=== PATIENT | female | born 1940 | race Caucasian/White ===

== ENCOUNTER → 2018-01-08 15:36 | Outpatient (CLI) | payer MEDICARE, OTHER, SELFPAY ==
--- NOTE | 2018-01-08 15:52 | XR_ITS ---
EXAM: XR lumbar spine min 4V HISTORY: Right-sided low back pain ITS.REASON: LOW BACK PAIN ORDERING PHYSICIAN: Tahmina Rajput MD PATIENT AGE: 77 years COMPARISON: None FINDINGS: No acute fracture or dislocation is evident. There is partial sacralization of L5. There is 5 mm anterolisthesis of L3 on L4 with mild degenerative disc disease at L3-L4 and L4-L5. Facet arthritic changes are also present in L3 and L4. There is minimal lower lumbar curvature convex right. Incidental vascular calcification is noted. IMPRESSION: Lumbar spondylosis with degenerative disc disease and facet arthritic change. No acute fracture
== END ==
PROVIDERS: PCP Family Medicine; Visit Provider Family Medicine
DX: M54.5 Low back pain (principal)
CPT/HCPCS: 72110

== ENCOUNTER → 2018-02-27 10:09 | Outpatient (CLI) | payer MEDICARE, OTHER, SELFPAY ==
--- NOTE | 2018-02-27 10:13 | MM_ITS ---
MM Dig screening mamm BI w/CAD CAD Screening ORDERING PHYSICIAN : Lelia Mata PATIENT AGE: 77 years GENDER: Female INDICATION: Does taking female hormones. Previous cyst aspiration left breast. Mother with breast cancer age 80s postmenopausal COMPARISON: Previous mammograms: 2016, December 2015,. Also July 2013 and September 2010 TECHNIQUE: Standard CC and MLO images were obtained. R2 CAD reviewed. Additional axillary cc view left breast FINDINGS: Moderate asymmetry along with breast density towards upper-outer quadrant bilaterally mild/moderate. A most evident fibroglandular elements towards upper-outer quadrant right breast. RIGHT BREAST:Asymmetric fibrolinear elements upper-outer quadrant left breast appears stable.. Stable dense benign-appearing calcifications deep right breast. These are most likely reflection of degenerative fibroadenoma LEFT BREAST:Minimal fibroglandular elements/densities upper outer quadrant left breast appears stable No significant new areas concern either breast. Bilateral follow-up one year IMPRESSION: No significant new findings. Stable mammogram Bilateral follow-up in one year recommended Stable areas of asymmetric density BI-RADS Category: 2 Benign Finding(s) RECOMMENDED FOLLOW-UP: 1YR - 1 YEAR FOLLOW-UP (A letter has been sent to the patient regarding results of the study.)
--- NOTE | 2018-02-27 10:14 | XR_ITS ---
XR hand RT min 3V HISTORY: ITS.REASON: RHEUMONATOID ARTHRITIS ORDERING PHYSICIAN: Lelia Mata PATIENT AGE: 77 years COMPARISON: FINDINGS: There are mild osteoarthritic changes involving the metacarpophalangeal joints, the PIPs, and the DIPs as well as interphalangeal joint of the thumb and osteoarthritic changes of the carpal metacarpal junction. No bony erosive changes apparent. No obvious soft tissue swelling. IMPRESSION: Osteoarthritis of the right hand
--- NOTE | 2018-02-27 10:14 | XR_ITS ---
XR DEXA axial skeleton HISTORY: ITS.REASON: OSTEOPENIA ORDERING PHYSICIAN: Lelia Mata PATIENT AGE: 77 years COMPARISON: FINDINGS: The BMD measured at the left femoral neck is 0.907 g/cm squared with a T score of -0.9. This is considered normal according to the World Health Organization criteria. Fracture risk is low. Treatment is advised. The L1 L4 density has a T score of 0.9 which is within normal limits. IMPRESSION: Normal bone density. Recommend follow-up exam February 2020
== END ==
PROVIDERS: PCP Family Medicine; Visit Provider Obstetrics & Gynecology
DX: Z12.31 Encounter for screening mammogram for malignant neoplasm of breast (principal); M85.89 Other specified disorders of bone density and structure, multiple sites
CPT/HCPCS: 73130; 77067; 77080

== ENCOUNTER → 2018-12-03 13:10 | Outpatient (CLI) | payer MEDICARE, OTHER, SELFPAY ==
--- NOTE | 2018-12-03 13:21 | XR_ITS ---
XR chest 2V HISTORY: ITS.REASON: COUGH,CONGESTION ORDERING PHYSICIAN: Tahmina Rajput MD PATIENT AGE: 78 years COMPARISON: 06/08/2013 FINDINGS: The cardiomediastinal silhouette and pulmonary vascularity are within normal limits. The lungs are clear without infiltrates, suspicious nodules, or pleural effusions. There are degenerative changes in the thoracic spine No acute bony abnormalities. IMPRESSION: No acute finding
== END ==
PROVIDERS: PCP Family Medicine; Visit Provider Family Medicine
DX: R05 Cough (principal); R09.89 Other specified symptoms and signs involving the circulatory and respiratory systems
CPT/HCPCS: 71046

== ENCOUNTER → 2019-01-23 15:43 | Outpatient (CLI) | payer MEDICARE, OTHER, SELFPAY ==
--- NOTE | 2019-01-23 15:48 | MM_ITS ---
MM Dig screening mamm BI w/CAD CAD Screening COMPARISON: Digital mammograms with CAD 02/27/2018 and 01/23/2017 INDICATION: There is a history of breast cancer patient's mother diagnosed after menopause. There has been a previous cyst aspiration left breast. TECHNIQUE: Standard CC and MLO images were obtained. R2 CAD reviewed. FINDINGS: Mild scattered fiber glandular densities are seen in both breast on a background of fatty type breast parenchyma. There are stable asymmetric glandular tissue of the upper outer quadrant right breast. There are scattered benign-appearing microcalcifications and macrocalcifications there is no suspicious lesion and there are no suspicious microcalcifications. In each breast. IMPRESSION: Stable exam with no suspicious lesion seen BI-RADS Category: 2 Benign Finding(s) RECOMMENDED FOLLOW-UP: 1YR - 1 YEAR FOLLOW-UP (A letter has been sent to the patient regarding results of the study.)
== END ==
PROVIDERS: PCP Family Medicine; Visit Provider Obstetrics & Gynecology
DX: Z12.31 Encounter for screening mammogram for malignant neoplasm of breast (principal)
CPT/HCPCS: 77067

== ENCOUNTER → 2019-03-06 12:11 | Outpatient (CLI) | payer MEDICARE, OTHER, SELFPAY ==
--- NOTE | 2019-03-06 12:17 | XR_ITS ---
XR chest 2V HISTORY: ITS.REASON: COUGH ORDERING PHYSICIAN: Taj Bean PATIENT AGE: 78 years Technique: PA and lateral chest COMPARISON: PA and lateral chest 12/03/2018 FINDINGS nothing definitely acute. No significant change since previous studies. Accentuation markings toward lung bases appears similar reflecting likely some mild chronic changes towards the bases along with overlying breast density.. No focal pneumonia. No consolidation. No pleural effusion. Heart is upper normal in size with borderline/mild cardiomegaly. Normal pulmonary vascularity. Mediastinal and hilar structures appear satisfactory. Narrowing at the subacromial space at the right shoulder likely reflecting underlying RCT. Ribs appear intact. Notable Anterior marginal osteophytes at the mid T-spine IMPRESSION. Stable chest with nothing definitely acute. Mild chronic changes. . Borderline/mild cardiomegaly.
== END ==
PROVIDERS: PCP Family Medicine; Visit Provider Allergy & Immunology
DX: R05 Cough (principal)
CPT/HCPCS: 71046

== ENCOUNTER → 2019-04-16 13:56 | Outpatient (CLI) | payer MEDICARE, OTHER, SELFPAY ==
[2019-04-16 14:55] LABS: Basophils % 0.2 % (0.1-2.0); Eosinophils # 0.2 K/mm3 (0.0-0.4); Eosinophils % 2.4 % (0.1-12.0); Hematocrit 40.8 % (37.0-47.0); Hemoglobin 13.4 g/dL (12.2-16.2); Lymphocytes # 1.9 K/mm3 (0.7-4.5); Lymphocytes % 20.4 % (10-50); Mean Corpuscular HGB Conc 32.9 g/dL (31.8-35.4); Mean Platelet Volume 7.2 fl (7.4-10.4); Monocytes # 0.7 K/mm3 (0.1-1.0); Monocytes % 7.8 % (1.7-9.3); Neutrophils # 6.4 K/mm3 (1.8-7.8); Neutrophils % 69.2 % (37.0-80.0); Platelet Count 538 K/mm3 (142-424); Red Blood Count 4.49 M/mm3 (4.20-5.40); Red Cell Distribution Width 13.3 % (11.5-17.5); White Blood Count 9.2 K/mm3 (4.8-10.8)
[2019-04-18 09:18] LABS: Immunoglobulin A, Qn 65 mg/dL (64-422); Immunoglobulin G, Qn 648 mg/dL (700-1600)
[2019-04-18 10:47] LABS: Immunoglobulin M, Qn 848 mg/dL (26-217); Vitamin D 25 Hydroxy 36.9 ng/mL (30.0-100.0)
[2019-04-22 18:15] LABS: Pneumo Ab Type 14* 3.1 ug/mL (>1.3); Pneumo Ab Type 23 (23F)* 0.5 ug/mL (>1.3); Pneumo Ab Type 26 (6B)* 0.7 ug/mL (>1.3); Pneumo Ab Type 4* <0.1 ug/mL (>1.3); Pneumo Ab Type 56 (18C)* 0.6 ug/mL (>1.3)
[2019-04-24 06:18] LABS: Tetanus Antitoxoid IgG Ab 0.89 IU/mL (<0.10)
[2019-04-24 06:22] LABS: Pneumo Ab Type 68 (9V)* <0.1 ug/mL (>1.3)
[2019-04-25 20:46] LABS: Immunoglobulin E, Total 3 IU/mL (6-495)
== END ==
PROVIDERS: Visit Provider Nurse Practitioner
DX: E55.9 Vitamin D deficiency, unspecified (principal); J45.50 Severe persistent asthma, uncomplicated
CPT/HCPCS: 36415; 82652; 82784; 82785; 85025; 86609; 86648; 86774

== ENCOUNTER → 2019-05-12 09:07 | Outpatient (CLI) | payer MEDICARE, OTHER, SELFPAY ==
--- NOTE | 2019-05-12 09:08 | CA_ITS ---
PROCEDURE: 2-D M-mode and color Doppler study INDICATIONS FOR THE TEST: Chest pain COPD Heart Murmur Tobacco Smoking Palpitations Fatigue Syncope Edema Hypertension+Diabetes Mellitus Rheumatic Fever SOB M[place] Obesity Hyperlipidemia+ Family History HD Additional History GERD PATIENT INFORMATION HEIGHT:66 WEIGHT:185 GENDER: Female B/P:128/71 2-D/M-MODE INTERPRETATION: 2-D MEASUREMENTS OBSERVED VALUES IN CMS Right Ventricular Dimension (RVDd) 2.3 Interventricular Septum (Thickness)(IVsd) 0.8 Left Ventricular Internal Dimensions(LVIDd) 4.9 Left Ventricular Posterior Wall (Thickness)(LVPWd) 1.3 Aortic Root 3.2 Aortic Cusp Separation 2.0 Left Atrial Dimensions (LAD) 4.1 2D 1. Left atrium is mildly enlarged, left ventricle is normal size, mild concentric left ventricular hypertrophy, visually estimated ejection fraction 55% with no regional wall motion abnormality. 2. The right atrium and right ventricle are normal size and contractility. 3. The aortic valve is thickened and calcified leaflet continue to display good mobility. 4. The mitral and tricuspid valve leaflets are minimally thickened. 5. The pulmonic valve is poorly visualized. 6. No significant pericardial effusion noted. DOPPLER INTERROGATION: Doppler interrogation of the aortic, mitral and tricuspid valvular presence of mild mitral and tricuspid regurgitation, tricuspid regurgitation jet velocity is inadequate for calculation of the right ventricular systolic pressure, grade 1 diastolic dysfunction seen with tissue Doppler evidence of raised left atrial pressure. Inferior vena cava is not well visualized. CONCLUSION: 1. Mildly enlarged left atrium, normal left ventricular size, mild concentric left ventricular hypertrophy, visually estimated ejection fraction 55% with no regional wall motion abnormality, grade 1 diastolic dysfunction seen with tissue Doppler evidence of raised left atrial pressure. 2. Thickened and calcified aortic valve without aortic stenosis aortic insufficiency. 3. Mild mitral and tricuspid regurgitation, tricuspid regurgitation jet velocity is inadequate for calculation of the right ventricular systolic pressure, inferior vena cava is not well visualized. 4. No significant pericardial effusion noted.
== END ==
PROVIDERS: PCP Family Medicine; Visit Provider Family Medicine
DX: I51.7 Cardiomegaly (principal)
CPT/HCPCS: 93306

== ENCOUNTER → 2019-08-14 10:31 | Outpatient (CLI) | payer MEDICARE, OTHER, SELFPAY ==
--- NOTE | 2019-08-14 10:43 | XR_ITS ---
PROCEDURE: XR SHOULDER RT MIN 2V CLINICAL INDICATION: RT SHOULDER INJURY after a fall COMPARISON: No exams were available for comparison FINDINGS: There is a high-riding humeral head and there is prominent spurring of the AC joint inferiorly and there is marked subacromial stenosis. This would appear to predispose to significant impingement syndrome. The humeral head and neck appear intact with no evidence of recent or old fracture. There are no soft tissue calcifications. IMPRESSION: Prominent degenerate changes of the AC joint and glenohumeral joint appearing to predispose to significant impingement syndrome Dictated by: Dr. Richard Krishnamurthy MD 08/14/2019 11:[address] Richard Krishnamurthy MD in [place] 08/14/2019 11:16
== END ==
PROVIDERS: PCP Family Medicine; Visit Provider Family Medicine
DX: S49.91XA Unspecified injury of right shoulder and upper arm, initial encounter (principal)
CPT/HCPCS: 73030

== ENCOUNTER → 2020-05-11 10:54 | Outpatient (CLI) | payer MEDICARE, OTHER, SELFPAY ==
--- NOTE | 2020-05-11 10:59 | MM_ITS ---
PROCEDURE: MM DIG SCREENING MAMM BI W/CAD Digital Breast Tomosynthesis Included CLINICAL INDICATION: SCREENING There is a history of breast cancer in the patient's mother diagnosed after menopause. There has been a previous cyst aspiration left breast with benign findings. COMPARISON: [facility] DIG MAMM-SCREEN TIFFANIE W/CAD from 01/23/2017 [facility] MM Dig screening mamm BI w/CAD from 02/27/2018 [facility] MM Dig screening mamm BI w/CAD from 01/23/2019 TECHNIQUE: Standard CC and MLO images and 3D Tomosynthesis was obtained. R2 CAD reviewed. FINDINGS: Moderate scattered fibroglandular densities are seen throughout both breasts. There are stable benign-appearing micro and macrocalcifications in each breast. There is stable asymmetric glandular elements upper-outer quadrant right breast. There is a stable benign-appearing nodular density is seen just deep to the nipple left breast. There is no suspicious lesion and no suspicious microcalcifications. IMPRESSION: Fibrofatty parenchyma with no suspicious lesions seen BI-RAD Category: 2 Benign Finding(s) FOLLOW-UP: 1YR 1 Year Follow-up (A letter has been sent to the patient regarding results of the study.) Dictated by: Dr. Richard Krishnamurthy MD 05/13/2020 11:[address] Richard Krishnamurthy MD in [place] 05/13/2020 11:08
== END ==
PROVIDERS: PCP Family Medicine; Visit Provider Obstetrics & Gynecology
DX: Z12.31 Encounter for screening mammogram for malignant neoplasm of breast (principal)
CPT/HCPCS: 77063; 77067

== ENCOUNTER → 2020-08-18 08:45 | Outpatient (CLI) | payer MEDICARE, OTHER, SELFPAY ==
[2020-08-18 11:35] LABS: Coronavirus 19 IgG Antibody Negative (Negative); Coronavirus 19 IgM Antibody Negative (Negative)
== END ==
PROVIDERS: Visit Provider Internal Medicine Gastroenterology
DX: Z01.89 Encounter for other specified special examinations (principal); Z12.11 Encounter for screening for malignant neoplasm of colon
CPT/HCPCS: 36415; 86328

== ENCOUNTER 2020-08-19 09:36 | Day surgery (SDC) | payer MEDICARE, OTHER, SELFPAY ==
[2020-08-15 12:13] VITALS: BMI 30.7
[2020-08-19] VITALS (7 sets, daily range): BP systolic 97–142; BP diastolic 47–76; PULSE 58–86; RESP 14–18; TEMP 36.6–36.9; O2SAT 96–100
--- NOTE | 2020-08-19 11:51 | HMH.ANESCL ---
[facility] Anesthesia Checklist - Patient Identification Patient Identification: Arm Band, Verbal (Name & ) - Structural Data Admitted From: Home Planned Operative Procedure/s: Colonoscopy Consent for Planned Operative Procedure(s) Verified: Yes Verified Documents: Surgical Consent, History and Physical - NPO Status Verified Time NPO: 00:00 - Chart Verification Results Verified: None - Additional verifications Anesthesia Reactions: No - Airway Assessment C-Spine Mobility Assessed: Yes TMJ Mobility Assessed: Yes Dentition: Good Dentition - Neurological Assessment Level of Consciousness: Awake, Alert, Appropriate, Follows Commands Hx Seizures: No Numbness or tingling in extremities: No - Anesthesia Plan Anesthesia Risk discussed: Yes Anesthesia Plan: Verified ASA Class: II Anesthesia Type: MAC [facility] History I have reviewed the patient's past medical history: Yes Medical History: Reports:: Anxiety, Depression, Gastroesophageal Reflux Disease(GERD), Hyperlipidemia, Hypertension Denies:: Cancer, Diabetes Mellitus Type 1, Diabetes Mellitus Type 2, Internal Pacemaker, MRSA, Seizures *Have you ever received a pneumonia vaccine?: Yes *Have you received a flu vaccine this season?: Yes Other Medical History: Reports: Hypothyroidism Anesthesia experience/problems:: None Other Surgeries: Yes: Cholecystectomy, Colonoscopy, Hysterectomy-Partial. No: Pacemaker Amputation: No Fractures: No - *Social History Last grade of school completed: High school graduate Smoking Status: Never smoker Alcohol Intake: never Substance Use Type: denies use *Occupational Status:: retired *Travel in the last 8 weeks: None - Psychiatric History Pschychiatric History:: Reports:: Anxiety Family Hx:: Unable to obtain
--- NOTE | 2020-08-19 12:05 | P.PCN_ITS ---
[facility] Procedure Note Procedure Note:: Colonoscopy Procedure Report: Colonoscopy with cold snare polypectomy Endoscopist: Korey Car II, MD Referring physician: Low Rajput MD Date of Procedure: August 19, 2020 Equipment: Olympus 180 variable stiffness pediatric colonoscope Sedation: MAC sedation Indication: Mrs. Roberto is a 79-year-old female who is here for follow-up screening/surveillance colonoscopy. She had a colonoscopy and February 2011 and had 5 polyps (tubular adenomas x3/hyperplastic polyps x2) removed. The patient had a repeat colonoscopy in December 2016 and had 5 polyps (tubular adenomas x5) removed. The patient is doing well and reports no abdominal pain, weight loss, change in her bowel habits or rectal bleeding. She reports that her maternal uncle had colon cancer. Procedure: Prior to the procedure, a history and physical exam was performed, and patient's medications and allergies were reviewed. The risks, benefits and alternatives of the sedation and procedure were discussed with the patient. All questions were answered and informed consent was obtained. The patient was brought to the procedure room. Patient identification and proposed procedure were verified by the physician and the nurse. The patient was placed in a left lateral decubitus position and the scope was passed under direct vision. Throughout the procedure, the patient's blood pressure, pulse, and oxygen saturations were monitored continuously. The colonoscopy was accomplished without difficulty. The patient tolerated the procedure well. Findings: On digital rectal examination there was normal rectal tone. There were no external hemorrhoids. The colonoscope was introduced through the anal canal to the rectum and advanced to the cecum. The ileocecal valve and appendiceal orifice were identified. The scope was advanced a short distance into the ileum which appeared grossly normal. The scope was then withdrawn into the colon. The cecum and ascending colon were normal. There was a 9 to 10 mm serrated polyp in the transverse colon removed via cold snare polypectomy. There were scattered diverticuli throughout the descending and sigmoid colon (LEFT colon). The rectum itself was normal. Upon retroflexion within the rectum there were grade 1 internal hemorrhoids. The preparation was excellent throughout with [place] Preparation Score of 9. The cecal time was 12 minutes. Impression: 1. Transverse colon polyp (9 to 10 mm) 2. Extensive left-sided diverticulosis 3. Grade 1 internal hemorrhoids Plan: I will follow-up the polyp histology. I am not convinced that she will require any further preventive/screening colonoscopy. I will discuss the findings with patient and family.
== END 2020-08-19 12:55 | disposition home or self-care (01) ==
LOC: OUTP 09:38
PROVIDERS: PCP Family Medicine; Visit Provider Internal Medicine Gastroenterology
PROC: 0DJD8ZZ Inspection of Lower Intestinal Tract, Via Natural or Artificial Opening Endoscopic (ICD-10-PCS; CPT 45378; principal; 2020-08-19 11:00)
DX: Z12.11 Encounter for screening for malignant neoplasm of colon (principal); Z86.010 Personal history of colon polyps; Z87.19 Personal history of other diseases of the digestive system; K63.5 Polyp of colon; K57.30 Diverticulosis of large intestine without perforation or abscess without bleeding; K64.0 First degree hemorrhoids; K21.9 Gastro-esophageal reflux disease without esophagitis; I10 Essential (primary) hypertension; E78.5 Hyperlipidemia, unspecified; F41.9 Anxiety disorder, unspecified; F32.9 Major depressive disorder, single episode, unspecified; E03.9 Hypothyroidism, unspecified
CPT/HCPCS: 45385; 88305

== ENCOUNTER 2020-09-24 16:57 | Emergency (ER) | payer MEDICARE, OTHER, SELFPAY ==
[2020-09-24 17:04] VITALS: BP 187/79; PULSE 87; RESP 16; TEMP 36.6; O2SAT 96; BMI 30.7
--- NOTE | 2020-09-24 17:30 | XR_ITS ---
PROCEDURE: XR KNEE LT 3V CLINICAL INDICATION: fall Pain following injury COMPARISON: No exams were available for comparison FINDINGS: No fracture or dislocation. No lytic or blastic change. There is normal mineralization. There are moderate to severe osteoarthritic changes involving all 3 compartments greater at the medial compartment and patellofemoral joint Other findings:None. IMPRESSION: Osteoarthritis, no acute fracture Dictated by: Demetrius Amor MD 09/24/2020 23:26 Demetrius Amor MD in [place] 09/24/2020 23:26
--- NOTE | 2020-09-24 17:30 | XR_ITS ---
PROCEDURE: XR SHOULDER RT MIN 2V CLINICAL INDICATION: fall Pain following injury COMPARISON: CR XR SHOULDER RT MIN 2V from 08/14/2019 FINDINGS: There are severe osteoarthritic changes of the AC joint and glenohumeral joint with superior location of the humeral head with severe subacromial stenosis consistent with rotator cuff tear. Calcification is present along the inferior aspect of the glenohumeral consistent with a loose body IMPRESSION: Osteoarthritis with severe subacromial stenosis and loose body in the infra glenoid region, no acute fracture Dictated by: Demetrius Amor MD 09/24/2020 23:27 Demetrius Amor MD in [place] 09/24/2020 23:27
--- NOTE | 2020-09-24 17:30 | XR_ITS ---
PROCEDURE: XR WRIST RT MIN 3V CLINICAL INDICATION: fall Posttraumatic pain COMPARISON: No exams were available for comparison FINDINGS: There are mild osteoarthritic changes at the 1st metacarpal-carpal joint. A faint lucency is noted at the distal radius possibly due to an epiphyseal remnant at the base of the styloid process. Please correlate as the patient's area of pain and tenderness. A small calcific density is present along the anterior aspect of the radiocarpal joint and there is mild hypertrophy along the dorsal aspect of the triquetrum. IMPRESSION: Degenerative changes, no definite acute finding. Dictated by: Demetrius Amor MD 09/24/2020 22:54 Demetrius Amor MD in [place] 09/24/2020 22:54
[2020-09-24 17:40] VITALS: BP 106/58; PULSE 84; RESP 17; TEMP 36.7; O2SAT 97; BMI 30.7
--- NOTE | 2020-09-24 17:45 | HMH.EDUTC ---
[facility] [place] Disposition Clinical Impression: Right shoulder injury Qualifiers: Encounter type: initial encounter Qualified Code(s): S49.91XA - Unspecified injury of right shoulder and upper arm, initial encounter Right wrist injury Qualifiers: Encounter type: initial encounter Qualified Code(s): S69.91XA - Unspecified injury of right wrist, hand and finger(s), initial encounter Left knee pain Qualifiers: Chronicity: acute Qualified Code(s): M25.562 - Pain in left knee Disposition: Home, Self-Care Condition on Discharge: Good Instructions: DI for Shoulder Pain Additional Instructions: Follow up with Dr Rajput if not improving Referrals: Tahmina Rajput MD [Primary Care Provider] - Time of Disposition: 18:37 Medical Decision Making - Sanjay Inquiry Pt receiving controlled substance: No Vital Signs: 09/24/20 17:04 09/24/20 17:40 09/24/20 17:48 Temperature 97.9 F 98.1 F 17 F L Temperature Source Oral Oral Pulse Rate 84 Pulse Rate [Left Radial] 87 84 Respiratory Rate 16 17 19 Blood Pressure 106/58 L Blood Pressure [Left Arm] 187/79 H 106/58 L Blood Pressure Mean [Left Arm] 115 74 Blood Pressure Source [Left Arm] Automatic Cuff Automatic Cuff Blood Pressure Position [Left Arm] Sitting Sitting 02 Sat by Pulse Oximetry 96 97 Oxygen Delivery Method Room Air Room Air Room Air Orders (Tests/Meds): ED MEDICATIONS Discontinued Medications Generic Name Dose Route Start Last Admin Trade Name Freq PRN Reason Stop Dose Admin Ketorolac Tromethamine 60 mg 09/24/20 18:41 Ketorolac 60mg/2ml Vial IM 09/24/20 18:42 ONCE ONE ORDERS Category Date Time Status XR knee LT 3V Stat Exams 09/24/20 17:30 Taken XR shoulder RT min 2V Stat Exams 09/24/20 17:30 Taken XR wrist RT min 3V Stat Exams 09/24/20 17:30 Taken - Radiology Data #1 Image(s): Wrist Image Reviewed: Yes I reviewed the patient's radiology image Preliminary Findings: No Fracture Seen #2 Image(s): Shoulder Image Reviewed: Yes I reviewed the patient's radiology image Preliminary Findings: No Fracture Seen #3 Image(s): Knee Image Reviewed: Yes I reviewed the patient's radiology image Preliminary Findings: No Fracture Seen [facility] [place] HPI - General Stated complaint: AO 1107 fell injured R Should,wrist,knee Time Seen by Provider: 09/24/20 17:45 Mode of Arrival: Ambulatory Source of Information: Patient Limitations: No Limitations Description of Symptoms (Recalled from Triage Doc. by RN): Right shoulder, wrist and left knee pain from fall. HEENT Symptoms (Recalled from RN notes): No Resp Symptoms (Recalled from RN notes): No Skin Symptoms (Recalled from RN notes): No MS Symptoms (Recalled from RN notes): Yes Functional Status (Recalled from RN notes): stable - History of Present Illness Provider Complaint: Patient was getting pack of water from backseat when packaging tore and she tried to catch them. Struck her right shoulder against the car door, fell on her left knee on the ground, and struck her right wrist on the ground as she fell. She did not hit her head or have LOC. No dizziness, etc preceding the fall. Onset (ago): hour(s) (2) Location: right, upper extremity Relieving factors: none Exacerbating factors: none Associated symptoms: denies other symptoms Treatments prior to arrival: none - Related Data Home Medications Medication Instructions Recorded Confirmed alprazolam 0.5 mg tablet 0.5 mg PO BID 12/30/18 08/15/20 budesonide-formoterol HFA 80 2 puff INHALATION BID 12/30/18 08/15/20 mcg-4.5 mcg/actuation aerosol inhaler escitalopram oxalate 10 mg tablet 10 mg PO DAILY 12/30/18 08/15/20 levothyroxine 13 mcg capsule 13 mcg PO DAILY 12/30/18 08/15/20 losartan 25 mg tablet 50 mg PO DAILY tab 12/30/18 08/19/20 montelukast 10 mg tablet 10 mg PO QPM 12/30/18 08/15/20 omeprazole 40 mg capsule,delayed 40 mg PO DAILY 12/30/18 08/15/20 release Ascorbic Acid [Vitamin C] 1,000 mg PO D
[2020-09-24 17:48] VITALS: BP 106/58; PULSE 84; RESP 19; TEMP -8.3; TEMP 17; O2SAT 97
== END 2020-09-24 19:14 | disposition home or self-care (01) ==
PROVIDERS: Emergency Provider Physician Assistant; PCP Family Medicine
DX: S49.91XA Unspecified injury of right shoulder and upper arm, initial encounter (principal); S69.91XA Unspecified injury of right wrist, hand and finger(s), initial encounter; W22.8XXA Striking against or struck by other objects, initial encounter; Y92.89 Other specified places as the place of occurrence of the external cause; Z88.2 Allergy status to sulfonamides; E03.9 Hypothyroidism, unspecified
CPT/HCPCS: G0463; 73030; 73110; 73562; 96372; 99202

== ENCOUNTER → 2020-11-07 10:25 | Outpatient (CLI) | payer MEDICARE, OTHER, SELFPAY ==
[2020-11-07 12:17] LABS: Basophils % 0.6 % (0.1-2.0); Eosinophils # 0.2 K/mm3 (0.0-0.4); Eosinophils % 2.8 % (0.1-12.0); Hematocrit 39.1 % (37.0-47.0); Hemoglobin 12.4 g/dL (12.2-16.2); Lymphocytes # 1.8 K/mm3 (0.7-4.5); Lymphocytes % 22.7 % (10-50); Mean Corpuscular HGB Conc 31.7 g/dL (31.8-35.4); Mean Corpuscular Hemoglobin 29.9 pg (27.0-31.2); Mean Corpuscular Volume 94.2 fl (81-99); Mean Platelet Volume 7.8 fl (7.4-10.4); Monocytes # 0.8 K/mm3 (0.1-1.0); Monocytes % 9.9 % (1.7-9.3); Neutrophils % 64.1 % (37.0-80.0); Platelet Count 376 K/mm3 (142-424); Red Blood Count 4.15 M/mm3 (4.20-5.40); Red Cell Distribution Width 13.3 % (11.5-17.5); White Blood Count 7.7 K/mm3 (4.8-10.8)
[2020-11-08 11:13] LABS: Covid-19 Nasal PCR Sendout P&C POSITIVE
== END ==
PROVIDERS: PCP Family Medicine; Visit Provider Nurse Practitioner
DX: Z20.828 Contact with and (suspected) exposure to other viral communicable diseases (principal); U07.1 COVID-19; R05 Cough
CPT/HCPCS: 36415; 85025; U0004

== ENCOUNTER 2020-11-09 15:25 | Emergency (ER) | payer MEDICARE, OTHER, SELFPAY ==
[2020-11-09 15:26] VITALS: BP 166/80; PULSE 71; RESP 20; TEMP 36.8; O2SAT 97; BMI 30.2
--- NOTE | 2020-11-09 15:41 | XR_ITS ---
PROCEDURE: XR CHEST PORTABLE CLINICAL HISTORY: sob Shortness of air COMPARISON: CR CXR CHEST(2 VIEWS-NOT PORTABLE) from 06/08/2013 CR CXR2V XR chest 2V from 12/03/2018 DX CXR2V XR chest 2V from 03/06/2019 FINDINGS: Cardiomegaly without CHF. Patchy areas of infiltrate are present in both mid and lower lung zones consistent with pneumonia. This could be related to Covid19 pneumonia. No effusions. The lung apices are clear. Degenerative changes of the shoulders IMPRESSION: Cardiomegaly. Bilateral patchy airspace disease suspicious for Covid19 pneumonia or atypical pneumonia Dictated by: Demetrius Amor MD 11/09/2020 16:09 Demetrius Amor MD in [place] 11/09/2020 16:09
--- NOTE | 2020-11-09 15:49 | HMH.EDGENADL ---
ED Disposition Clinical Impression: COVID-19, Pneumonia due to 2019-nCoV Disposition: Home, Self-Care Condition on Discharge: Good Additional Instructions: Follow-up with PCP. Take azithromycin as prescribed for the next 5 days. Advised to return emergency department if shortness of air continues to worsen despite treatment with albuterol and steroids. Prescriptions: Azithromycin [Z-Daniel 250mg Tab] 250 mg PO DIRECTED #6 tab Transmission Status: Pending to [id number] Referrals: Tahmina Rajput MD [Primary Care Provider] - - Critical Care Critical Care Time: No Attestation: On 11/09/20, the high probability of a clinically significant, sudden or life threatening deterioration of the following system(s) required my full and direct attention, intervention and personal management. The time I documented below is in addition to time spent performing reported procedures but includes the following listed in this critical care notation. Medical Decision Making - Medical Records Medical records reviewed: Yes: I reviewed the patient's medical records. - Sanjay Inquiry Pt receiving controlled substance: No Vital Signs: 11/09/20 15:26 11/09/20 16:44 Temperature 98.3 F Temperature Source Oral Pulse Rate [Radial] 71 64 Respiratory Rate 20 20 Blood Pressure [Right Arm] 166/80 H 163/88 H Blood Pressure Mean [Right Arm] 108 113 Blood Pressure Source [Right Arm] Automatic Cuff Blood Pressure Position [Right Arm] Sitting Sitting 02 Sat by Pulse Oximetry 97 96 Oxygen Delivery Method Room Air - Lab Data Lab Results 11/09/20 16:00: WBC 11.0 H D, RBC 4.29, Hgb 12.7, Hct 40.1, MCV 93.5, MCH 29.6, MCHC 31.7 L, RDW 13.4, Plt Count 464 H, MPV 7.6, Neut % (Auto) 81.0 H, Lymph % (Auto) 11.8, [place] % (Auto) 6.8, Eos % (Auto) 0.1, Baso % (Auto) 0.2, Neut # (Auto) 8.9 H, Lymph # (Auto) 1.3, [place] # (Auto) 0.8, Eos # (Auto) 0.0, Baso # (Auto) 0.0 11/09/20 16:00: Sodium 137, Potassium 4.3, Chloride 103, Carbon Dioxide 29, Anion Gap 9.3, BUN 14, Creatinine 0.60, Estimated Creat Clear 60, Estimated GFR 97, Est GFR ( Amer) 117, Glucose 115 H, Calcium 9.2, Troponin I 0.02 11/09/20 16:00: Lactate 1.4 Result diagrams: 11/09/20 16:00 11/09/20 16:00 Orders (Tests/Meds): ORDERS Category Date Time Status Troponin I Q3H Lab 11/09/20 18:45 Ordered Troponin I Q3H Lab 11/09/20 21:45 Ordered Medical Decision Narrative: 79-year-old female comes in the emergency department for evaluation of shortness of air. Hemodynamically stable nontoxic appearance upon arrival. Patient maintaining oxygen saturations greater than 95% on room air. Tested positive for COVID-19 on Saturday and is currently on intermittent albuterol inhalers along with Medrol Dosepak. Differential diagnosis includes was not limited to worsening COVID-19 infection, pneumonia, myocardial infarction, pneumothorax, and less likely PE. Labs obtained including CBC, BMP, troponin profile, lactate. Chest x-ray obtained, which was personally reviewed and shows evidence of bilateral patchy opacifications concerning for COVID-19 pneumonia versus atypical pneumonia. EKG obtained immediately upon arrival which was negative for ST elevation, ST depression, or T wave inversions concerning for ACS at this time with normal sinus rhythm. Throughout stay in emergency department patient maintained oxygen saturations greater than 95% without need for supplemental oxygenation. Provided patient with prescription for azithromycin for treatment of atypical pneumonia . advised on strict return precautions and continued outpatient follow-up with PCP. Patient voiced understanding is agreeable plan and safe for discharge at this time. General Adult HPI - General Chief complaint: Shortness of Breath/Dyspnea Stated complaint: Patient has COVID, having SOB Time Seen by Provider: 11/09/20 15:30 Mode of Arrival: Ambulatory Source of Information: Patient Limitations: No [place]
--- NOTE | 2020-11-09 15:50 | ECG_ITS ---
APPROVED REPORT Exam: Resting ECG HR:63 bpm ECG Measurements Heart Rate 63 AXES IA 156 P 48 QRSd 90 QRS 22 QT 408 T 34 QTc 417 Conclusion Normal sinus rhythm Left atrial abnormality Borderline ECG Electronically signed by : Sy Odonnell, 11/10/2020 14:27:52
[2020-11-09 16:22] LABS: Basophils % 0.2 % (0.1-2.0); Eosinophils % 0.1 % (0.1-12.0); Hematocrit 40.1 % (37.0-47.0); Hemoglobin 12.7 g/dL (12.2-16.2); Lymphocytes # 1.3 K/mm3 (0.7-4.5); Lymphocytes % 11.8 % (10-50); Mean Corpuscular HGB Conc 31.7 g/dL (31.8-35.4); Mean Corpuscular Hemoglobin 29.6 pg (27.0-31.2); Mean Corpuscular Volume 93.5 fl (81-99); Mean Platelet Volume 7.6 fl (7.4-10.4); Monocytes # 0.8 K/mm3 (0.1-1.0); Monocytes % 6.8 % (1.7-9.3); Neutrophils # 8.9 K/mm3 (1.8-7.8); Platelet Count 464 K/mm3 (142-424); Red Blood Count 4.29 M/mm3 (4.20-5.40); Red Cell Distribution Width 13.4 % (11.5-17.5)
[2020-11-09 16:30] LABS: Chloride 103 mmol/L (98-107); Lactic Acid 1.4 mmol/L (0.7-2.1); Potassium 4.3 mmoL/L (3.5-5.1); Sodium 137 mmol/L (136-145)
[2020-11-09 16:33] LABS: Anion Gap 9.3 mEq/L (5-15); Blood Urea Nitrogen 14 mg/dl (7-17); Calcium 9.2 mg/dl (8.4-10.2); Carbon Dioxide 29 mmol/L (22.0-30.0); Creatinine Clearance Estimated 60 mL/min (50-200); Estimated Glomerular Filt Rate 97 ml/min (>60); GFR (African American) 117 ML/MIN (>60); Glucose 115 mg/dl (74-100)
[2020-11-09 16:44] VITALS: BP 163/88; PULSE 64; RESP 20; O2SAT 96
[2020-11-09 16:45] LABS: Troponin I 0.02 ng/ml (0.00-0.034)
[2020-11-09 17:22] VITALS: BP 135/68; PULSE 78; RESP 20; TEMP 36.6; O2SAT 98
== END 2020-11-09 17:24 | disposition home or self-care (01) ==
PROVIDERS: Emergency Provider Emergency Medicine; PCP Family Medicine
DX: J12.81 Pneumonia due to SARS-associated coronavirus (principal); E03.9 Hypothyroidism, unspecified; E78.5 Hyperlipidemia, unspecified; I10 Essential (primary) hypertension; F41.8 Other specified anxiety disorders; K21.9 Gastro-esophageal reflux disease without esophagitis; Z88.2 Allergy status to sulfonamides; Z79.899 Other long term (current) drug therapy
CPT/HCPCS: 71045; 80048; 83605; 84484; 85025; 93005; 99283

== ENCOUNTER 2020-11-13 08:52 | Inpatient (IN) | payer MEDICARE, OTHER, SELFPAY ==
[2020-11-13] VITALS (15 sets, daily range): BP systolic 104–135; BP diastolic 48–67; PULSE 81–96; RESP 18–22; TEMP 35.9–37.4; O2SAT 89–95; BMI 30.2; BMI 28.6
--- NOTE | 2020-11-13 09:07 | XR_ITS ---
PROCEDURE: XR CHEST PORTABLE Referring Doctor: Pollo Harrison Patient Age:79Y CLINICAL HISTORY: Soa covid pneumonia COMPARISON: No 11/09/2020 CXR FINDINGS: AP portable upright chest performed today and compared to 11/09/2020 Patchy infiltrates have bilaterally but these have progressed of somewhat particularly here throughout the right chest; patchy infiltrate seen at the right suprahilar region and right mid lung as well as right lung base. Left lung-subtle low-density patchy infiltrate at the periphery of the left mid lung again noted. Also suggestion of subtle progression of interstitial markings at the left mid lung and left base but some of this accentuation markings due to less optimal inspiration which crowds markings. There is borderline cardiomegaly heart upper normal in size tortuous aorta. No pleural effusion. No pneumothorax; IMPRESSION: Patchy bilateral airspace disease again evident, with slight progression findings.: Right chest-patchy areas of infiltrate have shown slight progression throughout the Right Chest... Left chest-subtle patchy peripheral area of infiltrate appears similar, but now with additional subtle accentuated interstitial markings left mid lung as well. Borderline/mild cardiomegaly; upper normal pulmonary vascularity Dictated by: Connor Guevara MD 11/13/2020 22:24 Connor Guevara MD in [place] 11/13/2020 22:24
--- NOTE | 2020-11-13 09:10 | HMH.EDGENADL ---
ED Disposition Clinical Impression: COVID-19 with pulmonary comorbidity, Hypoxia Disposition: Admitted As Inpatient Condition on Discharge: Fair Referrals: PCP,No [Non-Staff] - - Critical Care Critical Care Time: No Attestation: On 11/13/20, the high probability of a clinically significant, sudden or life threatening deterioration of the following system(s) required my full and direct attention, intervention and personal management. The time I documented below is in addition to time spent performing reported procedures but includes the following listed in this critical care notation. Medical Decision Making - Medical Records Medical records reviewed: Yes: I reviewed the patient's medical records. - Sanjay Inquiry Pt receiving controlled substance: No Vital Signs: 11/13/20 08:52 11/13/20 09:11 11/13/20 09:28 Temperature 98.3 F Temperature Source Oral Pulse Rate [Left Radial] 96 H 91 H Respiratory Rate 20 Blood Pressure [Right Arm] 125/60 121/56 L Blood Pressure Mean [Right Arm] 81 77 Blood Pressure Source [Right Arm] Automatic Cuff Automatic Cuff Blood Pressure Position [Right Arm] Sitting Sitting 02 Sat by Pulse Oximetry 94 L 94 L 89 L Oxygen Delivery Method Room Air Nasal Cannula Room Air Oxygen Flow Rate (LPM) 2 11/13/20 09:29 11/13/20 09:49 Temperature Temperature Source Pulse Rate [Left Radial] 92 H Respiratory Rate Blood Pressure [Right Arm] 119/57 L Blood Pressure Mean [Right Arm] 77 Blood Pressure Source [Right Arm] Automatic Cuff Blood Pressure Position [Right Arm] Sitting 02 Sat by Pulse Oximetry 94 L 95 Oxygen Delivery Method Nasal Cannula Nasal Cannula Oxygen Flow Rate (LPM) 2 2 - Lab Data Lab Results 11/13/20 09:10: WBC 10.3, RBC 4.18 L, Hgb 12.2, Hct 37.8, MCV 90.4, MCH 29.2, MCHC 32.3, RDW 13.3, Plt Count 546 H, MPV 7.7, Neut % (Auto) 82.6 H, Lymph % (Auto) 10.6, [place] % (Auto) 5.7, Eos % (Auto) 0.8, Baso % (Auto) 0.3, Neut # (Auto) 8.5 H, Lymph # (Auto) 1.1, [place] # (Auto) 0.6, Eos # (Auto) 0.1, Baso # (Auto) 0.0 11/13/20 09:10: Sodium 135 L, Potassium 4.1, Chloride 100, Carbon Dioxide 30, Anion Gap 9.1, BUN 20 H, Creatinine 0.60, Estimated Creat Clear 60, Estimated GFR 97, Est GFR ( Amer) 117, Glucose 116 H, Calcium 9.1, Total Bilirubin 0.4, AST 25, ALT 19, Alkaline Phosphatase 79, Total Protein 6.5, Albumin 3.5, Globulin 3.0, Albumin/Globulin Ratio 1.2 11/13/20 09:10: Lactate 0.9 Result diagrams: 11/13/20 09:10 11/13/20 09:10 Orders (Tests/Meds): ED MEDICATIONS Generic Name Dose Route Start Last Admin Trade Name Freq PRN Reason Stop Dose Admin Acetaminophen 650 mg 11/13/20 10:27 Acetaminophen 325mg Tab PO 12/13/20 10:26 Q6HP PRN Mild pain,fever,headache Ascorbic Acid 500 mg 11/13/20 13:00 Ascorbic Acid 500mg Tab PO 12/13/20 12:59 QID ELIZABETH Dexamethasone 6 mg 11/13/20 12:00 Dexamethasone 4mg Tablet PO 12/13/20 11:59 DAILY [facility] Enoxaparin Sodium 40 mg 11/14/20 09:00 Enoxaparin 40mg/0.4ml Syringe SQ 12/14/20 08:59 DAILY ELIZABETH Ergocalciferol 50,000 unit 11/13/20 10:30 Ergocalciferol 50,000 Units (1.25mg) Capsule PO 12/13/20 10:29 WEEKLY ELIZABETH Famotidine 20 mg 11/13/20 21:00 Famotidine 20mg Tablet PO 12/13/20 20:59 BID ELIZABETH Sodium Chloride 500 mls @ 100 mls/hr 11/13/20 10:30 Sod Chlor 0.9% 1000ml Bag IV 12/13/20 10:29 .Q5H ELIZABETH Zinc Sulfate 220 mg 11/13/20 10:30 Zinc Sulfate 220mg Capsule PO 12/13/20 10:29 DAILY ELIZABETH Discontinued Medications Generic Name Dose Route Start Last Admin Trade Name Freq PRN Reason Stop Dose Admin Albuterol/Ipratropium 2 puff 11/13/20 09:43 Combivent 20mcg/100mcg Respimat Inhaler IH 11/13/20 09:44 ONCE ONE Levofloxacin 750 mg 11/13/20 10:44 Levofloxacin 750 Mg Tablet PO 11/13/20 10:45 ONCE ONE Protocol Miscellaneous 1 unit 11/13/20 09:43 Aerochamber/Optihaler MC 11/13/20 09:44
--- NOTE | 2020-11-13 09:12 | ECG_ITS ---
APPROVED REPORT Exam: Resting ECG HR:88 bpm ECG Measurements Heart Rate 88 AXES AK 160 P 43 QRSd 82 QRS 10 QT 356 T 35 QTc 430 Conclusion Normal sinus rhythm Normal ECG Electronically signed by : Sy Odonnell, 11/13/2020 20:59:26
[2020-11-13 09:23] LABS: Basophils % 0.3 % (0.1-2.0); Eosinophils # 0.1 K/mm3 (0.0-0.4); Eosinophils % 0.8 % (0.1-12.0); Hematocrit 37.8 % (37.0-47.0); Hemoglobin 12.2 g/dL (12.2-16.2); Lymphocytes # 1.1 K/mm3 (0.7-4.5); Lymphocytes % 10.6 % (10-50); Mean Corpuscular HGB Conc 32.3 g/dL (31.8-35.4); Mean Corpuscular Hemoglobin 29.2 pg (27.0-31.2); Mean Corpuscular Volume 90.4 fl (81-99); Mean Platelet Volume 7.7 fl (7.4-10.4); Monocytes # 0.6 K/mm3 (0.1-1.0); Monocytes % 5.7 % (1.7-9.3); Neutrophils # 8.5 K/mm3 (1.8-7.8); Neutrophils % 82.6 % (37.0-80.0); Platelet Count 546 K/mm3 (142-424); Red Blood Count 4.18 M/mm3 (4.20-5.40); Red Cell Distribution Width 13.3 % (11.5-17.5); White Blood Count 10.3 K/mm3 (4.8-10.8)
[2020-11-13 09:29] LABS: Chloride 100 mmol/L (98-107); Potassium 4.1 mmoL/L (3.5-5.1); Sodium 135 mmol/L (136-145)
[2020-11-13 09:31] LABS: Alanine Aminotransferase 19 U/L (12-78); Aspartate Amino Transferase 25 U/L (14-36); Blood Urea Nitrogen 20 mg/dl (7-17); Creatinine Clearance Estimated 60 mL/min (50-200); Estimated Glomerular Filt Rate 97 ml/min (>60); GFR (African American) 117 ML/MIN (>60)
[2020-11-13 09:32] LABS: Albumin Level 3.5 g/dl (3.5-5.0); Albumin/Globulin Ratio 1.2 (1.1-1.8); Alkaline Phosphatase 79 U/L (38-126); Anion Gap 9.1 mEq/L (5-15); Bilirubin,Total 0.4 mg/dl (0.2-1.3); Calcium 9.1 mg/dl (8.4-10.2); Carbon Dioxide 30 mmol/L (22.0-30.0); Glucose 116 mg/dl (74-100); Total Protein,Serum 6.5 g/dl (6.3-8.2)
[2020-11-13 09:33] LABS: Lactic Acid 0.9 mmol/L (0.7-2.1)
--- NOTE | 2020-11-13 10:34 | PC.NURSE ---
dr clarence alba
--- NOTE | 2020-11-13 10:42 | PC.NURSE ---
dr lima returned call.
[2020-11-13 10:54] LABS: Coronavirus 19 IgG Antibody Negative (Negative); Coronavirus 19 IgM Antibody Negative (Negative)
--- NOTE | 2020-11-13 11:59 | HMH.PHAVTE ---
[facility] Pharmacy VTE Monitoring - Patient Demographics Admission date: 11/13/20 Report Date: 11/13/20 Time: 11:59 Allergies/Adverse Reactions: Patient Allergies Sulfa (Sulfonamide Antibiotics) [SULFA (SULFONAMIDE ANTIBIOTICS)] Allergy (Unknown, Verified 09/24/20 17:55) I-HIVES Height: 1.65 m Weight: 82.554 kg Patient Problems: Current Active Problems COVID-19 with pulmonary comorbidity (Acute) Hypoxia (Acute) - VTE Risk Labs: VTE Related Lab Results Hgb 12.2 g/dL (12.2-16.2) 11/13/20 09:10 Hct 37.8 % (37.0-47.0) 11/13/20 09:10 Plt Count 546 K/mm3 (142-424) H 11/13/20 09:10 BUN 20 mg/dl (7-17) H 11/13/20 09:10 Creatinine 0.60 mg/dl (0.52-1.04) 11/13/20 09:10 Estimated Creat Clear 60 mL/min (50-200) 11/13/20 09:10 - Prophylaxis VTE Prophylaxis Ordered?: Yes Types of VTE Prophylaxis: Pharmacological Pharmacologic Type: Enoxaparin
--- NOTE | 2020-11-13 13:25 | HMH.HP ---
*Admission Date: 11/13/20 *Chief complaint: COVID-19 pneumonia *History of present illness: This 79-year-old white female has a known diagnosis of COVID-19 pneumonia. She presented in the emergency room this morning with increased shortness of breath with any exertion. She has a history of asthma and uses a nebulizer at home. The following is from the ER report: Patient presents with dyspnea and hypoxia most likely secondary to Covid pneumonia. Patient weaned off of oxygen here in the ER but did have saturations dropping below 90% and became somewhat symptomatic. On 1 to 2 L nasal cannula patient rests comfortably in bed and sats are in the low to mid 90s. No discernible wheezing noted but patient given albuterol inhaler to see if this improves her symptoms. EKG was obtained to ensure no dysrhythmia or acute ischemia which was negative for either of those processes. I did review her chart and she was seen on the here in the ER. X-ray today does look like there is some interval worsening of bilateral airspace disease. Lab work obtained today is relatively unremarkable. As patient does have medical comorbidities with advanced age in the setting of Covid pneumonia requiring oxygen, I do believe she is a candidate for Covid cocktail with remdesivir, steroids, and multivitamins. Levaquin also ordered. This has been ordered in the emergency department. She does have a positive test from 6 days ago in our system so no repeat PCR swab will be obtained. IgG/IgM testing will be performed. I did reach out to on-call provider as I do believe patient requires admission. After a careful discussion. Patient will be admitted to the hospital why she requires oxygen for further treatment and monitoring. [facility] History Medical History: Reports:: Anxiety, Asthma, Depression, Gastroesophageal Reflux Disease(GERD), Hyperlipidemia, Hypertension, Urinary Tract Infection (Episodic, recurrent) Denies:: Cancer, Diabetes Mellitus Type 1, Diabetes Mellitus Type 2, Internal Pacemaker, MRSA, Seizures *Have you ever received a pneumonia vaccine?: No *Have you received a flu vaccine this season?: No Other Medical History: Reports: Hypothyroidism Other Surgeries: Yes: No Previous Surgery, Cholecystectomy, Colonoscopy, Hysterectomy-Partial. No: Pacemaker Amputation: No Fractures: No - *Social History Smoking Status: Never smoker Alcohol Intake: never Substance Use Type: denies use *Occupational Status:: retired *Travel in the last 8 weeks: None - Psychiatric History Pschychiatric History:: Reports:: Anxiety, Depression Family Hx:: Unable to obtain Review of Systems - Constitutional Reports fatigue, Reports lack of energy, Reports weakness, Denies fever(s) - Eyes Denies change in vision - ENT Denies abnormal hearing, Denies neck pain - *Cardiovascular Reports shortness of breath, Reports shortness of breath with activity, Denies chest pain - *Respiratory Reports chest congestion, Reports cough, Reports shortness of breath, Reports shortness of breath with activity - *Gastrointestinal Denies abdominal pain, Denies difficulty swallowing, Denies nausea - *Genitourinary Denies abnormal vaginal bleeding, Denies blood in urine - Integumentary/Breasts Denies bleeding lesions, Denies yellowing of the skin - *Neurologic Denies dizziness - Psychiatric Reports anxiety - Hematologic/Lymphatic Denies easy bleeding Meds Home Medications Medication Instructions Recorded Confirmed Type alprazolam 0.5 mg tablet 0.5 mg PO BID 12/30/18 11/13/20 History budesonide-formoterol HFA 80 2 puff INHALATION BID 12/30/18 11/13/20 History mcg-4.5 mcg/actuation aerosol inhaler escitalopram oxalate 10 mg tablet 10 mg PO DAILY 12/30/18 11/13/20 History levothyroxine 13 mcg capsule 13 mcg PO DAILY 12/30/18 11/13/20 History losartan 25 mg tablet 50 mg PO DAILY tab 12/30/18 11/13/20 History montelukast 10 mg tablet 10 mg PO QPM 12/30/18 11/13/20 History
--- NOTE | 2020-11-13 16:55 | PC.NURSE ---
PT IS RESTING IN BED. WHEN PT ARRIVED TO THE FLOOR HER O2 SATURATION WAS 86% ON 3 L NC. O2 WAS TITRATED TO 4 L AND PT WAS NOT ABLE TO MAINTAIN GREATER THAN 88%. RESPIRATORY WAS NOTIFIED AND THEY CAME TO GIVE PT HER 1800 BREATHING TREATMENT EARLY. PT IS STILL ON 4 L NC WITH AN O2 SATURATION 89-91%. PT STATES SHE DOES NOT FEEL SOA AND IS NOT IN ANY DISTRESS. VSS. 1+ EDEMA NOTED TO BLE. PT HAS BEEN UP TO THE BSC WITH 1 ASSIST. EATING AND DRINKING FAIR. WILL CONTINUE TO MONITOR.
[2020-11-14] VITALS (9 sets, daily range): BP systolic 113–147; BP diastolic 54–72; PULSE 58–92; RESP 16–22; TEMP 35.9–36.6; O2SAT 88–94; BMI 29.8
--- NOTE | 2020-11-14 00:34 | PC.NURSE ---
She is A&Ox4. She continues in contact and airborne precautions. O2 has been increased from 4LPM n/c to 5LPM n/c r/t oxygen sats. Oxygen is at 90% at this time on 5LPM n/c. She is sitting up in bed. She received new order for xanax, which is a home med for anxiety. She is aware of the need for a urine. She denies pain.
[2020-11-14 03:49] LABS: Microscopic, Urine URINE MICROSCOPIC (MICROSCOPIC)
[2020-11-14 03:51] LABS: Appearance,Urine CLEAR (Clear); Bilirubin,Urine Negative (Negative); Blood, Urine Negative (Negative); Color,Urine YELLOW (Yellow); Glucose,Urine (UA) Negative (Negative); Ketones,Urine Negative (Negative); Leukocyte Esterase,Urine Negative (Negative); Nitrate,Urine Negative (Negative); Protein,Urine TRACE (Negative); Specific Gravity, Urine >= 1.030 (1.005-1.030); Urobilinogen,Urine 0.2 EU/dl (0.2)
[2020-11-14 05:41] LABS: Basophils % 0.1 % (0.1-2.0); Eosinophils % 0.1 % (0.1-12.0); Hematocrit 36.8 % (37.0-47.0); Hemoglobin 11.9 g/dL (12.2-16.2); Lymphocytes # 1.3 K/mm3 (0.7-4.5); Lymphocytes % 18.3 % (10-50); Mean Corpuscular HGB Conc 32.3 g/dL (31.8-35.4); Mean Corpuscular Hemoglobin 29.5 pg (27.0-31.2); Mean Corpuscular Volume 91.3 fl (81-99); Monocytes # 0.7 K/mm3 (0.1-1.0); Monocytes % 9.5 % (1.7-9.3); Neutrophils # 5.1 K/mm3 (1.8-7.8); Neutrophils % 72.1 % (37.0-80.0); Platelet Count 532 K/mm3 (142-424); Red Blood Count 4.03 M/mm3 (4.20-5.40); Red Cell Distribution Width 13.2 % (11.5-17.5)
[2020-11-14 06:08] LABS: Chloride 103 mmol/L (98-107); Sodium 137 mmol/L (136-145)
[2020-11-14 06:09] LABS: Potassium 4.2 mmoL/L (3.5-5.1)
[2020-11-14 06:11] LABS: Alanine Aminotransferase 17 U/L (12-78); Albumin Level 3.2 g/dl (3.5-5.0); Alkaline Phosphatase 75 U/L (38-126); Anion Gap 9.2 mEq/L (5-15); Aspartate Amino Transferase 26 U/L (14-36); Bilirubin,Total 0.2 mg/dl (0.2-1.3); Blood Urea Nitrogen 16 mg/dl (7-17); Calcium 8.8 mg/dl (8.4-10.2); Carbon Dioxide 29 mmol/L (22.0-30.0); Creatinine Clearance Estimated 60 mL/min (50-200); Estimated Glomerular Filt Rate 119 ml/min (>60); GFR (African American) 144 ML/MIN (>60); Globulin 3.1 g/dL (1.3-3.2); Glucose 125 mg/dl (74-100); Total Protein,Serum 6.3 g/dl (6.3-8.2)
--- NOTE | 2020-11-14 09:27 | HMH.ACPN2 ---
Internal Medicine - PN: Damaris *Date: 11/14/20 *Time: 09:27 Interval history: She states that her cough has worsened. She did not sleep well through the night. She is in no distress this morning but does cough easily. Yesterday she had some rales. I hear the beginning this morning and a wheeze in the right upper lung field. Exam Vital signs and Labs for Last 24 Hours: Temp Pulse Resp BP Pulse Ox 97.7 F 81 20 144/67 H 88 L 11/14/20 08:00 11/14/20 08:00 11/14/20 08:00 11/14/20 08:00 11/14/20 08:00 Laboratory Results - last 24 hr 11/13/20 09:10: Sodium 135 L, Potassium 4.1, Chloride 100, Carbon Dioxide 30, Anion Gap 9.1, BUN 20 H, Creatinine 0.60, Estimated Creat Clear 60, Estimated GFR 97, Est GFR ( Amer) 117, Glucose 116 H, Calcium 9.1, Total Bilirubin 0.4, AST 25, ALT 19, Alkaline Phosphatase 79, Total Protein 6.5, Albumin 3.5, Globulin 3.0, Albumin/Globulin Ratio 1.2 11/13/20 09:10: Lactate 0.9 11/13/20 09:10: SARS-CoV-2 IgG Ab (Rapid) Negative, SARS-CoV-2 IgM Ab (Rapid) Negative 11/14/20 03:35: Urine Color Yellow, Urine Appearance Clear, Urine pH 6.0, Ur Specific [place] >= 1.030, Urine Protein Trace, Urine Glucose (UA) Negative, Urine Ketones Negative, Urine Blood Negative, Urine Nitrate Negative, Urine Bilirubin Negative, Urine Urobilinogen 0.2, Ur Leukocyte Esterase Negative, Urine WBC 5-10, Ur Squamous Epith Cells 5-10 11/14/20 05:30: WBC 7.0 D, RBC 4.03 L, Hgb 11.9 L, Hct 36.8 L, MCV 91.3, MCH 29.5, MCHC 32.3, RDW 13.2, Plt Count 532 H, MPV 8.0, Neut % (Auto) 72.1, Lymph % (Auto) 18.3, [place] % (Auto) 9.5 H, Eos % (Auto) 0.1, Baso % (Auto) 0.1, Neut # (Auto) 5.1, Lymph # (Auto) 1.3, [place] # (Auto) 0.7, Eos # (Auto) 0.0, Baso # (Auto) 0.0 11/14/20 05:30: Sodium 137, Potassium 4.2, Chloride 103, Carbon Dioxide 29, Anion Gap 9.2, BUN 16, Creatinine 0.50 L, Estimated Creat Clear 60, Estimated GFR 119, Est GFR ( Amer) 144 D, Glucose 125 H, Calcium 8.8, Total Bilirubin 0.2, AST 26, ALT 17, Alkaline Phosphatase 75, Total Protein 6.3, Albumin 3.2 L, Globulin 3.1, Albumin/Globulin Ratio 1.0 L I & O for Last 24 hours: Intake & Output 11/11/20 11/12/20 11/13/20 11/14/20 11:59 11:59 11:59 11:59 Intake Total 2705 / 2705 Output Total 1375 / 1375 Balance 1330 / 1330 Weight 182 lb 179 lb 5 oz - Constitutional no acute distress - *Routine HEENT Exam Head: Present: normocephalic Eye: Present: PERRL ENT: Present: mucous membranes moist - *Routine Respiratory Exam Present: rales, wheezes (Right upper lung field) - *Routine Cardiovascular Exam Present: RRR - *Routine Abdominal Exam Present: soft. Absent: tenderness - *Routine Extremities Exam Present: edema (Only trace) - *Routine Neurological Exam Present: alert, oriented X3 Assessment and Plan (1) Pneumonia due to 2019-nCoV Status: Acute Category: Medical Code(s): U07.1 - COVID-19; J12.89 - Other viral pneumonia (2) COVID-19 with pulmonary comorbidity Status: Acute Category: Medical Code(s): U07.1 - COVID-19; J98.4 - Other disorders of lung (3) Hypoxia Status: Acute Category: Medical Code(s): R09.02 - Hypoxemia (4) History of asthma Status: Acute Category: Medical Code(s): Z87.09 - Personal history of other diseases of the respiratory system (5) History of recurrent UTIs Status: Acute Category: Medical Code(s): Z87.440 - Personal history of urinary (tract) infections - Assessment and plan all Dx Assessment and Plan for all problems:: Continue present regimen. She is receiving DuoNeb treatments.
--- NOTE | 2020-11-14 19:38 | PC.NURSE ---
PT IS SITTING UP IN THE CHAIR. ALERT AND ORIENTED X4. LUNG SOUNDS HAVE FINE CRACKLES IN THE BASES. ABDOMEN SOFT/NON TENDER WITH ACTIVE BOWEL SOUNDS. PT HAS BEEN UP AMBULATING IN THE ROOM. O2 SATURATION 92-96% ON 3 L NC. EATING AND DRINKING WELL. BATH AND BED CHANGE THIS SHIFT. VSS. WILL CONTINUE TO MONITOR.
[2020-11-15] VITALS (11 sets, daily range): BP systolic 129–155; BP diastolic 54–76; PULSE 67–88; RESP 16–24; TEMP 35.6–36.7; O2SAT 84–95; BMI 29.2
--- NOTE | 2020-11-15 01:38 | PC.NURSE ---
Addendum entered by Nu Stone RN 11/15/20 04:38: pt has done well since previous note. pt cont. on portable o2 tank, 2LNC sat is 92%. pt has a dry, nonproductive cough. pt has used IS correctly while awake. pt ambulates from bed, to chair, and to bsc. pt currently sleeping at interval in bed. vss. will cont. to monitor. Original Note: pt o2 desat to low 80's, pt put on 5LNC, notified dr. johnson whom stated to put pt on vapotherm. pt transitioned to portable tank on the same amount of Liters. pt o2% increased to mid 90's almost immediately. pt currently on 2LNC on portable o2 tank and sats between 88%-92% depending on pt activity. will cont. to monitor.
--- NOTE | 2020-11-15 10:03 | HMH.PULMCON ---
*Admission Date: 11/13/20 *Reason for consult:: Acute hypoxic respiratory failure, COVID-19 pneumonia *History of present illness: Ms. Roberto is a 80-year-old female with 1-pack-year smoking history when she was 21 years old, history of asthma on Symbicort twice a day not needing any rescue inhaler recent diagnosis of COVID-19 pneumonia presented to the hospital with worsening shortness of breath cough and productive phlegm. In the ED patient was found to be needing oxygen requirements of nasal cannula of 2 L supplementation to maintain saturation 90 and above and was admitted to the ICU and pulmonary was called for further management. Her breathing has been improving since admission, she is also having productive phlegm which is greenish color today [facility] History Medical History: Reports:: Anxiety, Asthma, Depression, Gastroesophageal Reflux Disease(GERD), Hyperlipidemia, Hypertension, Urinary Tract Infection (Episodic, recurrent) Denies:: Cancer, Diabetes Mellitus Type 1, Diabetes Mellitus Type 2, Internal Pacemaker, MRSA, Seizures *Have you ever received a pneumonia vaccine?: Yes *Have you received a flu vaccine this season?: Yes Other Medical History: Reports: Hypothyroidism Other Surgeries: Yes: No Previous Surgery, Cholecystectomy, Colonoscopy, Hysterectomy-Partial. No: Pacemaker Amputation: No Fractures: No - *Social History Last grade of school completed: High school graduate Smoking Status: Never smoker Alcohol Intake: never Substance Use Type: denies use *Occupational Status:: retired Housing: house Household Members: spouse *Travel in the last 8 weeks: None - Psychiatric History Pschychiatric History:: Reports:: Anxiety, Depression Family Hx:: Unable to obtain ROS - Cons Reports body ache(s), Reports chills, Denies anorexia - Card Reports shortness of breath, Reports shortness of breath with activity, Denies chest pain, Denies chest pain at rest - Resp Respiratory: Yes shortness of breath, Yes change in phlegm color, Yes chest congestion, Yes cough, Yes excessive phlegm production, No coughing up blood, No pain on inspiration, No pain with cough, Yes cough with sputum production, No pain with breathing, No snoring, No stridor, No wheezing - GI Gastrointestingal: Reports: system reviewed and no additional complaints, except as docu - [place] Musculoskeletal: Reports system reviewed and no additional complaints, except as docu Meds Home Medications Medication Instructions Recorded Confirmed Type alprazolam 0.5 mg tablet 0.5 mg PO TIDP PRN 12/30/18 11/14/20 History budesonide-formoterol HFA 80 2 puff INHALATION BID 12/30/18 11/13/20 History mcg-4.5 mcg/actuation aerosol inhaler escitalopram oxalate 10 mg tablet 10 mg PO DAILY 12/30/18 11/13/20 History levothyroxine 13 mcg capsule 13 mcg PO DAILY 12/30/18 11/13/20 History losartan 25 mg tablet 50 mg PO DAILY tab 12/30/18 11/13/20 History montelukast 10 mg tablet 10 mg PO QPM 12/30/18 11/13/20 History omeprazole 40 mg capsule,delayed 40 mg PO DAILY 12/30/18 11/13/20 History release Ascorbic Acid [Vitamin C] 1,000 mg PO DAILY 08/15/20 11/13/20 History Azelastine HCl 1 spray NS DAILY 08/15/20 11/14/20 History Budesonide/Formoterol Fumarate 1 mcg INHALATION DAILY 08/15/20 11/13/20 History [Symbicort 160-4.5 Mcg Inhaler] Cyanocobalamin (Vitamin B-12) 2,500 mcg PO DAILY 08/15/20 11/13/20 History [Vitamin B12 2.5mg Tab] Fluticasone Propionate [Flonase 1 spr NS DAILY 08/15/20 11/13/20 History 50mcg nasal spray 16gm] Furosemide [Lasix 20mg tab] 20 mg PO DAILY 08/15/20 11/13/20 History Levocetirizine Dihydrochloride 5 mg PO DAILY 08/15/20 11/13/20 History Methylcellulose (with Sugar) 850 gm PO AMLAB 08/15/20 11/13/20 History [Citrucel Powder] Tizanidine HCl [Zanaflex 4mg 1 mg PO DAILY 08/15/20 11/13/20 History tablet] ondansetron HCL [Ondansetron 4mg 4 mg PO BIDP PRN 08/15/20 11/13/20 History tab*] polyethylene glycoL 3350 [Miralax
--- NOTE | 2020-11-15 12:28 | HMH.ACPN2 ---
Internal Medicine - PN: Subj *Date: 11/15/20 *Time: 12:28 Interval history: Patient seen this AM on rounds. Case discussed with Dr. Lock. Patient requests nasal steroids due to irritation. Cough seems to be breaking up, she states. Exam Vital signs and Labs for Last 24 Hours: Temp Pulse Resp BP Pulse Ox 98.1 F 76 16 143/68 H 95 11/15/20 08:00 11/15/20 11:20 11/15/20 08:00 11/15/20 08:00 11/15/20 11:20 I & O for Last 24 hours: Intake & Output 11/13/20 11/14/20 11/15/20 11/16/20 11:59 11:59 11:59 11:59 Intake Total 2705 / 2705 1550 / 1550 Output Total 1375 / 1375 1400 / 1400 Balance 1330 / 1330 150 / 150 Weight 182 lb 179 lb 5 oz 175 lb 9 oz Microbiology Reports for the Last 24 Hours: Microbiology 11/13/20 09:10 Blood Blood Culture - Preliminary NO GROWTH AFTER 48 HOURS 11/13/20 09:10 Blood Blood Culture - Preliminary NO GROWTH AFTER 48 HOURS - Constitutional no acute distress - *Routine HEENT Exam Head: Present: normocephalic Eye: Present: PERRL ENT: Present: mucous membranes moist - Routine Chest/Breast/Axilla Exam Chest wall: Absent: tenderness - *Routine Respiratory Exam Present: rhonchi - *Routine Cardiovascular Exam Present: RRR - *Routine Abdominal Exam Present: soft. Absent: tenderness - *Routine Extremities Exam Present: edema (trace) - *Routine Neurological Exam Present: alert, oriented X3 Assessment and Plan (1) Pneumonia due to 2019-nCoV Status: Acute Category: Medical Code(s): U07.1 - COVID-19; J12.89 - Other viral pneumonia (2) COVID-19 with pulmonary comorbidity Status: Acute Category: Medical Code(s): U07.1 - COVID-19; J98.4 - Other disorders of lung (3) Hypoxia Status: Acute Category: Medical Code(s): R09.02 - Hypoxemia (4) History of asthma Status: Acute Category: Medical Code(s): Z87.09 - Personal history of other diseases of the respiratory system (5) History of recurrent UTIs Status: Acute Category: Medical Code(s): Z87.440 - Personal history of urinary (tract) infections - Assessment and plan all Dx Assessment and Plan for all problems:: Continue present treatment.
--- NOTE | 2020-11-15 18:45 | PC.NURSE ---
pt has been up to chair most of shift. voiced some nausea this morning but has resolved with no further issues. eating and drinking well. zofran order was placed as well as pt requested cough medication and nasal spray. voids per bsc. independent in room. iv patent and infusing per order. 3LNC o2 sat is remaining in the 90's. call light in reach. vss. will continue to monitor
[2020-11-16] VITALS (9 sets, daily range): BP systolic 123–152; BP diastolic 64–78; PULSE 63–93; RESP 18–28; TEMP 36–36.8; O2SAT 90–94; BMI 30.7
--- NOTE | 2020-11-16 04:03 | PC.NURSE ---
Addendum entered by Nu Stone RN 11/16/20 06:03: pt woke up feeling sob. sat pt up on the side of the bed pt o2 was 83% on 3LNC educated pt to breathe through her nose and not her mouth, pt used IS and walked over to chair and increased o2 to 4LNC for a short period. pt o2 is currently 92% on 3LNC. Original Note: pt has done well this shift. pt was on 2LNC at beginning of shift, while awake. pt o2 was increased to 3LNC while sleeping because her o2 was dropping to 87-90%, currently pt sat is 91-92% on 3L. pt has experienced no sob. pt did have some nausea in the middle of the night, prn med given with desired effect. IS used correctly this shift. pt hopeful to be discharged soon. vss. will cont. to monitor.
--- NOTE | 2020-11-16 08:26 | HMH.PULMPN ---
Internal Medicine - PN: Subj *Date: 11/16/20 *Time: 09:35 Interval history: No Acute respiratory events overnight. Patient respiratory status remained stable. Exam - Constitutional Constitutional:: comfortable, healthy appearing - HENMT Exam HENMT: normocephalic, atraumatic - Neck Exam Neck:: thyroid normal, no lymphadenopathy - Respiratory Exam Comments: Patient appear to be in mild respiratory distress. Able to speak in full sentences per auscultation with bilateral coarse breath sounds unchanged from yesterday with bibasilar crackles. - GI Exam GI:: soft, no hepatosplenomegaly - Skin Exam Skin: warm, no rash, dry - Neurological Exam Neurological: alert, awake, normal cognition - Extremities Exam Extremities: no cyanosis, no clubbing, edema Assessment and Plan (1) Pneumonia due to 2019-nCoV Status: Acute Category: Medical Code(s): U07.1 - COVID-19; J12.89 - Other viral pneumonia (2) COVID-19 with pulmonary comorbidity Status: Acute Category: Medical Code(s): U07.1 - COVID-19; J98.4 - Other disorders of lung (3) Hypoxia Status: Acute Category: Medical Code(s): R09.02 - Hypoxemia (4) History of asthma Status: Acute Category: Medical Code(s): Z87.09 - Personal history of other diseases of the respiratory system (5) History of recurrent UTIs Status: Acute Category: Medical Code(s): Z87.440 - Personal history of urinary (tract) infections - Assessment and plan all Dx Assessment and Plan for all problems:: #Acute hypoxic respiratory failure: #History of asthma: #COVID-19 pneumonia: #Community-acquired pneumonia: Patient respiratory status remained stable from yesterday, on 3 L nasal cannula saturating 93 to 95%. Auscultation revealed bilateral coarse breath sounds unchanged from yesterday with new bibasilar crackles. Bilateral lower extremity worsening edema. Plan: -Lasix 40 mg IV once -Continue Remdesevir and Dexamethasone -Levofloxacin for possible community-acquired pneumonia. -Continue DuoNebs every 6 hours scheduled. Will add budesonide every 12 scheduled -Oxygen supplementation to maintain O2 saturations goal of 88 to 92%. -Follow with sputum cultures and titrate antibiotics if needed (cultures no growth 48 hours) #Thank you for involving pulmonary in this patient care. We will continue to follow.
--- NOTE | 2020-11-16 08:39 | HMH.ACPN2 ---
Internal Medicine - PN: Subj *Date: 11/16/20 *Time: 08:39 Interval history: Patient states she is definitely doing better. Overall the cough is better. It is still productive at times especially in the a.m. She states she did sleep last night which is the first sleep that she has had since being admitted. She is eating satisfactory. Bowels have moved. She is voiding QS. She does ambulate in the room but O2 sats do decrease at times with exertion. She mentioned that she might go home today. Discussed home health and need for bedside commode and home oxygen. States her legs are swollen from sitting on the chair. Exam Vital signs and Labs for Last 24 Hours: Temp Pulse Resp BP Pulse Ox 96.8 F L 63 22 139/66 92 L 11/16/20 03:49 11/16/20 03:49 11/16/20 03:49 11/16/20 03:49 11/16/20 03:49 I & O for Last 24 hours: Intake & Output 11/13/20 11/14/20 11/15/20 11/16/20 11:59 11:59 11:59 11:59 Intake Total 2705 / 2705 1790 / 1790 1526 / 1526 Output Total 1375 / 1375 1400 / 1400 300 / 300 Balance 1330 / 1330 390 / 390 1226 / 1226 Weight 182 lb 179 lb 5 oz 175 lb 9 oz 184 lb Microbiology Reports for the Last 24 Hours: Microbiology 11/15/20 06:35 Sputum - Expectorated Sputum Gram Stain - Final 11/13/20 09:10 Blood Blood Culture - Preliminary NO GROWTH AFTER 48 HOURS 11/13/20 09:10 Blood Blood Culture - Preliminary NO GROWTH AFTER 48 HOURS - Constitutional no acute distress (Sitting in chair at bedside and appears comfortable.) - *Routine Respiratory Exam Absent: respiratory distress Comments: Sounds clear at present both anteriorly and posteriorly - *Routine Cardiovascular Exam Present: RRR - *Routine Abdominal Exam Present: soft, normoactive bowel sounds. Absent: tenderness - *Routine Extremities Exam Present: edema (bilateral) Assessment and Plan (1) Pneumonia due to 2019-nCoV Status: Acute Category: Medical Code(s): U07.1 - COVID-19; J12.89 - Other viral pneumonia (2) COVID-19 with pulmonary comorbidity Status: Acute Category: Medical Code(s): U07.1 - COVID-19; J98.4 - Other disorders of lung (3) Hypoxia Status: Acute Category: Medical Code(s): R09.02 - Hypoxemia (4) History of asthma Status: Acute Category: Medical Code(s): Z87.09 - Personal history of other diseases of the respiratory system (5) History of recurrent UTIs Status: Acute Category: Medical Code(s): Z87.440 - Personal history of urinary (tract) infections - Assessment and plan all Dx Assessment and Plan for all problems:: Continue with current pulmonary care. Discussed with Dr. Rajput and she will not go home today. Will decrease IV fluids. She will continue with her incentive spirometer.
--- NOTE | 2020-11-16 20:03 | PC.NURSE ---
PT IS RESTING IN BED. NO COMPLAINTS OF DISCOMFORT. ALERT AND ORIENTED X4. EATING AND DRINKING WELL. PT HAS BEEN UP TO THE BSC SEVERAL TIMES THIS SHIFT. LUNG SOUNDS DIMINISHED WITH FINE CRACKLES IN THE BASES. 1+ PITTING EDEMA NOTED TO BLE. PCP STATED IV COULD BE SL. O2 SATURATION HAS MAINTAINED 89-94% ON 2 -3 L NC. WILL CONTINUE TO MONITOR.
[2020-11-17] VITALS (8 sets, daily range): BP systolic 121–142; BP diastolic 61–75; PULSE 65–98; RESP 18–24; TEMP 36.1–36.8; O2SAT 90–92; BMI 30.7
--- NOTE | 2020-11-17 04:51 | PC.NURSE ---
Addendum entered by Julia Fabian RN 11/17/20 06:43: 0600- PT. O2 NC TITRATED TO 2.5L; O2 SAT 88-95% Original Note: O2 SAT 88-92% ON 3L NC WHILE AWAKE; O2 SAT 85-87% ON 3L NC WHILE ASLEEP, 88-92% ON 5L NC WHILE ASLEEP. PT. QUICKLY DESATS TO 75-80% WITH AMBULATION AND RECOVERS SLOWLY. SOA REPORTED WITH AMBULATION. INTERMITTENT NONPRODUCTIVE DRY COUGH REPORTED. FINE CRACKLES NOTED T/O L LOBE, DIMINISHED ON R LOBE. PT. C/O NAUSEA X1; RELIEVED WITH PRN MEDS.
--- NOTE | 2020-11-17 07:17 | PC.NURSE ---
TITRATED TO 3.5L NC WHILE PT. IS EATING; SAT 87-90%
--- NOTE | 2020-11-17 11:49 | HMH.PULMPN ---
Internal Medicine - PN: Subj *Date: 11/17/20 *Time: 13:17 Interval history: No acute respiratory events overnight. Complaining of slightly worsening respiratory distress than yesterday. Exam - Constitutional Constitutional:: no acute distress, comfortable - HENMT Exam HENMT: normocephalic, atraumatic - Eye Exam Eyes:: eyelids normal, normal conjunctiva - Neck Exam Neck:: thyroid normal, no lymphadenopathy - Respiratory Exam Respiratory:: able to speak in complete sentences, bibailar crackels heard - Cardiovascular Exam Cardiac:: S1, S2 - GI Exam GI:: soft, no hepatosplenomegaly - Skin Exam Skin: warm, no rash, dry - Neurological Exam Neurological: alert, awake, normal cognition - Extremities Exam Extremities: no cyanosis, no clubbing, edema - Psychiatric Exam Psychiatric: normal affect Assessment and Plan (1) Pneumonia due to 2019-nCoV Status: Acute Category: Medical Code(s): U07.1 - COVID-19; J12.89 - Other viral pneumonia (2) COVID-19 with pulmonary comorbidity Status: Acute Category: Medical Code(s): U07.1 - COVID-19; J98.4 - Other disorders of lung (3) Hypoxia Status: Acute Category: Medical Code(s): R09.02 - Hypoxemia (4) History of asthma Status: Acute Category: Medical Code(s): Z87.09 - Personal history of other diseases of the respiratory system (5) History of recurrent UTIs Status: Acute Category: Medical Code(s): Z87.440 - Personal history of urinary (tract) infections - Assessment and plan all Dx Assessment and Plan for all problems:: #Acute hypoxic respiratory failure: #History of asthma: #COVID-19 pneumonia: #Community-acquired pneumonia: Patient respiratory status slightly worsened after needing 2.5 L nasal oxygen supplementation. WBC stable afebrile renal function stable. Patient net positive since admission. Patient started on 20 mg of Lasix p.o. daily yesterday which is her home medication. Sputum cultures showing less than 10 epithelial cells less than 10 WBC with few gram-positive cocci in pairs chains and clusters along with rare budding yeast. No need to change antibiotics at this point of time. We will continue to monitor. Plan: -We will start Lasix 40 mg IV daily until discharge and then will continue with her home dose of 20 oral daily as patient found to be volume overloaded now and has not been receiving Lasix since admission -Continue Remdesevir and Dexamethasone -Levofloxacin for possible community-acquired pneumonia x 5days -Continue DuoNebs every 6 hours scheduled. Will add budesonide every 12 scheduled -Oxygen supplementation to maintain O2 saturations goal of 88 to 92%. -Follow with sputum cultures and titrate antibiotics if needed (blood cultures no growth 48 hours) #Thank you for involving pulmonary in this patient care. We will continue to follow.
--- NOTE | 2020-11-17 12:29 | HMH.ACPN ---
Internal Medicine - PN: Subj *Date: 11/17/20 *Time: 12:29 Exam Vital signs and Labs for Last 24 Hours: Temp Pulse Resp BP Pulse Ox 97.9 F 98 H 20 137/69 91 L 11/17/20 08:00 11/17/20 08:00 11/17/20 08:00 11/17/20 08:00 11/17/20 11:05 I & O for Last 24 hours: Intake & Output 11/14/20 11/15/20 11/16/20 11/17/20 23:59 23:59 23:59 23:59 Intake Total 2387 / 2387 2005 / 2005 480 / 480 836 / 836 Output Total 1525 / 1525 500 / 500 600 / 600 1500 / 1500 Balance 862 / 862 1506 / 1506 -120 / -120 -664 / -664 Weight 81.335 kg 79.634 kg 83.461 kg Microbiology Reports for the Last 24 Hours: Microbiology 11/15/20 06:35 Sputum - Expectorated Sputum Gram Stain - Final 11/15/20 06:35 Sputum - Expectorated Sputum Sputum Culture - Preliminary Assessment and Plan (1) Pneumonia due to 2019-nCoV Status: Acute Category: Medical Code(s): U07.1 - COVID-19; J12.89 - Other viral pneumonia (2) COVID-19 with pulmonary comorbidity Status: Acute Category: Medical Code(s): U07.1 - COVID-19; J98.4 - Other disorders of lung (3) Hypoxia Status: Acute Category: Medical Code(s): R09.02 - Hypoxemia (4) History of asthma Status: Acute Category: Medical Code(s): Z87.09 - Personal history of other diseases of the respiratory system (5) History of recurrent UTIs Status: Acute Category: Medical Code(s): Z87.440 - Personal history of urinary (tract) infections The patient's infection will respond to the chosen ABx?: Yes Is the patient receiving the right drug, dose, and route?: Yes Could a more targeted ABx be ordered?: No
--- NOTE | 2020-11-17 12:55 | HMH.ACPN2 ---
Internal Medicine - PN: Subj *Date: 11/17/20 *Time: 12:55 Interval history: She feels progressively better. She has had good nights sleep the past 2 nights. She is breathing more comfortably. Her weight is up nearly 4 pounds since admission. See Dr. Chao's comments. Lasix dose is increased, accordingly. Exam Vital signs and Labs for Last 24 Hours: Temp Pulse Resp BP Pulse Ox 97.9 F 98 H 20 137/69 91 L 11/17/20 08:00 11/17/20 08:00 11/17/20 08:00 11/17/20 08:00 11/17/20 11:05 I & O for Last 24 hours: Intake & Output 11/15/20 11/16/20 11/17/20 11/18/20 11:59 11:59 11:59 11:59 Intake Total 1790 / 1790 1526 / 1526 1076 / 1076 Output Total 1400 / 1400 300 / 300 2100 / 2100 Balance 390 / 390 1226 / 1226 -1024 / -1024 Weight 175 lb 9 oz 184 lb 184 lb 2 oz Microbiology Reports for the Last 24 Hours: Microbiology 11/15/20 06:35 Sputum - Expectorated Sputum Gram Stain - Final 11/15/20 06:35 Sputum - Expectorated Sputum Sputum Culture - Preliminary - Constitutional no acute distress - *Routine HEENT Exam Head: Present: normocephalic Eye: Present: PERRL (Periorbital shadowing) ENT: Present: mucous membranes moist - *Routine Respiratory Exam Present: rhonchi (Good air movement which seems improved. Less rhonchi) - *Routine Extremities Exam Present: edema (1+) - *Routine Neurological Exam Present: alert, oriented X3 Assessment and Plan (1) Pneumonia due to 2019-nCoV Status: Acute Category: Medical Code(s): U07.1 - COVID-19; J12.89 - Other viral pneumonia (2) COVID-19 with pulmonary comorbidity Status: Acute Category: Medical Code(s): U07.1 - COVID-19; J98.4 - Other disorders of lung (3) Hypoxia Status: Acute Category: Medical Code(s): R09.02 - Hypoxemia (4) History of asthma Status: Acute Category: Medical Code(s): Z87.09 - Personal history of other diseases of the respiratory system (5) History of recurrent UTIs Status: Acute Category: Medical Code(s): Z87.440 - Personal history of urinary (tract) infections - Assessment and plan all Dx Assessment and Plan for all problems:: Preet. Hope we will be able to discharge her soon.
--- NOTE | 2020-11-17 13:04 | XR_ITS ---
PROCEDURE: XR CHEST PORTABLE Referring Doctor: Tahmina Rajput Patient Age:80Y CLINICAL HISTORY: COVID Pneumonia follow-up. ICU patient COMPARISON: DX CXR2V XR chest 2V from 03/06/2019 CR XR CHEST PORTABLE from 11/09/2020 CR XR CHEST PORTABLE from 11/13/2020 FINDINGS: AP portable upright chest 1441 hours Comparison is made to 11/13/2020 and 11/09/2020 pCXR Of diffuse patchy infiltrates are again seen bilaterally with no improvement since November 13.. If anything there is slight progression of infiltrate here at the Left a central lung/left perihilar region and into the left mid lung. The the patchy area of peripheral infiltrate at the left mid lung is slightly more extensive Right lung.: Scattered patchy areas of infiltrate in the right lung appears similar with patchy infiltrate most evident towards right lower lobe and right mid lung. There may be subtle improvement right suprahilar region, but with suggestion of some slight additional small faint low-density infiltrates more peripherally at the right mid and lower lung, laterally.. There is slight better expansion today. Of borderline cardiomegaly but the heart silhouette is not as pronounced but mild perihilar infiltrate on left more so than right. Superior mediastinum satisfactory stable but chest wall unremarkable. IMPRESSION: Extensive, diffuse bilateral patchy infiltrates No improvement since 11/13. Slight progression on left Slight progression infiltrate left perihilar region left mid lung most of convincing Right lung-fairly stable with scattered patchy infiltrates-most evident right lower lobe and right mid lung. Only question of subtle progression of a few small peripheral infiltrates at right mid and lower lung unger . Dictated by: Connor Guevara MD 11/17/2020 15:37 Connor Guevara MD in [place] 11/17/2020 15:37
--- NOTE | 2020-11-17 14:18 | PC.NURSE ---
Pt will need bsc upon d/c due to weakness and distance to bathroom in home setting.
--- NOTE | 2020-11-17 14:20 | SW/DCPLANNER ---
Addendum entered by Poly Mazariegos 11/21/20 14:15: Leobardo with [facility] has stated that patient information/order has been reviewed and services will begin this week for this patient. I have asked nursing staff (Valorie Lopez) to inform patient of situation. Addendum entered by Poly Mazariegos 11/21/20 13:42: Kymberly with [facility] stated that they can NOT accept this patient due to being COVID positive. Patient information has been faxed to Leobardo with [facility]. Addendum entered by Poly Mazariegos 11/21/20 11:18: Portable O2 tank has been delivered to [facility] and hospital bed information/order has been reviewed and will be set up per Krystyna with [facility]. Patient will discharge later today. Addendum entered by Poly Mazariegos 11/21/20 10:04: Patient information and order has been faxed to [facility] for this patient to have: home O2 and hospital bed at time of discharge. Patient stated that she no longer needs a bedside commode. Patient is also requesting home health services. Patient [facility] for home health services. Patient information and order will also be faxed to [facility]. Original Note: I have provided nursing staff (Bere) with patient information, order for home O2/bedside commode and directions to fill in blanks on order and fax to [facility] for patient to have home O2 and bedside commode delivered if discharged over the weekend. If patient is still here Saturday I will take care of this patient. I will also set patient up with home health services if discharge over the weekend.
--- NOTE | 2020-11-17 17:48 | PC.NURSE ---
Pt alert and oriented and able to make needs known. NAD or c/o at this time. BS x 4, crackles in rul, s1,s2. Denies pain. Voiding has increased since IV lasix. Remains safe. VSS. Remains on 3.5 L NC. Will cont to mx.
--- NOTE | 2020-11-17 18:24 | PC.NURSE ---
Pt did have episode of desatting to 56% with exertional dyspnea from taking a bath. This nurse did go in and assess pt and encourage deep breaths and turned 02 to 5 L. Currently satting 84%. Have made RT aware as well.
--- NOTE | 2020-11-17 19:20 | PC.NURSE ---
Pt currently satting 90% on 5 L. Report given to Kortney Mcclure RN
[2020-11-18] VITALS (9 sets, daily range): BP systolic 114–147; BP diastolic 58–70; PULSE 61–94; RESP 18–22; TEMP 36.2–37; O2SAT 86–93; BMI 30.7; BMI 30.8
--- NOTE | 2020-11-18 02:44 | PC.NURSE ---
Pt A&Ox4. She is currently on 4L O2 NC @ 94%. Was on 5L O2 NC at beginning of shift due to desat from exertion while bathing. Pt becomes exerted with any activity and recovers slowly. She has been up to BSC x3. Has had peanut butter, crackers and jello for snack. Medications administered per jan. VSS. Will continue to monitor.
[2020-11-18 06:10] LABS: Basophils % 0.1 % (0.1-2.0); Eosinophils # 0.1 K/mm3 (0.0-0.4); Eosinophils % 0.8 % (0.1-12.0); Hematocrit 34.9 % (37.0-47.0); Hemoglobin 11.3 g/dL (12.2-16.2); Lymphocytes # 1.5 K/mm3 (0.7-4.5); Lymphocytes % 11.8 % (10-50); Mean Corpuscular HGB Conc 32.4 g/dL (31.8-35.4); Mean Corpuscular Hemoglobin 29.5 pg (27.0-31.2); Mean Corpuscular Volume 91.1 fl (81-99); Mean Platelet Volume 7.9 fl (7.4-10.4); Monocytes # 0.8 K/mm3 (0.1-1.0); Monocytes % 6.5 % (1.7-9.3); Neutrophils # 10.3 K/mm3 (1.8-7.8); Neutrophils % 80.8 % (37.0-80.0); Platelet Count 453 K/mm3 (142-424); Red Blood Count 3.83 M/mm3 (4.20-5.40); Red Cell Distribution Width 13.4 % (11.5-17.5); White Blood Count 12.7 K/mm3 (4.8-10.8)
[2020-11-18 06:18] LABS: Chloride 98 mmol/L (98-107); Potassium 3.5 mmoL/L (3.5-5.1); Sodium 136 mmol/L (136-145)
[2020-11-18 06:21] LABS: Alanine Aminotransferase 16 U/L (12-78); Albumin Level 2.8 g/dl (3.5-5.0); Alkaline Phosphatase 69 U/L (38-126); Anion Gap 6.5 mEq/L (5-15); Aspartate Amino Transferase 20 U/L (14-36); Bilirubin,Total 0.5 mg/dl (0.2-1.3); Blood Urea Nitrogen 16 mg/dl (7-17); Carbon Dioxide 35 mmol/L (22.0-30.0); Creatinine Clearance Estimated 60 mL/min (50-200); Estimated Glomerular Filt Rate 119 ml/min (>60); GFR (African American) 144 ML/MIN (>60); Globulin 2.7 g/dL (1.3-3.2); Total Protein,Serum 5.5 g/dl (6.3-8.2)
[2020-11-18 06:22] LABS: Calcium 8.8 mg/dl (8.4-10.2); Glucose 104 mg/dl (74-100)
--- NOTE | 2020-11-18 06:35 | PC.NURSE ---
Pt became soa this AM and O2 sats decreased to 86%. O2 was titrated to 5L O2 NC.
--- NOTE | 2020-11-18 10:32 | HMH.ACPN2 ---
Internal Medicine - PN: Subj *Date: 11/18/20 *Time: 10:32 Interval history: She seems clinically stable except that recently with exertion her sats seem to be dropping more. As she rests she is not in any distress. Her chest x-ray from yesterday does not show improvement, in fact suggests some slight progression. Pulmonary raised the question of checking for PE. I have thus ordered a D-dimer. Exam Vital signs and Labs for Last 24 Hours: Temp Pulse Resp BP Pulse Ox 97.4 F L 94 H 22 147/70 H 88 L 11/18/20 07:44 11/18/20 07:44 11/18/20 07:44 11/18/20 07:44 11/18/20 07:44 Laboratory Results - last 24 hr 11/18/20 05:50: WBC 12.7 H, RBC 3.83 L, Hgb 11.3 L, Hct 34.9 L, MCV 91.1, MCH 29.5, MCHC 32.4, RDW 13.4, Plt Count 453 H, MPV 7.9, Neut % (Auto) 80.8 H, Lymph % (Auto) 11.8, [place] % (Auto) 6.5, Eos % (Auto) 0.8, Baso % (Auto) 0.1, Neut # (Auto) 10.3 H, Lymph # (Auto) 1.5, [place] # (Auto) 0.8, Eos # (Auto) 0.1, Baso # (Auto) 0.0 11/18/20 05:50: Sodium 136, Potassium 3.5, Chloride 98, Carbon Dioxide 35 H, Anion Gap 6.5, BUN 16, Creatinine 0.50 L, Estimated Creat Clear 60, Estimated GFR 119, Est GFR ( Amer) 144, Glucose 104 H, Calcium 8.8, Total Bilirubin 0.5, AST 20, ALT 16, Alkaline Phosphatase 69, Total Protein 5.5 L, Albumin 2.8 L, Globulin 2.7, Albumin/Globulin Ratio 1.0 L I & O for Last 24 hours: Intake & Output 11/15/20 11/16/20 11/17/20 11/18/20 11:59 11:59 11:59 11:59 Intake Total 1790 / 1790 1526 / 1526 1076 / 1076 1430 / 1430 Output Total 1400 / 1400 300 / 300 2100 / 2100 4050 / 4050 Balance 390 / 390 1226 / 1226 -1024 / -1024 -2620 / -2620 Weight 175 lb 9 oz 184 lb 184 lb 2.011 oz Microbiology Reports for the Last 24 Hours: Microbiology 11/13/20 09:10 Blood Blood Culture - Final NO GROWTH AFTER 5 DAYS 11/13/20 09:10 Blood Blood Culture - Final NO GROWTH AFTER 5 DAYS 11/15/20 06:35 Sputum - Expectorated Sputum Gram Stain - Final 11/15/20 06:35 Sputum - Expectorated Sputum Sputum Culture - Preliminary - Constitutional no acute distress - *Routine HEENT Exam Head: Present: normocephalic Eye: Present: PERRL ENT: Present: mucous membranes moist - *Routine Respiratory Exam Present: rhonchi (Scattered rhonchi, good air movement.) - *Routine Cardiovascular Exam Present: RRR - *Routine Abdominal Exam Present: soft. Absent: tenderness - *Routine Extremities Exam Present: edema (Minimal) - *Routine Skin Exam Absent: rash - *Routine Neurological Exam Present: alert, oriented X3 Assessment and Plan (1) Pneumonia due to 2019-nCoV Status: Acute Category: Medical Code(s): U07.1 - COVID-19; J12.89 - Other viral pneumonia (2) COVID-19 with pulmonary comorbidity Status: Acute Category: Medical Code(s): U07.1 - COVID-19; J98.4 - Other disorders of lung (3) Hypoxia Status: Acute Category: Medical Code(s): R09.02 - Hypoxemia (4) History of asthma Status: Acute Category: Medical Code(s): Z87.09 - Personal history of other diseases of the respiratory system (5) History of recurrent UTIs Status: Acute Category: Medical Code(s): Z87.440 - Personal history of urinary (tract) infections - Assessment and plan all Dx Assessment and Plan for all problems:: Continue present treatment. D-dimer ordered.
[2020-11-18 11:28] LABS: D-Dimer 4.22 ug/mL (0.15-8.0)
--- NOTE | 2020-11-18 14:29 | CT_ITS ---
PROCEDURE: CT ANGIO CHEST CLINCIAL INDICATION: R/O PE COMPARISON: No exams were available for comparison TECHNIQUE: IV Contrast: 70ML Isovue 370 Axial images obtained with sagittal and coronal reformats. All CT scans at the facility use one or more dose reduction, viz: automated exposure control, ma/kV adjustment per patient size (including targeted exams where dose is matched to indication, i.e. head), or iterative reconstruction technique. FINDINGS: HEART AND MEDIASTINAL STRUCTURES: There is moderate generalized cardiomegaly with mild aortic tortuosity. There is excellent vascular opacification and there are cute pulmonary emboli segmental branches of the left upper lobe right upper lobe and subsegmental branches right lower left lower lobe. LUNGS AND PLEURAL SPACES: Prominent diffuse ground-glass opacities are seen in throughout both lung unger most prominent in the lower lobes bilaterally. There is no pleural fluid. BONY STRUCTURES: There prominent degenerate changes midthoracic spine. UPPER ABDOMEN there is a small hiatal hernia, there is distention of stomach with ingested fluid and food particles. ADDITIONAL FINDINGS: No other significant abnormalities. IMPRESSION: Prominent diffuse underlying ground-glass opacities consistent with acute Covid19 pneumonia along with acute bilateral pulmonary emboli Dictated by: Dr. Richard Krishnamurthy MD 11/18/2020 15:17 Dr. Richard Krishnamurthy MD in [facility] 11/18/2020 15:17
--- NOTE | 2020-11-18 14:33 | PC.NURSE ---
PT IS RESTING IN BED. RECEIVED ZOFRAN THIS MORNING FOR NAUSEA. PT STATED SHE THINKS IT WAS THE COUGH MEDICINE THAT MADE HER NAUSEATED. O2 SATURATION AT THIS TIME IS 93% ON 4 L NC. PT O2 SATURATION MAINTAINED 90-92 ON 3L NC EARLIER IN THE SHIFT BUT WHEN PT GOT UP TO THE BSC O2 SATURATION DROPPED TO 85-87. PT STATES GETTING UP TO THE BSC HAS REALLY WORE HER OUT TODAY. SO FAR PT HAS DIURESED 2400 ML'S. PT STATES SHE FEELS WORSE TODAY BUT SHE THINKS IT IS JUST B/C SHE OVERWORKED HERSELF THIS MORNING WITH A BATH AND GETTING UP AND DOWN SO MUCH TO USE THE BATHROOM SINCE THE IV LASIX. ORDER A D-DIMER THIS MORNING. DR. LOWRY NOTIFIED ABOUT D-DIMER RESULTS AND PT'S OXYGEN REQUIREMENT AND HE ORDERED A CT/PE PROTOCOL. ORDER WAS ENTERED IN THE COMPUTER, RADIOLOGY NOTIFIED. PT HAS BEEN ALERT AND ORIENTED T/O THE SHIFT. STATES SHE DOES NOT HAVE MUCH OF AN APPETITE BUT HAS BEEN DRINKING WATER AND SIPPING ON SOME LEW MIST. LUNG SOUNDS HAVE SCATTERED CRACKLES. ABDOMEN IS SOFT/ NON TENDER WITH ACTIVE BOWEL SOUNDS. PT STATES SHE STILL HAS NOT HAD A BOWEL MOVEMENT EVEN THOUGH SHE HAS BEEN DRINKING HER WATER IN THE MORNING WITH MIRALAX. VSS. WILL CONTINUE TO MONITOR.
--- NOTE | 2020-11-18 16:34 | PC.NURSE ---
PHARMACY CALLED AND STATED THAT PT WOULD NEED XARELTO 15 MG BID. PHARMACY NOTIFIED . ORDER WAS CHANGED FROM XARELTO 20 MG DAILY TO XARELTO 15 MG BID. PT STARTS FIRST DOSE NOW.
[2020-11-19] VITALS (11 sets, daily range): BP systolic 110–133; BP diastolic 55–86; PULSE 66–82; RESP 16–19; TEMP 36.7–37; O2SAT 3–96
--- NOTE | 2020-11-19 05:31 | PC.NURSE ---
Pt is A&O x4 and has slept through the night. Pt has been on 4L NC with sats in the low 90s. Sats dropped when using the bedside commode but were able to slowly recover. Pt states she is doing much better than the previous night. Lung sounds are diminished with course crackles throughout. UOP has been adequate, bowel sounds positive x4, abd soft and non tender. Pt was able to eat most of evening meal with a snack. NSS, Call light in reach, no concerns at this time.
[2020-11-19 06:46] LABS: Basophils % 0.1 % (0.1-2.0); Eosinophils # 0.1 K/mm3 (0.0-0.4); Eosinophils % 0.7 % (0.1-12.0); Hematocrit 35.8 % (37.0-47.0); Hemoglobin 11.8 g/dL (12.2-16.2); Lymphocytes # 1.8 K/mm3 (0.7-4.5); Lymphocytes % 13.8 % (10-50); Mean Corpuscular HGB Conc 32.9 g/dL (31.8-35.4); Mean Corpuscular Hemoglobin 29.5 pg (27.0-31.2); Mean Corpuscular Volume 89.5 fl (81-99); Mean Platelet Volume 8.1 fl (7.4-10.4); Monocytes # 0.9 K/mm3 (0.1-1.0); Monocytes % 6.8 % (1.7-9.3); Neutrophils % 78.5 % (37.0-80.0); Platelet Count 412 K/mm3 (142-424); Red Cell Distribution Width 13.3 % (11.5-17.5); White Blood Count 12.7 K/mm3 (4.8-10.8)
[2020-11-19 07:07] LABS: Alanine Aminotransferase 16 U/L (12-78); Albumin Level 2.9 g/dl (3.5-5.0); Albumin/Globulin Ratio 1.1 (1.1-1.8); Alkaline Phosphatase 76 U/L (38-126); Anion Gap 8.3 mEq/L (5-15); Aspartate Amino Transferase 18 U/L (14-36); Bilirubin,Total 0.5 mg/dl (0.2-1.3); Blood Urea Nitrogen 20 mg/dl (7-17); Calcium 8.9 mg/dl (8.4-10.2); Carbon Dioxide 36 mmol/L (22.0-30.0); Chloride 94 mmol/L (98-107); Creatinine Clearance Estimated 60 mL/min (50-200); Estimated Glomerular Filt Rate 96 ml/min (>60); GFR (African American) 117 ML/MIN (>60); Globulin 2.7 g/dL (1.3-3.2); Glucose 104 mg/dl (74-100); Potassium 3.3 mmoL/L (3.5-5.1); Sodium 135 mmol/L (136-145); Total Protein,Serum 5.6 g/dl (6.3-8.2)
--- NOTE | 2020-11-19 07:19 | PC.NURSE ---
All care supervised by primary RN Tahmina Yadav
--- NOTE | 2020-11-19 09:04 | HMH.ACPN2 ---
Internal Medicine - PN: Subj *Date: 11/19/20 *Time: 09:04 Interval history: Though her D-dimer was low Dr. Lock requested CTA which showed evidence of pulmonary emboli bilaterally. She was started on Xarelto 15 mg p.o. twice daily. Her oxygen saturations have actually been a little better since then, in the 90-93 range and not dipping below 90. I am not performing her exam this morning until after office hours. Exam Vital signs and Labs for Last 24 Hours: Temp Pulse Resp BP Pulse Ox 98.2 F 82 17 113/57 L 92 L 11/19/20 08:00 11/19/20 08:00 11/19/20 08:00 11/19/20 08:00 11/19/20 08:00 Laboratory Results - last 24 hr 11/18/20 11:00: D-Dimer 4.22 11/19/20 06:30: WBC 12.7 H, RBC 4.00 L, Hgb 11.8 L, Hct 35.8 L, MCV 89.5, MCH 29.5, MCHC 32.9, RDW 13.3, Plt Count 412, MPV 8.1, Neut % (Auto) 78.5, Lymph % (Auto) 13.8, [place] % (Auto) 6.8, Eos % (Auto) 0.7, Baso % (Auto) 0.1, Neut # (Auto) 10.0 H, Lymph # (Auto) 1.8, [place] # (Auto) 0.9, Eos # (Auto) 0.1, Baso # (Auto) 0.0 11/19/20 06:30: Sodium 135 L, Potassium 3.3 L, Chloride 94 L, Carbon Dioxide 36 H, Anion Gap 8.3, BUN 20 H, Creatinine 0.60, Estimated Creat Clear 60, Estimated GFR 96, Est GFR ( Amer) 117, Glucose 104 H, Calcium 8.9, Total Bilirubin 0.5, AST 18, ALT 16, Alkaline Phosphatase 76, Total Protein 5.6 L, Albumin 2.9 L, Globulin 2.7, Albumin/Globulin Ratio 1.1 I & O for Last 24 hours: Intake & Output 11/16/20 11/17/20 11/18/20 11/19/20 11:59 11:59 11:59 11:59 Intake Total 1526 / 1526 1076 / 1076 1430 / 1430 1326 / 1326 Output Total 300 / 300 2100 / 2100 4750 / 5550 2350 / 2350 Balance 1226 / 1226 -1024 / -1024 -3320 / -4120 -1024 / -1024 Weight 184 lb 184 lb 2.011 oz 185 lb 3.013 oz Microbiology Reports for the Last 24 Hours: Microbiology 11/15/20 06:35 Sputum - Expectorated Sputum Gram Stain - Final 11/15/20 06:35 Sputum - Expectorated Sputum Sputum Culture - Final Normal Respiratory Nancy 11/13/20 09:10 Blood Blood Culture - Final NO GROWTH AFTER 5 DAYS 11/13/20 09:10 Blood Blood Culture - Final NO GROWTH AFTER 5 DAYS Assessment and Plan (1) Pneumonia due to 2019-nCoV Status: Acute Category: Medical Code(s): U07.1 - COVID-19; J12.89 - Other viral pneumonia (2) COVID-19 with pulmonary comorbidity Status: Acute Category: Medical Code(s): U07.1 - COVID-19; J98.4 - Other disorders of lung (3) Hypoxia Status: Acute Category: Medical Code(s): R09.02 - Hypoxemia (4) History of asthma Status: Acute Category: Medical Code(s): Z87.09 - Personal history of other diseases of the respiratory system (5) History of recurrent UTIs Status: Acute Category: Medical Code(s): Z87.440 - Personal history of urinary (tract) infections - Assessment and plan all Dx Assessment and Plan for all problems:: Continue present regimen.
--- NOTE | 2020-11-19 16:17 | P.PN_ITS ---
Internal Medicine - PN: Subj *Date: 11/19/20 *Time: 16:17 Interval history: She has had a good day today. She asks for her Lexapro and asks if she can increase her Xanax. Her lungs are clear today than they were yesterday. Her oxygen saturations have been better. She has tolerated lower levels of nasal cannula. Exam Vital signs and Labs for Last 24 Hours: Temp Pulse Resp BP Pulse Ox 98.1 F 72 19 110/60 93 L 11/19/20 15:55 11/19/20 15:55 11/19/20 15:55 11/19/20 15:55 11/19/20 15:55 Laboratory Results - last 24 hr 11/19/20 06:30: WBC 12.7 H, RBC 4.00 L, Hgb 11.8 L, Hct 35.8 L, MCV 89.5, MCH 29.5, MCHC 32.9, RDW 13.3, Plt Count 412, MPV 8.1, Neut % (Auto) 78.5, Lymph % (Auto) 13.8, [place] % (Auto) 6.8, Eos % (Auto) 0.7, Baso % (Auto) 0.1, Neut # (Auto) 10.0 H, Lymph # (Auto) 1.8, [place] # (Auto) 0.9, Eos # (Auto) 0.1, Baso # (Auto) 0.0 11/19/20 06:30: Sodium 135 L, Potassium 3.3 L, Chloride 94 L, Carbon Dioxide 36 H, Anion Gap 8.3, BUN 20 H, Creatinine 0.60, Estimated Creat Clear 60, Estimated GFR 96, Est GFR ( Amer) 117, Glucose 104 H, Calcium 8.9, Total Bilirubin 0.5, AST 18, ALT 16, Alkaline Phosphatase 76, Total Protein 5.6 L, Albumin 2.9 L , Globulin 2.7, Albumin/Globulin Ratio 1.1 I & O for Last 24 hours: Intake & Output 11/17/20 11/18/20 11/19/20 11/20/20 11:59 11:59 11:59 11:59 Intake Total 1076 / 1076 1430 / 1430 1326 / 1326 360 / 360 Output Total 2099 / 2100 4750 / 5550 2550 / 2550 Balance -1024 / -1024 -3320 / -4120 -1224 / -1224 360 / 360 Weight 184 lb 2.011 oz 185 lb 3.013 oz Microbiology Reports for the Last 24 Hours: Microbiology 11/15/20 06:35 Sputum - Expectorated Sputum Gram Stain - Final 11/15/20 06:35 Sputum - Expectorated Sputum Sputum Culture - Final Normal Respiratory Nancy - Constitutional no acute distress - *Routine HEENT Exam Head: Present: normocephalic Eye: Present: PERRL ENT: Present: mucous membranes moist - *Routine Respiratory Exam Present: rhonchi (Less rhonchi and better air movement. She sounds clearer today than yesterday.) - *Routine Cardiovascular Exam Present: RRR - *Routine Extremities Exam Present: edema (Trace) Assessment and Plan (1) Pneumonia due to 2019-nCoV Status: Acute Category: Medical Code(s): U07.1 - COVID-19; J12.89 - Other viral pneumonia (2) COVID-19 with pulmonary comorbidity Status: Acute Category: Medical Code(s): U07.1 - COVID-19; J98.4 - Other disorders of lung (3) Hypoxia Status: Acute Category: Medical Code(s): R09.02 - Hypoxemia (4) History of asthma Status: Acute Category: Medical Code(s): Z87.09 - Personal history of other diseases of the respiratory system (5) History of recurrent UTIs Status: Acute Category: Medical Code(s): Z87.440 - Personal history of urinary (tract) infections - Assessment and plan all Dx Assessment and Plan for all problems:: Resume Lexapro. Increase alprazolam to 3 times daily.
--- NOTE | 2020-11-19 19:25 | PC.NURSE ---
PATIENT A&O X4, LUNGS: RHONCHI HEARD, PULSES EQUAL. PATIENT UP TO BEDSIDE COMMODE, O2 STATS WILL DROP 87-89% ON 4L NC. PATIENT STATED THAT SHE IS ANXIOUS TODAY AND WOULD LIKE TO GO HOME. PATIENT HAS REQUESTED FIBER WITH HER MIRALAX AND LEXPRO. THIS RN PHONED MD'S OFFICE AND LEFT A MESSAGE WITH JOEL. DR. TOVAR AT BEDSIDE, THIS RN FOLLOWED UP ABOUT PATIENTS REQUESTS, MD STATED YES AND PLACED ORDERS. THIS RN WEENED PATIENT TO 3L NC, PATIENT HAS BEEN AT 90-94 O2 AND IS TOLERATING WELL. NO NEW CONCERNS AT THIS TIME.
[2020-11-20] VITALS (10 sets, daily range): BP systolic 110–132; BP diastolic 43–67; PULSE 62–86; RESP 16–18; TEMP 36.6–36.9; O2SAT 91–94
--- NOTE | 2020-11-20 05:06 | PC.NURSE ---
Pt is A&O x4 and has slept well throughout the shift. Pt stated that she was feeling much better and was finally able to cough up some mucus. Pt has been on 3L NC through the night with sats in the low 90s. Lungs sounds are diminished with scattered crackles. When ambulating to the [facility] [place], pt will desat into low to mid 80s but is able to recover on her own with deep breaths. Pt appetite is improved, bowel sounds are positive x4, abd soft and non tender. VSS, call light in reach. no concerns at this time.
[2020-11-20 06:08] LABS: Basophils % 0.1 % (0.1-2.0); Eosinophils # 0.1 K/mm3 (0.0-0.4); Hematocrit 33.6 % (37.0-47.0); Lymphocytes # 1.3 K/mm3 (0.7-4.5); Lymphocytes % 8.6 % (10-50); Mean Corpuscular HGB Conc 32.7 g/dL (31.8-35.4); Mean Corpuscular Hemoglobin 29.8 pg (27.0-31.2); Mean Corpuscular Volume 91.1 fl (81-99); Monocytes # 1.2 K/mm3 (0.1-1.0); Monocytes % 7.9 % (1.7-9.3); Neutrophils # 12.1 K/mm3 (1.8-7.8); Neutrophils % 82.4 % (37.0-80.0); Platelet Count 412 K/mm3 (142-424); Red Blood Count 3.69 M/mm3 (4.20-5.40); Red Cell Distribution Width 13.4 % (11.5-17.5); White Blood Count 14.6 K/mm3 (4.8-10.8)
[2020-11-20 06:22] LABS: Alanine Aminotransferase 12 U/L (12-78); Albumin Level 2.6 g/dl (3.5-5.0); Alkaline Phosphatase 66 U/L (38-126); Anion Gap 4.6 mEq/L (5-15); Aspartate Amino Transferase 18 U/L (14-36); Bilirubin,Total 0.4 mg/dl (0.2-1.3); Blood Urea Nitrogen 26 mg/dl (7-17); Calcium 8.5 mg/dl (8.4-10.2); Carbon Dioxide 34 mmol/L (22.0-30.0); Chloride 99 mmol/L (98-107); Creatinine Clearance Estimated 60 mL/min (50-200); Estimated Glomerular Filt Rate 119 ml/min (>60); GFR (African American) 144 ML/MIN (>60); Globulin 2.6 g/dL (1.3-3.2); Glucose 105 mg/dl (74-100); Potassium 3.6 mmoL/L (3.5-5.1); Sodium 134 mmol/L (136-145); Total Protein,Serum 5.2 g/dl (6.3-8.2)
--- NOTE | 2020-11-20 13:49 | HMH.ACPN2 ---
Internal Medicine - PN: Subj *Date: 11/20/20 *Time: 13:49 Interval history: She seems to be clinically more stable. She is alert and animated. Her sats are usually above 90 unless she exerts herself. She was able to sleep last night. She is using her incentive spirometry. Her lungs sound clearer with only scattered rhonchi. No significant leg edema. Nasal O2 in place. Her potassium has corrected with supplementation. Exam Vital signs and Labs for Last 24 Hours: Temp Pulse Resp BP Pulse Ox 97.9 F 79 17 116/66 92 L 11/20/20 12:00 11/20/20 12:00 11/20/20 12:00 11/20/20 12:00 11/20/20 12:00 Laboratory Results - last 24 hr 11/20/20 05:30: WBC 14.6 H, RBC 3.69 L, Hgb 11.0 L, Hct 33.6 L, MCV 91.1, MCH 29.8, MCHC 32.7, RDW 13.4, Plt Count 412, MPV 8.0, Neut % (Auto) 82.4 H, Lymph % (Auto) 8.6 L, [place] % (Auto) 7.9, Eos % (Auto) 1.0, Baso % (Auto) 0.1, Neut # (Auto) 12.1 H, Lymph # (Auto) 1.3, [place] # (Auto) 1.2 H, Eos # (Auto) 0.1, Baso # (Auto) 0.0 11/20/20 05:30: Sodium 134 L, Potassium 3.6, Chloride 99, Carbon Dioxide 34 H, Anion Gap 4.6 L, BUN 26 H D, Creatinine 0.50 L, Estimated Creat Clear 60, Estimated GFR 119, Est GFR ( Amer) 144 D, Glucose 105 H, Calcium 8.5, Total Bilirubin 0.4, AST 18, ALT 12, Alkaline Phosphatase 66, Total Protein 5.2 L, Albumin 2.6 L D, Globulin 2.6, Albumin/Globulin Ratio 1.0 L I & O for Last 24 hours: Intake & Output 11/18/20 11/19/20 11/20/20 11/21/20 11:59 11:59 11:59 11:59 Intake Total 1430 / 1430 1326 / 1326 1320 / 1320 Output Total 4750 / 5550 2550 / 2550 300 / 300 Balance -3320 / -4120 -1224 / -1224 1020 / 1020 Weight 184 lb 2.011 oz 185 lb 3.013 oz - Constitutional no acute distress (Nasal O2 in place) - *Routine HEENT Exam Head: Present: normocephalic Eye: Present: PERRL ENT: Present: mucous membranes moist - *Routine Respiratory Exam Present: rhonchi (Scattered, but good air movement bilaterally.) - *Routine Cardiovascular Exam Present: RRR - *Routine Abdominal Exam Present: soft. Absent: tenderness - *Routine Extremities Exam Present: edema (Minimal) Assessment and Plan (1) Pneumonia due to 2019-nCoV Status: Acute Category: Medical Code(s): U07.1 - COVID-19; J12.89 - Other viral pneumonia (2) COVID-19 with pulmonary comorbidity Status: Acute Category: Medical Code(s): U07.1 - COVID-19; J98.4 - Other disorders of lung (3) Hypoxia Status: Acute Category: Medical Code(s): R09.02 - Hypoxemia (4) History of asthma Status: Acute Category: Medical Code(s): Z87.09 - Personal history of other diseases of the respiratory system (5) History of recurrent UTIs Status: Acute Category: Medical Code(s): Z87.440 - Personal history of urinary (tract) infections - Assessment and plan all Dx Assessment and Plan for all problems:: She needs home oxygen at discharge. She has a nebulizer with albuterol available at home. She would like to have a hospital bed at home upon discharge. She also asks about home health which I think would be reasonable especially in light of her 's Covid illness.
--- NOTE | 2020-11-20 20:17 | PC.NURSE ---
PATIENT UP TO BEDSIDE COMMODE WITHOUT ISSUES, NO COMPLAINTS OF ANXIETY AND ABLE TO TOLERATE DIET WELL. NO CONCERNS AT THIS TIME.
[2020-11-21] VITALS: BP 125/68; PULSE 83; RESP 17; TEMP 37.1; O2SAT 91
[2020-11-21 00:38] VITALS: PULSE 76; PULSE 77
[2020-11-21 03:41] VITALS: BP 120/56; PULSE 64; RESP 18; TEMP 37.1; O2SAT 97
--- NOTE | 2020-11-21 03:58 | PC.NURSE ---
Pt is A&O x4 and has slept well through the night. Pt states that her appetite has returned and pt ate all of her evening meal and tolerated well. Pt has been on 3L NC this shift with sats in the low to mid 90s. Pt O2 will drop to mid 80s when ambulating to the [facility] [place] is able to recover quickly on her own. Lung sounds are diminished with scattered fine crackles. UOP has been adequate and pt has had two loose BMs this shift. Bowel soudns positive x4, abd soft and nontender. Pt able to ambulate independently. VSS, call light in reach. No concerns at this time.
[2020-11-21 06:22] LABS: Basophils % 0.2 % (0.1-2.0); Eosinophils # 0.1 K/mm3 (0.0-0.4); Eosinophils % 0.8 % (0.1-12.0); Hematocrit 35.3 % (37.0-47.0); Hemoglobin 11.2 g/dL (12.2-16.2); Lymphocytes # 1.4 K/mm3 (0.7-4.5); Lymphocytes % 9.1 % (10-50); Mean Corpuscular HGB Conc 31.8 g/dL (31.8-35.4); Mean Corpuscular Hemoglobin 29.5 pg (27.0-31.2); Mean Corpuscular Volume 92.6 fl (81-99); Mean Platelet Volume 8.3 fl (7.4-10.4); Monocytes # 0.9 K/mm3 (0.1-1.0); Monocytes % 5.9 % (1.7-9.3); Neutrophils % 84.1 % (37.0-80.0); Platelet Count 403 K/mm3 (142-424); Red Blood Count 3.81 M/mm3 (4.20-5.40); Red Cell Distribution Width 13.4 % (11.5-17.5); White Blood Count 15.5 K/mm3 (4.8-10.8)
[2020-11-21 06:34] LABS: Alanine Aminotransferase 14 U/L (12-78); Albumin Level 2.6 g/dl (3.5-5.0); Alkaline Phosphatase 62 U/L (38-126); Anion Gap 8.3 mEq/L (5-15); Aspartate Amino Transferase 17 U/L (14-36); Bilirubin,Total 0.4 mg/dl (0.2-1.3); Blood Urea Nitrogen 27 mg/dl (7-17); Calcium 8.8 mg/dl (8.4-10.2); Carbon Dioxide 31 mmol/L (22.0-30.0); Chloride 99 mmol/L (98-107); Creatinine Clearance Estimated 60 mL/min (50-200); Estimated Glomerular Filt Rate 119 ml/min (>60); GFR (African American) 144 ML/MIN (>60); Globulin 2.6 g/dL (1.3-3.2); Glucose 109 mg/dl (74-100); Potassium 4.3 mmoL/L (3.5-5.1); Sodium 134 mmol/L (136-145); Total Protein,Serum 5.2 g/dl (6.3-8.2)
[2020-11-21 06:47] LABS: MANUAL DIFFERENTIAL MANUAL DIFFERENTIAL (MANUAL DIFF)
[2020-11-21 08:00] VITALS: BP 130/68; PULSE 82; RESP 20; TEMP 36.6; O2SAT 95; O2SAT 97
--- NOTE | 2020-11-21 08:29 | XR_ITS ---
PROCEDURE: XR CHEST PORTABLE CLINICAL HISTORY: PNM Follow-up pneumonia COMPARISON: CR XR CHEST PORTABLE from 11/09/2020 CR XR CHEST PORTABLE from 11/13/2020 CR XR CHEST PORTABLE from 11/17/[address] ANGIO CHEST from 11/18/2020 FINDINGS: Borderline cardiomegaly without failure. Diffuse bilateral pneumonia once again noted and may be slightly improved in the right lower lobe. Degenerative changes of the shoulders. IMPRESSION: Bilateral pneumonia slightly improved in the right lung base Dictated by: Demetrius Amor MD 11/21/2020 09:40 Demetrius Amor MD in [facility] 11/21/2020 09:40
--- NOTE | 2020-11-21 08:32 | HMH.ACPN2 ---
Internal Medicine - PN: Subj *Date: 11/21/20 *Time: 08:37 Interval history: Feels that she is doing better. Is up for breakfast and is tired. She has a productive cough. She continues to be short of breath with any exertion. She denies chest pain. She is eating better and her bowels are moving. She is voiding QS. She is anxious to go home. She will need home health, hospital bed, home oxygen, and bedside commode. She has a neb machine at home. Exam Vital signs and Labs for Last 24 Hours: Temp Pulse Resp BP Pulse Ox 97.8 F 82 20 130/68 95 11/21/20 08:00 11/21/20 08:00 11/21/20 08:00 11/21/20 08:00 11/21/20 08:00 Laboratory Results - last 24 hr 11/21/20 05:40: WBC 15.5 H, RBC 3.81 L, Hgb 11.2 L, Hct 35.3 L, MCV 92.6, MCH 29.5, MCHC 31.8, RDW 13.4, Plt Count 403, MPV 8.3, Neut % (Auto) 84.1 H, Lymph % (Auto) 9.1 L, [place] % (Auto) 5.9, Eos % (Auto) 0.8, Baso % (Auto) 0.2, Neut # (Auto) 13.0 H, Lymph # (Auto) 1.4, [place] # (Auto) 0.9, Eos # (Auto) 0.1, Baso # (Auto) 0.0 11/21/20 05:40: Sodium 134 L, Potassium 4.3, Chloride 99, Carbon Dioxide 31 H, Anion Gap 8.3, BUN 27 H, Creatinine 0.50 L, Estimated Creat Clear 60, Estimated GFR 119, Est GFR ( Amer) 144, Glucose 109 H, Calcium 8.8, Total Bilirubin 0.4, AST 17, ALT 14, Alkaline Phosphatase 62, Total Protein 5.2 L, Albumin 2.6 L, Globulin 2.6, Albumin/Globulin Ratio 1.0 L I & O for Last 24 hours: Intake & Output 11/18/20 11/19/20 11/20/20 11/21/20 11:59 11:59 11:59 11:59 Intake Total 1430 / 1430 1326 / 1326 1320 / 1320 1860 / 1860 Output Total 4750 / 5550 2550 / 2550 300 / 300 1000 / 1000 Balance -3320 / -4120 -1224 / -1224 1020 / 1020 860 / 860 Weight 184 lb 2.011 oz 185 lb 3.013 oz 185 lb - Constitutional no acute distress Comments: Sitting up in a chair at bedside and appears comfortable - *Routine Respiratory Exam Present: crackles (Bilaterally coarse crackles mostly in upper lobes.) - *Routine Cardiovascular Exam Present: RRR - *Routine Abdominal Exam Present: soft, normoactive bowel sounds. Absent: tenderness - *Routine Extremities Exam Absent: edema, calf tenderness - *Routine Neurological Exam Present: alert, oriented X3 Assessment and Plan (1) Pneumonia due to 2019-nCoV Status: Acute Category: Medical Code(s): U07.1 - COVID-19; J12.89 - Other viral pneumonia (2) COVID-19 with pulmonary comorbidity Status: Acute Category: Medical Code(s): U07.1 - COVID-19; J98.4 - Other disorders of lung (3) Hypoxia Status: Acute Category: Medical Code(s): R09.02 - Hypoxemia (4) History of asthma Status: Acute Category: Medical Code(s): Z87.09 - Personal history of other diseases of the respiratory system (5) History of recurrent UTIs Status: Acute Category: Medical Code(s): Z87.440 - Personal history of urinary (tract) infections - Assessment and plan all Dx Assessment and Plan for all problems:: Patient is ready for discharge today. Care management working on home needs to include hospital bed, bedside commode, oxygen, and home health. Meds as per med reconciliation sheet
[2020-11-21 09:18] LABS: Lymphocytes % 13 % (10-50); Monocytes % 6 % (2-9); Neutrophils % 81 % (42-76); Platelet Estimate Normal; RBC Morphology Normal; Total Cells Counted 100
--- NOTE | 2020-11-21 09:40 | HMH.PULMPN ---
Internal Medicine - PN: Subj *Date: 11/21/20 *Time: 09:40 Interval history: No acute respiratory events overnight. Patient tolerating anticoagulation and respiratory status improved over the weekend. Exam - Constitutional Constitutional:: no acute distress, comfortable - HENMT Exam HENMT: normocephalic, atraumatic - Eye Exam Eyes:: normal appearance both eyes and related structures - Neck Exam Neck:: normal visual inspection, thyroid normal, no lymphadenopathy - Respiratory Exam Respiratory:: able to speak in complete sentences Comments: Bilateral coarse breath sounds with no audible wheeze. Significantly improved. - Cardiovascular Exam Cardiac:: S1, S2 - GI Exam GI:: soft, no hepatosplenomegaly - Skin Exam Skin: no rash - Neurological Exam Neurological: alert, awake, normal cognition - Extremities Exam Extremities: no cyanosis, no clubbing, no edema - Psychiatric Exam Psychiatric: normal affect Assessment and Plan (1) Pneumonia due to 2019-nCoV Status: Acute Category: Medical Code(s): U07.1 - COVID-19; J12.89 - Other viral pneumonia (2) COVID-19 with pulmonary comorbidity Status: Acute Category: Medical Code(s): U07.1 - COVID-19; J98.4 - Other disorders of lung (3) Hypoxia Status: Acute Category: Medical Code(s): R09.02 - Hypoxemia (4) History of asthma Status: Acute Category: Medical Code(s): Z87.09 - Personal history of other diseases of the respiratory system (5) History of recurrent UTIs Status: Acute Category: Medical Code(s): Z87.440 - Personal history of urinary (tract) infections - Assessment and plan all Dx Assessment and Plan for all problems:: #Acute hypoxic respiratory failure: #History of asthma: #COVID-19 pneumonia: #Community-acquired pneumonia: #Provoked pulmonary embolism likely secondary to COVID-19 infection 80-year-old with self-reported history of asthma presented with COVID-19 pneumonia. Patient respiratory status slowly improved from admission however started getting worse and diuretics did not improve her respiratory status. Patient respiratory status continued to worsen over the weekend and as concern for PE, CT PE was ordered that showed bilateral segmental pulmonary embolism and patient was started on anticoagulation over the weekend. Patient tolerated anticoagulation well and respiratory status improved. Patient on 3 L nasal cannula saturating 93%. No respiratory distress noted. Able to complete talk in full sentences per auscultation revealed bilateral coarse breath sounds significantly improved from admission, no audible wheeze noted. Plan: -Continue full dose anticoagulation for provoked pulmonary embolism for at least 3 months -Continue Remdesevir for a total of 10 days -Discontinue dexamethasone -Continue DuoNebs every 6 hours & budesonide every 12 scheduled (patient home inhalers include Symbicort along with albuterol as needed, patient will continue using her home inhalers upon discharge) -Oxygen supplementation to maintain O2 saturations goal of 88 to 92%. -We will follow this patient in pulmonary clinic in 3 to 4 weeks with 6-minute walk testing #Thank you for involving pulmonary in this patient care. We will continue to follow.
--- NOTE | 2020-11-21 09:54 | PC.NURSE ---
pt has a medical condition which requires positioning of the body in ways not feasible with an ordinary bed.
[2020-11-21 12:00] VITALS: BP 126/59; PULSE 74; RESP 20; TEMP 36.5; O2SAT 99
--- NOTE | 2020-11-26 19:00 | HMH.DCSUM ---
General - General Admission date:: 11/13/20 Discharge date: 11/21/20 HPI HPI: This 79-year-old white female has a known diagnosis of COVID-19 pneumonia. She presented in the emergency room this morning with increased shortness of breath with any exertion. She has a history of asthma and uses a nebulizer at home. The following is from the ER report: Patient presents with dyspnea and hypoxia most likely secondary to Covid pneumonia. Patient weaned off of oxygen here in the ER but did have saturations dropping below 90% and became somewhat symptomatic. On 1 to 2 L nasal cannula patient rests comfortably in bed and sats are in the low to mid 90s. No discernible wheezing noted but patient given albuterol inhaler to see if this improves her symptoms. EKG was obtained to ensure no dysrhythmia or acute ischemia which was negative for either of those processes. I did review her chart and she was seen on the here in the ER. X-ray today does look like there is some interval worsening of bilateral airspace disease. Lab work obtained today is relatively unremarkable. As patient does have medical comorbidities with advanced age in the setting of Covid pneumonia requiring oxygen, I do believe she is a candidate for Covid cocktail with remdesivir, steroids, and multivitamins. Levaquin also ordered. This has been ordered in the emergency department. She does have a positive test from 6 days ago in our system so no repeat PCR swab will be obtained. IgG/IgM testing will be performed. I did reach out to on-call provider as I do believe patient requires admission. After a careful discussion. Patient will be admitted to the hospital why she requires oxygen for further treatment and monitoring. Hospital Course Hospital Course: The patient was admitted and started on the Covid protocol. She was also started on duo nebs. Pulmonology was consulted and did add budesonide every 12 hours to her regimen. He felt she should be continued on the Covid protocol along with Levaquin for her pneumonia. She did have some worsening lower extremity edema and was given some Lasix. She was able to finally began sleeping and eating. She was able to ambulate in the room but her oxygen sat decreased with exertion. Her blood cultures returned showing no growth. She was found to be volume overloaded and was started on daily Lasix. She had a repeat chest x-ray on 11/17/2020 which showed extensive diffuse bilateral patchy infiltrates with no improvement and slight progression on the left. A D-dimer was ordered due to the suspicion of a PE. It was normal but she did have a chest CTA which showed prominent diffuse underlying groundglass opacities consistent with COVID-19 pneumonia along with acute bilateral pulmonary emboli. She was started on Xarelto 15 mg twice daily and her oxygen saturations did seem to improve and did not dip below 90. Her sputum showed normal respiratory karina. She was able to be weaned on her nasal cannula to lower levels. Her sats remained above 90 unless she exerted herself. Her edema improved and her potassium was low but was corrected with supplementation. She did have a nebulizer with albuterol at home but it was felt she would need home oxygen as well as a hospital bed upon discharge. She had a repeat chest x-ray on 11/21/2020 which showed bilateral pneumonia slightly improving in the right base. She was stable to be discharged home and care management ordered her hospital bed, bedside commode, oxygen, and home health. Objective Vital signs: Temp Pulse Resp BP Pulse Ox 97.7 F 74 20 126/59 L 99 11/21/20 12:00 11/21/20 12:00 11/21/20 12:00 11/21/20 12:00 11/21/20 12:00 Narrative: - Constitutional no acute distress - *Routine HEENT Exam Head: Present: normocephalic Eye: Present: PERRL ENT: Present: mucous membranes moist - *Routine Neck Exam Absent: JVD - Routine Chest/Breast/Axilla Exam Chest wall:
== END 2020-11-21 14:41 | disposition home health service (06) | DRG 177 ==
LOC: ER 10:40 → ICU 12:48
PROVIDERS: Admitting Provider Family Medicine; Emergency Provider Emergency Medicine; PCP Family Medicine; Visit Provider Family Medicine
DX: U07.1 COVID-19 (principal); J12.82 Pneumonia due to coronavirus disease 2019; J96.01 Acute respiratory failure with hypoxia; I26.99 Other pulmonary embolism without acute cor pulmonale; I10 Essential (primary) hypertension; E78.5 Hyperlipidemia, unspecified; E03.9 Hypothyroidism, unspecified; Z88.2 Allergy status to sulfonamides; Z79.899 Other long term (current) drug therapy; Z79.51 Long term (current) use of inhaled steroids; Z87.440 Personal history of urinary (tract) infections; J45.909 Unspecified asthma, uncomplicated
CPT/HCPCS: 71045; 71275; 80053; 81001; 83605; 85007; 85025; 85378; 86328; 87040; 87070; 87205; 93005; 94640; 94761; 99284; J1956; Q9967

== ENCOUNTER → 2020-12-12 07:57 | Outpatient (CLI) | payer MEDICARE, OTHER, SELFPAY | PROVIDERS: PCP Family Medicine; Visit Provider Internal Medicine Pulmonary Disease | DX: U07.1 COVID-19 (principal); J12.82 Pneumonia due to coronavirus disease 2019; J98.4 Other disorders of lung; R09.2 Respiratory arrest; Z87.09 Personal history of other diseases of the respiratory system | CPT/HCPCS: 94618 ==

== ENCOUNTER → 2020-12-23 11:10 | Outpatient (CLI) | payer MEDICARE, OTHER, SELFPAY ==
[2020-12-23 12:23] LABS: Coronavirus 19 IgG Antibody Positive (Negative)
[2020-12-23 12:26] LABS: Coronavirus 19 IgM Antibody Positive (Negative)
== END ==
PROVIDERS: PCP Family Medicine; Visit Provider Nurse Practitioner
DX: Z86.16 Personal history of COVID-19; Z20.822 Contact with and (suspected) exposure to COVID-19
CPT/HCPCS: 86328

== ENCOUNTER → 2021-02-02 09:39 | Outpatient (CLI) | payer MEDICARE, OTHER, SELFPAY ==
--- NOTE | 2021-02-02 10:45 | PC.NURSE ---
Pt completed PFT and 6 Minute walk test without complications. Albuterol 0.083% given via HHN per tinaten protocol, Pt tolerated tx well.
== END ==
PROVIDERS: PCP Family Medicine; Visit Provider Internal Medicine Pulmonary Disease
DX: R06.09 Other forms of dyspnea (principal)
CPT/HCPCS: 94060; 94618; 94726; 94729

== ENCOUNTER → 2021-02-24 11:22 | Outpatient (CLI) | payer MEDICARE, OTHER, SELFPAY ==
[2021-02-24 12:02] LABS: D-Dimer 0.61 ug/mL (0.0-0.5)
[2021-02-24 13:13] LABS: C-Reactive Protein 5.4 mg/L (0-4)
== END ==
PROVIDERS: Visit Provider Internal Medicine Pulmonary Disease
DX: Z86.16 Personal history of COVID-19 (principal); R06.00 Dyspnea, unspecified; J45.30 Mild persistent asthma, uncomplicated; I26.99 Other pulmonary embolism without acute cor pulmonale
CPT/HCPCS: 36415; 85378; 86140

== ENCOUNTER → 2021-08-07 11:09 | Outpatient (POV) | payer MEDICARE, OTHER, SELFPAY | PROVIDERS: Visit Provider Nurse Practitioner Family | DX: Z00.00 Encounter for general adult medical examination without abnormal findings (principal) ==

== ENCOUNTER → 2021-08-10 06:14 | Outpatient (CLI) | payer MEDICARE, OTHER, SELFPAY ==
--- NOTE | 2021-08-10 | CA_ITS ---
APPROVED REPORT Exam: Pharmacologic Technologist: Estefanía Corado, Ht: 5 ft 4 in Wt: 186 lbs BSA: 1.90 m2 HR: 61 bpm BP: 125/56 mmHg Medical History Medications: Omeprazole,,,,, Levothyroxine,,,,, Xanax,,,,, Lexapro,,,,, Losartan,,,,, Singulair,,,,, AZelastine,,,,, Potassium,,,,, Xyzal,,,,, BREztri aeroshpere,,,,, Furosemide,,,,, Vitamin C,D3,B12,,,,, Stress Test Details Test: LEXISCAN HR Resting HR: 64 bpm Max Heart Rate (APMHR): 141.441308 bpm Max HR Achieved: 100 bpm Target HR (85% APMHR): 119.060190 bpm % of APMHR: 70.92 Recovery HR: 83 bpm BP Resting BP: 125/56 mmHg Max BP: 157/68 mmHg Recovery BP: 151.0/67.0 mmHg ECG Resting ECG: NSR, normal Clinical Exercise duration: 04:00 min Highest Stage Achieved: Exercise capacity: 1.0 METs Stress ECG Conclusion Symptoms: SOA, fuzzy headed. No CP. Arrythmias/Ectopy: None. ST-T Changes: NS ST-T changes. Conclusion: Unremarable Lexiscan stress. Myoview images reported separately. Test Summary REST . . . . . . . Sitting REST 06:02 . . 64 . 125/ 56 . . Stage 1 . . . . . . . Cardiolite injected Stage 1 01:00 . . 96 . . . . Stage 2 01:00 . . 99 . 152/ 63 . . Stage 3 01:00 . . 97 . 157/ 68 . . Stage 4 01:00 . . 87 . 144/ 67 . Stop exercise at 04:00 RECOVERY 01:00 . . 89 . 151/ 70 . . RECOVERY 02:00 . . 81 . 151/ 70 . . RECOVERY 03:00 . . 84 . 151/ 67 . . RECOVERY 03:32 . . 80 . 151/ 67 . . Electronically signed by : Brent Kiser MD 08/10/2021 13:16:18
--- NOTE | 2021-08-10 06:22 | NM_ITS ---
APPROVED REPORT Exam: Nuclear Stress Test Indication: chest pain Patient Location: Outpatient Stress Tech: Estefanía Corado ME Tech:CRISTIANA Barboza RT(R)(N) Ht: 5 ft 5 in Wt: 181 lbs Bra Size: 36 c HR: 64 bpm BP: 125/56 mmHg BSA: 1.90 m2 BMI: 30.1 Procedure: Patient received a 0.4 mg of intravenous Lexiscan, resting heart rate 64 bpm, resting blood pressure 125/56 mmHg, with Lexiscan maximum heart rate achived was 100 bpm which is Less than 85 % of the maximum predicted heart rate and blood pressure was 157/68 mmHg. With Lexiscan, patient denied any complaint of chest pain. Electrocardiogram Resting electrocardiogram shows sinus rhythm, with Lexiscan there is less than 1.[address] segment depression noted from the baseline EKG. The EKG portion of the Lexiscan Myoview is nondiagnostic. Cardiac Stress and Resting SPECT Images: Cardiac Stress and Resting SPECT images were obtained using technetium 99m Myoview 29.8 mCi stress and 11.05 mCi at rest. Gated SPECT for analysis of segmental wall motion and calculation of the ejection fraction also done. Prone images were also obtained. Cardiac stress and rest SPECT images show uniform myocardial activity without segmental perfusion abnormality, computer derived ejection fraction is over 65% with no regional wall motion abnormality, right ventricle is normal size and contractility. Conclusion: 1. The EKG portion of the Lexiscan is nondiagnostic. 2. No scintigraphic evidence of reversible ischemia seen, computer derived ejection fraction is over 65% with no regional wall motion abnormality, right ventricle is normal size and contractility. 3. Normal Lexiscan Myoview study. Electronically signed by : Brent Kiser MD 08/10/2021 11:56:17
== END ==
PROVIDERS: PCP Family Medicine; Visit Provider Family Medicine
DX: R07.89 Other chest pain (principal)
CPT/HCPCS: 78452; 93017; A9502; J2785

== ENCOUNTER → 2021-09-14 11:07 | Outpatient (CLI) | payer MEDICARE, OTHER, SELFPAY ==
--- NOTE | 2021-09-14 11:11 | XR_ITS ---
PROCEDURE: XR CHEST 2V CLINICAL HISTORY: BRONCHITIS COMPARISON: CR XR CHEST PORTABLE from 11/13/2020 CR XR CHEST PORTABLE from 11/17/[address] ANGIO CHEST from 11/18/2020 CR XR CHEST PORTABLE from 11/21/2020 FINDINGS: The cardiomediastinal silhouette and pulmonary vascularity are within normal limits. The lungs are clear without infiltrates, suspicious nodules, or pleural effusions. There is slightly prominent bronchovascular markings at the right base probably minimal scarring from the patient's diffuse bilateral pneumonia seen on the previous exams in November of this year. No acute bony abnormalities. There are moderate multilevel degenerate changes midthoracic spine. IMPRESSION: Probable minimal scarring right base otherwise unremarkable chest Dictated by: Dr. Richard Krishnamurthy MD 09/15/2021 09:23 Dr. Richard Krishnamurthy MD in [facility] 09/15/2021 09:23
== END ==
PROVIDERS: PCP Family Medicine; Visit Provider Family Medicine
DX: J40 Bronchitis, not specified as acute or chronic (principal)
CPT/HCPCS: 71046

== ENCOUNTER 2021-09-17 17:49 | Emergency (ER) | payer MEDICARE, OTHER, SELFPAY ==
[2021-09-17 18:30] VITALS: BP 136/84; PULSE 87; RESP 19; TEMP 37.1; O2SAT 98; BMI 28.3
--- NOTE | 2021-09-17 19:28 | HMH.EDUTC ---
[facility] [place] Clinical Impression: Bronchitis Sinusitis Qualifiers: Sinusitis location: unspecified location Chronicity: unspecified Qualified Code(s): J32.9 - Chronic sinusitis, unspecified Disposition: Home, Self-Care Condition on Discharge: Good Instructions: Sinusitis, Sinus Headache, DI for Sinusitis, DI for Acute Bronchitis Additional Instructions: ? Start antibiotic today. Be sure to complete entire prescription even if feeling better ? Monitor temp. Tylenol every 4 hours as needed and / or ibuprofen every 6 hours as needed ( As long as your primary care physician has told you that it ok to take both. For fever/aches/pains ER if no less than 101 despite Tylenol or Motrin ? Humidifier/vaporizer or hot steamy shower ? Inhaler every 4-6 hours as needed like we discussed. If unsure how to use it, ask pharmacist to demonstrate how. Should help open airways and improve cough, wheezing, and shortness of breath ? Mucinex during the day for your cough and cough suppressant only at night. Be sure to drink lots of water. Insurance may not cover a prescriptions for mucinex. Might be cheaper to get them over the counter and take with lots of water. *Tessalon Perles will not cause drowsiness but use at bedtime to help stop cough so that you may get some rest. Follow up IMMEDIATELY for new or worsening of symptoms OR no noticeable improvement over the next 48-72 hours. 911 immediately for any life threatening symptoms such as chest pain or difficulty breathing Prescriptions: Albuterol Sulfate [Proventil-HFA 90mcg/puff Inh] 1 - 2 puffs IH Q6HP PRN #1 each PRN Reason: Shortness Of Breath Transmission Status: Received by [facility] # Cefdinir [Omnicef 300mg Capsule] 300 mg PO BID #20 cap Transmission Status: Received by [facility] # Benzonatate [Tessalon Perle 100mg Cap*] 100 mg PO TID PRN #15 cap PRN Reason: Cough Transmission Status: Received by [facility] # Referrals: Tahmina Rajput MD [Primary Care Provider] - As needed Time of Disposition: 19:49 Medical Decision Making - Sanjay Inquiry Pt receiving controlled substance: No Sanjay was queried for this patient: No Vital Signs: 09/17/21 18:30 09/17/21 19:58 Temperature 98.8 F 98.8 F Temperature Source Oral Pulse Rate 87 Pulse Rate [Right Brachial] 87 Respiratory Rate 19 19 Blood Pressure 136/84 Blood Pressure [Right Arm] 136/84 Blood Pressure Mean [Right Arm] 101 Blood Pressure Source [Right Arm] Automatic Cuff Blood Pressure Position [Right Arm] Sitting 02 Sat by Pulse Oximetry 98 Oxygen Delivery Method Room Air Orders (Tests/Meds): ED MEDICATIONS Discontinued Medications Generic Name Dose Route Start Last Admin Trade Name Liana PRN Reason Stop Dose Admin Ceftriaxone Sodium 1 gm 09/17/21 19:38 09/17/21 19:55 Ceftriaxone 1gm Vial IM 09/17/21 19:39 1 gm ONCE ONE Administration Lidocaine HCl 0 ml 09/17/21 19:39 09/17/21 19:55 Lidocaine 1% 5ml Pf Vial IM 09/17/21 19:40 2.1 ml ONCE ONE Administration Methylprednisolone Sodium Succinate 125 mg 09/17/21 19:38 09/17/21 19:55 Methylprednisolone Sod Succ 125mg Vial IM 09/17/21 19:39 125 mg ONCE ONE Administration [facility] [place] HPI - General Stated complaint: Bronchitis,since 09/02,coughSOB congestion Time Seen by Provider: 09/17/21 19:28 Mode of Arrival: Ambulatory Source of Information: Patient Limitations: No Limitations Description of Symptoms (Recalled from Triage Doc. by RN): PATIENT C/O CONGESTION AND SOA. WAS DIAGNOSED WITH BRONCHITIS ON 09/02 HEENT Symptoms (Recalled from RN notes): No Resp Symptoms (Recalled from RN notes): Yes Skin Symptoms (Recalled from RN notes): No MS Symptoms (Recalled from RN notes): No Functional Status (Recalled from RN notes): WNL - History of Present Illness Provider Complaint: Patient states that she was recently seen and treated by her family doctor for Bronchitis Stat
[2021-09-17 19:58] VITALS: BP 136/84; PULSE 87; RESP 19; TEMP 37.1; O2SAT 98
== END 2021-09-17 20:08 | disposition home or self-care (01) ==
PROVIDERS: Emergency Provider Nurse Practitioner; PCP Family Medicine
DX: J20.9 Acute bronchitis, unspecified (principal); J32.9 Chronic sinusitis, unspecified; F41.8 Other specified anxiety disorders; K21.9 Gastro-esophageal reflux disease without esophagitis; E78.5 Hyperlipidemia, unspecified; E03.9 Hypothyroidism, unspecified; I10 Essential (primary) hypertension; Z79.899 Other long term (current) drug therapy
CPT/HCPCS: G0463; 96372; 99202

== ENCOUNTER → 2021-12-04 15:56 | Outpatient (CLI) | payer MEDICARE, SELFPAY | PROVIDERS: PCP Family Medicine; Visit Provider Family Medicine | DX: Z20.822 Contact with and (suspected) exposure to COVID-19 (principal); J06.9 Acute upper respiratory infection, unspecified | CPT/HCPCS: C9803; U0003; U0005 ==

== ENCOUNTER → 2021-12-08 15:01 | Outpatient (CLI) | payer MEDICARE, SELFPAY ==
--- NOTE | 2021-12-08 15:09 | XR_ITS ---
FINAL REPORT CLINICAL HISTORY: ACUTE RESPIRATORY INFECTION ?PNEUMONIA, PATIENT ALSO STATES THAT 10 DAYS AGO SHE WAS ON A STOOL THAT COLLAPSED AND SHE HIT HER POSTERIOR RIBS ON A BOOKSHELF. LOWER RIB PAIN COMPARISON: 09/14/2021 FINDINGS: TWO VIEWS OF THE CHEST The heart is normal in size. The mediastinum is unremarkable. There is mild right base atelectasis or pneumonia. There is no pneumothorax. There are moderate degenerative changes of the thoracic spine. IMPRESSION: Mild right base atelectasis or pneumonia. Reviewed, Interpreted and Dictated by Salomon Sanabria III, MD Transcribed by Raya Weiner Authenticated by Salomon Sanabria III, MD on 12/08/2021 04:10:[address] [facility]
== END ==
PROVIDERS: PCP Family Medicine; Visit Provider Family Medicine
DX: J06.9 Acute upper respiratory infection, unspecified (principal)
CPT/HCPCS: 71046

== ENCOUNTER → 2022-03-12 10:31 | Outpatient (CLI) | payer MEDICARE, SELFPAY | PROVIDERS: PCP Family Medicine; Visit Provider Family Medicine | DX: N39.0 Urinary tract infection, site not specified (principal); B96.20 Unspecified Escherichia coli [E. coli] as the cause of diseases classified elsewhere | CPT/HCPCS: 87086; 87088; 87186 ==

== ENCOUNTER → 2022-03-20 08:09 | Outpatient (CLI) | payer MEDICARE, SELFPAY ==
--- NOTE | 2022-03-20 08:12 | CT_ITS ---
FINAL REPORT TECHNIQUE: Axial images through the abdomen and pelvis were performed without contrast. This study was performed with techniques to keep radiation doses as low as reasonably achievable, (ALARA). Individualized dose reduction techniques using automated exposure control or adjustment of mA and/or kV according to the patient's size were employed. CLINICAL HISTORY: HEMATURIA,H/O RECURRENT UTI COMPARISON: 11/18/2020 FINDINGS: ABDOMEN: There is mild scarring in the lung bases. The heart size is normal. Limited images of the liver are unremarkable. The patient is status post cholecystectomy. There is a probable cyst adjacent to the gallbladder fossa measuring 1.4 cm. The spleen is normal. No adrenal mass is identified. The aorta is normal in caliber. There is no significant free fluid or adenopathy. There is no nephrolithiasis. There is no hydronephrosis. Bilateral renal cysts are identified. There is mild left renal scarring with small parenchymal calcification. Mild vascular calcification is identified PELVIS: The appendix is unremarkable. The patient is status post hysterectomy. The urinary bladder is unremarkable. There is no significant free fluid or adenopathy. IMPRESSION: No acute intra-abdominal inflammatory process. Reviewed, Interpreted and Dictated by Salomon Sanabria III, MD Transcribed by Raya Weiner Authenticated by Salomon Sanabria III, MD on 03/20/2022 09:35:25 AM [facility]
== END ==
PROVIDERS: PCP Family Medicine; Visit Provider Family Medicine
DX: R31.9 Hematuria, unspecified (principal); Z87.440 Personal history of urinary (tract) infections
CPT/HCPCS: 74176

== ENCOUNTER → 2022-04-24 13:59 | Outpatient (POV) | payer MEDICARE, SELFPAY | PROVIDERS: Visit Provider Dermatology | DX: Z00.00 Encounter for general adult medical examination without abnormal findings (principal) ==

== ENCOUNTER → 2022-05-22 12:55 | Outpatient (POV) | payer MEDICARE, SELFPAY | PROVIDERS: Visit Provider Dermatology | DX: Z00.00 Encounter for general adult medical examination without abnormal findings (principal) ==

== ENCOUNTER → 2023-03-21 10:50 | Outpatient (CLI) | payer MEDICARE, SELFPAY ==
--- NOTE | 2023-03-21 10:57 | XR_ITS ---
FINAL REPORT CLINICAL HISTORY: BRONCHITIS COMPARISON: 12/08/2021 FINDINGS: TWO-VIEW CHEST The heart size is normal. The mediastinum is normal. There are mild chronic changes at the bases. The lungs are otherwise clear. There is no pneumothorax. IMPRESSION: No acute cardiopulmonary process. Reviewed, Interpreted and Dictated by Troy Krause MD Transcribed by Raya Weiner Authenticated and . [facility]
== END ==
PROVIDERS: PCP Family Medicine; Visit Provider Physician Assistant
DX: J40 Bronchitis, not specified as acute or chronic (principal)
CPT/HCPCS: 71046

== ENCOUNTER → 2023-04-16 13:55 | Outpatient (POV) | payer MEDICARE, SELFPAY | PROVIDERS: Visit Provider Dermatology | DX: Z00.00 Encounter for general adult medical examination without abnormal findings (principal) ==

== ENCOUNTER 2023-08-27 13:25 | Emergency (ER) | payer MEDICARE, SELFPAY ==
[2023-08-27 14:00] VITALS: BP 140/86; PULSE 77; RESP 17; TEMP 36.9; O2SAT 98; BMI 31.7
--- NOTE | 2023-08-27 14:20 | EXP.UTC ---
Discharge Plan Disposition Patient Disposition: Home, Self-Care Condition: Good Prescriptions Prescriptions: New nitrofurantoin monohyd/m-cryst [Macrobid] 100 mg capsule 100 mg PO Q12H 7 Days Qty: 14 0RF Rx Instructions: must administer with a meal/food phenazopyridine [Pyridium] 200 mg tablet 200 mg PO Q8H 2 Days Qty: 6 0RF No Action losartan 25 mg tablet 50 mg PO DAILY escitalopram oxalate [Lexapro] 10 mg tablet 10 mg PO DAILY omeprazole 40 mg capsule,delayed release(DR/EC) 40 mg PO DAILY alprazolam [Xanax] 0.5 mg tablet 0.5 mg PO TIDP PRN (Reason: Anxiety) budesonide-formoterol [Symbicort] 160-4.5 mcg/actuation HFA aerosol inhaler 2 puff INHALATION BID 90 Days Qty: 10.2 3RF albuterol sulfate 90 mcg/actuation HFA aerosol inhaler 1 inh INHALATION Q6H PRN (Reason: shortness of breath or wheezing) 90 Days Qty: 8.5 3RF aspirin [Adult Low Dose Aspirin] 81 mg tablet,delayed release (DR/EC) 81 mg PO DAILY omega-3 fatty acids 500 mg capsule 400 mg PO DAILY cephalexin 250 mg capsule 250 mg PO DAILY 90 Days Qty: 90 3RF cholecalciferol (vitamin D3) 250 MCG capsule 10,000 unit PO DAILY montelukast 10 MG tablet 10 mg PO PM levothyroxine 75 MCG tablet 75 mcg PO DAILY potassium chloride 20 MEQ tablet 20 meq PO DAILY Qty: 30 3RF ondansetron HCl 4 MG tablet 4 mg PO BIDP PRN (Reason: Nausea) Qty: 10 0RF ascorbic acid (vitamin C) 1,000 MG tablet 1,000 mg PO DAILY furosemide 20 MG tablet 20 mg PO DAILY polyethylene glycol 3350 119 GM powder 17 g PO DAILY budesonide-formoterol 10.2 GM HFA aerosol inhaler 2 mcg INHALATION BID Patient Comments: INHALE 2 PUFFS BY MOUTH TWICE DAILY USE REGULARLY. RINSE MOUTH AFTER EACH USE levocetirizine 5 MG tablet 5 mg PO DAILY azelastine 205.5 MCG/0.137 ML spray,non-aerosol 1 spray NS DAILY cyanocobalamin (vitamin B-12) 2,500 MCG tablet 2,500 mcg PO DAILY fluticasone propionate 120 SPR/BOT bottle 1 spr NS DAILY Referrals Follow up/Referrals: Tahmina Rajput MD [Primary Care Provider] - See instructions Activity Restrictions/Add. Instructions Additional Instructions/Restrictions: *Increase fluids. Water not Soda or Tea *Start antibiotic immediately and be sure to take as ordered for the FULL length of time although you should start to see improvement over the next 48 hours *Pyridium as needed Remember this medication will turn your urine . This is normal but it will stain what ever it gets on *You should not use Pyridium for more than 48 hours. If so , follow up with your primary physician to review urine culture and ensure that antibiotic is adequate for infection *Be SURE to follow up anytime for new or worsening symptoms with your family doctor. AND in 48 hours for urine culture results with your family doctor, if you do not have a doctor then you may call back to the [facility] for urine culture results and further treatment. We do recommend that you choose and establish care with a Primary Care Physician. ?AND follow up with them ?in 10-14 days to repeat UA to ensure infection is resolved and blood no longer present *Be sure to let your PCP know that we sent urine cultures from the [facility] so they can follow up to ensure that you area the on the correct antibiotic Call your doctor office and make appointment for 48 hours (2 days from today) ?to follow up and get the results of your urine culture and further treatment Clinical Impressions Clinical Impression: UTI (urinary tract infection) Qualifiers: Urinary tract infection type: site unspecified Hematuria presence: without hematuria Qualified Code(s): N39.0 - Urinary tract infection, site not specified Instructions Patient Instructions: DI for Urinary Tract Infection (UTI), Urinary Tract Infection Discharge ED Provider: Valorie Das [facility] [place] HPI General Stated complaint: p
[2023-08-27 15:02] LABS: Microscopic, Urine URINE MICROSCOPIC (MICROSCOPIC)
[2023-08-27 15:05] LABS: Appearance,Urine CLEAR (Clear); Bilirubin,Urine Negative (Negative); Blood, Urine Negative (Negative); Color,Urine YELLOW (Yellow); Glucose,Urine (UA) Negative (Negative); Ketones,Urine Negative (Negative); Leukocyte Esterase,Urine TRACE (Negative); Nitrate,Urine POSITIVE (Negative); Protein,Urine Negative (Negative); Urobilinogen,Urine 0.2 EU/dl (0.2)
[2023-08-27 15:30] LABS: Bacteria,Urine Trace /lpf; Squamous Epithelial Cell,Urine Occasional #/hpf (0-5)
[2023-08-27 15:31] VITALS: BP 140/86; PULSE 77; RESP 17; TEMP 36.9; O2SAT 98
== END 2023-08-27 15:36 | disposition home or self-care (01) ==
PROVIDERS: Emergency Provider Nurse Practitioner; PCP Family Medicine
DX: N39.0 Urinary tract infection, site not specified (principal); J45.909 Unspecified asthma, uncomplicated; Z87.891 Personal history of nicotine dependence
CPT/HCPCS: 81001; 99212; 99214; G0463

== ENCOUNTER 2023-12-26 14:21 | Outpatient (CLI) | payer MEDICARE, SELFPAY ==
[2023-12-26 14:46] VITALS: BMI 31.6
[2023-12-26 14:54] VITALS: BP 158/71; PULSE 66; RESP 18; TEMP 37; O2SAT 95
[2023-12-26] MEDS: SODIUM CHLORIDE 0.9% 50ML BAG 50 ML IV (14:54)
[2023-12-26] MEDS: GENTAMICIN SULFATE 360 MG in 0.9 % SODIUM CHLORIDE 100 ML 100 MG IV (14:54)
[2023-12-26] MEDS: SODIUM CHLORIDE 0.9% 10ML FLUSH SYRINGE 10 ML IV (14:55)
[2023-12-26 15:07] LABS: Blood Urea Nitrogen 27 mg/dl (7-17); Creatinine Clearance Estimated 59 mL/min (50-200); Estimated Glomerular Filt Rate 69 ml/min (>60); GFR (African American) 83 ML/MIN (>60)
[2023-12-26 15:24] VITALS: BP 143/67; PULSE 59; RESP 16; O2SAT 96
[2023-12-26 15:59] VITALS: BP 138/69; PULSE 59; RESP 18; O2SAT 96
[2023-12-26 16:35] VITALS: BP 141/62; PULSE 58; RESP 18; O2SAT 95
== END 2023-12-26 16:35 | disposition home or self-care (01) ==
LOC: INF 14:23
PROVIDERS: PCP Family Medicine; Visit Provider Physician Assistant
DX: N39.0 Urinary tract infection, site not specified (principal); B96.5 Pseudomonas (aeruginosa) (mallei) (pseudomallei) as the cause of diseases classified elsewhere; Z51.81 Encounter for therapeutic drug level monitoring
CPT/HCPCS: 80170; 82565; 84520; 96365

== ENCOUNTER 2023-12-28 14:02 | Outpatient (CLI) | payer MEDICARE, SELFPAY ==
[2023-12-28 14:35] VITALS: BMI 31.6
[2023-12-28 15:07] LABS: Gentamicin,Trough < 0.6 ug/ml (0.0-2.0)
== END 2023-12-28 23:59 ==
PROVIDERS: PCP Physician Assistant; Visit Provider Physician Assistant
DX: N39.0 Urinary tract infection, site not specified (principal); B96.5 Pseudomonas (aeruginosa) (mallei) (pseudomallei) as the cause of diseases classified elsewhere
CPT/HCPCS: 80170; 96365

== ENCOUNTER 2023-12-30 13:50 | Outpatient (CLI) | payer MEDICARE, SELFPAY ==
[2023-12-30 14:21] VITALS: BP 125/63; PULSE 65; RESP 16; TEMP 36.6; O2SAT 95
[2023-12-30] MEDS: SODIUM CHLORIDE 0.9% 10ML FLUSH SYRINGE 10 ML IV (14:21)
[2023-12-30] MEDS: SODIUM CHLORIDE 0.9% 50ML BAG 50 ML IV (14:21)
[2023-12-30] MEDS: GENTAMICIN SULFATE 360 MG in 0.9 % SODIUM CHLORIDE 100 ML 100 MG IV (14:21)
[2023-12-30 14:50] VITALS: BP 135/62; PULSE 62; RESP 16; O2SAT 95
[2023-12-30 15:20] VITALS: BP 136/63; PULSE 60; RESP 18; TEMP 36.6; O2SAT 94
== END 2023-12-30 15:40 | disposition home or self-care (01) ==
LOC: INF 13:50
PROVIDERS: PCP Physician Assistant; Visit Provider Physician Assistant
DX: N39.0 Urinary tract infection, site not specified (principal); B96.5 Pseudomonas (aeruginosa) (mallei) (pseudomallei) as the cause of diseases classified elsewhere
CPT/HCPCS: 96365

== ENCOUNTER 2024-01-20 16:20 | Outpatient (CLI) | payer MEDICARE, SELFPAY ==
[2024-01-20 15:47] LABS: Microscopic, Urine URINE MICROSCOPIC (MICROSCOPIC)
[2024-01-20 21:27] LABS: Appearance,Urine CLEAR (Clear); Bilirubin,Urine Negative (Negative); Blood, Urine Negative (Negative); Color,Urine YELLOW (Yellow); Glucose,Urine (UA) Negative (Negative); Ketones,Urine Negative (Negative); Leukocyte Esterase,Urine Negative (Negative); Nitrate,Urine Negative (Negative); Protein,Urine Negative (Negative); Urobilinogen,Urine 0.2 EU/dl (0.2)
[2024-01-20 21:59] LABS: Bacteria,Urine Trace /lpf; Squamous Epithelial Cell,Urine Occasional #/hpf (0-5)
== END 2024-01-20 23:59 ==
LOC: LAB.DROPOF 16:20
PROVIDERS: PCP Urology; Visit Provider Urology
DX: N39.0 Urinary tract infection, site not specified (principal); N89.5 Stricture and atresia of vagina; N39.44 Nocturnal enuresis
CPT/HCPCS: 81001; 87086

== ENCOUNTER 2024-02-03 08:48 | Day surgery (SDC) | payer MEDICARE, SELFPAY ==
[2024-01-30 10:32] VITALS: BMI 29.2
[2024-02-03 09:12] VITALS: BP 148/74; PULSE 84; RESP 18; TEMP 36.6; O2SAT 95
[2024-02-03] MEDS: WATER FOR IRRIGATION,STERILE 1,000 ML 100 ML IR (09:50)
[2024-02-03 09:55] VITALS: BP 134/68; PULSE 64; RESP 18; TEMP 36.3; O2SAT 95
[2024-02-03 10:05] VITALS: BP 138/83; PULSE 63; RESP 18; O2SAT 96
--- NOTE | 2024-02-11 14:33 | HMH.PROCNOTE ---
[facility] Procedure Note Date: 02/03/24 Time: 11:38 Procedure Note:: Interval history: Preop diagnosis: Recurrent UTI Postop diagnosis: Recurrent UTI/urethritis Operation cystoscopy: The patient was brought to the local operating room. She is prepped and draped using a sterile technique. She underwent flexible cystoscopy with a 16 [place] cystoscope. The patient's bladder is smooth throughout. There is no evidence of bladder stone tumor hemorrhage or infection. Her UOs are normal bilaterally. Note should be made that the patient urethra is inside the vaginal introitus. She has moderate urethritis.
== END 2024-02-03 10:05 | disposition home or self-care (01) ==
PROVIDERS: PCP Family Medicine; Visit Provider Urology
PROC: 0TJB8ZZ Inspection of Bladder, Via Natural or Artificial Opening Endoscopic (ICD-10-PCS; CPT 52000; principal; 2024-02-03 10:00)
DX: N34.2 Other urethritis (principal); Z87.440 Personal history of urinary (tract) infections
CPT/HCPCS: 52000

== ENCOUNTER 2024-02-26 11:54 | Outpatient (CLI) | payer MEDICARE, SELFPAY ==
--- NOTE | 2024-02-26 11:59 | XR_ITS ---
FINAL REPORT CLINICAL HISTORY: COVID COMPARISON: 03/21/2023 FINDINGS: TWO-VIEW CHEST The heart size is normal. The mediastinum is normal. There are bibasilar opacities, right greater than left which may represent atelectasis or pneumonia. There is no pneumothorax. IMPRESSION: Bibasilar atelectasis versus pneumonia. Reviewed, Interpreted and Dictated by Salomon Sanabria III, MD Transcribed by Raya Weiner Authenticated and [facility]
== END 2024-02-26 23:59 ==
LOC: RAD 11:55
PROVIDERS: PCP Physician Assistant; Visit Provider Physician Assistant
DX: U07.1 COVID-19 (principal)
CPT/HCPCS: 71046

== ENCOUNTER 2024-06-24 13:07 | Outpatient (CLI) | payer MEDICARE, SELFPAY ==
--- NOTE | 2024-06-24 13:15 | XR_ITS ---
FINAL REPORT CLINICAL HISTORY: right hand pain FINDINGS: Right hand Three views were obtained. There is no acute fracture or dislocation. There are moderate and severe degenerative changes, worst involving the 1st carpometacarpal joint. No soft tissue abnormality is identified. IMPRESSION: Degenerative changes as above. Reviewed, Interpreted and Dictated by Salomon Sanabria III, MD Transcribed by Raya Weiner Authenticated and [facility]
--- NOTE | 2024-06-24 13:15 | XR_ITS ---
FINAL REPORT CLINICAL HISTORY: neck pain FINDINGS: CERVICAL SPINE Five views demonstrate no acute fracture. There are moderate and severe degenerative changes with multilevel osteophytes. The oblique views are suboptimal but there appears to be multilevel bilateral neural foraminal narrowing. There are significant degenerative changes in both shoulders. There is no malalignment. IMPRESSION: Degenerative changes with multilevel bilateral neural foraminal narrowing. If indicated, CT could further evaluate. Reviewed, Interpreted and Dictated by Salomon Sanabria III, MD Transcribed by Raya Weiner Authenticated and [facility]
--- NOTE | 2024-06-24 13:15 | XR_ITS ---
FINAL REPORT CLINICAL HISTORY: left hand pain FINDINGS: Left hand Three views were obtained. There is no acute fracture or dislocation. There are moderate and severe degenerative changes, worst involving the 1st carpometacarpal joint. There is chronic deformity of the distal radius, may represent a chronic fracture. No soft tissue abnormality is identified. IMPRESSION: Degenerative and chronic appearing findings. Reviewed, Interpreted and Dictated by Salomon Sanabria III, MD Transcribed by Raya Weiner Authenticated and [facility]
== END 2024-06-24 23:59 | disposition home or self-care (01) ==
LOC: RAD 13:09
PROVIDERS: PCP Physician Assistant; Visit Provider Physician Assistant
DX: M54.2 Cervicalgia (principal); M79.641 Pain in right hand; M79.642 Pain in left hand
CPT/HCPCS: 72050; 73130

== ENCOUNTER 2024-08-10 11:00 | Outpatient (RCR) | payer MEDICARE, SELFPAY ==
--- NOTE | 2024-06-26 15:42 | HMH.PTOPEV ---
PT Outpatient Evaluation Rehab PT Outpatient Evaluation Start: 06/26/24 15:10 Freq: Status: Active Protocol: Document 06/26/24 15:13 CHARLETTE (Rec: 06/26/24 15:42 CHARLETTE [id number]) E-signed By Rohith Edward, PT Outpatient Therapy Subjective History Subjective History This is the initial PT eval for Shayy Roberto, 83 yowf who presents with c/o pain in B hands x ~6 mos. She reports hx of RA for many years and gradually has suffered more exacerbations on her symptoms relating to it. She reports pain is aching in nature, and mostly worse with housework type activities and worse in the morning when she wakes. She reports she wears B wrist braces at night to help reduce wrist pain. SHe also has B hand compression gloves, but states I don't wear them, because I didn't know if they would help. She also uses voltaren gel sparingly, because I don't want to bother my liver. New diagnosis of cancer in past 12 No months? Chief Complaint Pain Symptom Type Ache Symptoms Relieved By OTC Meds Prior Functional Limitations None Current Functional Limitations Housework,Sleeping Symptom Description Intermittent,Activity Dependent Level of pain today (0-10) 3 Pain scale - at its best (0-10) 0 Pain scale - at its worst (0-10) 10 Wrist/Hand Eval Baker Biscuit/Pinch Strength Left Baker Biscuit Strength Measurement (lbs) 2 Right Baker Biscuit Strength Measurement (lbs) 4 Miscellaneous Dx PT Eval Objective Objective General finger mobility and ROM: R hand MTP jt AROM: 0-60 deg throughout L hand MTP jt AROM: 0-55 deg throughout B hand PIP jt AROM: 0-70 deg throughout B hand DIP jt AROM: 0-45 deg throughout B hand with MILD ulnar drift noted. Outpatient Therapy Assessment Impairments Problems/Impairmments Impaired Range of Motion, Impaired Strength,Impaired Endurance,Subjective C/O Pain, Impaired Self Care/Self Management Prognosis Rehab Potential Good Comment Skilled therapy is indicated to increase B hand strength and ROM with reduced pain overall to return pt to PLOF. Clinical Impression Consistent with Diagnosis Yes Short Term Goals Number of Weeks 2 Increase Range of Motion Yes: All B finger jts by 5 deg ea Increase Strength Yes: B transportation security screener strength >6 lbs Decrease Subjective C/O Pain Yes: 8/10 at worst in B hands Patient to be Ind w/ HEP Yes Fpc Goals Number of Weeks 4 Increase Range of Motion Yes: all B finger jts by 10 deg ea Increase Strength Yes: B transportation security screener strength >10 lbs ea Improve Ability For Household Care Yes: without pain x 30 min Decrease Subjective C/O Pain Yes: 5/10 at worst B hands Patient to be Ind w/ Advanced HEP Yes Outpatient Therapy Plan of Care Treatment Plan May Include Therapeutic Exercise Including Home Yes Exercise Program Manual Therapy Techniques Yes Neuromuscular Re-education Yes Therapeutic Activities to Return to Yes Previous Functional/Work Level ADL/Self Care Education Yes Thermal Modalities Yes Orthotics/Bracing/Splinting Yes Massage Yes Manual Lymphatic Drainage Yes Eval/Re-Eval Yes Frequency Times per week 2 Duration Number of Weeks 4 Addendums This patient is a candidate for social No or vocational rehab? Patient/Guardian verbally acknowledges Yes understanding of treatment program and consents to further treatment? Patient/Guardian verbally acknowledges Yes understanding of diagnosis, prognosis and goals for treatment? Eval Complexity PT Charges 85856 - High Complexity Shoulder/Elbow Eval Shoulder Objective Measurements Elbow Objective Measurements PHYSICIAN CERTIFICATION: I certify the specified therapy services for Shayy Roberto are required, authorized, and reviewed every 30 days.
--- NOTE | 2024-07-28 12:43 | HMH.RHREAS ---
Rehab Reassessment Rehab OP Re-assessment Start: 06/26/24 15:10 Freq: Status: Active Protocol: Document 07/28/24 12:38 CHARLETTE (Rec: 07/28/24 12:43 PHORNATHANAEL [id number]) E-signed By Rohith Edward, PT Rehab Re-assessment Subjective Subjective Pt reports much less pain overall in B hands. She is able to complete most of her daily household care without much discomfort now and states , I only wear my left wrist brace every once in a while at night now, because they don't hurt as much as they did. Objective Objective Notes B hand and finger AROM: B hand WFL throughout. Hospital Pharmacist strength: R hand= 6 lbs, L hand = 6 lbs. Pain at worst: 10 Assessment Progress Assessment Progressing as Expected Assessment Notes Pt has shown significantly improved AAROM of B hands and all finger. She also has significant reduction of pain with all ADLs. She continues to need skilled therapy for pain reduction and strengthening to return to PLOF. Patient goals met ST/4 LT/5 Plan Plan Continue per initial POC. She did c/o increased symptoms in B ankle and may need further care for this area. Frequency of Therapy 1-2 x.wk Duration of therapy 4 wks Time and Billing Re-Eval Time 11 Re-Eval Billing Units 0 PHYSICIAN CERTIFICATION: I certify the specified therapy services for Shayy Roberto are required, authorized, and reviewed every 30 days.
== END 2024-08-10 11:05 | disposition home or self-care (01) ==
LOC: PT 11:00
PROVIDERS: Visit Provider Family Medicine
DX: M05.741 Rheumatoid arthritis with rheumatoid factor of right hand without organ or systems involvement (principal)
CPT/HCPCS: 97018; 97110; 97140; 97163; 97164

== ENCOUNTER 2024-09-03 09:00 | Outpatient (RCR) | payer MEDICARE, SELFPAY | END 2024-09-03 09:05 | disposition home or self-care (01) | LOC: PT 09:00 | PROVIDERS: Visit Provider Internal Medicine Geriatric Medicine | DX: M05.9 Rheumatoid arthritis with rheumatoid factor, unspecified (principal) | CPT/HCPCS: 97110; 97112; 97163 ==

== ENCOUNTER 2024-09-21 10:43 | Outpatient (CLI) | payer MEDICARE, SELFPAY ==
[2024-09-21 11:20] LABS: Basophils # 0.1 K/mm3 (0-0.2); Basophils % 1.2 % (0.1-2.0); Eosinophils # 0.5 K/mm3 (0.0-0.4); Eosinophils % 4.9 % (0.1-12.0); Hematocrit 39.6 % (37.0-47.0); Hemoglobin 13.1 g/dL (12.2-16.2); Lymphocytes # 1.8 K/mm3 (0.7-4.5); Lymphocytes % 19.9 % (10-50); Mean Corpuscular HGB Conc 33.1 g/dL (31.8-35.4); Mean Corpuscular Hemoglobin 28.8 pg (27.0-31.2); Mean Corpuscular Volume 86.8 fl (81-99); Mean Platelet Volume 7.9 fl (7.4-10.4); Monocytes # 0.8 K/mm3 (0.1-1.0); Monocytes % 8.6 % (1.7-9.3); Neutrophils % 65.4 % (37.0-80.0); Platelet Count 367 K/mm3 (142-424); Red Blood Count 4.56 M/mm3 (4.20-5.40); Red Cell Distribution Width 13.7 % (11.5-17.5); White Blood Count 9.2 K/mm3 (4.8-10.8)
== END 2024-09-21 23:59 | disposition home or self-care (01) ==
LOC: LAB 10:44
PROVIDERS: PCP Family Medicine; Visit Provider Internal Medicine Geriatric Medicine
DX: M05.9 Rheumatoid arthritis with rheumatoid factor, unspecified (principal)
CPT/HCPCS: 36415; 85025

== ENCOUNTER 2024-10-19 10:55 | Outpatient (CLI) | payer MEDICARE, SELFPAY ==
[2024-10-19 11:34] LABS: Estimated Glomerular Filt Rate 118 ml/min (>60); GFR (African American) 143 ML/MIN (>60)
== END 2024-10-19 23:59 | disposition home or self-care (01) ==
LOC: LAB 10:56
PROVIDERS: PCP Family Medicine; Visit Provider Internal Medicine Geriatric Medicine
DX: M05.9 Rheumatoid arthritis with rheumatoid factor, unspecified (principal)
CPT/HCPCS: 36415; 82565

== ENCOUNTER 2024-11-04 12:05 | Outpatient (CLI) | payer MEDICARE, SELFPAY ==
--- NOTE | 2024-11-04 12:11 | XR_ITS ---
FINAL REPORT CLINICAL HISTORY: BRONCHITIS COMPARISON: 02/26/2024 FINDINGS: 2 views of the chest were obtained. There are increased markings in the bilateral lung bases, right greater than left, compatible with pneumonia. There is no evidence of pleural effusion. The mediastinum has a normal appearance. The cardiac silhouette is unremarkable. IMPRESSION: Bibasilar pneumonia, greater on the right. Recommend continued follow-up. Reviewed, Interpreted and Dictated by Tahmina Orlando MD Transcribed by Maritza Coulter Authenticated and . [facility]
== END 2024-11-04 23:59 | disposition home or self-care (01) ==
LOC: RAD 12:07
PROVIDERS: PCP Physician Assistant; Visit Provider Physician Assistant
DX: J40 Bronchitis, not specified as acute or chronic (principal); R09.89 Other specified symptoms and signs involving the circulatory and respiratory systems
CPT/HCPCS: 71046

== ENCOUNTER 2024-11-06 15:04 | Outpatient (CLI) | payer MEDICARE, SELFPAY | END 2024-11-06 23:59 | disposition home or self-care (01) | LOC: LAB 15:05 | PROVIDERS: PCP Physician Assistant; Visit Provider Physician Assistant | DX: M05.9 Rheumatoid arthritis with rheumatoid factor, unspecified (principal) | CPT/HCPCS: 87070; 87205 ==

== ENCOUNTER 2024-11-30 14:17 | Outpatient (CLI) | payer OTHER, SELFPAY ==
--- NOTE | 2024-11-30 14:23 | XR_ITS ---
FINAL REPORT CLINICAL HISTORY: PERSISTENT COUGH COMPARISON: 11/04/2024 FINDINGS: There are increased markings in the right lung base suspicious for pneumonia. The left lung is clear. There is no evidence of effusion or other pleural disease. The mediastinum has a normal appearance. The cardiac silhouette is unremarkable. IMPRESSION: Possible right lung base pneumonia. Reviewed, Interpreted and Dictated by Tahmina Orlando MD Transcribed by Rmaona Nunez Authenticated and [facility]
== END 2024-11-30 23:59 | disposition home or self-care (01) ==
LOC: RAD 14:20
PROVIDERS: PCP Family Medicine; Visit Provider Family Medicine
DX: R05.3 Chronic cough (principal)
CPT/HCPCS: 71046

== ENCOUNTER 2025-03-11 11:49 | Outpatient (CLI) | payer MEDICARE, SELFPAY ==
[2025-03-11 12:13] LABS: Basophils # 0.1 K/mm3 (0-0.2); Basophils % 0.6 % (0.1-2.0); Eosinophils # 0.4 Kmm3 (0.0-0.4); Eosinophils % 3.2 % (0.1-12.0); Hematocrit 38.6 % (37.0-47.0); Hemoglobin 12.4 g/dL (12.2-16.2); Lymphocytes # 1.8 K/mm3 (0.7-4.5); Mean Corpuscular HGB Conc 32.1 g/dL (31.8-35.4); Mean Corpuscular Hemoglobin 28.8 pg (27.0-31.2); Mean Corpuscular Volume 89.6 fl (81-99); Mean Platelet Volume 9.2 fl (7.4-10.4); Monocytes # 1.3 K/mm3 (0.1-1.0); Monocytes % 11.9 % (1.7-9.3); Neutrophils # 7.6 K/mm3 (1.8-7.8); Nucleated Red Blood Cells # 0 10^3/uL; Nucleated Red Blood Cells % 0 %; Platelet Count 482 K/mm3 (142-424); Red Blood Count 4.31 M/mm3 (4.20-5.40); Red Cell Distribution Width 13.2 % (11.5-17.5); Red Cell Distribution Width-SD 43.6 fL; White Blood Count 11.1 K/mm3 (4.8-10.8)
[2025-03-11 12:44] LABS: Alanine Aminotransferase 19 U/L (12-78); Albumin Level 3.6 g/dl (3.5-5.0); Albumin/Globulin Ratio 1.3 (1.1-1.8); Alkaline Phosphatase 74 U/L (38-126); Anion Gap 12.3 mEq/L (5-15); Aspartate Amino Transferase 22 U/L (14-36); Bilirubin,Total 0.4 mg/dl (0.2-1.3); Blood Urea Nitrogen 21 mg/dl (7-17); Calcium 9.3 mg/dl (8.4-10.2); Carbon Dioxide 28 mmol/L (22.0-30.0); Chloride 103 mmol/L (98-107); Estimated Glomerular Filt Rate 95 ml/min (>60); GFR (African American) 116 ML/MIN (>60); Globulin 2.7 g/dL (1.3-3.2); Glucose 107 mg/dl (74-100); Potassium 4.3 mmoL/L (3.5-5.1); Sodium 139 mmol/L (136-145); Total Protein,Serum 6.3 g/dl (6.3-8.2)
[2025-03-11 13:01] LABS: 25-OH Vitamin D, Total 49.4 ng/mL (30-100)
[2025-03-11 13:03] LABS: Iron 71 ug/dL (37-170)
[2025-03-11 13:13] LABS: Total Iron Binding Capacity 367 ug/dL (265-497)
[2025-03-11 13:14] LABS: Thyroid Stimulating Hormone 1.61 uIU/mL (0.465-4.68)
[2025-03-11 13:33] LABS: Vitamin B12 900 pg/mL (239-931)
== END 2025-03-11 23:59 | disposition home or self-care (01) ==
LOC: LAB 11:50
PROVIDERS: PCP Family Medicine; Visit Provider Internal Medicine Geriatric Medicine
DX: M05.9 Rheumatoid arthritis with rheumatoid factor, unspecified (principal); R53.83 Other fatigue
CPT/HCPCS: 36415; 80053; 82306; 82607; 83540; 83550; 83735; 84443; 85025

== ENCOUNTER 2025-03-19 05:38 | Emergency (ER) | payer MEDICARE, SELFPAY ==
[2025-03-19 05:46] VITALS: BP 191/98; PULSE 82; RESP 18; TEMP 36.7; O2SAT 96; BMI 29.1
--- NOTE | 2025-03-19 05:47 | ECG_ITS ---
APPROVED REPORT Exam: Resting ECG HR:75 bpm ECG Measurements Heart Rate 75 AXES SC 189 P 57 QRSd 89 QRS 29 QT 392 T 39 QTc 420 Conclusion SINUS RHYTHM NORMAL ECG Electronically signed by : ANIA AZEVEDO, 03/19/2025 23:49:31
[2025-03-19 06:00] VITALS: BP 156/67; PULSE 73; O2SAT 96
[2025-03-19] MEDS: ACETAMINOPHEN 500MG TAB 500 MG PO (06:06)
[2025-03-19 06:07] LABS: Basophils # 0.1 K/mm3 (0-0.2); Basophils % 0.7 % (0.1-2.0); Eosinophils # 0.4 Kmm3 (0.0-0.4); Eosinophils % 3.7 % (0.1-12.0); Hematocrit 36.7 % (37.0-47.0); Hemoglobin 11.8 g/dL (12.2-16.2); Lymphocytes # 1.9 K/mm3 (0.7-4.5); Lymphocytes % 17.3 % (10-50); Mean Corpuscular HGB Conc 32.2 g/dL (31.8-35.4); Mean Corpuscular Hemoglobin 28.8 pg (27.0-31.2); Mean Corpuscular Volume 89.5 fl (81-99); Mean Platelet Volume 9.4 fl (7.4-10.4); Monocytes # 1.5 K/mm3 (0.1-1.0); Monocytes % 14.3 % (1.7-9.3); Neutrophils # 6.8 K/mm3 (1.8-7.8); Neutrophils % 63.6 % (37.0-80.0); Nucleated Red Blood Cells # 0 10^3/uL; Nucleated Red Blood Cells % 0 %; Platelet Count 435 K/mm3 (142-424); Red Cell Distribution Width 13.3 % (11.5-17.5); Red Cell Distribution Width-SD 43.9 fL; White Blood Count 10.7 K/mm3 (4.8-10.8)
--- NOTE | 2025-03-19 06:07 | HMH.EDGENADL ---
Discharge Plan Disposition Patient Disposition: Home, Self-Care Condition: Good Prescriptions Prescriptions: No Action leflunomide 20 mg tablet PO ascorbic acid (vitamin C) 1,000 mg tablet 1,500 mg PO TID 90 Days Qty: 405 1RF losartan 25 mg tablet 50 mg PO DAILY escitalopram oxalate [Lexapro] 10 mg tablet 10 mg PO DAILY omeprazole 40 mg capsule,delayed release(DR/EC) 40 mg PO DAILY alprazolam [Xanax] 0.5 mg tablet 0.5 mg PO TIDP PRN (Reason: Anxiety) budesonide-formoterol [Symbicort] 160-4.5 mcg/actuation HFA aerosol inhaler 2 puff INHALATION BID 90 Days Qty: 10.2 3RF albuterol sulfate 90 mcg/actuation HFA aerosol inhaler 1 inh INHALATION Q6H PRN (Reason: shortness of breath or wheezing) 90 Days Qty: 8.5 3RF aspirin [Adult Low Dose Aspirin] 81 mg tablet,delayed release (DR/EC) 81 mg PO DAILY cephalexin 250 mg capsule 250 mg PO DAILY 90 Days Qty: 90 3RF estradiol 0.01 % (0.1 mg/gram) cream See Rx Instructions vaginal .COMPLEX Qty: 42.5 2RF Rx Instructions: Using finger technique 3 x weekly vaginally; oxybutynin chloride 10 mg tablet extended release 24hr 10 mg PO DAILY Qty: 90 0RF methenamine hippurate 1 gram tablet 0.5 g PO BID Qty: 60 0RF cholecalciferol (vitamin D3) 250 MCG capsule 10,000 unit PO DAILY montelukast 10 MG tablet 10 mg PO PM levothyroxine 75 MCG tablet 75 mcg PO DAILY potassium chloride 20 MEQ tablet 20 meq PO DAILY Qty: 30 3RF ondansetron HCl 4 MG tablet 4 mg PO BIDP PRN (Reason: Nausea) Qty: 10 0RF phenazopyridine [Pyridium] 200 mg tablet 200 mg PO Q8H 2 Days Qty: 6 0RF Glucosamine Chondroitin 550-30-1 mg Capsule 1 cap PO DAILY furosemide 20 MG tablet 20 mg PO DAILY polyethylene glycol 3350 119 GM powder 17 g PO DAILY levocetirizine 5 MG tablet 5 mg PO DAILY azelastine 205.5 MCG/0.137 ML spray,non-aerosol 2 spray NS BID cyanocobalamin (vitamin B-12) 2,500 MCG tablet 2,500 mcg PO DAILY fluticasone propionate [Flonase Allergy Relief] 120 SPR/BOT bottle 1 spr NS DAILY Referrals Follow up/Referrals: Tahmina Rajput MD [Primary Care Provider] - See instructions Activity Restrictions/Add. Instructions Additional Instructions/Restrictions: You were evaluated in the ER and believed to be appropriate for discharge at this time. Please call your surgeon today and discuss your continued postoperative pain. Also call your primary care doctor today and make an appointment for close follow-up to recheck your blood pressure. Continue taking your home medications as previously prescribed. Drink plenty of fluids. Return to the ER with any new, worsening, or otherwise concerning symptoms. Clinical Impressions Clinical Impression: Hypertension, Post-operative pain Print Language Print Language: Citizen Of [place] Discharge ED Provider: Alok Bran Adult HPI General Chief complaint: Recheck/Abnormal Lab/Rx Stated complaint: high bp, hand surgery 03/18 Time Seen by Provider: 03/19/25 05:48 Mode of Arrival: Ambulatory Source of Information: Patient Description of Symptoms (Recalled from ER Triage Doc. by RN): patient c/o high blood pressure. Had hand surgery for arthritis yesterday and states she had issues with high blood pressure during surgery as well. Took her losartan at 0430 this morning. History of Present Illness HPI narrative: 84-year-old female presents to the ER with complaint of high blood pressure. Patient had carpal tunnel surgery bilaterally yesterday and reportedly they had issues with high blood pressure during surgery. She states she was not under generalized anesthesia, just local. She states since the time of surgery she has had a dull headache in the back of the head that has mildly waxed and waned. No thunderclap onset, no vision changes, no ringing in the ears, no numbness, tingling, or weakness. She reports her blood pressure has remained high. Patient reports she usually takes her losartan in the morning. This morning she was still having blood pressure above 180 so she came to the ER for evaluation. She is not having chest pain, difficulty breathing, changes in urine output, any neurologic symptoms aside from mild dull headache in the back of the head stable for the last 24 hours, and she took her losartan approximately 1 hour prior to arrival. Patient's blood pressure on arrival was hypertensive but on recheck shortly after arrival has already improved to 156/67. She admits that she has had difficulty with pain control despite taking her postoperative prescribed medications. She has not had Tylenol since before bed. Patient also took tramadol approximately 1 hour prior to arrival without significant improvement of pain in her wrists. She reports the dressings that are in place are supposed to remain in place for the next 3 days. She has not had any significant bleeding. She states the tingling in her distal fingertips has been gradually improving since the operation. Related Data Home Medications ?Medication ?Instructions ?Recorded ?Confirmed alprazolam 0.5 mg tablet (Xanax) 0.5 mg PO TIDP PRN Anxiety 12/30/18 10/19/24 escitalopram oxalate 10 mg tablet 10 mg PO DAILY Depression 12/30/18 10/19/24 (Lexapro) losartan 25 mg tablet 50 mg PO DAILY blood pressure 12/30/18 10/19/24 omeprazole 40 mg capsule,delayed 40 mg PO DAILY ACID REFLUX 12/30/18 10/19/24 release azelastine 205.5 mcg (0.15 %) 2 spray intranasal BID ALLERGIES 08/15/20 10/19/24 nasal spray cyanocobalamin (vitamin B-12) 2,500 mcg PO DAILY Supplement 08/15/20 10/19/24 2,500 mcg tablet fluticasone propionate 50 1 spr intranasal DAILY ALLERGIES 08/15/20 10/19/24 mcg/actuation nasal spray,suspension (Flonase Allergy Relief) furosemide 20 mg tablet 20 mg PO DAILY SWELLING 08/15/20 10/19/24 levocetirizine 5 mg tablet 5 mg PO DAILY ALLERGIES 08/15/20 10/19/24 polyethylene glycol 3350 17 17 g PO DAILY CONSTIPATION 08/15/20 10/19/24 gram/dose oral powder cholecalciferol (vitamin D3) 250 10,000 unit PO DAILY Supplement 11/13/20 10/19/24 mcg (10,000 unit) capsule levothyroxine 75 mcg tablet 75 mcg PO DAILY THYROID 11/16/20 10/19/24 montelukast 10 mg tablet 10 mg PO PM ALLERGIES 11/16/20 10/19/24 aspirin 81 mg tablet,delayed 81 mg PO DAILY 04/12/23 10/19/24 release (Adult Low Dose Aspirin) glucosamine sulf dipot 1 cap PO DAILY Supplement 01/30/24 10/19/24 chlr,msm,chond 550 mg-C 30 mg-vivian 1 mg capsule (Glucosamine Chondroitin) leflunomide 20 mg tablet mg PO 10/19/24 10/19/24 Previous Rx's ?Medication ?Instructions ?Recorded ondansetron HCl 4 mg tablet 4 mg PO BIDP PRN Nausea #10 tabs 11/21/20 potassium chloride 20 mEq 20 meq PO DAILY #30 tabs 11/21/20 tablet,extended release(part/cryst) albuterol sulfate 90 mcg/actuation 1 inh inhalation Q6H PRN shortness 11/24/21 aerosol inhaler of breath or wheezing 90 days #8.5 grams budesonide-formoterol HFA 160 2 puff inhalation BID 90 days 11/24/21 mcg-4.5 mcg/actuation aerosol #10.2 grams inhaler (Symbicort) cephalexin 250 mg capsule 250 mg PO DAILY 90 days #90 caps 04/24/22 phenazopyridine 200 mg tablet 200 mg PO Q8H pain 2 days #6 tabs 08/27/23 (Pyridium) ascorbic acid (vitamin C) 1,000 mg 1,500 mg (1.5 x 1,000 mg) PO TID 10/19/24 tablet Supplement 90 days #405 tabs estradiol 0.01% (0.1 mg/gram) See Rx Instructions vaginal 01/25/25 vaginal cream .COMPLEX #42.5 grams oxybutynin chloride 10 mg 10 mg PO DAILY #90 tabs 01/25/25 tablet,extended release 24 hr methenamine hippurate 1 gram tablet 0.5 g (1/2 x 1 gram) PO BID #60 03/17/25 tabs Allergies Allergy/AdvReac Type Severity Reaction Status Date / Time ciprofloxacin (From Cipro) Allergy Unknown Verified 10/19/24 10:30 levofloxacin (From Levaquin) Allergy Unknown Verified 10/19/24 10:30 mupirocin (From Bactroban) Allergy Unknown Verified 10/19/24 10:30 nitrofurantoin (From Allergy Unknown Verified 10/19/24 10:30 Macrobid) Sulfa (Sulfonamide Allergy Unknown I-HIVES Verified 10/19/24 10:30 Antibiotics) (SULFA (SULFONAMIDE ANTIBIOTICS)) [facility] Disclaimer: The information contained in this section may have been updated after the patient was seen, as this information can be updated by other users. Medical History UTI (urinary tract infection) Dyspnea on exertion Asthma History of cyst of breast Surgical History History of repair of rectocele History of hysterectomy History of cholecystectomy Family History Other Diabetes Hypertension Social History Smoking Status: Never smoker second hand exposure: No alcohol intake: never substance use type: denies use current occupational status: retired Travel in the last 8 weeks?: None household members: spouse housing: house current occupational exposures/hazards: No caffeine: No Have you lived/traveled outside [place] in past 30 days?: No Contact w/someone who lives/traveled outside US past 30 days?: No Exposure to someone with infectious disease in past 14 days?: No Do you have a fever (greater than 100.4 F or 38 C)?: No Have you tested positive for COVID-19?: No Exposed to someone with COVID-19 in past 14 days?: No Do you have a sore throat?: No Do you have a cough?: No Do you have any weakness?: No Do you have any diarrhea?: No Are you experiencing any unusual bleeding?: No Do you have any muscle aches/pain?: No Do you have any abdominal pain?: No Are you experiencing loss of taste or smell?: No Other Medical History Have you received the Flu Vaccine for this season: No Have you received the Pneumonia Vaccine: Yes ROS Obtained: Yes Systems reviewed as appropriate & no additional complaints except as documented per HPI Physical Exam General General appearance: alert and in no apparent distress Head Head exam: atraumatic and normocephalic Eye Eye exam: Present PERRL and EOMI ENT ENT exam: Present mucous membranes moist Neck Neck exam: Present normal inspection and full ROM Chest Chest inspection: Present symmetric chest wall rise Respiratory Respiratory exam: Present normal lung sounds bilaterally; Absent respiratory distress, wheezes or stridor Cardiovascular Cardiovascular exam: Present regular rate and normal rhythm Abdominal Exam Abdominal exam: Present soft; Absent distention or tenderness Extremities Exam Extremities exam: Present full ROM and other (Dressings on bilateral wrists are clean, dry, intact, there is no evidence of bleeding, patient is neurovascularly intact distal to her surgical sites, brisk capillary refill); Absent edema Neurological Exam Neurological exam: Present alert, oriented X3 and other (GCS 15 with no neurologic deficits); Absent motor sensory deficit Psychiatric Psychiatric exam: Present normal affect and normal mood Skin Skin exam: Present warm and dry Medical Decision Making Medical Records Medical records reviewed: Yes I reviewed the patient's medical records. Screening: Per USPSTF and CDC recommendations, given the prevalence of disease in our region, it is our hospital?s policy to screen for HIV and viral Hepatitis for all patients aged 18 and over and those with ongoing risk factors. MR Comment: PDMP demonstrates patient is newly on gabapentin and tramadol. 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 Sanjay Inquiry Pt receiving controlled substance: No Vital Signs: 03/19/25 05:46 03/19/25 06:00 03/19/25 06:09 Temperature 98.1 F Temperature Source Oral Pulse Rate 73 Pulse Rate [Left] 82 Respiratory Rate 18 Blood Pressure 156/67 H Blood Pressure [Right Arm] 191/98 H 156/67 H Blood Pressure Mean [Right Arm] 129 96 Blood Pressure Source [Right Arm] Automatic Cuff Blood Pressure Position [Right Arm] Supine 02 Sat by Pulse Oximetry 96 96 Oxygen Delivery Method Room Air Room Air 03/19/25 06:30 Temperature Temperature Source Pulse Rate 71 Pulse Rate [Left] Respiratory Rate Blood Pressure 159/59 H Blood Pressure [Right Arm] Blood Pressure Mean [Right Arm] Blood Pressure Source [Right Arm] Blood Pressure Position [Right Arm] 02 Sat by Pulse Oximetry 95 Oxygen Delivery Method Room Air Lab Data Lab Results 03/19/25 05:57: WBC 10.7, RBC 4.10 L, Hgb 11.8 L, Hct 36.7 L, MCV 89.5, MCH 28.8, MCHC 32.2, RDW 13.3, Plt Count 435 H, MPV 9.4, Neut % (Auto) 63.6, Lymph % (Auto) 17.3, [place] % (Auto) 14.3 H, Eos % (Auto) 3.7, Baso % (Auto) 0.7, Neut # (Auto) 6.8, Lymph # (Auto) 1.9, [place] # (Auto) 1.5 H, Eos # (Auto) 0.4, Baso # (Auto) 0.1, Sodium 138, Potassium 4.0, Chloride 107, Carbon Dioxide 28, Anion Gap 7.0, BUN 18 H, Creatinine 0.50 L, Estimated Creat Clear 53, Estimated GFR 118, Est GFR ( Amer) 143, Glucose 103 H, Calcium 8.9, Total Bilirubin 0.5, AST 25, ALT 17, Alkaline Phosphatase 77, Troponin I < 0.01, Total Protein 6.4, Albumin 3.7, Globulin 2.7, Albumin/Globulin Ratio 1.4 03/19/25 05:57 03/19/25 05:57 Orders (Tests/Meds): ED MEDICATIONS Discontinued Medications Generic Name Dose Route Start Last Admin Trade Name Freq PRN Reason Stop Dose Admin Acetaminophen 500 mg 03/19/25 05:50 03/19/25 06:06 Acetaminophen 500mg Tab PO 03/19/25 05:51 500 mg ONCE ONE Administration Ondansetron HCl 4 mg 03/19/25 06:10 03/19/25 06:17 Ondansetron 4mg Odt SL 03/19/25 06:11 4 mg ONCE ONE Administration Oxycodone HCl 2.5 mg 03/19/25 06:10 03/19/25 06:17 Oxycodone 5mg Immediate Release Tablet PO 03/19/25 06:11 2.5 mg ONCE ONE Administration ORDERS Category Date Time Status CBC w/Auto Diff [Complete Blood Count Auto Diff] Stat Lab 03/19/25 05:57 Completed CMP [Comprehensive Metabolic Panel] Stat Lab 03/19/25 05:57 Completed Trop I [Troponin I] Stat Lab 03/19/25 05:57 Completed Troponin I Q3H Lab 03/19/25 09:00 Ordered Troponin I Q3H Lab 03/19/25 12:00 Ordered Medical Decision Narrative: In summary, this 84-year-old female with history of hypertension, recurrent UTIs, who is less than 24 hours postop from bilateral carpal tunnel surgery presents to the emergency department today with concerns of high blood pressure with stable, unchanged double back of the head headache. On initial evaluation patient is hypertensive on arrival but otherwise hemodynamically stable, afebrile, GCS 15, no neurologic deficits, bilateral operative dressings clean, dry, intact, neurovascularly intact distal to operative sites, patient states the slight tingling she has in her distal fingertips has been receding and she does not have identifiable deficits, cardiopulmonary exam benign, abdominal exam benign, patient having no urinary symptoms. Differential diagnosis includes but is not limited to asymptomatic hypertension, her high blood pressure could also be related to difficulties with pain management which she has been experiencing, I considered the possibility of endorgan damage including to the heart, kidneys, or brain but I have low suspicion for these. Her headache has been dull and unchanged with no red flag symptoms since time of her procedure yesterday. She has no neurologic deficits. I have extremely low suspicion for intracranial bleed or stroke related to her hypertension. Patient was worried that her blood pressure had not yet come down since taking her losartan, we discussed timing of onset of losartan being somewhat delayed. Based on these concerns, I ordered EKG, basic serum labs to assess organ function. Patient is being treated with Tylenol, low-dose oxycodone for pain management. ECG personally interpreted demonstrates sinus rhythm, rate 75, normal axis, normal [place] and QTc, no STEMI or evidence of cardiac strain. Labs personally reviewed demonstrate no leukocytosis, slight anemia with hemoglobin 11.8 down from 12.4 a few days ago possibly related to operative intervention, slight thrombocythemia improved from previous, CMP demonstrates BUN 18, good creatinine at 0.5. Patient is tolerating oral intake and I do not believe IV fluids are indicated at this time. Troponin undetectably low less than 0.01. Since patient is not having any chest pain and has normal ECG as well as a full day of high blood pressure, I do not believe serial troponins are indicated at this time. On reassessment patient's blood pressure is stable in the 150s. Her headache is improving. She feels well and would like to go home which I believe is reasonable. I instructed her to call her surgeon today to discuss better postoperative pain management, I also gave her instructions to follow-up closely with her primary care doctor and to continue her home medications as currently prescribed. I am not making any changes to her medications at this time. Patient was given instructions on symptomatic monitoring and management, follow up instructions, and return precautions for the emergency department. Patient indicated understanding and was discharged in stable condition. Critical Care Critical Care Time Critical Care Time: No
[2025-03-19 06:09] VITALS: BP 156/67
[2025-03-19 06:15] LABS: Albumin Level 3.7 g/dl (3.5-5.0); Chloride 107 mmol/L (98-107); Sodium 138 mmol/L (136-145)
[2025-03-19] MEDS: ONDANSETRON 4MG ODT 4 MG SL (06:17)
[2025-03-19] MEDS: OXYCODONE 5MG IMMEDIATE RELEASE TABLET 2.5 MG PO (06:17)
[2025-03-19 06:18] LABS: Alanine Aminotransferase 17 U/L (12-78); Albumin/Globulin Ratio 1.4 (1.1-1.8); Alkaline Phosphatase 77 U/L (38-126); Aspartate Amino Transferase 25 U/L (14-36); Bilirubin,Total 0.5 mg/dl (0.2-1.3); Blood Urea Nitrogen 18 mg/dl (7-17); Calcium 8.9 mg/dl (8.4-10.2); Carbon Dioxide 28 mmol/L (22.0-30.0); Creatinine Clearance Estimated 53 mL/min (50-200); Estimated Glomerular Filt Rate 118 ml/min (>60); GFR (African American) 143 ML/MIN (>60); Globulin 2.7 g/dL (1.3-3.2); Glucose 103 mg/dl (74-100); Total Protein,Serum 6.4 g/dl (6.3-8.2)
[2025-03-19 06:30] VITALS: BP 159/59; PULSE 71; O2SAT 95
[2025-03-19 06:31] LABS: Troponin I < 0.01 ng/ml (0.00-0.034)
[2025-03-19 06:42] VITALS: BP 159/59; PULSE 69; RESP 18; TEMP 36.7; O2SAT 96
--- NOTE | 2025-03-19 06:43 | PC.NURSE ---
IV removed. IV catheter tip intact. Bleeding controlled.
== END 2025-03-19 06:47 | disposition home or self-care (01) ==
PROVIDERS: Emergency Provider Emergency Medicine; PCP Family Medicine
DX: R51.9 Headache, unspecified (principal); I10 Essential (primary) hypertension; G89.18 Other acute postprocedural pain; Z98.890 Other specified postprocedural states
CPT/HCPCS: 80053; 84484; 85025; 93005; 99283; Q0162

== ENCOUNTER 2025-05-13 08:45 | Outpatient (CLI) | payer MEDICARE, SELFPAY ==
--- NOTE | 2025-05-13 08:51 | XR_ITS ---
FINAL REPORT TECHNIQUE: Bone mineral density was calculated of the lumbar spine and bilateral hips. CLINICAL HISTORY: SCREENING COMPARISON: None FINDINGS: Using L1-4, the bone mineral density of the spine is 1.076 g/cm2, corresponding to T-score of 0.3. Using the left hip, the bone mineral density of the femoral neck is 0.765 g/cm2, corresponding to a T-score of -1.4. Using the right hip, the bone mineral density of the femoral neck is 0.700 g/cm2, corresponding to a T-score of -1.3. NOTE: T-score: Standard deviation compared with peak bone mass of young adult mean. *Following the recommendations of the International Society of Bone densitometry, classification of hip BMD is based on the lower of two T-scores; total hip or femoral neck. IMPRESSION: Diminished bone mineral density of the bilateral femoral necks consistent with osteopenia. Normal bone mineral density of the lumbar spine. Reviewed, Interpreted and Dictated by Tahmina Orlando MD Transcribed by Kianna Riley Authenticated and [facility]
--- OUTSIDE RECORDS SUMMARY | 2025-05-13 08:57 | XMS_ITS | Continuity of Care Document ---
Author Organization [facility], ORTHOPEDICS [address] [place] [address] Care Team Providers Care Registered Public Surveyor Name Role Phone LA LATOYA Primary Care Provider [phone] MIN, CARLOS Tufter Assessment No assessment recorded. Plan of Treatment Reminders Order Date Submit Date Provider Last Modified By Organization Details Last Modified Time Details Appointments RHEUM RECHECK 2024 11:30A M CARLOS ROGEL MD Not available Not available Not available Lab None recorded . Referral None recorded . Procedures None recorded . Surgeries None recorded . Imaging None recorded . Medication Orders None recorded . Patient TargetsNo targets recorded. Patient Instructions Encounter Date Encounter Id Patient Instructions Last Modified By Organization Details Last Modified Time 04/26/2025 [id number] She can use her hand as tolerated. She asks about the swelling on the dorsum of her hand, I believe this is either related to her rheumatoid arthritis or is other synovitis. She will continue to watch this. Follow-up as needed. lavell Not available 04/26/2025 13:50:50 Reason for Referral None Reported. Problems Name Problem SNOMED Code Status Onset Date Resolution Date Notes Provider Name and Address Organization Details Recorded Time Atrophic vaginitis 03678558 Active 2015 Provider: Amparo Campos tus: Active Not Available [facility] 6 06:15:11 Gastrointe stinal tract finding Active 2015 From Automated Load;Provi collin: Frida Avila tus: Active Not Available [facility] 6 06:15:11 Constipati on 53268754 Active 2015 From Automated Load;Provi collin: Cate Avila;John tus: Active Not Available [facility] 6 06:15:11 Abdominal pain 51670655 Active 2015 From Automated Load;Provi collin: Cate Avila;John tus: Active Not Available [facility] 6 06:15:11 Problem Notes None recorded. Procedures Surgical History Date Name Laterality Status Provider Name and Address Organization Details Recorded Time 03/18/20 25 Op Note completed VAISHNAVI WHITEHEAD MD [address] [place], [address], [facility] 03/18/2025 07:48:51 03/18/20 25 osteoplasty of carpal bone completed Joselin Rodriguez [facility] 04/23/2025 13:41:21 05/11/20 20 Date of Last Mammogram completed Pam Ash [facility] 05/27/2020 13:59:13 01/24/20 18 Pap Smear collection completed JENAE CAMPOS MD [address] [place], [address], [facility] 01/26/2018 14:34:04 01/24/20 18 Date of Last Pap Smear completed Holli Rawls [facility] 01/26/2019 13:38:24 09/29/20 17 Date of Last Colonoscopy completed Jeanieedd Posadas [facility] 01/23/2018 14:06:17 08/02/20 15 Most Recent Bone Density completed Jeanie Cuauhtemoc [facility] 01/23/2018 14:06:20 Cholecystectomy completed Mona Vishnu [facility] 01/17/2017 13:05:15 Hysterectomy/bladde r repair completed Mona Vishnu [facility] 01/17/2017 13:05:50 Breast Surgery completed Mona Vishnu [facility] 01/17/2017 13:06:07 Dilation and Curettage completed Mona Vishnu [facility] 01/17/2017 13:06:16 Imaging Results None recorded. Procedure Notes None recorded. Medical Equipment None Reported. Allergies Allergen ID Allergen Name Allergen Category Reaction Reaction Severity Criticality Documentation Date Start Date Code Code System Note Provider Name and Address Organization Details Recorded Time 977038 Substance with sulfonami de structure and antibacte rial mechanism of action (substanc e) medicatio n itching Not available Not available 10/11/20162008 98182 8003 SNOMED React ion: ITCHI NG; Comme nt: Creat ed By: [place] pedraza Date: 2008 10:35 :11 AM; Not Available [facility] 6 10:34:48 228266 ciproflox acin medicatio n Not available Not available Not available 07/30/2024 2551 RxNorm Annmarie Niño [facility] 4 11:04:18 713865 Levaquin medicatio n Not available Not available Not available 07/30/2024 06968 2 RxNorm Annmarie Niño [facility] 4 11:04:48 017838 Bactrim medicatio n Not available Not available Not available 07/30/2024 30649 9 RxNorm Annmarie Niño [facility] 4 11:05:09 Medications Name Sig Start Date Stop Date Status Note LastModified by Organization Details LastModified Time Singulair 10 mg tablet Take 1 tablet every day by oral route. 03/03 completed Not Available Not Available Not Available losartan 50 mg tablet Take 1 tablet every day by oral route. active now 100 mg Not Available Not Available Not Available Xanax 0.5 mg tablet Take 1 tablet by oral route. active Not Available Not Available No t Available Protonix 40 mg tablet,de layed release Two times a day 2015 active Frequenc y: bid;Medi cation Descript ion: pantopra zole; Dosage:1 ; Route:or al; refills: 1; Quantity :60 delayed release tablet Not Available Not Available Not Available Plaquenil 200 mg tablet Take 1 tablet twice a day by oral route. 2024 active Not Available Not Available Not Avai lable prednison e 5 mg tablet Take 5 mg every day by oral route as needed. 03/03 completed Not Available Not Available Not Available Levoxyl 75 mcg tablet Daily active Duration : 30 days;Keon quency: daily;Me dication Descript ion: levothyr oxine; Dosage:1 ; Route:or al; refills: 0; Quantity :30 tablet Not Available Not Available Not Available Diflucan 150 mg tablet take one tablet by mouth by one dose 03/17 completed Not Available Not Available Not Available Zyrtec 10 mg tablet active Duration : 10 days;Med ication Descript ion: cetirizi ne; Route:or al; refills: 0; Quantity :30 tablet Not Available Not Available Not Available leflunomi de 20 mg tablet Take 1 tablet every day by oral route. 12/18 completed Not Available Not Available Not Available tramadol 50 mg tablet TAKE 1 TABL PO Q 6 HRS PRN FOR SEVERE POST SURGICAL PAIN 03/29 completed Not Available Not Available Not Available Lasix 20 mg tablet Take 1 tablet every day by oral route. 03/03 completed Not Available Not Available Not Available Neurontin 100 mg capsule TAKE 1 CAPSULE PO QHS FOR 1 WEEK 03/29 completed Not Available Not Available Not Available estradiol 0.01% (0.1 mg/gram) vaginal cream Insert 1 g twice a week by vaginal route. 2019 active Not Available Not Available Not Avai lable Estrace 1 mg tablet Daily 01/17 completed Duration : 30 days;Keon quency: daily;Me dication Descript ion: estradio l; Dosage:1 ; Route:or al; refills: 0; Quantity :30 tablet Not Available Not Available Not Available Lexapro 10 mg tablet Daily active Duration : 30 days;Keon quency: daily;Me dication Descript ion: escitalo pram; Dosage:1 ; Route:or al; refills: 5; Quantity :30 tablet Not Available Not Available Not Available tizanidin e 4 mg capsule Take 1 capsule every day by oral route at bedtime. active Not Available Not Available No t Available Zofran active Not Available Not Availa ble Not Available Vitamin C active Not Available Not Cami ilable Not Available Vitamin B-12 Daily active Frequenc y: daily;Me dication Descript ion: cyanocob alamin; Dosage:1 ; Route:or al; refills: 0; Quantity :otc tablet Not Available Not Available Not Available cranberry Daily 01/26 completed Frequenc y: daily;Me dication Descript ion: cranberr y; Dosage:1 ; Route:or al; refills: 0 Not Available Not Available Not Available Fish Oil Daily 01/26 completed Frequenc y: daily;Me dication Descript ion: omega-3 polyunsa turated fatty acids; Dosage:2 ; Route:or al; refills: 0 Not Available Not Available Not Available Vitamin D 2014 active Medicati on Descript ion: ergocalc iferol; Dosage:a s directed ; Route:or al; refills: 0 Not Available Not Available Not Available azelastin e active Not Available Not Available Not Available potassium 03/03 completed Not Available Not Available Not Available Konsyl Fiber Two times a day active Frequenc y: bid;Medi cation Descript ion: psyllium ; Route:or al; refills: 0 Not Available Not Available Not Available Carafate active Not Available Not Avai lable Not Available Miralax active Not Available Not Avail able Not Available Lexapro 03/17 completed Not Available Not Available Not Available Restasis 03/03 completed Not Available Not Available Not Available ProAir HFA 90 mcg/actua tion aerosol inhaler active Medicati on Descript ion: albutero l; Route:in halation ; refills: 0 Not Available Not Available Not Available Symbicort 80 mcg-4.5 mcg/actua tion HFA aerosol inhaler 2014 active Medicati on Descript ion: budesoni de-formo terol; Route:in halation ; refills: 0 Not Available Not Available Not Available Symbicort 03/03 completed Not Available Not Available Not Available levocetir izine active Not Available Not Available Not Available Voltaren 1 % topical gel prn pain active Frequenc y: prn pain;Alt Frequenc y: prn pain;Med ication Descript ion: diclofen ac topical; Dosage:a s directed ; Route:to pical; refills: 0 Not Available Not Available Not Available Probiotic Formula 10 billion cell(2 billion ea) capsule active Medicati on Descript ion: bifidoba cterium- lactobac illus; Route:or al; refills: 0 Not Available Not Available Not Available Vagifem 10 mcg vaginal tablet 01/17 completed Medicati on Descript ion: estradio l topical; Route:va ginal; refills: 0 Not Available Not Available Not Available domperido ne 10 mg tablet before meals and at bedtime 01/23 completed Frequenc y: ac and hs;Medic ation Descript ion: Compound Med; Dosage:1 ; Route:or al; refills: 5; Quantity :500 tablet Not Available Not Available Not Available Duexis 800 mg-26.6 mg tablet 03/03 completed Medicati on Descript ion: famotidi ne-ibupr ofen; Route:or al; refills: 0 Not Available Not Available Not Available Dymista 137 mcg-50 mcg/spray nasal spray 03/03 completed Medicati on Descript ion: azelasti ne-fluti casone nasal; Route:na sandra; refills: 0 Not Available Not Available Not Available Flonase Allergy Relief active Not Available Not Available Not Available Vitals Date Recorded Body height Body mass index (BMI) Body weight Provider Name and Address Organization Details Last Updated DateTime 04/26/2025 166.37 cm 30.3 kg/m2 83312.59 g Kushal Guthrie [facility] 04/26/2025 11:00:53 Social History Question Answer Notes LastModified by Organizat ion Details LastModified Time Tobacco Smoking Status [facility] 01/17/2017 13:04:27 What Is Your Level Of Caffeine Consumption? Moderate 2-3 Per Day Information not available 01/17/2017 What Was The Date Of Your Most Recent Tobacco Screening? 12/18/2024 [email or web address] Information not available 12/18/2024 Sex: Unknown Functional Status Question Answer Note LastModified by Organization D etails LastModified Time What is your level of alcohol consumption? None Information not available 01/17/2017 Mental Status None recorded. Family History Relationship Description Onset Age of this Age Resolved Age Notes LastModified by Organization Details LastModified Time Unspecified Relation Malignant tumor of breast stoler1 Not available 2016 13:03:13 Unspecified Relation Malignant neoplasm of liver stoler1 Not available 2016 13:03:20 Unspecified Relation Diabetes mellitus stoler1 Not available 2016 13:03:35 Unspecified Relation Hyperlipidem ia stoler1 Not available 2016 13:03:48 Unspecified Relation Hypertensive disorder stoler1 Not available 2016 13:03:55 Unspecified Relation Disorder of thyroid gland stoler1 Not available 2016 13:04:02 Unspecified Relation Cerebrovascu lar accident stoler1 Not available 12/2016 13:04:07 Unspecified Relation Migraine stoler1 Not available 01/18/20 17 13:04:18 Maternal Uncle Malignant tumor of colon 80 stoler1 Not available 2016 13:22:09 Medical History Condition Response Diabetes N Bleeding Disorder N Arthritis Y Emphysema N Acid Reflux (GERD) Y Thyroid Problems Y Depression Y COPD N Hoarseness Y Asthma Y Anemia Y Heart Disease N Rheumatoid Arthritis Y Hypertension Y Chicken Pox Y Gynecological History Statement/Question Response Date of Last Mammogram 05/11/2020 Date of Last Colonoscopy 09/29/2017 Most Recent Bone Density 08/02/2015 Menses Monthly N STIs/STDs N HPV Vaccine N Date of Last Pap Smear 01/23/2018 Current Control Method Hysterectom y Obstetrics History GPAL:G 4 P 0 0 1 3 Type Value Spontaneous 1 Living 3 Total 4 Immunizations Vaccine Type Date Status Note Provider Nam e and Address Organization Details Recorded Time COVID-19, mRNA, LNP-S, PF, 30 mcg/0.3 mL dose 1 completed Yusuf Winters [facility] 03/03/2025 13:32:52 COVID-19, mRNA, LNP-S, PF, 30 mcg/0.3 mL dose 1 completed Yusuf Winters [facility] 03/03/2025 13:32:52 pneumococcal polysaccharide PPV23 9 completed Yusuf Winters [facility] 03/03/2025 13:32:52 Tdap 7 completed Yusuf Winters [facility] 03/03/2025 13:32:52 Influenza, high-dose, trivalent, PF 0 completed Yusuf Winters [facility] 03/03/2025 13:32:52 Influenza, high-dose, trivalent, PF 9 completed Yusuf Winters [facility] 03/03/2025 13:32:52 Influenza, high-dose, trivalent, PF 6 completed Yusuf Winters [facility] 03/03/2025 13:32:52 Td (adult), 2 Lf tetanus toxoid, preservative free, adsorbed 7 completed Yusuf Winters [facility] 03/03/2025 13:32:52 Influenza, split virus, quadrivalent, PF 5 completed Yusuf Winters [facility] 03/03/2025 13:32:52 Influenza, split virus, quadrivalent, PF 4 completed Yusuf Winters [facility] 03/03/2025 13:32:52 Influenza, split virus, quadrivalent, PF 2 completed Yusuf Winters [facility] 03/03/2025 13:32:52 Influenza, split virus, quadrivalent, preservative 8 completed Holli Rawls [facility] 01/26/2019 13:36:50 Past Encounters Encounter ID Performer Location Encounter Start Date Encounter Closed Date Diagnosis/Indication Diagnosis SNOMED-CT Code Diagnosis ICD10 Code Diagnosis Note [id number] VAISHNAVI WHITEHEAD MD [facility] [address] [place] [address] 03/29/2025 11:17:41 03/29/2025 11:35:20 Bilateral carpal tunnel syndrome [id number] G56.03 - Scheduled regular follow-ups . - Improving post-opera tive bruising and swelling observed. - Anticipate d continued resolution of soreness. - Follow-up in four weeks for monitoring recovery. Left with hematoma, will be more sore but should ultimately resolve, a little bit of a tremor in the ring finger as well likely related to weakness and discomfort [id number] DANICA MORENO PA-C [facility] [address] [place] [address] 04/26/2025 10:45:27 04/26/2025 11:14:44 Bilateral carpal tunnel syndrome [id number] G56.03 Doing well status post [facility] bilateral carpal tunnel releases for severe carpal tunnel syndrome [id number] [facility]EL [facility] [address] [place] [address] 04/23/2025 13:26:22 04/26/2025 04:09:06 Seropositive rheumatoid arthritis 091606366 M05.9 Seropositi ve rheumatoid arthritis (+RF >650, +CCP>300). Onset winter 2022. Bilateral hand pain, stiffness, swelling with prolonged stiffness. Had right hand swelling noted ~2019, but no pain or stiffness. Limited efficacy with NSAID's (and also limited due to GI side effects, kidney disease).T ried topical Voltaren, Tylenol arthritis. Was given Medrol dose pack, which was quite helpful, but symptoms returned quickly after finishing. Symptoms were responsive with Prednisone taper Leflunomid e tried 08/2024- but stopped due to recurrent infections , increased nausea Plaquenil started 12/2024. Will need to give Plaquenil more time, especially with recovery from recent bilateral carpal tunnel release. I discussed with her that I think we will likely need to start biologic, but we can reassess in June. We have discussed Orencia. She prefers IV if we go this route. I think TNF inhibitors with infection risk may be more problemati c for pt. Other notable history of MGUS Follow-up 3 months Long-term current use of hydroxychloroquine [id number] 85791 Z79.899 History of decompression of median nerve 167692283 Z98.890 Health Concerns Section Related Observation LastModified by Organization Detai ls LastModified Time None Recorded Concern Status LastModified by Organization Details LastModified Time None Recorded Payers Encounter Date Sequence Insurance Name Policy Number Policy Russo Covered Member ID Russo Member ID Guarantor Name 04/26/2025 1 [employer] (MEDICARE REPLACEMENT/ ADVANTAGE - PPO) Shayy Roberto [id number] Shayy Roberto Notes Date Note Type Note Provider Name and Address Organization Details Recorded Time 04/26/20 25 text/htm l Patient arrives for scheduled follow-up 6 weeks status post bilateral carpal tunnel releases for severe carpal tunnel syndrome. She states her symptoms continue to improve and she only has minimal soreness. POST OP GLOBAL VISIT DATE OF SURGERY: 03/18/2025 TIME POST SURGERY:6 WKSSURGERY: Left carpal tunnel releaseRight carpal tunnel release PREOP SYMPTOMSBETTERPain level:12/28 OVERALL ASSESSMENTIMPROVINGPatient arrived in:NAtaken offNANEW SYMPTOMS OR QUESTIONS: Ms. Roberto is here for a post op visit. Pt says she is doing better and able to use her hands more. Pt reports minimal n/t still, L>R, but says it has improved overall.OTHER RECENT SURGERIES:n/a EMPLOYMENT STATUS:retired DANICA MORENO PA-C [address] [place], [address], [facility] 04/26/2025 13:51:07 OBGyn Episode No OBEpisode recorded.
--- OUTSIDE RECORDS SUMMARY | 2025-05-13 08:57 | XMS_ITS | Continuity of Care Document ---
Author Organization [facility], RHEUMATOLOGY SB Address [address] [place] [address] Care Team Providers Care Pulley Worker Name Role Phone LATOYA TOVAR Primary Care Provider MINCARLOS Nursing Secretary Assessment No assessment recorded. Plan of Treatment [...] recorded . Patient TargetsNo targets recorded. Patient InstructionsNo instructions recorded. Reason for Referral None Reported. Problems Name Problem SNOMED Code Status Onset Date Resolution Date Notes Provider Name and Address Organization Details Recorded Time Atrophic vaginitis 11978034 Active 2015 Provider: Jenea Campos;John tus: Active Not Available [facility] 6 06:15:11 Gastrointe stinal tract finding Active 2015 From Automated Load;Provi collin: Cate Avila;Sta tus: Active Not Available [facility] 6 06:15:11 Constipati on 04456843 Active 2015 From Automated Load;Provi collin: Cate Avila;Sta tus: Active Not Available [facility] 6 06:15:11 Abdominal pain 23440919 Active 2015 From Automated Load;Provi collin: Cate Avila;Sta tus: Active Not Available [facility] 6 06:15:11 Problem Notes None recorded. Procedures Surgical History Date Name Laterality Status Provider Name and Address Organization Details Recorded Time 03/18/20 25 Op Note completed VAISHNAVI WHITEHEAD MD [address] [place], [address], [facility] 03/18/2025 07:48:51 03/18/20 25 osteoplasty of carpal bone completed Joselin Michael [facility] 04/23/2025 13:41:21 05/11/20 20 Date of Last Mammogram completed Pam Ash [facility] 05/27/2020 13:59:13 01/24/20 18 Pap Smear collection completed JENAE CAMPOS MD [address] [place], [address], [facility] 01/26/2018 14:34:04 01/24/20 18 Date of Last Pap Smear completed Holli Rawls [facility] 01/26/2019 13:38:24 09/29/20 17 Date of Last Colonoscopy completed [facility] 01/23/2018 14:06:17 08/02/20 15 Most Recent Bone Density completed [facility] 01/23/2018 14:06:20 Cholecystectomy completed Mona Vishnu [facility] 01/17/2017 13:05:15 Hysterectomy/bladde r repair completed Mona Vishnu [facility] 01/17/2017 13:05:50 Breast Surgery completed Mona Vishnu [facility] 01/17/2017 13:06:07 Dilation and Curettage completed Mona Vishnu [facility] 01/17/2017 13:06:16 Imaging Results None recorded. Procedure Notes None recorded. Medical Equipment None Reported. Allergies Allergen ID Allergen Name Allergen Category Reaction Reaction Severity Criticality Documentation Date Start Date Code Code System Note Provider Name and Address Organization Details Recorded Time 314639 Substance with sulfonami de structure and antibacte rial mechanism of action (substanc e) medicatio n itching Not available Not available 10/11/20162008 44213 8003 SNOMED React ion: ITCHI NG; Comme nt: Creat ed By: [place] pedraza Date: 2008 10:35 :11 AM; Not Available [facility] 6 10:34:48 978351 ciproflox acin medicatio n Not available Not available Not available 07/30/2024 2551 RxNorm Annmarie Niño [facility] 4 11:04:18 771189 Levaquin medicatio n Not available Not available Not available 07/30/2024 09696 2 RxNorm Annmarie Niño [facility] 4 11:04:48 681070 Bactrim medicatio n Not available Not available Not available 07/30/2024 31850 9 RxNorm Annmarie Niño [facility] 4 11:05:09 Medications Name Sig Start Date [...] height Body mass index (BMI) Body weight Systolic blood pressure Diastolic blood pressure Provider Name and Address Organization Details Last Updated DateTime 04/23/2025 166.37 cm 30.3 kg/m2 88219.59 g 144 mm[Hg] 76 mm[Hg] Joselin Michael [facility] 13:43:16 Social History Question Answer Notes LastModified by Organizat ion Details LastModified Time Tobacco Smoking Status [facility] 01/17/2017 13:04:27 What Is Your Level Of Caffeine Consumption? Moderate 2-3 Per Day Information not available 01/17/2017 What Was The Date Of Your Most Recent Tobacco Screening? 12/18/2024 [email or web address] Information not available 12/18/2024 Sex: Unknown Functional [...] mcg/0.3 mL dose 1 completed Yusuf Winters [facility] 03/03/2025 13:32:52 COVID-19, mRNA, LNP-S, PF, 30 mcg/0.3 mL dose 1 completed Yusuf Winters [facility] 03/03/2025 13:32:52 pneumococcal polysaccharide PPV23 9 completed Yusuf Winters [facility] 03/03/2025 13:32:52 Tdap 7 completed Yusuf Winters [facility] 03/03/2025 13:32:52 Influenza, high-dose, trivalent, PF 0 completed Yusuf Winters [facility] 03/03/2025 13:32:52 Influenza, high-dose, trivalent, PF 9 completed Yusuf Winters [facility] 03/03/2025 13:32:52 Influenza, high-dose, trivalent, PF 6 completed Yusuf Winters [facility] 03/03/2025 13:32:52 Td (adult), 2 Lf tetanus toxoid, preservative free, adsorbed 7 completed Yusuf Winters [facility] 03/03/2025 13:32:52 Influenza, split virus, quadrivalent, PF 5 completed Yusuf Winters [facility] 03/03/2025 13:32:52 Influenza, split virus, quadrivalent, PF 4 completed Yusuf Winters [facility] 03/03/2025 13:32:52 Influenza, split virus, quadrivalent, PF 2 completed Yusuf Winters [facility] 03/03/2025 13:32:52 Influenza, split virus, quadrivalent, preservative 8 completed Holli Curly [facility] 01/26/2019 13:36:50 Past Encounters Encounter ID Performer Location Encounter Start Date Encounter Closed Date Diagnosis/Indication Diagnosis SNOMED-CT Code Diagnosis ICD10 Code Diagnosis Note [id number] VAISHNAVI WHITEHEAD MD [address]TH[address]EDI [address] [place] [address] 03/29/2025 11:17:41 03/29/2025 11:35:20 Bilateral carpal tunnel syndrome 8297370064 2125482 G56.03 - Scheduled regular follow-ups . - Improving post-opera tive bruising and swelling observed. - Anticipate d continued resolution of soreness. - Follow-up in four weeks for monitoring recovery. Left with hematoma, will be more sore but should ultimately resolve, a little bit of a tremor in the ring finger as well likely related to weakness and discomfort [id number] CARLOS ROGEL MD RHEUMATOL OGY [address] [place] [address] 04/23/2025 13:26:22 04/26/2025 04:09:06 Seropositive rheumatoid arthritis 181613862 M05.9 Seropositi ve rheumatoid arthritis (+RF >650, [...] 3 months Long-term current use of hydroxychloroquine 4523162595 03921 Z79.899 History of decompression of median nerve 234780475 Z98.890 Health Concerns Section Related Observation LastModified by Organization Detai ls LastModified Time None Recorded Concern Status LastModified by Organization Details LastModified Time None Recorded Payers Encounter Date Sequence Insurance Name Policy Number Policy Russo Covered Member ID Russo Member ID Guarantor Name 04/23/2025 1 [employer] (MEDICARE REPLACEMENT/ ADVANTAGE - PPO) Shayy Roberto [id number] Shayy Roberto Notes Date Note Type Note Provider Name and Address Organization Details Recorded Time 04/23/2025 text/html Last spoke with pt 01/28/25 via telehealth. Since last visit, Plaquenil continued. S/p bilateral carpal tunnel release with Dr. Whitehead. Has another post-op follow-up soon. Joint stiffness, swelling in hands is overall starting to improve. Foot and ankle pain, stiffness, swelling is doing ok. She has resumed her usual exercises and stretches with her feet and ankles. She is hoping to restart her usual hand exercises. She is considering started [employer]ne[employer] exercise classes. From initial HPI 07/30/24:Referred by PCP for evaluation of rheumatoid arthritis.She reports she has had swelling in right hand since at least 2019. Did not have significant pain or stiffness at that time. More recently since winter 2022, she has developed significant pain, swelling, stiffness now involving both hands. Stiffness, pain would last most of the day, with symptoms worse in the morning. She has been doing hand therapy which has been helpful. She also reports developing ankle pain and swelling as well.Denies preceding or associated infection no history of psoriasis.She has tried topical Voltaren, Tylenol arthritis, sulindac. Had tried under NSAIDs in the past but unable to take due to GI side effects and concern for her kidney function.She reports dry eyes. 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 On Synthroid.There is family history of autoimmune liver disease in mom.Had X-rays hands that showed degenerative changes. Labs had shown positive RF >650, CCP >3000, elevated CRP 3.13, ESR 51. HERI was negative. CARLOS ROGEL MD [address] [place], [address], [place] [facility] 04/25/2025 09:24:43 OBGyn Episode No OBEpisode recorded.
--- OUTSIDE RECORDS SUMMARY | 2025-05-13 08:57 | XMS_ITS | Continuity of Care Document ---
Author Organization [facility], ORTHOPEDICS [address] [place] [address] Care Team Providers Care Wind Turbine Sheet Metal Worker Name Role Phone LATOYA TOVAR Primary Care Provider [phone] MINCARLOS Braker Passenger Train Assessment Encounter Date Assessment Date Assessment LastModified by Organization Details LastModified Time 03/29/2025 03/29/2025 POST OP GLOBAL VISIT DATE OF SURGERY: 03/18/2025 TIME POST SURGERY: 11 days SURGERY:Left carpal tunnel release Right carpal tunnel release - 84 year old female with history of bilateral carpal tunnel syndrome presenting for post-operativ e evaluation. - Bruising and swelling likely due to hematoma post-surgery. - Improved numbness and tingling noted, indicating effective surgical intervention. [email or web address] Not available 03/29/2025 11:32:49 Plan of Treatment Reminders Order Date Submit Date Provider Last Modified By Organization Details Last Modified Time Details Appointments RHEUM RECHECK 2024 11:30A Kortney ROGEL MD Not available Not available Not available Lab None recorded . Referral None recorded . Procedures None recorded . Surgeries None recorded . Imaging None recorded . Medication Orders None recorded . Patient TargetsNo targets recorded. Patient Instructions Encounter Date Encounter Id Patient Instructions Last Modified By Organization Details Last Modified Time 03/29/2025 [id number] - Follow up with my management assistant in about four weeks. - Watch for any changes in hand symptoms, particularly numbness or tingling. - Report any worsening of bruising or swelling. - Take care of hand per post-operative guidelines to aid recovery. [email or web address] Not available 03/29/2025 11:32:52 Reason for Referral None Reported. Problems Name Problem SNOMED Code Status Onset Date Resolution Date Notes Provider Name and Address Organization Details Recorded Time Atrophic vaginitis 42888735 Active 2015 Provider: Jenae Campos;Sta tus: Active Not Available [facility] 6 06:15:11 Gastrointe stinal tract finding Active 2015 From Automated Load;Provi collin: Cate Avila;Sta tus: Active Not Available [facility] 6 06:15:11 Constipati on 03568997 Active 2015 From Automated Load;Provi collin: Cate Avila;Sta tus: Active Not Available [facility] 6 06:15:11 Abdominal pain 81489989 Active 2015 From Automated Load;Provi collin: Cate Avila;Sta tus: Active Not Available [facility] 6 06:15:11 Problem Notes None recorded. Procedures Surgical History Date Name Laterality Status Provider Name and Address Organization Details Recorded Time 03/18/20 25 Op Note completed VAISHNAVI WHITEHEAD MD [facility] [place], [address], [facility] 03/18/2025 07:48:51 03/18/20 25 osteoplasty of carpal bone completed Joselin Rodriguez [facility] 04/23/2025 13:41:21 05/11/20 20 Date of Last Mammogram completed Pam Ash [facility] 05/27/2020 13:59:13 01/24/20 18 Pap Smear collection completed JENAE CAMPOS MD [address] [place] [address], [address], [facility] 01/26/2018 14:34:04 01/24/20 18 Date of Last Pap Smear completed Holli Rawls [facility] 01/26/2019 13:38:24 09/29/20 17 Date of Last Colonoscopy completed Jeanie Posadas [facility] 01/23/2018 14:06:17 08/02/20 15 Most Recent Bone Density completed Jeanie Posadas [facility] 01/23/2018 14:06:20 Cholecystectomy completed Mona Mares [facility] 01/17/2017 13:05:15 Hysterectomy/bladde r repair completed Mona Vishnu [facility] 01/17/2017 13:05:50 Breast Surgery completed Mona Vishnu [facility] 01/17/2017 13:06:07 Dilation and Curettage completed Mona Vishnu [facility] 01/17/2017 13:06:16 Imaging Results None recorded. Procedure Notes None recorded. Medical Equipment None Reported. Allergies Allergen ID Allergen Name Allergen Category Reaction Reaction Severity Criticality Documentation Date Start Date Code Code System Note Provider Name and Address Organization Details Recorded Time 163113 Substance with sulfonami de structure and antibacte rial mechanism of action (substanc e) medicatio n itching Not available Not available 10/11/20162008 21644 8003 SNOMED React ion: ITCHI NG; Comme nt: Dawit ed By: [place] pedraza Date: 2008 10:35 :11 AM; Not Available [facility] 6 10:34:48 071733 ciproflox acin medicatio n Not available Not available Not available 07/30/2024 2551 RxNorm Annmarie Niño [facility] 4 11:04:18 868630 Levaquin medicatio n Not available Not available Not available 07/30/2024 39556 2 RxNorm Annmarie Niño [facility] 4 11:04:48 644261 Bactrim medicatio n Not available Not available Not available 07/30/2024 24287 9 RxNorm Annmarie Niño [facility] 4 11:05:09 Medications Name Sig Start [...] and Address Organization Details Last Updated DateTime 03/29/2025 166.37 cm 28.7 kg/m2 51474.66 g [facility] 03/29/2025 11:24:50 Social History Question Answer Notes LastModified by Organizat ion Details LastModified Time Tobacco Smoking Status [facility] 13:04:27 What Is Your Level Of Caffeine Consumption? Moderate 2-3 Per Day Information not available 01/17/2017 What Was The Date Of Your Most Recent Tobacco Screening? 12/18/2024 [email or web address] Information not available 12/18/2024 Sex: Unknown Functional [...] mcg/0.3 mL dose 1 completed Yusuf Winters [facility] 03/03/2025 13:32:52 COVID-19, mRNA, LNP-S, PF, 30 mcg/0.3 mL dose 1 completed Yusuf Winters [facility] 03/03/2025 13:32:52 pneumococcal polysaccharide PPV23 9 completed Yusuf Winters [facility] 03/03/2025 13:32:52 Tdap 7 completed Yusuf Winters [facility] 03/03/2025 13:32:52 Influenza, high-dose, trivalent, PF 0 completed Yusuf Winters [facility] 03/03/2025 13:32:52 Influenza, high-dose, trivalent, PF 9 completed Yusuf Winters [facility] 03/03/2025 13:32:52 Influenza, high-dose, trivalent, PF 6 completed Yusuf Winters [facility] 03/03/2025 13:32:52 Td (adult), 2 Lf tetanus toxoid, preservative free, adsorbed 7 completed Yusuf Winters [facility] 03/03/2025 13:32:52 Influenza, split virus, quadrivalent, PF 5 completed Yusuf Winters [facility] 03/03/2025 13:32:52 Influenza, split virus, quadrivalent, PF 4 completed Yusuf Winters [facility] 03/03/2025 13:32:52 Influenza, split virus, quadrivalent, PF 2 completed Yusuf Winters [facility] 03/03/2025 13:32:52 Influenza, split virus, quadrivalent, preservative 8 completed Holli Rawls [facility] 01/26/2019 13:36:50 Past Encounters Encounter ID Performer Location Encounter Start Date Encounter Closed Date Diagnosis/Indication Diagnosis SNOMED-CT Code Diagnosis ICD10 Code Diagnosis Note [id number] VAISHNAVI WHITEHEAD MD [facility]THOPEDI [facility] [address] [place] [address] 03/03/2025 13:10:05 03/03/2025 14:02:14 Bilateral carpal tunnel syndrome 3889804478 2735834 G56.03 [id number] VAISHNAVI WHITEHEAD MD SURGERY SCHEDULE [address] [place] [address] 03/18/2025 06:03:54 03/18/2025 06:05:12 [id number] VAISHNAVI WHITEHEAD MD ORTHOPEDI [address] [place] [address] 03/29/2025 11:17:41 03/29/2025 11:35:20 Bilateral carpal tunnel syndrome [id number] 7906591 G56.03 - Scheduled regular follow-ups . - Improving post-opera tive bruising and swelling observed. - Anticipate d continued resolution of soreness. - Follow-up in four weeks for monitoring recovery. Left with hematoma, will be more sore but should ultimately resolve, a little bit of a tremor in the ring finger as well likely related to weakness and discomfort Health Concerns Section Related Observation LastModified by Organization Detai ls LastModified Time None Recorded Concern Status LastModified by Organization Details LastModified Time None Recorded Payers Encounter Date Sequence Insurance Name Policy Number Policy Russo Covered Member ID Russo Member ID Guarantor Name 03/29/2025 1 [employer] (MEDICARE REPLACEMENT/ ADVANTAGE - PPO) Shayy Roberto [id number] Shayy Roberto Notes Date Note Type Note Provider Name and Address Organization Details Recorded Time 03/29/20 25 text/htm l POST OP GLOBAL VISIT DATE OF SURGERY: 03/18/2025TIME POST SURGERY:11 daysSURGERY:Left carpal tunnel releaseRight carpal tunnel releasePREOP SYMPTOMSBETTERPain level:3/10 OVERALL ASSESSMENTIMPROVINGPatient arrived in:NAtaken offNANEW SYMPTOMS OR QUESTIONS: Ms. Roberto is here for a post op visit. N/t has subsidedOTHER RECENT SURGERIES:n/a EMPLOYMENT STATUS:retired- The patient is an 84 year old female presenting with carpal tunnel syndrome. - Improved numbness and tingling post-surgery. - Right hand exhibits excessive bruising and swelling, suggestive of post-surgical hematoma. - Improvement noted with lingering soreness and swelling. - Mild tremor in ring finger noted, possibly related to discomfort. VAISHNAVI WHITEHEAD MD [address] [place], [address] 03/29/2025 11:33:57 OBGyn Episode No OBEpisode recorded.
--- OUTSIDE RECORDS SUMMARY | 2025-05-13 08:58 | XMS_ITS | Continuity of Care Document ---
Author Organization [facility], SURGERY SCHEDULE Address [address] [place] [address] Care Team Providers Care Side Seam Envelope Machine Operator Name Role Phone LA LATOYA Primary Care Provider [phone] MIN, CARLOS Piece Goods Packer Assessment No assessment recorded. Plan of Treatment [...] instructions recorded. Reason for Referral None Reported. Results Created Date Observation Date Name Description Value Unit Range Abnormal Flag Note LastModifiedBy Organization Detail LastModifiedTime 02/20/20 25 02/17/2025 nerve condu ction study /EMG, upper extre mity (PROC ) No observ ation record ed. BRAULIO Not Available 2024 14:08:41 Result Notes None recorded. Problems Name Problem SNOMED Code Status Onset Date Resolution Date Notes Provider Name and Address Organization Details Recorded Time Atrophic vaginitis 43341827 Active 2015 Provider: Jenae Campos;John tus: Active Not Available [facility] 6 06:15:11 Gastrointe stinal tract finding Active 2015 From Automated Load;Provi collin: Cate Avila;John tus: Active Not Available [facility] 6 06:15:11 Constipati on 58173720 Active 2015 From Automated Load;Provi collin: Cate Avila;Sta tus: Active Not Available [facility] 6 06:15:11 Abdominal pain 71020636 Active 2015 From Automated Load;Provi collin: Cate Avila;Sta tus: Active Not Available [facility] 6 06:15:11 Problem Notes None recorded. Procedures Surgical History Date Name Laterality Status Provider Name and Address Organization Details Recorded Time 03/18/20 25 Op Note completed VAISHNAVI WHITEHEAD MD [address] [place] [address], [phone], [facility] 03/18/2025 07:48:51 03/18/20 25 osteoplasty of carpal bone completed Joselinpayton Rodriguez [facility] 04/23/2025 13:41:21 05/11/20 20 Date of Last Mammogram completed Pam Ash [facility] 05/27/2020 13:59:13 01/24/20 18 Pap Smear collection completed JENAE CAMPOS MD [address] [place] [address], [phone], [facility] 01/26/2018 14:34:04 01/24/20 18 Date of Last Pap Smear completed Holli Rawls [facility] 01/26/2019 13:38:24 09/29/20 17 Date of Last Colonoscopy completed Jeanie[facility]rlanger [facility] 01/23/2018 14:06:17 08/02/20 15 Most Recent Bone Density completed [facility] [place], operated by [facility] 01/23/2018 14:06:20 Cholecystectomy completed Mona Vishnu [facility] 01/17/2017 13:05:15 Hysterectomy/bladde r repair completed Mona Vishnu [facility] 01/17/2017 13:05:50 Breast Surgery completed Mona Vishnu [facility] 01/17/2017 13:06:07 Dilation and Curettage completed Mona Vishnu [facility] 01/17/2017 13:06:16 Imaging Results None recorded. Procedure Notes None recorded. Medical Equipment None Reported. Allergies Allergen ID Allergen Name Allergen Category Reaction Reaction Severity Criticality Documentation Date Start Date Code Code System Note Provider Name and Address Organization Details Recorded Time 558167 Substance with sulfonami de structure and antibacte rial mechanism of action (substanc e) medicatio n itching Not available Not available 10/11/20162008 28096 8003 SNOMED React ion: ITCHI NG; Comme nt: Eliat ed By: [place] pedraza Date: 2008 10:35 :11 AM; Not Available [facility] 6 10:34:48 561494 ciproflox acin medicatio n Not available Not available Not available 07/30/2024 2551 RxNorm Annmarie Niño [facility] 4 11:04:18 145457 Levaquin medicatio n Not available Not available Not available 07/30/2024 34479 2 RxNorm Annmarie Niño [facility] 4 11:04:48 720103 Bactrim medicatio n Not available Not available Not available 07/30/2024 65864 9 RxNorm Annmarie Niño [facility] 4 11:05:09 Medications Name Sig Start [...] Not Available Not Available Not Available Vitals None Recorded Social History Question Answer Notes LastModified by Organizat ion Details LastModified Time Tobacco Smoking Status [facility] 13:04:27 What Is Your Level Of Caffeine Consumption? Moderate 2-3 Per Day Information not available 01/17/2017 What Was The Date Of Your Most Recent Tobacco Screening? 12/18/2024 [email or web address] Information not available 12/18/2024 Sex: Unknown Functional [...] Acid Reflux (GERD) Y Thyroid Problems Y Hoarseness Y Asthma Y COPD N Depression Y Anemia Y Heart Disease N Rheumatoid [...] mcg/0.3 mL dose 1 completed Yusuf Winters [facility] 03/03/2025 13:32:52 COVID-19, mRNA, LNP-S, PF, 30 mcg/0.3 mL dose 1 completed Yusuf Winters [facility] 03/03/2025 13:32:52 pneumococcal polysaccharide PPV23 9 completed Yusuf Winters [facility] 03/03/2025 13:32:52 Tdap 7 completed Yusuf Winters [facility] 03/03/2025 13:32:52 Influenza, high-dose, trivalent, PF 0 completed Yusuf Winters [facility] 03/03/2025 13:32:52 Influenza, high-dose, trivalent, PF 9 completed Yusuf Winters [facility] 03/03/2025 13:32:52 Influenza, high-dose, trivalent, PF 6 completed Yusuf Winters [facility] 03/03/2025 13:32:52 Td (adult), 2 Lf tetanus toxoid, preservative free, adsorbed 7 completed Yusuf Winters [facility] 03/03/2025 13:32:52 Influenza, split virus, quadrivalent, PF 5 completed Yusuf Winters [facility], [facility] 03/03/2025 13:32:52 Influenza, split virus, quadrivalent, PF 4 completed Yusuf Winters [facility], [facility] 03/03/2025 13:32:52 Influenza, split virus, quadrivalent, PF 2 completed Yusuf Winters [facility] 03/03/2025 13:32:52 Influenza, split virus, quadrivalent, preservative 8 completed Holli Rawls [facility] 01/26/2019 13:36:50 Past Encounters Encounter ID Performer Location Encounter Start Date Encounter Closed Date Diagnosis/Indication Diagnosis SNOMED-CT Code Diagnosis ICD10 Code Diagnosis Note [id number] VAISHNAVI WHTIEHEAD MD [facility] [address] [place] [address] 03/03/2025 13:10:05 03/03/2025 14:02:14 Bilateral carpal tunnel syndrome 6965001392 1099296 G56.03 [id number] VAISHNAVI WHITEHEAD MD SURGERY SCHEDULE [address] [place] [address] 03/18/2025 06:03:54 03/18/2025 06:05:12 Health Concerns Section Related Observation LastModified by Organization Detai ls LastModified Time None Recorded Concern Status LastModified by Organization Details LastModified Time None Recorded Payers Encounter Date Sequence Insurance Name Policy Number Policy Russo Covered Member ID Russo Member ID Guarantor Name 03/18/2025 1 [employer] (MEDICARE REPLACEMENT/ ADVANTAGE - PPO) Shayy Roberto [id number] Shayy Roberto OBGyshauna Episode No OBEpisode recorded.
--- OUTSIDE RECORDS SUMMARY | 2025-05-13 08:58 | XMS_ITS | Clinical Summary ---
Author Organization Healthcare Address [address] [place] [address] Care Team Providers Care Parking Enforcement Technician Name Role Phone Stveen Rajput MD Primary Care Provider [phone] Ramona Loya APRN Unavailable [phone] Allergies Active Allergy Reactions Criticality Noted Date Comments Sulfa Drugs Itching Medium 10/18/2009 Medications sucralfate (Carafate) 1 g tablet if needed. Active escitalopram (Lexapro) 10 MG tablet 1 tab(s) orally once a day Active losartan (Cozaar) 50 MG tablet 1 tab(s) orally once a day Active Polyethylene Glycol 3350 (MIRALAX PO) 1 (one) time each day. Active albuterol 108 (90 Base) MCG/ACT inhaler 2 puff(s) inhaled 4 times a day, As Needed Active cyanocobalamin (Vitamin B-12) 1000 MCG tablet 1 tab(s) orally once a day Active montelukast (Singulair) 10 MG tablet 1 tab(s) orally once a day (in the evening) Active diclofenac (Voltaren) 1 % topical gel if needed. Active ALPRAZolam (Xanax) 0.5 MG tablet TAKE 1 TABLET BY MOUTH THREE TIMES DAILY NEEDED 1 Active ascorbic acid (Vitamin C) 1000 MG tablet 1 tablet (1,000 mg) 1 (one) time each day. 0 Active Azelastine-Flut icasone 137-50 MCG/ACT suspension 1 spray(s) nasal 2 times a day Active budesonide-form oterol (Symbicort) 160-4.5 MCG/ACT inhaler Inhale 1 puff 2 (two) times a day. 0 Active Symbicort 160-4.5 MCG/ACT inhaler 1 puff 2 (two) times a day. 1 Active cholecalciferol (Vitamin D-3) 50 MCG (2000 UT) tablet 1 tablet (2,000 Units) 1 (one) time each day. 0 Active fluticasone (Flonase) 50 MCG/ACT nasal spray SHAKE LIQUID AND USE 1 SPRAY IN EACH NOSTRIL EVERY DAY 1 Active furosemide (Lasix) 20 MG tablet TAKE 1 TABLET BY MOUTH EVERY DAY NEEDED 1 Active levocetirizine (Xyzal) 5 MG tablet Take by mouth 1 (one) time each day in the evening. 0 Active levothyroxine (Synthroid, Levoxyl) 75 MCG tablet Take 1 tablet (75 mcg) by mouth 1 (one) time each day. 1 Active omeprazole (PriLOSEC) [address] capsule Take 1 capsule (40 mg) by mouth 1 (one) time each day. 1 Active promethazine (Phenergan) 25 MG tablet TAKE 1 TABLET BY MOUTH FOUR TIMES DAILY NEEDED 1 Active potassium chloride CR (Klor-Con M20) 20 MEQ ER tablet TAKE 1 TABLET BY MOUTH DAILY 1 Active ondansetron (Zofran) 4 MG tablet TAKE 1 TABLET BY MOUTH EVERY 8 HOURS 1 Active tiZANidine (Zanaflex) 4 MG tablet if needed. 0 Active cefuroxime (Ceftin) 500 MG tablet TAKE 1 TABLET BY MOUTH EVERY 12 HOURS FOR 5 DAYS 2 Active Azelastine HCl 137 MCG/SPRAY solution 2 Active Breo Ellipta 200-25 MCG/INH inhaler INHALE 1 PUFF BY MOUTH ONCE DAILY DIRECTED 2 Active cephalexin (Keflex) 250 MG capsule Take 250 mg by mouth 1 (one) time each day. 2 Active Lifitegrast (Xiidra) 5 % solution Administer 0.2 mL into affected eye(s). Active fish oil-omega-3 fatty acids 1000 MG capsule 400 mg. 3 Active aspirin 81 MG EC tablet 1 tablet (81 mg). 3 Active cycloSPORINE (Restasis) 0.05 % ophthalmic emulsion 3 Active fluorometholone (FML) 0.1 % ophthalmic suspension 3 Active Spacer/Aero-Hol ding Chambers (EQ Space Chamber Anti-Static) device USE DIRECTED EVERY 4 HOURS NEEDED USE WITH INHALER 2 Active estradiol (Estrace) 0.1 MG/GM vaginal cream USING FINGER TECHNIQUE APPLY 1 GRAM DAILY FOR 2 WEEKS AND THEN TWICE WEEKLY VAGINALLY 4 Active methenamine hippurate (Hiprex) 1 g tablet Take 1 tablet (1 g) by mouth 1 (one) time each day. 4 Active Active Problems Problem Noted Date Diagnosed Date Mild peripheral edema 05/25/2021 Assessment & Plan (05/25/2021 4:22 PM EDT): Takes Lasix daily, but has held the past day or so. Given mild non-pitting edema and b/l fine crackles encouraged compliance with Lasix and inhalers to minimize risk of symptomatic fluid overload. Ocular migraine 05/25/2021 Assessment & Plan (05/25/2021 4:31 PM EDT): Continue management with Dr. 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 Roberto continues to do well and remains asymptomatic without clinical evidence of disease progression. Recommend continued active surveillance of her IgM MGUS every 6 months or contact us should new problems develop or questions arise. In particular, progressing fatigue or cytopenias, lymphadenopathy, headaches or vision changes, chest pain, or recurrent infections. Constipation 05/15/2016 Hypothyroidism HTN (hypertension) Resolved Problems Problem Noted Date Diagnosed Date Resolved Date Abdominal pain 05/15/2016 05/25/2021 Gastrointestinal tract finding 01/20/2016 05/25/2021 Atrophic vaginitis 12/29/2015 Acute sinusitis 04/28/2015 05/25/2021 Overview (05/25/2021): Acute sinusitis Bronchitis 04/28/2015 05/25/2021 Overview (05/25/2021): Bronchitis Immunizations Immunization Administration Dates Next Due Influenza, high-dose, quadrivalent 08/11/2020,,09/07/2016 Influenza, injectable, quadrivalent 08/18/2018 Influenza, injectable, quadr ivalent, preservative free 08/29/2022,09/27/2017,08/02/2015,08/16 Pneumococcal Polysaccharide PPV23 06/25/2019 TD (adult), 2 Lf tetanus tox oid, preservative free, adsorbed 01/23/1997 Tdap 06/25/2017 Family History Medical History Relation Name Comments Heart Problem Brother Heart Problem Father Hypertension Mother Relation Name Status Comments Brother Father Mother Social History Tobacco Use Types Packs/Day Years Used Date Smoking Tobacco: Never Passive Smoke Exposure: Yes Smokeless Tobacco: Never Tobacco Cessation:Counseling Given: Not Answered Comments:Former smoker, stopped smoking many years ago Alcohol Use Standard Drinks/Week Comments No 0 (1 standard drink = 0.6 oz pur e alcohol) PHQ-2 Answer Date Recorded Patient Health Questionnaire-2 Score 0 05/13/2024 Comments Unknown Sex and Gender Information Value Date Recorded Sex Assigned at Female 09/24/2023 7:26 PM EST Legal Sex Female 8:49 PM EDT Gender Identity Female 09/24/2023 7:22 PM EST Sexual Orientation Not on file Last Filed Vital Signs Vital Sign Reading Time Taken Comments Blood Pressure 121/70 05/13/2024 2:19 PM EDT Pulse 73 05/13/2024 2:14 PM EDT Temperature 37.2 C (98.9 F) 05/13/2024 2:14 PM EDT Respiratory Rate 17 05/13/2024 2:14 PM EDT Oxygen Saturation 92% 05/13/2024 2:14 PM EDT Inhaled Oxygen Concentration - - Weight 82.5 kg (181 lb 14.1 oz) 05/13/2024 2:14 PM EDT Height 166.4 cm (5' 5.5 ) 09/12/2023 10 :34 AM EDT Body Mass Index 29.81 09/12/2023 10:34 AM EDT Plan of Treatment Upcoming Encounters Date Type Department Care Team (Late st Contact Info) Description 05/13/2025 2:00 PM EDT Clinical Support [facility] Hematology/BMT and Cellular Therapy Program [address] [place] [address] Health Maintenance Due Date Last Done Comments [facility]-Bone Density Scan 1941 [facility]-Medicare Annual Wellness (AWV) 1941 [facility]-/Child/Adol SDOH Screenings 1941 [facility]-Obesity Intervention 1947 [facility]- SDOH Screenings 1959 [facility]-Adult SDOH Screenings 1959 [facility]-Zoster Vaccines (1 of 2) 1960 [facility]-RSV Vaccine: 60+ Years or (1 - 1-dose 75+ series) 2016 [facility]-Pneumococcal Vaccine: 50+ Years (2 of 2 - PCV) 06/25/2020 06/25/2019 [id number] Vaccine (3 - Pfizer risk series) 08/30/2021 08/02/2021, 06/28/2021 [facility]-Depression Screening 05/13/2025 05/13/2024 [facility]-Influenza Vaccine (Season Ended) 2025 08/29/2022, 08/11/2020, 08/17/2019, Additional history exists [facility]-DTaP,Tdap,and Td Vaccines (2 - Td or Tdap) 06/25/2027 06/25/2017, 01/23/1997 HPV Vaccines Aged Out No longer eligi ble based on patient's age to complete this topic [facility]-HIB Vaccines Aged Out No longer e ligible based on patient's age to complete this topic [facility]-Hepatitis A Vaccines Aged Out No longer eligible based on patient's age to complete this topic [facility]-IPV Vaccines Aged Out No longer e ligible based on patient's age to complete this topic [facility]-Rotavirus Vaccines Aged Out No lo nger eligible based on patient's age to complete this topic Insurance [facility] MEDICARE Care Teams Parking Enforcement Technician Relationship Specialty Start Date End Date Steven Rajput MD [address] [place] [address] PCP - General 03/31/21 Ramona Loya, SANDWICH COUNTER ATTENDANT [address] [place] [address] [address] Nurse Practitioner Internal Medicine 01/05/22
--- OUTSIDE RECORDS SUMMARY | 2025-05-13 08:58 | XMS_ITS | Data Portability ---
Author Organization G[facility]Y - ROXANNE HankinsS [facility] CLOSED Address [address] [facility] [address] [place] [address] Care Team Providers Care Water Hydrant Installer Name Role Phone LATOYA TOVAR Primary Care Provider [phone] MINCARLOS Document Preparation Specialist Assessment Encounter Date Assessment Date Assessment LastModified by Organization Details LastModified Time 03/03/2025 03/03/2025 - 84-year-old female with a history of rheumatoid arthritis presenting with numbness and tingling in the fingers. - Chronic inflammation related to rheumatoid arthritis affecting joint and nerve areas. - Carpal tunnel syndrome evidenced by positive compression test. - Inflammation around left wrist tendons signifies extensor tenosynovitis. Rheumatoid Arthritis: - Monitor DMARD efficacy; consider infusions for active disease. Carpal Tunnel Syndrome: - Proceed with carpal tunnel release surgery, local anesthetic. Extensor Tenosynovitis: - Continue conservative management, suggest ongoing physical therapy. [email or web address] Not available 03/03/2025 13:55:07 03/29/2025 03/29/2025 POST OP GLOBAL VISIT DATE OF SURGERY: 03/18/2025 TIME POST SURGERY: 11 days SURGERY:Left carpal tunnel release Right carpal tunnel release - 84 year old female with history of bilateral carpal tunnel syndrome presenting for post-operative evaluation. - Bruising and swelling likely due to hematoma post-surgery. - Improved numbness and tingling noted, indicating effective surgical intervention. [email or web address] Not available 03/29/2025 11:32:49 Plan of Treatment Reminders Order Date Submit Date Provider Last Modified By Organization Details Last Modified Time Details Appointments RHEUM RECHECK 2024 11:30A Kortney COKER MD Not available Not available Not available Lab None recorded . Referral None recorded . Procedures None recorded . Surgeries None recorded . Imaging None recorded . Medication Orders None recorded . Patient TargetsNo targets recorded. Patient Instructions Encounter Date Encounter Id Patient Instructions Last Modified By Organization Details Last Modified Time 03/03/2025 [id number] - Schedule a follow-up in 10-14 days for stitch removal after surgery. - Continue physical therapy exercises as directed. - Monitor for any worsening of symptoms or new symptoms and contact if necessary. - Discuss the possibility of infusion treatments with your computer specialist during your upcoming appointment in March. [email or web address] Not available 03/03/2025 13:55:12 03/29/2025 [id number] - Follow up with my child care assistant in about four weeks. - Watch for any changes in hand symptoms, particularly numbness or tingling. - Report any worsening of bruising or swelling. - Take care of hand per post-operative guidelines to aid recovery. [email or web address] Not available 03/29/2025 11:32:52 04/26/2025 [id number] She can use her hand as tolerated. She asks about the swelling on the dorsum of her hand, I believe this is either related to her rheumatoid arthritis or is other synovitis. She will continue to watch this. Follow-up as needed. lavell Not available 04/26/2025 13:50:50 Reason for Referral None Reported. Results Created Date Observation Date Name Description Value Unit Range Abnormal Flag Note LastModifiedBy Organization Detail LastModifiedTime 02/20/2002/17/2025 nerve condu ction study /EMG, upper extre mity (PROC ) No observ ation record ed. BRAULIO Not Available 2024 14:08:41 Result Notes None recorded. Problems Name Problem SNOMED Code Status Onset Date Resolution Date Notes Provider Name and Address Organization Details Recorded Time Atrophic vaginitis 47461926 Active 2015 Provider: Amparo Camposs: Active Not Available [facility] 6 06:15:11 Gastrointe stinal tract finding Active 2015 From Automated Load;Provi collin: Frida Avila tus: Active Not Available [facility] 6 06:15:11 Constipati on 15700419 Active 2015 From Automated Load;Provi collin: Cate Avila;John tus: Active Not Available [facility] 6 06:15:11 Abdominal pain 91719955 Active 2015 From Automated Load;Provi collin: Cate Avila;John tus: Active Not Available [facility] 6 06:15:11 Problem Notes None recorded. Procedures Surgical History Date Name Laterality Status Provider Name and Address Organization Details Recorded Time 03/18/20 25 Op Note completed VAISHNAVI GOLD MD [address] [place], [address], [facility] 03/18/2025 07:48:51 03/18/20 25 osteoplasty of carpal bone completed Joselin Rodriguez [facility] 04/23/2025 13:41:21 05/11/20 20 Date of Last Mammogram completed Pam Ash [facility] 05/27/2020 13:59:13 01/24/20 18 Pap Smear collection completed JENAE CAMPOS MD [address] [place], [address], [facility] 01/26/2018 14:34:04 01/24/20 18 Date of Last Pap Smear completed Holli Rawls [facility] 01/26/2019 13:38:24 09/29/20 17 Date of Last Colonoscopy completed Jeanieedd Posadas [facility] 01/23/2018 14:06:17 08/02/20 15 Most Recent Bone Density completed Jeanie Cuauhtemoc [facility] 01/23/2018 14:06:20 Cholecystectomy completed Mona Vishnu [facility] 01/17/2017 13:05:15 Hysterectomy/bladde r repair completed Mona Vishnu [facility] 01/17/2017 13:05:50 Breast Surgery completed Mona Vishnu [facility] 01/17/2017 13:06:07 Dilation and Curettage completed Mona Vishnu [facility] 01/17/2017 13:06:16 Imaging Results None recorded. Procedure Notes None recorded. Medical Equipment None Reported. Allergies Allergen ID Allergen Name Allergen Category Reaction Reaction Severity Criticality Documentation Date Start Date Code Code System Note Provider Name and Address Organization Details Recorded Time 308446 Substance with sulfonami de structure and antibacte rial mechanism of action (substanc e) medicatio n itching Not available Not available 10/11/20162008 91618 8003 SNOMED React ion: ITCHI NG; Comme nt: Creat ed By: Boston pedraza Date: 2008 10:35 :11 AM; Not Available [facility] 6 10:34:48 521019 ciproflox acin medicatio n Not available Not available Not available 07/30/2024 2551 RxNorm Annmarie Niño [facility] 4 11:04:18 522010 Levaquin medicatio n Not available Not available Not available 07/30/2024 53728 2 RxNorm Annmarie Niño [facility] 4 11:04:48 123073 Bactrim medicatio n Not available Not available Not available 07/30/2024 87890 9 RxNorm Annmarie Niño [facility] 4 11:05:09 Medications Name Sig Start Date [...] and Address Organization Details Last Updated DateTime 03/03/2025 166.37 cm 28.7 kg/m2 45380.66 g Yusuf Winters [facility] 03/03/2025 13:42:04 Date Recorded Body height Body mass index (BMI) Body weight Provider Name and Address Organization Details Last Updated DateTime 03/29/2025 166.37 cm 28.7 kg/m2 90751.66 g [facility] 03/29/[facility] 11:24:50 Date Recorded Body height Body mass index (BMI) Body weight Systolic blood pressure Diastolic blood pressure Provider Name and Address Organization Details Last Updated DateTime 04/23/2025 166.37 cm 30.3 kg/m2 00859.59 g 144 mm[Hg] 76 mm[Hg] Joselin Rodriguez [facility] 13:43:16 Date Recorded Body height Body mass index (BMI) Body weight Provider Name and Address Organization Details Last Updated DateTime 04/26/2025 166.37 cm 30.3 kg/m2 39764.59 g Kushal Guthrie [facility] 04/26/2025 11:00:53 Social History Question Answer Notes LastModified by Organizat ion Details LastModified Time Tobacco Smoking Status Former Smoker Mona Vishnu merritt, [facility] 01/17/2017 13:04:27 What Is Your Level Of Caffeine Consumption? Moderate 2-3 Per Day Information not available 01/17/2017 What Was The Date Of Your Most Recent Tobacco Screening? 12/18/2024 [email or web address] Information not available 12/18/2024 Sex: Unknown Functional [...] available 2016 13:22:09 Medical History Condition Response Emphysema N COPD N Depression Y Arthritis Y Acid Reflux (GERD) Y Hoarseness Y Rheumatoid Arthritis Y Bleeding Disorder N Asthma Y Chicken Pox Y Thyroid Problems Y Anemia Y Diabetes N Heart Disease N Hypertension Y Gynecological History Statement/Question Response Date of [...] mcg/0.3 mL dose 1 completed Yusuf Winters [facility] 03/03/2025 13:32:52 COVID-19, mRNA, LNP-S, PF, 30 mcg/0.3 mL dose 1 completed Yusuf Winters [facility] 03/03/2025 13:32:52 pneumococcal polysaccharide PPV23 9 completed Yusuf Winters [facility] 03/03/2025 13:32:52 Tdap 7 completed Yusuf Winters [facility] 03/03/2025 13:32:52 Influenza, high-dose, trivalent, PF 0 completed Yusuf Winters [facility] 03/03/2025 13:32:52 Influenza, high-dose, trivalent, PF 9 completed Yusuf Winters [facility] 03/03/2025 13:32:52 Influenza, high-dose, trivalent, PF 6 completed Yusuf Winters [facility] 03/03/2025 13:32:52 Td (adult), 2 Lf tetanus toxoid, preservative free, adsorbed 7 completed Yusuf Winters [facility] 03/03/2025 13:32:52 Influenza, split virus, quadrivalent, PF 5 completed Yusuf Winters [facility] 03/03/2025 13:32:52 Influenza, split virus, quadrivalent, PF 4 completed Yusuf Winters [facility] 03/03/2025 13:32:52 Influenza, split virus, quadrivalent, PF 2 completed Yusuf Winters [facility] 03/03/2025 13:32:52 Influenza, split virus, quadrivalent, preservative 8 completed Holli Rawls [facility] 01/26/2019 13:36:50 Past Encounters Encounter ID Performer Location Encounter Start Date Encounter Closed Date Diagnosis/Indication Diagnosis SNOMED-CT Code Diagnosis ICD10 Code Diagnosis Note [id number] MD [address] [place] [address] 01/17/2017 12:49:52 01/17/2017 14:05:39 Gynecologic examination 73945079 Z01.419 Menopausal syndrome 1237 98651 N95.9 off HRT Atrophic vaginitis 29905 000 N95.2 Screening for malignant neoplasm of breast 878360255 Z12.31 [id number] MD [address] [place] [address] 01/23/2018 13:10:58 01/23/2018 14:49:07 Dysuria 66910526 R30.0 Discussed dietary irritants of the bladder- handout provided- discussed some dietary changes; will rule out UTI Screening for malignant neoplasm of breast 055426895 Z12.31 Continue annual surveillan ce Menopausal syndrome 1237 09760 N95.9 Doing well off HRT- does not desire therapy Osteopenia 485194606 M85 .80 Due for bone density Atrophic vaginitis 91381 000 N95.2 Discussed lubricant prn- and continue vaginal estrogen - no need for refill at this time Hypothyroidism 80396873 E03.9 Follows with PCP Gynecologi c examination 56458877 Z01.[id number] [place] [address] 01/26/2019 13:24:46 01/28/2019 16:17:40 Routine gynecologic examination done 1401614294 9101 Z01.419 no pap today. Patient to follow up in one year Candidiasis of vagina 72 463339 B37.3 Patient requested since taking antibiotic s [id number] DO [address] [place] [address] 05/27/2020 13:31:17 05/27/2020 14:42:33 Gynecologic examination 37773059 Z01.419 No history of abnormal paps and history of hysterecto my. Not on HRT. Discussed with patient that it is no longer necessary for her to have annual exams if she chooses. Would recommend yearly mammograms . Lety verbalized understand ing and is in agreement [id number] CARLOS COKER MD [facility] [address] [place] [address] 1 07/30/2024 10:49:50 07/31/2024 04:11:42 Seropositive rheumatoid arthritis 845456133 M05.9 Fatigue 85690331 R53.83 Long-term drug therapy 522190070 Z79.899 [id number] CARLOS COKER MD [facility] [address] [place] [address] 1 08/21/2024 10:14:24 08/22/2024 04:30:16 Seropositive rheumatoid arthritis 499675690 M05.9 Long-term drug therapy 038012491 Z79.899 [id number] CARLOS COKER MD [facility] [address] [place] [address] 1 12/18/2024 11:20:05 12/19/2024 04:10:49 Seropositive rheumatoid arthritis 059707065 M05.9 Long-term drug therapy 275107681 Z79.899 [id number] CARLOS COKER MD [facility] [address] [place] [address] 1 01/22/2025 11:39:08 01/25/2025 14:19:08 Seropositive rheumatoid arthritis 491730317 M05.9 Long-term current use of hydroxychloroquine 0043286986 96817 Z79.899 [id number] CARLOS COKER MD [facility] [place] [address] 01/28/2025 13:39:38 02/03/2025 19:25:25 Paresthesia of upper limb 21850641 R20.2 Numbness and tingling affecting bilateral hands, primarily thumbs and third fingers up to her bigger knuckles as well as fingertips . Symptoms are occurring frequently off and on throughout the day. Seem to be exacerbate d by certain activities such as driving and her her posture.I suspect neuropathy , radiculopa thy. Labs from July 2024 noted normal vitamin D, vitamin B12, iron studies, magnesium. She does not have any history of diabetes.W ill order EMG bilateral upper extremitie s. Will send order to [facility] to do. Seropositi ve rheumatoid arthritis 569631976 M05.9 Seropositi ve rheumatoid arthritis (+RF >650, [...] 12/2024. Will need to give Plaquenil more time. Her symptoms of numbness and tingling in her arms is not related to Plaquenil side effect. Stopping it did not make any difference in the symptoms. I discussed with her that I think we will likely need to start biologic. We discussed Orencia. She prefers IV if we go this route. Orencia would have much less risk for infection, malignancy risk. I think TNF inhibitors with infection risk would be more problemati c for pt. Other notable history of MGUS Follow-up in March as scheduled Long-term current use of hydroxychloroquine 2057999042 66477 Z79.899 [id number] VAISHNAVI GOLD MD [facility]EDI [facility] [address] [place] [address] 03/03/2025 13:10:05 03/03/2025 14:02:14 Bilateral carpal tunnel syndrome 1855886692 8255197 G56.03 [id number] VAISHNAVI GOLD MD SURGERY SCHEDULE [address] [place] [address] 03/18/2025 06:03:54 03/18/2025 06:05:12 [id number] VAISHNAVI GOLD MD ORTHOPEDI [address] [place] [address] 03/29/2025 11:17:41 03/29/2025 11:35:20 Bilateral carpal tunnel syndrome 4234725688 8055105 G56.03 - Scheduled regular follow-ups . - Improving post-opera tive bruising and swelling observed. - Anticipate d continued resolution of soreness. - Follow-up in four weeks for monitoring recovery. Left with hematoma, will be more sore but should ultimately resolve, a little bit of a tremor in the ring finger as well likely related to weakness and discomfort [id number] DANICA MOERNO PA-C ORTHOPEDI [address] [place] [address] 04/26/2025 10:45:27 04/26/2025 11:14:44 Bilateral carpal tunnel syndrome 0401417122 0675341 G56.03 Doing well status post simultaneo us bilateral carpal tunnel releases for severe carpal tunnel syndrome [id number] CARLOS COKER MD [facility]GY [address] [place] [address] 04/23/2025 13:26:22 04/26/2025 04:09:06 Seropositive rheumatoid arthritis 563798165 M05.9 Seropositi ve rheumatoid arthritis (+RF >650, [...] 3 months Long-term current use of hydroxychloroquine 6711498572 68616 Z79.899 History of decompression of median nerve 659080219 Z98.890 Health Concerns Section Related Observation LastModified by Organization Detai ls LastModified Time None Recorded Concern Status LastModified by Organization Details LastModified Time None Recorded Advance Directives Directive None Recorded Payers Insurance Date Sequence Insurance Name Policy Number Policy Russo Covered Member ID Russo Member ID Guarantor Name 04/21/2025 2 [facility] [employer] (MEDICARE SUPPLEMENT) Shayy Laura Roberto [id number] Shayy Laura Roberto 04/21/2025 2 [facility] (MEDICARE SUPPLEMENT) Shayy Laura Roberto [id number] Shayy Laura Roberto 04/21/2025 1 [place] Shayy Laura Roberto [id number] Shayy Laura Roberto 04/21/2025 1 [place] Shayy Laura Roberto [id number] Shayy Laura Roberto 04/21/2025 2 [facility] (MEDICARE SUPPLEMENT) F Shayy Laura Roberto [id number] Shayy Laura Roberto 04/21/2025 1 [facility] (MEDICARE REPLACEMENT/A DVANTAGE - HMO) [id number] Shayy Laura Roberto [id number] Shayy Laura Roberto 04/26/2025 1 [employer] (MEDICARE REPLACEMENT/A DVANTAGE - PPO) Shayy Laura Roberto [id number] Shayy Laura Roberto 04/21/2025 2 [facility] [id number] Shayy Laura Roberto [id number] Shayy Laura Roberto 04/22/2025 PAYMENT PLAN Shayyconstance Roberto 04/21/2025 GENERIC INSURANCE - MOVED-HOLD Shayy Laura Roberto Shayy Laura Roberto 04/21/2025 1 [employer] (MEDICARE REPLACEMENT/A DVANTAGE - HMO) Shayy Laura Roberto [id number] Shayy Laura Roberto Notes Date Note Type Note Provider Name and Address Organization Details Recorded Time 03/03/20 25 text/htm l Consult requested by: Carlos Coker [facility] Physician: Latoya Tovar Hand dominance: RightLocation: Bilateral Hand Pain level: 0 /10 Date of injury:Duration: ~2 months Recent Surgery: NoProcedure:Date of surgery:Duration: In office procedure? No Previous upper extremity surgery? NoProcedure:Approximate date of surgery:Surgeon (if known): Have you or any of your immediate family members been seen by our hand surgeons before? 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 Roberto is here regarding malathi hand n/t. L>R. EMGSYS. She says that her n/t gets worse at night and keeps her awake. She says that she has to sleep sitting up due to the severity of n/t. She wears wrist braces at night when she sleeps, which she says helped some. She also has a soft bump on the dorsal aspect of her lt hand that causes pain when she bends her hand backwards.- The patient is an 84-year-old female presenting with numbness and tingling in the fingers. - Symptoms have persisted for months, mainly in the right hand. - Initiated with arthritis last year; physical therapy undertaken. - Medication switches from Leflunomide to Plaquenil due to immune system effects. - Prednisone ineffective. - Exacerbated when lying on the right side, entire arm becomes numb. - Identified left wrist extensor tenosynovitis. VAISHNAVI GOLD MD [address] [place] [address], [address], [facility] 03/03/2025 15:06:52 03/29/20 25 text/htm l POST OP GLOBAL VISIT DATE OF SURGERY: 03/18/2025TIME POST SURGERY:11 daysSURGERY:Left carpal tunnel releaseRight carpal tunnel releasePREOP SYMPTOMSBETTERPain level:01/25 OVERALL ASSESSMENTIMPROVINGPatient arrived in:NAtaken offNANEW SYMPTOMS OR [...] finger noted, possibly related to discomfort. VAISHNAVI GOLD MD [address] [place] [address], [address], [facility] 03/29/2025 11:33:57 04/23/20 text/htm l Last spoke with pt 01/28/25 via telehealth. Since last visit, Plaquenil continued. S/p bilateral carpal tunnel release with Dr. Gold. Has another post-op follow-up soon. Joint stiffness, [...] 3.13, ESR 51. HERI was negative. CARLOS COKER MD [address] [place], [address], [facility] 04/25/2025 09:24:43 04/26/20 text/htm l Patient arrives for scheduled follow-up [...] SURGERIES:n/a EMPLOYMENT STATUS:retired DANICA MORENO PA-C [address] [place], [address], [facility] 04/26/2025 13:51:07 OBGyn Episode No OBEpisode recorded.
== END 2025-05-13 23:59 | disposition home or self-care (01) ==
LOC: RAD 08:46
PROVIDERS: PCP Family Medicine; Visit Provider Family Medicine
DX: Z13.820 Encounter for screening for osteoporosis (principal); M85.89 Other specified disorders of bone density and structure, multiple sites
CPT/HCPCS: 77080

== ENCOUNTER 2025-06-07 11:17 | Outpatient (CLI) | payer MEDICARE, SELFPAY ==
--- OUTSIDE RECORDS SUMMARY | 2025-06-07 11:22 | XMS_ITS | Continuity of Care Document ---
Author Organization [facility], RHEUMATOLOGY [facility] Address [address] [place] [address] Care Team Providers Care Leadlighter Name Role Phone LATOYA TOVAR Primary Care Provider MINCARLOS Fur Feeder Assessment No assessment recorded. Plan of Treatment [...] Address Organization Details Recorded Time Atrophic vaginitis 57279992 Active 2015 Provider: Jenae Campos;John tus: Active Not Available [facility] 6 06:15:11 Gastrointe stinal tract finding Active 2015 From Automated Load;Provi collin: Cate Avila;Sta tus: Active Not Available [facility] 6 06:15:11 Constipati on 47253918 Active 2015 From Automated Load;Provi collin: Cate Avila;Sta tus: Active Not Available [facility] 6 06:15:11 Abdominal pain 58588510 Active 2015 From Automated Load;Provi collin: Cate Avila;Sta tus: Active Not Available [facility] 6 06:15:11 Problem Notes None recorded. Procedures Surgical History Date Name Laterality Status Provider Name and Address Organization Details Recorded Time 03/18/20 25 Op Note completed VAISHNAVI WHITEHEAD MD [address] [place], [address], [facility] 03/18/2025 07:48:51 03/18/20 25 osteoplasty of carpal bone completed Joselin Michael [facility] 04/23/2025 13:41:21 05/11/20 20 Date of Last Mammogram completed Pam Ash [facility] 05/27/2020 13:59:13 01/24/20 18 Pap Smear collection completed JENAE CAMPOS MD [address] [place], [address], [facility] 01/26/2018 14:34:04 01/24/20 18 Date of Last Pap Smear completed Holli Rawls [facility] 01/26/2019 13:38:24 09/29/20 17 Date of Last Colonoscopy completed [facility] 01/23/2018 14:06:17 08/02/20 15 Most Recent Bone Density completed [facility] 01/23/2018 14:06:20 Cholecystectomy completed Mona Vishnu [facility] 01/17/2017 13:05:15 Hysterectomy/bladde r repair completed Mona Vishnu [facility] 01/17/2017 13:05:50 Breast Surgery completed Mona Vishnu [facility] 01/17/2017 13:06:07 Dilation and Curettage completed Mona Vishnu [facility] 01/17/2017 13:06:16 Imaging Results None recorded. Procedure Notes None recorded. Medical Equipment None Reported. Allergies Allergen ID Allergen Name Allergen Category Reaction Reaction Severity Criticality Documentation Date Start Date Code Code System Note Provider Name and Address Organization Details Recorded Time 712436 Substance with sulfonami de structure and antibacte rial mechanism of action (substanc e) medicatio n itching Not available Not available 10/11/20162008 63416 8003 SNOMED React ion: ITCHI NG; Comme nt: Creat ed By: Boston pedraza Date: 2008 10:35 :11 AM; Not Available [facility] 6 10:34:48 929438 ciproflox acin medicatio n Not available Not available Not available 07/30/2024 2551 RxNorm Annmarie Niño [facility] 4 11:04:18 974203 Levaquin medicatio n Not available Not available Not available 07/30/2024 35415 2 RxNorm Annmarie Niño [facility] 4 11:04:48 912016 Bactrim medicatio n Not available Not available Not available 07/30/2024 11184 9 RxNorm Annmarie Niño [facility] 4 11:05:09 Medications Name [...] Body mass index (BMI) Body weight Systolic And Diastolic Provider Name and Address Organization Details Last Updated DateTime 04/23/2025 166.37 cm 30.3 kg/m2 06144.59 g 144/76 mm[Hg] Joselin Rodriguez [facility] 04/23/2025 13:43:16 Social History Question Answer Notes LastModified by Organizat ion Details LastModified Time Tobacco Smoking Status [facility] 01/17/2017 13:04:27 What Is Your Level Of Caffeine Consumption? Moderate 2-3 Per Day Information not available 01/17/2017 What Was The Date Of Your Most Recent Tobacco Screening? 12/18/2024 [email or web address] Information not available 12/18/2024 Sex: Unknown Functional [...] mcg/0.3 mL dose 1 completed Yusuf Winters [facility] 03/03/2025 13:32:52 COVID-19, mRNA, LNP-S, PF, 30 mcg/0.3 mL dose 1 completed Yusuf Winters [facility] 03/03/2025 13:32:52 pneumococcal polysaccharide PPV23 9 completed Yusuf Winters [facility] 03/03/2025 13:32:52 Tdap 7 completed Yusuf Winters [facility] 03/03/2025 13:32:52 Influenza, high-dose, trivalent, PF 0 completed Yusuf Winters [facility] 03/03/2025 13:32:52 Influenza, high-dose, trivalent, PF 9 completed Yusuf Winters [facility] 03/03/2025 13:32:52 Influenza, high-dose, trivalent, PF 6 completed Yusuf Winters [facility] 03/03/2025 13:32:52 Td (adult), 2 Lf tetanus toxoid, preservative free, adsorbed 7 completed Yusuf Winters [facility] 03/03/2025 13:32:52 Influenza, split virus, quadrivalent, PF 5 completed Yusufreagan Winters [facility] 03/03/2025 13:32:52 Influenza, split virus, quadrivalent, PF 4 completed Yusuf Winters [facility] 03/03/2025 13:32:52 Influenza, split virus, quadrivalent, PF 2 completed Yusufreagan Winters [facility] 03/03/2025 13:32:52 Influenza, split virus, quadrivalent, preservative 8 completed Holli Rawls [facility] 01/26/2019 13:36:50 Past Encounters Encounter ID Performer Location Encounter Start Date Encounter Closed Date Diagnosis/Indication Diagnosis SNOMED-CT Code Diagnosis ICD10 Code Diagnosis Note [id number] VAISHNAVI WHITEHEAD MD [facility] [address] [place] [address] 03/29/2025 11:17:41 03/29/2025 11:35:20 Bilateral carpal tunnel syndrome [id number] 4400331 G56.03 - Scheduled regular follow-ups . - Improving post-opera tive bruising and swelling observed. - Anticipate d continued resolution of soreness. - Follow-up in four weeks for monitoring recovery. Left with hematoma, will be more sore but should ultimately resolve, a little bit of a tremor in the ring finger as well likely related to weakness and discomfort [id number] CARLOS ROGEL MD RHEUMATOL OGY [address] [place] [address] 04/23/2025 13:26:22 04/26/2025 04:09:06 Seropositive rheumatoid arthritis 885825540 M05.9 Seropositi ve rheumatoid arthritis (+RF >650, [...] 3 months Long-term current use of hydroxychloroquine 8665795077 38323 Z79.899 History of decompression of median nerve 091082750 Z98.890 Health Concerns Section Related Observation LastModified by Organization Detai ls LastModified Time None Recorded Concern Status LastModified by Organization Details LastModified Time None Recorded Payers Encounter Date Sequence Insurance Name Policy Number Policy Russo Covered Member ID Russo Member ID Guarantor Name 04/23/2025 1 [employer] (MEDICARE REPLACEMENT/ ADVANTAGE - PPO) Shayy Roberto [id number] Shayy Roberto Notes Date Note Type Note [...] 51. HERI was negative. CARLOS ROGEL MD [facility] [place], [address], [facility] 04/25/2025 09:24:43 OBGyn Episode No OBEpisode recorded.
--- OUTSIDE RECORDS SUMMARY | 2025-06-07 11:23 | XMS_ITS | Clinical Summary ---
Author Organization Healthcare Address [address] [place] [address] Care Team Prov[address] Care Road Supervisor Name Role Phone Steven Rajput MD Primary Care Provider [phone] Ramona Loya APRN Unavailable [phone] Allergies Active Allergy Reactions Criticality Noted [...] 09/12/2023 10:34 AM EDT Plan of Treatment Health Maintenance Due Date Last Done Comments [facility]-Bone Density Scan 1940 [facility]-Medicare Annual Wellness (AWV) 1940 [facility]-Infant/Child/Adol SDOH Screenings 1940 [facility]-Obesity Intervention 1947 [facility]- SDOH Screenings 1959 [facility]-Adult SDOH Screenings 1959 [facility]-Zoster Vaccines (1 of 2) 1960 [facility]-RSV Vaccine: 60+ Years or (1 - 1-dose 75+ series) 2016 [facility]-Pneumococcal Vaccine: 50+ Years (2 of 2 - PCV) 06/25/2020 06/25/2019 [facility]-EGFFS-50 Vaccine (3 - Pfizer risk series) 08/30/2021 08/02/2021, 06/28/2021 [facility]-Depression Screening 05/13/2025 05/13/2024 [facility]-Influenza Vaccine (#1) 07/19/202508/29, 08/11/2020, 08/17/2019, Additional history exists [facility]-DTaP,Tdap,and Td [...] patient's age to complete this topic Insurance GABY [id number] [facility] MEDICARE Care Teams Road Supervisor Relationship Specialty Start Date End Date Steven Rajput MD [facility] [place] [address] PCP - General 03/31/21 Ramona Loya, LEENA [address] [place] [phone] Nurse Practitioner Internal Medicine 01/05/22
[2025-06-07 12:13] LABS: Blood Urea Nitrogen 20 mg/dl (7-17); Creatinine,Serum 0.60 mg/dl (0.52-1.04); Estimated Glomerular Filt Rate 95 ml/min (>60); GFR (African American) 116 ML/MIN (>60)
== END 2025-06-07 23:59 | disposition home or self-care (01) ==
LOC: LAB 11:18
PROVIDERS: PCP Family Medicine; Visit Provider Urology
DX: N39.0 Urinary tract infection, site not specified (principal)
CPT/HCPCS: 36415; 82565; 84520

== ENCOUNTER 2025-06-11 13:21 | Outpatient (CLI) | payer MEDICARE, SELFPAY ==
--- OUTSIDE RECORDS SUMMARY | 2025-06-02 07:30 | XMS_ITS ---
Author Organization [facility] Address [address] [facility] [address] [place] [id number] Care Team Providers Care Handtools Repairer Name Role Phone Nicole Rajput Primary Care Provider Sarah Landa [phone] Allergies Allergen (clinical drug ingredient) Drug/Non Drug Allergy documented on EMR Reaction Allergy Type Onset Date Status ciprofloxacin Cipro heel pain Drug Allergy Act jorge luis nitrofurantoin, macrocrystals / nitrofurantoin, monohydrate Macrobid nausea Drug Allergy Active levofloxacin levoFLOXacin leg pain, difficulty walking Drug Allergy Active Substance with sulfonamide structure and antibacterial mechanism of action (substance) Sulfa Antibiotics Unknown Drug Allergy Active REASON FOR VISIT 3 weeks Encounters Encounter Location Date Provider Diagnosis [facility] [address] [facility] [address] [place] [phone] 06/02/2025 Sarah Landa Plan Of Treatment Next Appt Details Provider Name:Nicole Razo er, 06/24/2025 01:30:00 PM, [address] [facility], [address], [place], [phone], Progress Notes * MARIE ROBERTOB:[birth year] (84 yo F)Acc No.[id number]:06/02/2025 Progress Notes Patient: Ruddy YULI BALBUENA Provider: MARISOL Skelton :1940 A ge:84 Y S ex:Female Date:06/02/2025 Address:[place], [id number] Pcp:Nicole Rajput Subjective: * Chief Complaints: * 1 . 3 weeks. * ROS: D ERMATOLOGY: no R ej. n o H fidel. G ASTROENTEROLOGY: no N ausea. n o V omiting. n o D iarrhea.? U ROLOGY: no D ifficulty urinating. n o B lood in urine. 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 Lelia Mata, GI- Dr. Car, General Scrap Worker- Dr. Bean, Opthalmology- Dr Liriano and Dr. Saeed. * Surgical History: R T Breast Cyst Removal , Colonoscopy 02/05/2006, 02/2011, 02/15/2011, Rectocoele [facility] Villegas, Dr. Lelia Mata 09/09/2007, Lithotripsy 03/2009, Hysterectomy Abdominal 08/23/2009, colonoscopy, Dr. Car, 4 tubular adenomas, 1 hyperplastic polyp 03/13/2011, Cholecystectomy 11/19/2013, EGD and Colonoscopy, Dr. Car 09/2013, Colonoscopy Dr. Car, adenomatous polyp 12/31/2016, Dexa scan 2015, Mammogram 11/2016, lasix eye surgery 10/17/2018, Basal cell CA of the nose, with reconstructive surgery, Dr. Annette Rojas 03/2022. * Hospitalization/Major Diagno stic Procedure: S erin Villegas, tripped at 's office, hit head on wall 01/19/2008, Dr. Josep Eckert, ERCP 09/2008, Dr Knapp Knee injections , COVID-19 11/13/2020-11/21/2020. * Family History: F ather: , CHF. M other: 89 yrs, breast Ca, auto immune hepatitis. S iblings: MD, liver CA. 2 brother(s) , 1 sister(s) . 1 son(s) , 1 daughter(s) . . * Social History: C URRENT TOBACCO USE S moking Status: Patient does NOT smoke. C affeine: no. Marital Status: . Past smoking status: no, Smoking status: Does not smoke, Former Smoker: Yes, Quit smokin's, Smoking pack year history: 1. Alcohol: no. * Allergies: S ulfa Antibiotics, Macrobid: nausea, Cipro: heel pain, levoFLOXacin: leg pain, difficulty walking. Objective: * Vitals: Assessment: Plan: * Treatment: * Images: Billing Information: * Visit Code: * Procedure Codes: * Electronic signature of MARISOL Zhu on 06/11/2025 at 01:24 PM EDT Sign off status: Pending * Provider: MARISOL Skelton Date: 06/02/2025 Generated for Joanna garcia/Joshua/Mai on: 06/11/2025 01:24 PM EDT
--- OUTSIDE RECORDS SUMMARY | 2025-06-03 11:45 | XMS_ITS ---
Author Organization Fanny Address [address] [facility] [address] [place] [id number] Care Team Providers Care Crystal Calibrator Name Role Phone Nicole Rajput Primary Care Provider [phone] REASON FOR VISIT nausea and fatigue Encounters Encounter Location Date Provider Diagnosis [facility] [address] [place] [id number] 06/03/2025 Nicole Rajput Plan Of Treatment Next Appt Details Provider Name:Nicole Razo er, 06/24/2025 01:30:00 PM, [address] [facility], [address], [place], [phone], Progress Notes * MARIE LOPEZB:[birth year] (84 yo F)Acc No.[id number]:06/03/2025 Progress Notes Patient: Ruddy YULI BALBUENA Provider: Nicole Rajput M.D. :1940 A ge:84 Y S ex:Female Date:06/03/2025 Address:[id number] Subjective: * Chief Complaints: * 1 . Nausea and fatigue. * Medical History: Objective: * Vitals: Assessment: Plan: * Treatment: * Images: Billing Information: * Visit Code: * Procedure Codes: * Electronic signature of Nicole Rajput MD on 06/11/2025 at 01:24 PM EDT Sign off status: Pending * Provider: Nicole Rajput M.D. Date: 0 06/03/2025 Generated for Joanna garcia/Joshua/Mai on: 0 06/11/2025 01:24 PM EDT
--- NOTE | 2025-06-11 13:23 | CA_ITS ---
FINAL REPORT CLINICAL HISTORY: RICHARD,HTN FINDINGS: RIGHT CAROTID: CCA PSV -118 cm/sec ICA PSV -90 cm/sec ICA/CCA PSV ratio -0.95. Comments: Minimal plaque disease is noted. LEFTCAROTID: CCA PSV -104. cm/sec ICA PSV -113. cm/sec ICA/CCA PSV ratio -1.6. Comments: Minimal plaque disease is noted. Antegrade flow is seen within the vertebral arteries. IMPRESSION: Carotid stenosis classified less than 50% Reviewed, Interpreted and Dictated by Tahmina Orlando MD Transcribed by Raya Weiner Authenticated and [facility]
--- OUTSIDE RECORDS SUMMARY | 2025-06-11 13:23 | XMS_ITS | Continuity of Care Document ---
Author Organization [facility], ORTHOPEDICS [address] [place] [address] Care Team Providers Care Toy Assembly Supervisor Name Role Phone LA LATOYA Primary Care Provider [phone] MIN, CARLOS Sales Effectiveness Manager Assessment No assessment recorded. Plan of Treatment [...] By Organization Details Last Modified Time 04/26/2025 [id number] She can use her hand as tolerated. [...] Address Organization Details Recorded Time Atrophic vaginitis 88359683 Active 2015 Provider: Amparo Campos tus: Active Not Available [facility] 6 06:15:11 Gastrointe stinal tract finding Active 2015 From Automated Load;Provi collin: Frida Avila tus: Active Not Available [facility] 6 06:15:11 Constipati on 85029267 Active 2015 From Automated Load;Provi collin: Cate Avila;John tus: Active Not Available [facility] 6 06:15:11 Abdominal pain 23880491 Active 2015 From Automated Load;Provi collin: Cate Avila;John tus: Active Not Available [facility] 6 06:15:11 Problem Notes None recorded. Procedures Surgical History Date Name Laterality Status Provider Name and Address Organization Details Recorded Time 03/18/20 25 Op Note completed VAISHNAVI WHITEHEAD MD [address] [place], [address], [facility] 03/18/2025 07:48:51 03/18/20 25 osteoplasty of carpal bone completed Joselin Rodriguez [facility] 04/23/2025 13:41:21 05/11/20 20 Date of Last Mammogram completed Pam Ash [facility] 05/27/2020 13:59:13 01/24/20 18 Pap Smear collection completed JENAE CAMPOS MD [address] [place], [address], [facility] 01/26/2018 14:34:04 01/24/20 18 Date of Last Pap Smear completed Holli Rawls [facility] 01/26/2019 13:38:24 09/29/20 17 Date of Last Colonoscopy completed Jeanieedd Posadas [facility] 01/23/2018 14:06:17 08/02/20 15 Most Recent Bone Density completed Jeanie Cuauhtemoc [facility] 01/23/2018 14:06:20 Cholecystectomy completed Mona V[facility]nu [facility] Name and Address Organization Details Recorded Time 429737 Substance with sulfonami de structure and antibacte rial mechanism of action (substanc e) medicatio n itching Not available Not available 10/11/20162008 33026 8003 SNOMED React ion: ITCHI NG; Comme nt: Creat ed By: Boston pedraza Date: 2008 10:35 :11 AM; Not Available [facility] 6 10:34:48 486181 ciproflox acin medicatio n Not available Not available Not available 07/30/2024 2551 RxNorm Annmarie Niño [facility] 4 11:04:18 150061 Levaquin medicatio n Not available Not available Not available 07/30/2024 13147 2 RxNorm Annmarie Niño [facility] 4 11:04:48 646550 Bactrim medicatio n Not available Not available Not available 07/30/2024 33073 9 RxNorm Annmarie Niño [facility] 4 11:05:09 Medications Name Sig [...] Updated DateTime 04/26/2025 166.37 cm 30.3 kg/m2 05754.59 g Kushal Guthrie [facility] 04/26/2025 11:00:53 Social History Question Answer Notes LastModified by Organizat ion Details LastModified Time Tobacco Smoking Status [facility]2017 13:04:27 What Is Your Level Of Caffeine Consumption? Moderate 2-3 Per Day Information not available 01/17/2017 What Was The Date Of Your Most Recent Tobacco Screening? 12/18/2024 [email or web address] Information not available 12/18/2024 Sex: Unknown Functional [...] 13:22:09 Medical History Condition Response Emphysema N Thyroid Problems Y COPD N Depression Y Anemia Y Diabetes N Bleeding Disorder N Arthritis Y Acid Reflux (GERD) Y Asthma Y Hoarseness Y Heart Disease N Rheumatoid Arthritis Y [...] mcg/0.3 mL dose 1 completed Yusuf Winters [facility] 03/03/2025 13:32:52 COVID-19, mRNA, LNP-S, PF, 30 mcg/0.3 mL dose 1 completed Yusuf Winters [facility] 03/03/2025 13:32:52 pneumococcal polysaccharide PPV23 9 completed Yusuf Winters [facility] 03/03/2025 13:32:52 Tdap 7 completed Yusuf Winters [facility] 03/03/2025 13:32:52 Influenza, high-dose, trivalent, PF 0 completed Yusuf Winters [facility] 03/03/2025 13:32:52 Influenza, high-dose, trivalent, PF 9 completed Yusuf Winters [facility] 03/03/2025 13:32:52 Influenza, high-dose, trivalent, PF 6 completed Yusuf Winters [facility] 03/03/2025 13:32:52 Td (adult), 2 Lf tetanus toxoid, preservative free, adsorbed 7 completed Yusuf Winters [facility] 03/03/2025 13:32:52 Influenza, split virus, quadrivalent, PF 5 completed Yusuf Winters [facility] 03/03/2025 13:32:52 Influenza, split virus, quadrivalent, PF 4 completed Yusuf Winters [facility] 03/03/2025 13:32:52 Influenza, split virus, quadrivalent, PF 2 completed Yusuf Winters [facility] 03/03/2025 13:32:52 Influenza, split virus, quadrivalent, preservative 8 completed Holli Rawls [facility] 01/26/2019 13:36:50 Past Encounters Encounter ID Performer Location Encounter Start Date Encounter Closed Date Diagnosis/Indication Diagnosis SNOMED-CT Code Diagnosis ICD10 Code Diagnosis Note [id number] VAISHNAVI WHITEHEAD MD [facility]TH[facility]EDI [facility] [address] [place] [address] 03/29/2025 11:17:41 03/29/2025 11:35:20 Bilateral carpal tunnel syndrome [id number] 3350149 G56.03 - Scheduled regular follow-ups . - Improving post-opera tive bruising and swelling observed. - Anticipate d continued resolution of soreness. - Follow-up in four weeks for monitoring recovery. Left with hematoma, will be more sore but should ultimately resolve, a little bit of a tremor in the ring finger as well likely related to weakness and discomfort [id number] DANICA MORENO PA-C ORTHOPEDI CS [address] [place] [address] 04/26/2025 10:45:27 04/26/2025 11:14:44 Bilateral carpal tunnel syndrome [id number] 4783651 G56.03 Doing well status post [facility] bilateral carpal tunnel releases for severe carpal tunnel syndrome [id number] [facility]EL [facility] [address] [place] [address] 04/23/2025 13:26:22 04/26/2025 04:09:06 Seropositive rheumatoid arthritis 634772633 M05.9 Seropositi ve rheumatoid arthritis (+RF >650, [...] 3 months Long-term current use of hydroxychloroquine 1425619704 62524 Z79.899 History of decompression of median nerve 540601524 Z98.890 Health Concerns Section Related Observation LastModified by Organization Detai ls LastModified Time None Recorded Concern Status LastModified by Organization Details LastModified Time None Recorded Payers Encounter Date Sequence Insurance Name Policy Number Policy Russo Covered Member ID Russo Member ID Guarantor Name 04/26/2025 1 [employer] (MEDICARE REPLACEMENT/ ADVANTAGE - PPO) Shayy Roberto [id number] Shayy Roberto Notes Date Note Type Note [...] SURGERIES:n/a EMPLOYMENT STATUS:retired DANICA MORENO PA-C [address] [place], [address], [facility] 04/26/2025 13:51:07 OBGyn Episode No OBEpisode recorded.
--- OUTSIDE RECORDS SUMMARY | 2025-06-11 13:24 | XMS_ITS | Clinical Summary ---
Author Organization Healthcare Address [address] [place] [address] Care Team Providers Care Motor And Generator Brush Cutter Name Role Phone Steven Rajput MD Primary Care Provider [phone] Ramona Loya APRN Unavailable [phone] Allergies Active Allergy Reactions Criticality Noted [...] (2 of 2 - PCV) 06/25/2020 06/25/2019 [id number] Vaccine (3 - Pfizer risk series) 08/30/2021 [...] age to complete this topic Insurance GABY [id number] [facility] MEDICARE Care Teams Motor And Generator Brush Cutter Relationship Specialty Start Date End Date Steven Rajput MD [facility] [place] [address] PCP - General 03/31/21 Ramona Loya, LEENA [address] [place] [address] Nurse Practitioner Internal Medicine 01/05/22
--- OUTSIDE RECORDS SUMMARY | 2025-06-11 13:24 | XMS_ITS | Data Portability ---
Author Organization [facility] - [facility] [place] [facility] Address [address] [facility] [address] [place] [address] Care Team Providers Care Stagecraft Teacher Name Role Phone LATOYA TOVAR Primary Care Provider MINCARLOS Coffee Bar Attendant Assessment Encounter Date Assessment Date Assessment LastModified [...] By Organization Details Last Modified Time 03/03/2025 [id number] - Schedule a follow-up in 10-14 days for stitch removal after surgery. - Continue physical therapy exercises as directed. - Monitor for any worsening of symptoms or new symptoms and contact if necessary. - Discuss the possibility of infusion treatments with your electronic data interchange specialist during your upcoming appointment in March. [email or web address] Not available 03/03/2025 13:55:12 03/29/2025 [id number] - Follow up with my transition assistant in about four weeks. - Watch for any changes in hand symptoms, particularly numbness or tingling. - Report any worsening of bruising or swelling. - Take care of hand per post-operative guidelines to aid recovery. [email or web address] Not available 03/29/2025 11:32:52 04/26/2025 [id number] She can use her hand as tolerated. [...] Address Organization Details Recorded Time Atrophic vaginitis 77822697 Active 2015 Provider: Amparo Camposs: Active Not Available [facility] 6 06:15:11 Gastrointe stinal tract finding Active 2015 From Automated Load;Provi collin: Frida Avila tus: Active Not Available [facility] 6 06:15:11 Constipati on 61134435 Active 2015 From Automated Load;Provi collin: Cate Avila;John tus: Active Not Available [facility] 6 06:15:11 Abdominal pain 98356755 Active 2015 From Automated Load;Provi collin: Cate Avila;John tus: Active Not Available [facility] 6 06:15:11 Problem Notes None recorded. Procedures Surgical History Date Name Laterality Status Provider Name and Address Organization Details Recorded Time 03/18/20 25 Op Note completed VAISHNAVI GOLD MD [address] [place], [address], [facility] 03/18/2025 07:48:51 03/18/20 25 osteoplasty of carpal bone completed Joselin Rodriguez [facility] 04/23/2025 13:41:21 05/11/20 20 Date of Last Mammogram completed Pam Ash [facility] 05/27/2020 13:59:13 01/24/20 18 Pap Smear collection completed JENAE CAMPOS MD [address] [place], [address], [facility] 01/26/2018 14:34:04 01/24/20 18 Date of [...] Name and Address Organization Details Recorded Time 750086 Substance with sulfonami de structure and antibacte rial mechanism of action (substanc e) medicatio n itching Not available Not available 10/11/20162008 09138 8003 SNOMED React ion: ITCHI NG; Comme nt: Creat ed By: Boston pedraza Date: 2008 10:35 :11 AM; Not Available [facility] 6 10:34:48 218630 ciproflox acin medicatio n Not available Not available Not available 07/30/2024 2551 RxNorm Annmarie Niño [facility] 4 11:04:18 980786 Levaquin medicatio n Not available Not available Not available 07/30/2024 90389 2 RxNorm Annmarie Niño [facility] 4 11:04:48 901512 Bactrim medicatio n Not available Not available Not available 07/30/2024 72180 9 RxNorm Annmarie Niño [facility] 4 11:05:09 Medications Name Sig Start [...] Not Available Vitals Date Recorded Body height Pain severity - 0-10 verbal numeric rating [Score] - Reported Body mass index (BMI) Body weight Provider Name and Address Organization Details Last Updated DateTime 03/03/2025 166.37 cm 0 28.7 kg/m2 40078.66 g Yusuf Winters [facility] 03/03/2025 13:42:04 Date Recorded Body height Body mass index (BMI) Body weight Pain severity - 0-10 verbal numeric rating [Score] - Reported Provider Name and Address Organization Details Last Updated DateTime 03/29/2025 166.37 cm 28.7 kg/m2 94845.66 g Dg Whittaker Galeas [facility] 03/29/2025 11:24:53 Date Recorded Body height Body mass index (BMI) Body weight Systolic And Diastolic Provider Name and Address Organization Details Last Updated DateTime 04/23/2025 166.37 cm 30.3 kg/m2 62160.59 g 144/76 mm[Hg] Joselin Rodriguez [facility] 04/23/2025 13:43:16 Date Recorded Body height Body mass index (BMI) Body weight Provider Name and Address Organization Details Last Updated DateTime 04/26/2025 166.37 cm 30.3 kg/m2 48490.59 g Kushal Guthrie [facility] 04/26/2025 11:00:53 Social History Question Answer Notes LastModified by Organizat ion Details LastModified Time Tobacco Smoking Status [facility] 13:04:27 What Is Your Level Of Caffeine Consumption? Moderate 2-3 Per Day Information not available 01/17/2017 What Was The Date Of Your Most Recent Tobacco Screening? 12/18/2024 [email or web address] Information not available 12/18/2024 Sex: Unknown Functional [...] mL dose 1 completed Yusuf Winters [facility] 03/03/2025 13:32:52 COVID-19, mRNA, LNP-S, PF, 30 mcg/0.3 mL dose 1 completed Yusuf Winters [facility] 03/03/2025 13:32:52 pneumococcal polysaccharide PPV23 9 completed Yusuf Winters [facility] 03/03/2025 13:32:52 Tdap 7 completed Yusuf Winters [facility] 03/03/2025 13:32:52 Influenza, high-dose, trivalent, PF 0 completed Yusuf Winters [facility] 03/03/2025 13:32:52 Influenza, high-dose, trivalent, PF 9 completed Yusuf Winters [facility] 03/03/2025 13:32:52 Influenza, high-dose, trivalent, PF 6 completed Yusuf Winters [facility] 03/03/2025 13:32:52 Td (adult), 2 Lf tetanus toxoid, preservative free, adsorbed 7 completed Yusuf Winters [facility] 03/03/2025 13:32:52 Influenza, split virus, quadrivalent, PF 5 completed Yusuf Winters [facility] 03/03/2025 13:32:52 Influenza, split virus, quadrivalent, PF 4 completed Yusuf Winters [facility] 03/03/2025 13:32:52 Influenza, split virus, quadrivalent, PF 2 completed Yusuf Winters [facility] 03/03/2025 13:32:52 Influenza, split virus, quadrivalent, preservative 8 completed Holli Rawls [facility] 01/26/2019 13:36:50 Past Encounters Encounter ID Performer Location Encounter Start Date Encounter Closed Date Diagnosis/Indication Diagnosis SNOMED-CT Code Diagnosis ICD10 Code Diagnosis Note [id number] MD [address] [place] [address] 01/17/2017 12:49:52 01/17/2017 14:05:39 Gynecologic examination 86839907 Z01.419 Menopausal syndrome 1237 92597 N95.9 off HRT Atrophic vaginitis 73246 000 N95.2 Screening for malignant neoplasm of breast 703259955 Z12.31 [id number] MD [address] [place] [address] 01/23/2018 13:10:58 01/23/2018 14:49:07 Dysuria 85261656 R30.0 Discussed dietary irritants of the bladder- handout provided- discussed some dietary changes; will rule out UTI Screening for malignant neoplasm of breast 679963442 Z12.31 Continue annual surveillan ce Menopausal syndrome 1237 84983 N95.9 Doing well off HRT- does not desire therapy Osteopenia 718489374 M85 .80 Due for bone density Atrophic vaginitis 80073 000 N95.2 Discussed lubricant prn- and continue vaginal estrogen - no need for refill at this time Hypothyroidism 93425974 E03.9 Follows with PCP Gynecologi c examination 92112419 Z01.[id number] [place] [address] 01/26/2019 13:24:46 01/28/2019 16:17:40 Routine gynecologic examination done 2128837126 9101 Z01.419 no pap today. Patient to follow up in one year Candidiasis of vagina 72 642009 B37.3 Patient requested since taking antibiotic s [id number] DO [address] [place] [address] 05/27/2020 13:31:17 05/27/2020 14:42:33 Gynecologic examination 66794725 Z01.419 No history of abnormal paps and history of hysterecto my. Not on HRT. Discussed with patient that it is no longer necessary for her to have annual exams if she chooses. Would recommend yearly mammograms . Lety verbalized understand ing and is in agreement [id number] CARLOS COKER MD RHEUMATOL [address] [place] [address] 1 07/30/2024 10:49:50 07/31/2024 04:11:42 Seropositive rheumatoid arthritis 410928864 M05.9 Fatigue 92830069 R53.83 Long-term drug therapy 802328747 Z79.899 [id number] CARLOS COKER MD RHEUMATOL [address] [place] [address] 1 08/21/2024 10:14:24 08/22/2024 04:30:16 Seropositive rheumatoid arthritis 891121231 M05.9 Long-term drug therapy 625719384 Z79.899 [id number] CARLOS COKER MD RHEUMATOL [address] [place] [address] 1 12/18/2024 11:20:05 12/19/2024 04:10:49 Seropositive rheumatoid arthritis 638517928 M05.9 Long-term drug therapy 111502528 Z79.899 [id number] CARLOS COKER MD [address]HEUMATOL [address] [place] [address] 1 01/22/2025 11:39:08 01/25/2025 14:19:08 Seropositive rheumatoid arthritis 265473272 M05.9 Long-term current use of hydroxychloroquine 9716436029 18276 Z79.899 [id number] CARLOS COKER MD [address]HEUMATOL [address] [place] [address] 1 01/28/2025 13:39:38 02/03/2025 19:25:25 Paresthesia of upper limb 06702379 R20.2 Numbness and tingling affecting bilateral hands, [...] upper extremitie s. Will send order to [facility] to do. Seropositi ve rheumatoid arthritis 802942597 M05.9 Seropositi ve rheumatoid arthritis (+RF >650, [...] as scheduled Long-term current use of hydroxychloroquine 0702536707 56675 Z79.899 [id number] VAISHNAVI GOLD MD ORTHOPEDI CS [facility] [address] [place] [address] 03/03/2025 13:10:05 03/03/2025 14:02:14 Bilateral carpal tunnel syndrome 1450469142 2450256 G56.03 [id number] VAISHNAVI GOLD MD SURGERY SCHEDULE [address] [place] [address] 03/18/2025 06:03:54 03/18/2025 06:05:12 [id number] VAISHNAVI GOLD MD [address]EDI [address] [place] [address] 03/29/2025 11:17:41 03/29/2025 11:35:20 Bilateral carpal tunnel syndrome 1298397534 8090389 G56.03 - Scheduled regular follow-ups . - Improving post-opera tive bruising and swelling observed. - Anticipate d continued resolution of soreness. - Follow-up in four weeks for monitoring recovery. Left with hematoma, will be more sore but should ultimately resolve, a little bit of a tremor in the ring finger as well likely related to weakness and discomfort [id number] DANICA MORENO PA-C ORTHOPEDI [address] [place] [address] 04/26/2025 10:45:27 04/26/2025 11:14:44 Bilateral carpal tunnel syndrome 8681160888 7311274 G56.03 Doing well status post simultaneo us bilateral carpal tunnel releases for severe carpal tunnel syndrome [id number] CARLOS COKER [facility] [address] [place] [address] 1 04/23/2025 13:26:22 04/26/2025 04:09:06 Seropositive rheumatoid arthritis 016701301 M05.9 Seropositi ve rheumatoid arthritis (+RF >650, [...] 3 months Long-term current use of hydroxychloroquine 1735063446 50178 Z79.899 History of decompression of median nerve 856812215 Z98.890 Health Concerns Section Related Observation LastModified by Organization Detai ls LastModified Time None Recorded Concern Status LastModified by Organization Details LastModified Time None Recorded Advance Directives Directive None Recorded Payers Insurance Date Sequence Insurance Name Policy Number Policy Russo Covered Member ID Russo Member ID Guarantor Name 04/21/2025 2 [facility] [employer] (MEDICARE SUPPLEMENT) Shayy Laura Roberto [id number] Shayy Laura Roberto 04/21/2025 2 [facility] (MEDICARE SUPPLEMENT) Shayy Laura Roberto [id number] Shayy Laura Roberto 04/21/2025 1 [place] Shayy Laura Roberto [id number] Shayy Laura Roberto 04/21/2025 1 [place] Shayy Laura Roberto [id number] Shayy Laura Roberto 04/21/2025 2 [facility] (MEDICARE SUPPLEMENT) F Shayy Laura Roberto [id number] Shayy Laura Roberto 04/21/2025 1 [facility] (MEDICARE REPLACEMENT/A DVANTAGE - HMO) [id number] Shayy Laura Roberto [id number] Shayy Laura Roberto 04/26/2025 1 [employer] (MEDICARE REPLACEMENT/A DVANTAGE - PPO) Shayyconstance Roberto [id number] Shayy Laura Roberto 04/21/[address] [facility] [id number] Shayy Laura Roberto [id number] Shayy Laura Roberto 04/22/2025 PAYMENT PLAN Shayyconstance Roberto 04/21/2025 GENERIC INSURANCE - MOVED-HOLD Shayy Laura Roberto Shayy Laura Roberto 04/21/2025 1 [employer] (MEDICARE REPLACEMENT/A DVANTAGE - HMO) Shayyconstance Roberto [id number] Shayy Roberto Notes Date Note Type Note Provider Name and Address Organization Details Recorded Time 03/03/20 25 text/htm l Consult requested by: Carlos Coker [facility] Physician: Latoya Tovar Hand dominance: RightLocation: Bilateral Hand Pain level: 0 /10 Date of injury:Duration: ~2 months Recent Surgery: NoProcedure:Date of surgery:Duration: In office procedure? No Previous upper extremity surgery? NoProcedure:Approximate date of surgery:Surgeon (if known): Have you or any of your immediate family members been seen by our hand surgeons before? 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 Robetro is here regarding malathi hand n/t. L>R. [...] left wrist extensor tenosynovitis. VAISHNAVI GOLD MD [address] [place] [address], [phone], [facility] - [facility] 03/03/2025 15:06:52 03/29/20 25 text/htm l POST [...] possibly related to discomfort. VAISHNAVI GOLD MD [address] [place], [address], [facility] 03/29/2025 11:33:57 04/23/20 text/htm l ROS as noted in the HPI Last spoke with pt 01/28/25 via telehealth. [...] HERI was negative. CARLOS COKER MD [address] [place], [address], [facility] 04/25/2025 09:24:43 04/26/20 25 text/htm l Patient arrives for scheduled follow-up 6 weeks status post bilateral carpal tunnel releases for severe carpal tunnel syndrome. She states her symptoms continue to improve and she only has minimal soreness. POST OP GLOBAL VISIT DATE OF SURGERY: 03/18/2025 TIME POST SURGERY:6 WKSSURGERY: Left carpal tunnel releaseRight carpal tunnel release PREOP SYMPTOMSBETTERPain level:2 OVERALL ASSESSMENTIMPROVINGPatient arrived in:NAtaken offNANEW SYMPTOMS OR QUESTIONS: Ms. Roberto is here for a post op visit. Pt says she is doing better and able to use her hands more. Pt reports minimal n/t still, L>R, but says it has improved overall.OTHER RECENT SURGERIES:n/a EMPLOYMENT STATUS:retired DANICA MORENO PA-C [address] [place], [address], [facility] 04/26/2025 13:51:07 OBGyn Episode No OBEpisode recorded.
--- OUTSIDE RECORDS SUMMARY | 2025-06-11 13:24 | XMS_ITS | Patient Health Record ---
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 Role Phone Nicole Rajput Primary Care Provider Stephen Uribe Unavailable [phone] Constantine Orantes Unavailable [phone] Priscilla Frenandez Unavailable [phone] Sarah Landa Unavailable [phone] Allergies Allergen (clinical drug ingredient) Drug/Non Drug Allergy documented on EMR Reaction Allergy Type Onset Date Status ciprofloxacin Cipro heel pain Drug Allergy Act jorge luis nitrofurantoin, macrocrystals / nitrofurantoin, monohydrate Macrobid nausea Drug Allergy Active levofloxacin levoFLOXacin leg pain, difficulty walking Drug Allergy Active Substance with sulfonamide structure and antibacterial mechanism of action (substance) Sulfa Antibiotics Unknown Drug Allergy Active Results Component Value Reference Range Notes P-Basic Metabolic Panel (BMP ) Reviewed date:12/26/2024 01:35:08 PM Interpretation:gluc 125 Performing Lab: Notes/Report: Test performed by [facility], [facility] , [address], [place] [address] Timo Parisi MD, Laboratory Chief CLIA: [id number] Sodium 144 135-145 mmol/L Potassium 4.0 3.5-5.3 mmol/L Chloride 105 97-108 mmol/L CO2 28 22-32 mmol/L Glucose 125 65-99 mg/dL BUN 22 8-23 mg/dL Creatinine 0.58 0.50-1.00 mg/dL Calcium 9.3 8.6-10.4 mg/dL eGFR by Creatinine 90 >59 mL/min/1.73m2 Influenza Screen (in house) Reviewed date:10/23/2024 10:20:53 AM Interpretation: Performing Lab: Notes/Report: results Neg CBC Fingerstick (in house) Reviewed date:10/22/2024 04:08:45 PM Interpretation: Performing Lab: Notes/Report: wbc 11.5 3.5 - 10 lym 20.8% 15 - 50 mid 5.2% 2 - 15 gran 74.0% 35 - 80 rbc 4.49 3.5 - 5.5 hgb 12.8 11.5 - 16.5 hct 39.1 35 - 55 mcv 87.2 75 - 100 mch 28.5 25 - 35 mchc 32.7 31 - 38 plat 323 100 - 400 Covid test (in house) Reviewed date:10/23/2024 10:21:02 AM Interpretation: Performing Lab: Notes/Report: Result: Neg CBC Fingerstick (in house) Reviewed date:11/04/2024 12:41:01 PM Interpretation: Performing Lab: Notes/Report: wbc 15.5 3.5 - 10 lym 12.1% 15 - 50 mid 3.4% 2 - 15 gran 84.5% 35 - 80 rbc 4.50 3.5 - 5.5 hgb 12.9 11.5 - 16.5 hct 39.5 35 - 55 mcv 87.8 75 - 100 mch 28.7 25 - 35 mchc 32.7 31 - 38 plat 415 100 - 400 P-Culture, Respiratory Reviewed date:11/06/2024 08:30:18 AM Interpretation: Performing Lab: Notes/Report: Test Cancelled Test Cancelled Test Cancel led Gram Stain Reviewed date:11/06/2024 08:30:27 AM Interpretation: Performing Lab: Notes/Report: Test performed by [facility], [facility] [address] [place] [address] , [address], [place] [address] Timo Parisi MD, Laboratory Chief CLIA: [id number] Specimen Source Sputum - cough Gram Stain See Below No polymorphonuclear leukocytes seen Few Epithelial cells Few Mixed Gram Positive Organisms Q0 - Oral pharyngeal contamination Culture cancelled. Please repeat. No polymorphonuclear leukocytes seen Few Epithelial cells Few Mixed Gram Positive Organisms Q0 - Oral pharyngeal contamination Culture cancelled. Please repeat. Gram Stain See Below No polymorphonuclear leukocytes seen Few Epithelial cells Few Mixed Gram Positive Organisms Q0 - Oral pharyngeal contamination Culture cancelled. Please repeat. No polymorphonuclear leukocytes seen Few Epithelial cells Few Mixed Gram Positive Organisms Q0 - Oral pharyngeal contamination Culture cancelled. Please repeat. CXR Reviewed date:11/05/2024 09:18:52 AM Interpretation: Performing Lab: Notes/Report: CXR Reviewed date:12/01/2024 12:27:28 PM Interpretation:possible pneumonia Performing Lab: Notes/Report: possible pneumonia H-Sputum Culture with Gram Lilibeth sanchez Reviewed date:11/09/2024 04:45:54 PM Interpretation: Performing Lab: Notes/Report: GS Gram Stain: GS <10 Epithelial Cells / LPF GS 10 - 25 White Blood Cells / LPF GS Rare Gram Positive Cocci in Chains CUSPU Normal Respiratory Nancy Bone density (Not yet review ed by provider) Interpretation:osteopenia bilateral hips Performing Lab: Notes/Report: osteopenia bilateral hips CBC Fingerstick (in house) Reviewed date:10/28/2024 12:11:40 PM Interpretation: Performing Lab: Notes/Report: wbc 10.7 3.5 - 10 lym 19.6 15 - 50 mid 4.9 2 - 15 gran 75.5 35 - 80 rbc 4.47 3.5 - 5.5 hgb 12.7 11.5 - 16.5 hct 38.9 35 - 55 mcv 86.9 75 - 100 mch 28.5 25 - 35 mchc 32.8 31 - 38 plat 325 100 - 400 H-CBC Reviewed date:09/23/2024 01:39:32 PM Interpretation:Normal Performing Lab: Notes/Report: WBC 9.2 4.8-10.8 K/mm3 RBC 4.56 4.20-5.40 M/mm3 HGB 13.1 12.2-16.2 g/dL HCT 39.6 37.0-47.0 % MCV 86.8 81-99 fl MCH 28.8 27.0-31.2 pg MCHC 33.1 31.8-35.4 g/dL RDW 13.7 11.5-17.5 % PLT 367 142-424 K/mm3 MPV 7.9 7.4-10.4 fl NE% 65.4 37.0-80.0 % LY% 19.9 10-50 % MO% 8.6 1.7-9.3 % EO% 4.9 0.1-12.0 % BA% 1.2 0.1-2.0 % NE# 6.0 1.8-7.8 K/mm3 LY# 1.8 0.7-4.5 K/mm3 MO# 0.8 0.1-1.0 K/mm3 EO# 0.5 0.0-0.4 K/mm3 BA# 0.1 0-0.2 K/mm3 P-TSH Reviewed date:05/31/2025 03:52:39 PM Interpretation:Normal Performing Lab: Notes/Report: Test performed by [facility] [address] [place] [address] , [address], [place] [address] Timo Parisi MD, Laboratory Chief CLIA: [id number] TSH 1.79 0.43-5.25 mU/L P-Comprehensive Metabolic Pa kendra (CMP) Reviewed date:05/31/2025 03:52:02 PM Interpretation:Normal Performing Lab: Notes/Report: Test performed by [facility] [address] [place] [address] , [address], [place] [address] Timo Parisi MD, Laboratory Chief CLIA: [id number] Sodium 138 135-145 mmol/L Potassium 4.3 3.5-5.3 mmol/L Chloride 100 97-108 mmol/L CO2 28 20-32 mmol/L Glucose 92 65-99 mg/dL BUN 21 8-23 mg/dL Creatinine 0.75 0.50-1.00 mg/dL Calcium 9.4 8.6-10.4 mg/dL eGFR by Creatinine 79 >59 mL/min/1.73m2 Protein 6.3 6.0-8.3 g/dL Albumin 3.9 3.5-5.3 g/dL Alkaline Phosphatase 80 35-121 IU/L ALT (SGPT) 16 <5-47 IU/L AST (SGOT) 15 <5-40 IU/L Bilirubin, Total 0.2 <0.2-1.2 mg/dL A/G Ratio 1.6 1.1-2.5 X ray : Spine, cervical Reviewed date:06/26/2024 11:24:33 AM Interpretation:degenerative changes with multilevel bilateral foraminal narrowing Performing Lab: Notes/Report: degenerative changes with multilevel bilateral foraminal narrowing X ray : Hands, bilateral Reviewed date:06/26/2024 11:24:33 AM Interpretation:degenerative changes Performing Lab: Notes/Report: degenerative changes X ray : Hands, bilateral Reviewed date:06/26/2024 11:24:33 AM Interpretation:degenerative changes Performing Lab: Notes/Report: degenerative changes [facility] Review[facility] date:07/03/2024 09:06:15 AM Interpretation: Performing Lab: Notes/Report: Test performed by [facility] [address] [place], [place] [address] [address] , [address], [place] [address] Timo Parisi MD, Laboratory Chief CLIA: [id number] Erythrocyte Sedimentation Rate (ESR), Automated 51 <31 mm/hr Rheumatoid Factor >650 <14.1 IU/mL C-Reactive Protein (CRP) 3.13 <0.50 mg/dL Antinuclear Antibodies (HERI) Screen, Reflex HERI 9 Panel Negative Negative Test performed by Multiplex Bead Immunoassay methodology. Antinuclear Antibodies (HERI) Result Note SEE COMMENT For positive Autoantibodies, please refer to the interpretive chart here: [email or web address] CCP Antibodies >300.0 <0.5-3.0 U/mL Urinalysis - Inhouse Reviewed date:10/09/2024 12:23:21 PM Interpretation: Performing Lab: Notes/Report: Color/Clarity yellow/clear Leuk 1+ Nitrite Neg Urobili 3.2 Protein 1+ pH 5.5 Blood trace-lysed Sp. Gr. <1.005 Ketone Neg Bili Neg Gluc Neg P-Culture, Urine Reviewed date:10/13/2024 11:49:58 AM Interpretation:sensitive Performing Lab: Notes/Report: Test performed by [facility] [address] [place], [place] [address] [address] , [address], [place] [address] Timo Parisi MD, Laboratory Chief CLIA: [id number] Specimen Source Urine - Void Culture, Urine See Below See Microbiol ogy Report Escherichia coli 25,000-50,000 CFU/ml Escherichia coli Sensitivity Panel See Below Organism E. coli Antibiotic INTERP Amikacin S Ampicillin S Aztreonam S Cefepime S Cefoxitin S Ceftazidime S Ceftriaxone S Cefuroxime S Ciprofloxacin S Ertapenem S Gentamicin S Imipenem S Levofloxacin S Meropenem S Nitrofurantoin S Piperacillin/Tazo S Tetracycline S Tobramycin S Trimeth/Sulfa S S=SUSCEPTIBLE I=INTERMEDIATE R=RESISTANT CBC Fingerstick (in house) Reviewed date:04/21/2025 06:58:38 AM Interpretation: Performing Lab: Notes/Report: wbc 11.9 3.5 - 10 lym 17.2% 15 - 50 mid 4.9% 2 - 15 gran 77.9% 35 - 80 rbc 4.12 3.5 - 5.5 hgb 12.1 11.5 - 16.5 hct 36.7 35 - 55 mcv 89.0 75 - 100 mch 29.4 25 - 35 mchc 33.1 31 - 38 plat 375 100 - 400 Medications Medication SIG (Take, Route, Frequency, Duration) Notes Start Date End Date Status QUEtiapine Fumarate 25 MG 1 tablet at be dtime Orally Once a day; Duration: 30 days 06/11/2025 Active Xyzal Allergy 24HR 5 MG 1 tab(s) orally once a day (in the evening); Duration: 30 day(s) Active Vitamin D3 50 MCG (1999 UT) 1 tab(s) ora lly once a day Active Sucralfate 1 GM 1 tab(s) orally 4 times a day (before meals and at bedtime); Duration: 30 day(s) Active Ipratropium [place] 0.03 % 2 sprays in e ach nostril Nasally Twice a day Active Ascorbic Acid 500 MG 1 tab(s) orally onc e a day Active Align 4 MG 1 cap(s) orally once a day; Duration: 28 day(s) 10/10/2022 Active Losartan Potassium 100 MG 1 tablet Orall y Once a day; Duration: 90 days 04/15/2025 Active Escitalopram Oxalate 10 MG 1/2 tablet Or ally Once a day Active Levalbuterol Tartrate 45 MCG/ACT 1 puff as needed Inhalation 3 times a day 04/20/2025 Active ALPRAZolam 0.5 MG 1 tab(s) orally 3 times a day, as needed; Duration: 30 days Active Albuterol Sulfate HFA 108 (9 0 Base) MCG/ACT 1 puff as needed Inhalation every 4 hrs prn Active Levothyroxine Sodium 75 MCG 1 tab(s) ora lly once a day; Duration: 90 days Active Fluticasone Propionate 50 MCG/ACT 1 spray(s) in each nostril once a day; Duration: 30 day(s) 01/04/2021 Active iVIZIA Dry Eyes 0.5 % as directed Ophthalmic Active Escitalopram Oxalate 20 MG 1/2 tablet Or ally Once a day; Duration: 30 days Active Metoprolol Succinate 25 MG 1/2 tab Orall y Once a day Active Metoprolol Succinate ER 25 MG 1/2 tablet Orally Once a day Active Glucosamine Chond Triple/Vit D - as directed Orally Active Levocetirizine Dihydrochlori de 5 MG 1 tablet in the evening Orally Once a day; Duration: 90 days 06/08/2025 Active Aspirin Adult Low Dose 81 MG 1 tab(s) or ally once a day; Duration: 30 day(s) 04/01/2023 Active Hydroxychloroquine Sulfate 2 00 MG as directed Orally twice a day Active Ondansetron HCl 4 MG 1 tab(s) orally luis ry 8 hours as needed for nausea or vomiting 04/03/2022 Active Estradiol 0.1 MG/GM as directed Vaginal Active B-12 1000 MCG 1 tab(s) orally once a day 05/04/2014 Active MiraLax - 17 G ORALLY TWICE DAILY; Duration: 90 DAYS 05/07/2016 Active Symbicort 160-4.5 MCG/ACT 2 puff(s) inha led 2 times a day; Duration: 30 day(s) Active VOLTAREN GEL APPLIED TOPICALLY QI D NEEDED 06/15/2015 Active Omeprazole 40 MG 1 capsule 1/2 to 1 hour before morning meal Orally Once a day; Duration: 90 days Active Furosemide 20 MG 1 tablet Orally Once a day; Duration: 90 days 12/24/2024 Active Immunizations Vaccine Route Administration Date Status Comme nts COVID 19 Pfizer Unknown 06/28/2021 Administered COVID 19 Pfizer Unknown 08/02/2021 Administered DT, 7 YEARS OR OLDER Unknown 01/23/1997 Administered Fluzone High Dose (65yr and older) IM Intramuscular 08/24/2013 Administered Fluzone High Dose (65yr and older) IM Intramuscular 08/17/2019 Administered Fluzone High Dose (65yr and older) IM Intramuscular 08/11/2020 Administered Fluzone High Dose (65yr and older) IM Intramuscular 08/28/2021 Administered Fluzone High Dose (65yr and older) IM Intramuscular 08/08/2023 Administered Fluzone PF Quad (6-35 months) Unknown 08/16/2014 Administered Fluzone PF Quad (6-35 months) Unknown 08/02/2015 Administered Fluzone PF Quad (6-35 months) Unknown 08/29/2022 Administered PNEUMOVAX 23 VACCINE IM Intramuscular 11/27/2016 Administe red PNEUMOVAX 23 VACCINE IM Intramuscular 06/25/2019 Administe red Prevnar (PCV13) IM Intramuscular 12/07/2014 Administered Tetanus Tdap-Adacel (over 7yrs) IM Intramuscular 06/25/2017 Administered Tetanus-DT IM Intramuscular 07/13/2005 Administered xFlu shot-36 months and older IM Intramuscular 10/04/2008 Administered xFluzone (6mos and older)-trivalent IM Intramuscular 08/16/2010 Administered xFluzone High Dose-private (65yr&older) Unknown 09/07/2016 Administered iAisskea-bqcgreeno-nzmvsfr e pts. IM Intramuscular 10/17/2011 Administered Problems Problem Type SNOMED Code ICD Code Onset Dates Problem Status W/U Status Risk Notes Problem Gastroesophageal reflux disease (794359729) GERD (gastroesophageal reflux disease) (K21.9) Active confirmed Problem History of pulmonary embolus (067835772) History of pulmonary embolism (Z86.711) Active confirmed Problem Hypothyroidism (54153186) Hypothyroidism (acquired) (E03.9) Active confirmed Problem Vitamin D deficiency (59387533) Vitamin D deficiency (E55.9) Active confirmed Problem Essential hypertension (10357294) Essential hypertension (I10) Active confirmed Problem Arthropathy (405530915) Arthropathy (M12.9) Active confirmed Problem Anxiety (22586043) Anxiety (F41.9) Active confi rmed Problem Dysuria (90566975) Dysuria (R30.0) Active confi rmed Problem Cardiomegaly (7688452) Cardiomegaly (I51.7) Active confirmed Problem Recurrent urinary tract infection (201133694) Recurrent UTI (N39.0) Active confirmed Problem Body mass index 30+ - obesity (672381995) BMI 30.0-30.9,adult (Z68.30) Active confirmed Problem History of urinary tract infection (5255089375258) History of UTI (Z87.440) Active confirmed Problem Restless legs (92218300) Restless legs (G25.81) Active confirmed Problem Seasonal allergic rhinitis (401487487) Other seasonal allergic rhinitis (J30.2) Active confirmed Problem Basal cell carcinoma of nose (611575948) Basal cell carcinoma of skin of nose (C44.311) Active confirmed Problem Monoclonal gammopathy (80373898) Monoclonal gammopathy (D47.2) Active confirmed Problem Neoplastic disease of uncertain behavior (684067991) Neoplasm of uncertain behavior, unspecified (D48.9) Active confirmed Problem Mixed hyperlipidemia (648170782) Mixed hyperlipidemia (E78.2) Active confirmed Problem Chronic pain (64022600) Other chronic pain (G89.29) Active confirmed Problem Localized, primary osteoarthritis of the hand (539448562) Primary osteoarthritis, right hand (M19.041) Active confirmed Problem Localized, primary osteoarthritis of the hand (106078451) Primary osteoarthritis, left hand (M19.042) Active confirmed Problem Gastroesophageal reflux disease (900275200) GERD without esophagitis (K21.9) Active confirmed Problem Major depression, single episode (97805534) Depression, controlled (F32.9) Active confirmed Problem Bronchitis (48818865) Bronchitis (J40) Active confirmed Problem Dermatitis (806937208) Dermatitis (L30.9) Active confirmed Problem Mild intermittent asthma (641587980) Mild intermittent asthma without complication (J45.20) Active confirmed Problem Herpes zoster without complication (775987802) Herpes zoster without complication (B02.9) Active confirmed Problem Rheumatoid arthritis (73609576) 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) Active confirmed Problem Occlusion and stenosis of multiple and bilateral cerebral arteries (638780596) Carotid stenosis, bilateral (I65.23) Active confirmed Problem Abnormal gait (60476328) Imbalance (R26.89) Active confirmed Problem Thrombocytosis (5995465) Thrombocytosis (D47.3) Active confirmed Problem Dependence on supplemental oxygen (148309374823) Oxygen dependent (Z99.81) Active confirmed Problem Adverse reaction caused by drug (30959053) Medication side effect (T88.7XXA) Active confirmed Problem History of malignant basal cell tumor of skin (944817961) History of basal cell carcinoma (Z85.828) Active confirmed Problem Bilateral carpal tunnel syndrome (05181182073518048) Bilateral carpal tunnel syndrome (G56.03) Active confirmed Problem Urge incontinence of urine (55937498) Urge incontinence of urine (N39.41) Active confirmed Problem Basal cell carcinoma of skin (467988693) Skin cancer, basal cell (C44.91) Active confirmed Problem Exacerbation of moderate persistent asthma (disorder) (921266582) Moderate persistent asthmatic bronchitis with acute exacerbation (J45.41) Active confirmed Problem Single subsegmental pulmonary embolism without acute cor pulmonale (I26.93) Active confirmed Problem Multiple subsegmental pulmonary emboli without acute cor pulmonale (I26.94) Active confirmed Problem History of COVID-19 (299613965185431906 ) History of COVID-19 (Z86.16) Active confirmed Problem Long-term current use of anticoagulant (957108392) Current use of anticoagulant therapy (Z79.01) Active confirmed Problem Cough (06789084) Cough (R05.9) Active confirmed Problem Mild major depression (82078086) Mild major depression (F32.0) Active confirmed Vital Signs Heart Rate 89 /min 06/11/2025 Blood pressure diastolic 60 mm Hg 06/11/2025 Height 64.50 in 06/11/2025 Blood pressure systolic 138 mm Hg 06/11/2025 Weight 181.0 lbs 06/11/2025 BMI 30.59 kg/m2 06/11/2025 Encounters Encounter Location Date Provider Diagnosis [facility] [address] [place] [id number] 06/15/2024 Nicole Rajput 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 M05.741 ; Hypothyroidism (acquired) E03.9 and Localized edema R60.0 [facility] [address] [place] [id number] 07/01/2024 Sarah Crowdy Pain in right hand M79.641 ; Pain in left hand M79.642 and Swelling of both hands M79.89 [facility] [address] [place] [id number] 08/31/2024 Nicole Rajput 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 M05.741 ; Monoclonal gammopathy D47.2 ; Arthropathy M12.9 ; Essential hypertension I10 and GERD (gastroesophageal reflux disease) K21.9 [facility] [address] [place] [id number] 09/14/2024 Priscilla Fernandez Fall as cause of accidental injury in home as place of occurrence W19.XXXA and Joint pain M25.50 [facility] [address] [place] [id number] 10/09/2024 Nicole Rajput Recurrent UTI N39.0 ; Hypothyroidism (acquired) E03.9 and Anxiety F41.9 [facility] [address] [place] [id number] 10/22/2024 Nicole Rajput Essential hypertensi on I10 and Bronchitis J40 [facility] [address] [place] [id number] 10/27/2024 Priscilla Fernandez Bronchitis J40 [facility] [address] [place] [id number] 11/04/2024 Sarah Crowdy Bronchitis J40 and Bilateral rales R09.89 [facility] [address] [place] [id number] 11/30/2024 Nicole Rajput Persistent cough R05 .3 [facility] [address] [place], [place] [id number] 12/11/2024 Nicole Rajput Pneumonia of right l sergio due to infectious organism, unspecified part of lung J18.9 [facility] [address] [place], [place] [id number] 12/24/2024 Nicole Rajput Localized edema R60. 0 ; 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 M05.741 and Arthropathy M12.9 [facility] [address] [place], [place] [id number] 12/25/2024 Nicole Rajput [facility] [address] [place], [place] [id number] 01/21/2025 Nicole Rajput 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 M05.741 ; Arthropathy M12.9 and Medication side effect T88.7XXA [facility] [address] [place], [place] [id number] 03/04/2025 Nicole Rajput Essential hypertensi on I10 ; Mild intermittent asthma without complication J45.20 ; Anxiety F41.9 ; Arthropathy M12.9 ; History of pulmonary embolism Z86.711 ; Bilateral carpal tunnel syndrome G56.03 ; Hypothyroidism (acquired) E03.9 ; BMI 30.0-30.9,adult Z68.30 and Mild major depression F32.0 [facility] [address] [place], [place] [id number] 03/25/2025 Sarah Cordell Essential hypertensi on I10 ; Status post carpal tunnel release of both wrists Z98.890 and BMI 29.0-29.9,adult Z68.29 [facility] [address] [place], [place] [id number] 04/01/2025 Sarah Emmanueldy Essential hypertensi on I10 [facility] [address] [place] [id number] 04/15/2025 Sarah Crowdy Essential hypertensi on I10 [facility] [address] [place] [id number] 04/20/2025 Priscilla Friedmanond Acute bronchitis J20 .9 [facility] [address] [place] [id number] 04/29/2025 J Low Rajput Anxiety F41.9 ; Righ t carotid bruit R09.89 and Essential hypertension I10 [facility] [address] [place] [id number] 05/05/2025 Sarah Crowdy Anxiety F41.9 and Essential hypertension I10 [facility] [address] [place] [id number] 05/07/2025 Nicole Rajput [facility] [address] [place] [id number] 05/10/2025 Nicole Rajput [facility] [address] [place] [id number] 05/12/2025 Sarah Crowdy Anxiety F41.9 and Essential hypertension I10 [facility] [address] [place] [id number] 05/19/2025 Sarah Crowdy Anxiety F41.9 [facility] [address] [place] [id number] 05/27/2025 Nicole Rajput Anxiety F41.9 ; Hypothyroidism (acquired) E03.9 ; History of pulmonary embolism Z86.711 ; Current use of anticoagulant therapy Z79.01 ; Mild major depression F32.0 and Other seasonal allergic rhinitis J30.2 [facility] [address] [place] [id number] 06/11/2025 Sarah Crowdy Anxiety F41.9 [facility] [address] [place] [id number] 06/12/2024 Nicole Rajput [facility] [address] [place] [id number] 06/12/2024 Sarah Crowdy [facility] [address] [place] [id number] 06/16/2024 Nicole Rajput 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 M05.741 [facility] [address] [place] [id number] 06/18/2024 Nicole Rajput [facility] [address] [place] [id number] 06/24/2024 Sarah Crowdy Pain in right hand M79.641 ; Pain in left hand M79.642 and Neck pain M54.2 [facility] [address] [place] [id number] 06/26/2024 Sarah Crowdy [facility] [address] [place] [id number] 07/03/2024 Sarah Crowdy Pain of right hand M79.641 ; Pain in left hand M79.642 and Swelling of both hands M79.89 [facility] [address] [place] [id number] 07/06/2024 Nicole Rajput [facility] [address] [place] [id number] 08/07/2024 Constantine [place] [facility] [address] [place] [id number] 08/25/2024 Nicole Rajput [facility] [address] [place] [id number] 09/07/2024 Constantine [place] [facility] [address] [place] [id number] 10/20/2024 Nicole Rajput [facility] [address] [place] [id number] 11/02/2024 Priscilla Fernandez [facility] [address] [place] [id number] 11/05/2024 Sarah Crowdy [facility] [address] [place] [id number] 11/06/2024 Sarah Landa Pneumonia J18.9 [facility] [address] [place] [id number] 11/09/2024 Nicole Guadalupe J40 [facility] [address] [place] [id number] 11/13/2024 J Low Rajput [facility] [address] [place] [id number] 11/17/2024 Stephen Uribe [facility] [address] [place] [id number] 11/17/2024 Nicole Rajput [facility] [address] [place] [id number] 11/24/2024 Priscillaguy Fernandez [facility] [address] [place] [id number] 12/01/2024 Nicole Rajput [facility] [address] [place], [place] [id number] 12/14/2024 Nicole Rajput [facility] [address] [place], [place] [id number] 12/26/2024 J Low Rajput [facility] [address] [place], [place] [id number] 01/07/2025 J Low Rajput Anxiety F41.9 [facility] [address] [place], [place] [id number] 01/22/2025 J Low Rajput [facility] [address] [place], [place] [id number] 03/08/2025 J Low Rajput [facility] [address] [place] [id number] 04/07/2025 Constantine [place] Anxiety F41.9 [facility] [address] [place] [id number] 04/14/2025 J Low Rajput [facility] [address] [place] [id number] 04/20/2025 Nicole Rajput [facility] [address] [place], [place] [id number] 04/25/2025 Nicole Rajput Osteopenia M85.80 an d Osteoporosis screening Z13.820 [facility] [address] [place], [place] [id number] 05/03/2025 Nicole Rjaput [facility] [address] [place] [id number] 05/07/2025 Nicole Rajput Anxiety F41.9 [facility] [address] [place] [id number] 05/07/2025 Sarah Cordell [facility] [address] [place], [place] [id number] 05/12/2025 Nicole Rajput Localized edema R60. 0 [facility] [address] [place] [id number] 05/19/2025 Nicole Rajput [facility] [address] [place] [id number] 06/02/2025 Nicole Rajput [facility] [address] [place] [id number] 06/07/2025 Nicole Rajput [facility] [address] [place] [id number] 06/08/2025 Nicole Rajput Anxiety F41.9 Assessments Encounter Date Diagnosis (ICD Code) Assessment Notes Treatment Notes Treatment Clinical Notes Section Notes 06/15/2024 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 (ICD-10 - M05.741) 06/16/2024 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 (ICD-10 - M05.741) 06/24/2024 Pain in right hand (ICD-10 - M79.641) 06/24/2024 Pain in left hand (ICD-10 - M79.642) 06/15/2024 Hypothyroidism (acquired) (ICD-10 - E03.9) 07/01/2024 Pain in right hand (ICD-10 - M79.641) Patient did have a positive rheumatoid factor in 2019. Will recheck an arthritis panel. She saw Monica Barajas in 2019 and will likely need a referral back to [facility]. 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 (ICD-10 - M05.741) continue current therapy 09/14/2024 Joint pain (ICD-10 - M25.50) 09/14/2024 Fall as cause of accidental injury in home as place of occurrence (ICD-10 - W19.XXXA) ice x 2 days and then ice/heat application as needed; tylenol prn; no lifting/pushing /pulling 10/09/2024 Hypothyroidism (acquired) (ICD-10 - E03.9) 10/09/2024 Recurrent UTI (ICD-10 - N39.0) 10/22/2024 Essential hypertension (ICD-10 - I10) 10/22/2024 Bronchitis (ICD-10 - J40) 10/27/2024 Bronchitis (ICD-10 - J40) will increase inhaler to scheduled tid-qid until cough improved andcontinue with prn; has benzonate and will use these tid prn and also mucinex bid, fluids, rest, supportive measures for fever/symptom relief 11/04/2024 Bronchitis (ICD-10 - J40) 11/04/2024 Bilateral rales (ICD-10 - R09.89) 12/24/2024 Localized edema (ICD-10 - R60.0) 12/24/2024 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 (ICD-10 - M05.741) 01/07/2025 Anxiety (ICD-10 - F41.9) 01/21/2025 Arthropathy (ICD-10 - M12.9) 01/21/2025 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 (ICD-10 - M05.741) continue current therapy 11/09/2024 Bronchitis (ICD-10 - J40) 11/30/2024 Persistent cough (ICD-10 - R05.3) 12/11/2024 Pneumonia of right lung due to infectious organism, unspecified part of lung (ICD-10 - J18.9) continue current therapy 03/04/2025 Essential hypertension (ICD-10 - I10) continue RX 03/04/2025 Mild intermittent asthma without complication (ICD-10 - J45.20) 03/25/2025 Status post carpal tunnel release of both wrists (ICD-10 - Z98.890) 04/01/2025 Essential hypertension (ICD-10 - I10) Will increase the losartan and log BP readings. Will f/u in 2 weeks. 04/07/2025 Anxiety (ICD-10 - F41.9) 04/15/2025 Essential hypertension (ICD-10 - I10) BP has improved. Will stay on the 100mg of losartan and log BP readings. Will f/u in 2 weeks. 04/20/2025 Acute bronchitis (ICD-10 - J20.9) Start new inhaler every 6 hours as need. Stop doing the nasal rinse and begin using flonase. Will go ahead and order an antibiotic for bronchitis fluids, rest, supportive measures for fever/symptom relief 03/25/2025 Essential hypertension (ICD-10 - I10) BP is normal now. Will continue current medications and log BP twice a day. Will f/u in 1 week. 04/29/2025 Anxiety (ICD-10 - F41.9) 04/29/2025 Right carotid bruit (ICD-10 - R09.89) 05/05/2025 Anxiety (ICD-10 - F41.9) 05/12/2025 Localized edema (ICD-10 - R60.0) 05/19/2025 Anxiety (ICD-10 - F41.9) Will go back and start taking 15mg daily and see if this makes her feel better. She has also agreed to see psychiatry and get the genetic testing done. 05/27/2025 Anxiety (ICD-10 - F41.9) 06/08/2025 Anxiety (ICD-10 - F41.9) 06/11/2025 Anxiety (ICD-10 - F41.9) 05/12/2025 Anxiety (ICD-10 - F41.9) 05/07/2025 Anxiety (ICD-10 - F41.9) 04/25/2025 Osteopenia (ICD-10 - M85.80) 04/25/2025 Osteoporosis screening (ICD-10 - Z13.820) 05/12/2025 Essential hypertension (ICD-10 - I10) 08/31/2024 Arthropathy (ICD-10 - M12.9) 05/27/2025 Hypothyroidism (acquired) (ICD-10 - E03.9) 05/05/2025 Essential hypertension (ICD-10 - I10) 03/25/2025 BMI 29.0-29.9,adult (ICD-10 - Z68.29) 04/29/2025 Essential hypertension (ICD-10 - I10) 03/04/2025 Anxiety (ICD-10 - F41.9) 12/24/2024 Arthropathy (ICD-10 - M12.9) 01/21/2025 Medication side effect (ICD-10 - T88.7XXA) 11/06/2024 Pneumonia (ICD-10 - J18.9) 10/09/2024 Anxiety (ICD-10 - F41.9) 07/03/2024 Swelling of both hands (ICD-10 - M79.89) 07/01/2024 Swelling of both hands (ICD-10 - M79.89) 06/15/2024 Localized edema (ICD-10 - R60.0) 06/24/2024 Neck pain (ICD-10 - M54.2) 03/04/2025 Arthropathy (ICD-10 - M12.9) 08/31/2024 Essential hypertension (ICD-10 - I10) 05/27/2025 History of pulmonary embolism (ICD-10 - Z86.711) 05/27/2025 Current use of anticoagulant therapy (ICD-10 - Z79.01) 08/31/2024 GERD (gastroesophageal reflux disease) (ICD-10 - K21.9) 03/04/2025 History of pulmonary embolism (ICD-10 - Z86.711) 03/04/2025 Bilateral carpal tunnel syndrome (ICD-10 - G56.03) Surgery March 18 05/27/2025 Mild major depression (ICD-10 - 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) 05/27/2025 Other seasonal allergic rhinitis (ICD-10 - J30.2) 03/04/2025 Hypothyroidism (acquired) (ICD-10 - E03.9) 03/04/2025 BMI 30.0-30.9,adult (ICD-10 - Z68.30) 03/04/2025 Mild major depression (ICD-10 - F32.0) Plan Of Treatment Pending Test Test Name Order Date Bone density 04/25/2025 Carotid Duplex 06/09/2025 Next Appt Details Provider Name:Nicole Razo er, 06/24/2025 01:30:00 PM, [address] [facility], [address], [place], [place], [id number], Insurance Providers Payer Name Payer Address Payer Phone Subscriber Number Group Number Insured Name Patient Relationship to Insured Coverage Start Date Coverage End Date [employer] (MEDICAR E) [address] [address] [place] [phone] [id number] YULI ROBERTO Self - patient is the insured Medications Administered Medication Instructions Date of Administration Dosage Notes allergy 05/27/2025 Mix #2 R arm l ower allergy 05/27/2025 Mix #1R arm up per allergy 05/27/2025 Mix#3 L arm Depo- Medrol 40 mg/ml 09/27/2009 2 mL Dexamethasone 11/14/2007 1 mL Dexamethasone 04/10/2012 1.0 mL Dexamethasone 06/11/2012 1 mL Dexamethasone 10/16/2014 1 mL Dexamethasone 01/07/2016 1 mL Dexamethasone 04/24/2017 1 mL Dexamethasone 06/05/2024 1 mL Medical (General) History Medical History History ICD Code Hypertension Anxiety Seasonal Allergies Depression 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 Bean Opthalmology- Dr Liriano and Dr. Saeed Surgical History Surgery Date(Month/Year) RT Breast Cyst Removal Colonoscopy 02/05/2006, 02/2011, 02/15/2011 Rectocoele [facility], Dr. Lelia villeda 09/09/2007 Lithotripsy 03/2009 Hysterectomy Abdominal 08/23/2009 colonoscopy, Dr. Car, 4 tubular adenomas, 1 hyperplastic polyp 03/13/2011 Cholecystectomy 11/19/2013 EGD and Colonoscopy, Dr. Car 09/[address] Car, adenomatous madyson yp 12/31/2016 Dexa scan 2016 Mammogram 11/2016 lasix eye surgery 10/17/2018 Basal cell CA of the nose, w [facility] reconstructive surgery, Dr. Annette Rojas 03/2022 Hospitalization History Reason Date(Month/Year) COVID-19 11/13/2020- 1 Dr Knapp Knee injections [facility], Dr. Car, ERCP 09/2008 [facility], tripped at 's office , hit head on wall 01/19/2008
--- OUTSIDE RECORDS SUMMARY | 2025-06-11 13:24 | XMS_ITS | Continuity of Care Document ---
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 Plan of Treatment [...] Address Organization Details Recorded Time Atrophic vaginitis 72399084 Active 2015 Provider: Jenae Campos;John tus: Active Not Available [facility] 6 06:15:11 Gastrointe stinal tract finding Active 2015 From Automated Load;Provi collin: Cate Avila;Sta tus: Active Not Available [facility] 6 06:15:11 Constipati on 32163469 Active 2015 From Automated Load;Provi collin: Cate Avila;Sta tus: Active Not Available [facility] 6 06:15:11 Abdominal pain 31076741 Active 2015 From Automated Load;Provi collin: Cate Avila;Sta tus: Active Not Available [facility] 06:15:11 Problem Notes None recorded. Procedures Surgical History Date Name Laterality Status Provider Name and Address Organization Details Recorded Time 03/18/20 25 Op Note completed VAISHNAVI WHITEHEAD MD [address] [place], [address], [facility] 03/18/2025 07:48:51 03/18/20 25 osteoplasty of carpal bone completed Joselin Michael [facility] 04/23/2025 13:41:21 05/11/20 20 Date of Last Mammogram completed Pam Ash [facility] 05/27/2020 13:59:13 01/24/20 18 Pap Smear collection completed JENAE CAMPOS MD [address] [place], [address], [facility] 01/26/2018 14:34:04 01/24/20 18 Date of Last Pap Smear completed Holli Rawls [facility] 01/26/2019 13:38:24 09/29/20 17 Date of Last Colonoscopy completed [facility] 01/23/2018 14:06:17 08/02/20 15 Most Recent Bone Density completed [facility] 01/23/2018 14:06:20 Cholecystectomy completed Mona Vishnu [...] Name and Address Organization Details Recorded Time 394886 Substance with sulfonami de structure and antibacte rial mechanism of action (substanc e) medicatio n itching Not available Not available 10/11/20162008 54228 8003 SNOMED React ion: ITCHI NG; Comme nt: Creat ed By: Boston pedraza Date: 2008 10:35 :11 AM; Not Available [facility] 6 10:34:48 203997 ciproflox acin medicatio n Not available Not available Not available 07/30/2024 2551 RxNorm Annmarie Niño [facility] 4 11:04:18 480514 Levaquin medicatio n Not available Not available Not available 07/30/2024 30506 2 RxNorm Annmarie Niño [facility] 4 11:04:48 591369 Bactrim medicatio n Not available Not available Not available 07/30/2024 24656 9 RxNorm Annmarie Niño [facility] 4 11:05:09 Medications Name Sig Start [...] Updated DateTime 04/23/2025 166.37 cm 30.3 kg/m2 72214.59 g 144/76 mm[Hg] Joselin Rodriguez [facility] 04/23/2025 13:43:16 Social History Question Answer Notes LastModified by Organizat ion Details LastModified Time Tobacco Smoking Status [facility]oker [facility] 01/17/2017 13:04:27 What Is Your Level Of Caffeine Consumption? Moderate 2-3 Per Day Information not available 01/17/2017 What Was The Date Of Your Most Recent Tobacco Screening? 12/18/2024 [email or web address] Information not available 12/18/2024 Sex: Unknown Functional [...] mcg/0.3 mL dose 1 completed Yusuf Winters [facility] 03/03/2025 13:32:52 COVID-19, mRNA, LNP-S, PF, 30 mcg/0.3 mL dose 1 completed Yusuf Winters [facility] 03/03/2025 13:32:52 pneumococcal polysaccharide PPV23 9 completed Yusuf Winters [facility] 03/03/2025 13:32:52 Tdap 7 completed Yusuf Winters [facility] 03/03/2025 13:32:52 Influenza, high-dose, trivalent, PF 0 completed Yusuf Winters [facility] 03/03/2025 13:32:52 Influenza, high-dose, trivalent, PF 9 completed Yusuf Winters [facility] 03/03/2025 13:32:52 Influenza, high-dose, trivalent, PF 6 completed Yusuf Winters [facility] 03/03/2025 13:32:52 Td (adult), 2 Lf tetanus toxoid, preservative free, adsorbed 7 completed Yusuf Winters [facility] 03/03/2025 13:32:52 Influenza, split virus, quadrivalent, PF 5 completed Yusufreagan Winters [facility] 03/03/2025 13:32:52 Influenza, split virus, quadrivalent, PF 4 completed Yusuf Winters [facility] 03/03/2025 13:32:52 Influenza, split virus, quadrivalent, PF 2 completed Yusufreagan Winters [facility] 03/03/2025 13:32:52 Influenza, split virus, quadrivalent, preservative 8 completed Holli Rawls [facility] 01/26/2019 13:36:50 Past Encounters Encounter ID Performer Location Encounter Start Date Encounter Closed Date Diagnosis/Indication Diagnosis SNOMED-CT Code Diagnosis ICD10 Code Diagnosis Note [id number] VAISHNAVI WHITEHEAD MD [facility] [address] [place] [address] 03/29/2025 11:17:41 03/29/2025 11:35:20 Bilateral carpal tunnel syndrome [id number] 4400637 G56.03 - Scheduled regular follow-ups . - Improving post-opera tive bruising and swelling observed. - Anticipate d continued resolution of soreness. - Follow-up in four weeks for monitoring recovery. Left with hematoma, will be more sore but should ultimately resolve, a little bit of a tremor in the ring finger as well likely related to weakness and discomfort [id number] CARLOS ROGEL MD [facility] [address] [place] [address] 04/23/2025 13:26:22 04/26/2025 04:09:06 Seropositive rheumatoid arthritis 949725080 M05.9 Seropositi ve rheumatoid arthritis (+RF >650, [...] 3 months Long-term current use of hydroxychloroquine 3828166391 27059 Z79.899 History of decompression of median nerve 921859686 Z98.890 Health Concerns Section Related Observation LastModified by Organization Detai ls LastModified Time None Recorded Concern Status LastModified by Organization Details LastModified Time None Recorded Payers Encounter Date Sequence Insurance Name Policy Number Policy Russo Covered Member ID Russo Member ID Guarantor Name 04/23/2025 1 [employer] (MEDICARE REPLACEMENT/ ADVANTAGE - PPO) Shayy Roberto [id number] Shayy Roberto Notes Date Note Type Note Provider Name and Address Organization Details Recorded Time 04/23/2025 text/html ROS as noted in the HPI Last [...] HERI was negative. CARLOS ROGEL MD [address] [place], [address], [place] [facility] 04/25/2025 09:24:43 OBGyn Episode No OBEpisode recorded.
== END 2025-06-11 23:59 | disposition home or self-care (01) ==
LOC: RT 13:22
PROVIDERS: PCP Family Medicine; Visit Provider Family Medicine
DX: I65.23 Occlusion and stenosis of bilateral carotid arteries (principal); I10 Essential (primary) hypertension
CPT/HCPCS: 93880

== ENCOUNTER 2025-06-18 12:35 | Outpatient (CLI) | payer MEDICARE, SELFPAY ==
--- OUTSIDE RECORDS SUMMARY | 2025-06-03 11:45 | XMS_ITS ---
Author Organization Fanny Address [address] [facility] 36 [facility] [address] [place] [id number] Care Team Providers Care Dining Room Busser Name Role Phone Nicole Rajput Primary Care Provider REASON FOR VISIT nausea and fatigue Encounters Encounter Location Date Provider Diagnosis [facility] [address] [facility] [address] [place] [id number] 06/03/2025 Nicole Rajput Plan Of Treatment Next Appt Details Provider Name:Nicole Razo er, 06/24/2025 01:30:00 PM, [address] [facility], [address], [place], [phone], Progress Notes * MARIE LOPEZB:[birth year] (84 yo F)Acc No.[id number]:06/03/2025 Progress Notes Patient: Ruddy SREE YULI Provider: Nicole Rajput M.D. :1940 A ge:84 Y S ex:Female Date:06/03/2025 Address:[id number] Subjective: * Chief Complaints: * 1 . Nausea and fatigue. * Medical History: Objective: * Vitals: Assessment: Plan: * Treatment: * Images: Billing Information: * Visit Code: * Procedure Codes: * Electronic signature of Nicole Rajput MD on 06/18/2025 at 12:38 PM EDT Sign off status: Pending * Provider: Nicole Rajput M.D. Date: 0 06/03/2025 Generated for Joanna garcia/Joshua/Mai on: 0 06/18/2025 12:38 PM EDT
--- OUTSIDE RECORDS SUMMARY | 2025-06-11 06:00 | XMS_ITS ---
Author Organization [facility] Address [address] [facility] [address] [place] [phone] Care Team Providers Care Body Worker Name Role Phone Nicole Rajput Primary Care Provider Sarah Landa Unavailable [phone] Allergies Allergen (clinical drug ingredient) Drug/Non Drug [...] Unknown Drug Allergy Active REASON FOR VISIT discuss medication Medications Medication SIG (Take, Route, Frequency, Duration) Notes Start Date End Date Status Levocetirizine Dihydrochlori de 5 MG 1 tablet in the evening Orally Once a day; Duration: 90 days 06/08/2025 Active Ondansetron HCl 4 MG 1 tab(s) orally luis ry 8 hours as needed for nausea or vomiting 04/03/2022 Active Metoprolol Succinate 25 MG 1/2 tab Orall y Once a day Active Omeprazole 40 MG 1 capsule 1/2 to 1 hour before morning meal Orally Once a day; Duration: 90 days Active Furosemide 20 MG 1 tablet Orally Once a day; Duration: 90 days 12/24/2024 Active Ipratropium Archer 0.03 % 2 sprays in e ach nostril Nasally Twice a day Active Losartan Potassium 100 MG 1 tablet Orall y Once a day; Duration: 90 days 04/15/2025 Active Levalbuterol Tartrate 45 MCG/ACT 1 puff as needed Inhalation 3 times a day 04/20/2025 Active Albuterol Sulfate HFA 108 (9 0 Base) MCG/ACT 1 puff as needed Inhalation every 4 hrs prn Active Levothyroxine Sodium 75 MCG 1 tab(s) ora lly once a day; Duration: 90 days Active Sucralfate 1 GM 1 tab(s) orally 4 times a day (before meals and at bedtime); Duration: 30 day(s) Active Ascorbic Acid 500 MG 1 tab(s) orally onc e a day Active Align 4 MG 1 cap(s) orally once a day; Duration: 28 day(s) 10/10/2022 Active ALPRAZolam 0.5 MG 1 tab(s) orally 3 times a day, as needed; Duration: 30 days Active QUEtiapine Fumarate 25 MG 1 tablet at be dtime Orally Once a day; Duration: 30 days 06/11/2025 Active B-12 1000 MCG 1 tab(s) orally once a day 05/04/2014 Active MiraLax - 17 G ORALLY TWICE DAILY; Duration: 90 DAYS 05/07/2016 Active Xyzal Allergy 24HR 5 MG 1 tab(s) orally once a day (in the evening); Duration: 30 day(s) Active Vitamin D3 50 MCG (2000 UT) 1 tab(s) ora lly once a day Active Fluticasone Propionate 50 MCG/ACT 1 spray(s) in each nostril once a day; Duration: 30 day(s) 01/04/2021 Active Glucosamine Chond Triple/Vit D - as directed Orally Active Aspirin Adult Low Dose 81 MG 1 tab(s) or ally once a day; Duration: 30 day(s) 04/01/2023 Active Estradiol 0.1 MG/GM as directed Vaginal Active Symbicort 160-4.5 MCG/ACT 2 puff(s) inha led 2 times a day; Duration: 30 day(s) Active VOLTAREN GEL APPLIED TOPICALLY QI D NEEDED 06/15/2015 Active Hydroxychloroquine Sulfate 2 00 MG as directed Orally twice a day Active Escitalopram Oxalate 10 MG 1/2 tablet Or ally Once a day Active iVIZIA Dry Eyes 0.5 % as directed Ophthalmic Active Escitalopram Oxalate 20 MG 1/2 tablet Or ally Once a day; Duration: 30 days Active Metoprolol Succinate ER 25 MG 1/2 tablet Orally Once a day Active Vital Signs Weight 181.0 lbs 06/11/2025 Blood pressure systolic 138 mm Hg 06/11/20 Blood pressure diastolic 60 mm Hg 025 Heart Rate 89 /min 06/11/2025 Height 64.50 in 06/11/2025 BMI 30.59 kg/m2 06/11/2025 Encounters Encounter Location Date Provider Diagnosis [facility] [address] [facility] [address] [place] [phone] 06/11/2025 Sarah Cordell Anxiety F41.9 Assessments Encounter Date Diagnosis (ICD Code) Assessment Notes Treatment Notes Treatment Clinical Notes Section Notes 06/11/2025 Anxiety (ICD-10 - F41.9) Plan Of Treatment Medication Medication Name Sig Start Date Stop Date Notes ALPRAZolam 0.5 MG 1 tab(s) orally 3 ti mes a day, as needed; Duration: 30 days QUEtiapine Fumarate 25 MG 1 tablet at be dtime Orally Once a day; Duration: 30 days 06/11/2025 Next Appt Details Follow Up: keep appt, Reason : Provider Name:Nicole Razo er, 06/24/2025 01:30:00 PM, [address] [facility] 36 [facility], [address], [place], [phone], Progress Notes * MARIE ROBERTOB:[birth year] (84 yo F)Acc No.[id number]:06/11/2025 Progress Notes Patient: AMERICO PANDEYLMA Provider: MARISOL Skelton :1940 A ge:84 Y S ex:Female Date:06/11/2025 Address:[facility] [place] Pcp:Nicole Rajput Subjective: * Chief Complaints: * 1 . Discuss medication. * HPI: H PI: 84 year old female presents with c/o Patient is here today for?Pt is here today to discuss medications. Pt sts she would like to discuss her Lexapro and the Xanax. * ROS: D ERMATOLOGY: no R ej. n o H fidel. G ASTROENTEROLOGY: no N ausea. n o V omiting. n o D iarrhea.? U ROLOGY: no D ifficulty urinating. n o B lood in urine. 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 Lelia Mata, GI- Dr. Car, Earth Auger Operator- Dr. Bean, Opthalmology- Dr Liriano and Dr. Saeed. * Surgical History: R T Breast Cyst Removal , Colonoscopy 02/05/2006, 02/2011, 02/15/2011, Rectocoele [facility], Dr. Lelia Mata 09/09/2007, Lithotripsy 03/2009, Hysterectomy Abdominal 08/23/2009, colonoscopy, Dr. Car, 4 tubular adenomas, 1 hyperplastic polyp 03/13/2011, Cholecystectomy 11/19/2013, EGD and Colonoscopy, Dr. Car 09/2013, Colonoscopy Dr. Car, adenomatous polyp 12/31/2016, Dexa scan 2015, Mammogram 11/2016, lasix eye surgery 10/17/2018, Basal cell CA of the nose, with reconstructive surgery, Dr. Annette Rojas 03/2022. * [facility] at 's office, hit head on wall 01/19/2008, [facility], Dr. Car, ERCP 09/2008, Dr Knapp Knee injections , COVID-19 11/13/2020-11/21/2020. * Family History: F ather: , CHF. M other: 89 yrs, breast Ca, auto immune hepatitis. S iblings: MS, liver CA. 2 brother(s) , 1 sister(s) . 1 son(s) , 1 daughter(s) . . * Social History: C URRENT TOBACCO USE S moking Status: Patient does NOT smoke. C affeine: no. Marital Status: . Past smoking status: no, Smoking status: Does not smoke, Former Smoker: Yes, Quit smokins, Smoking pack year history: 1. Alcohol: no. * Medications: T aking Escitalopram Oxalate 10 MG Tablet 1/2 tablet Orally Once a day , Taking Escitalopram Oxalate 20 MG Tablet 1/2 tablet Orally Once a day , Taking Metoprolol Succinate ER 25 MG Tablet Extended Release 24 Hour 1/2 tablet Orally Once a day , Taking iVIZIA Dry Eyes 0.5 % Solution as directed Ophthalmic , Taking Hydroxychloroquine Sulfate 200 MG Tablet as directed Orally twice a day , Taking Estradiol 0.1 MG/GM Cream as directed Vaginal , Taking Glucosamine Chond Triple/Vit D - Tablet as directed Orally , Taking Aspirin Adult Low Dose 81 MG Tablet Delayed Release 1 tab(s) orally once a day , Taking Symbicort 160-4.5 MCG/ACT Aerosol 2 puff(s) inhaled 2 times a day , Taking VOLTAREN GEL GEL APPLIED TOPICALLY QID NEEDED , Taking B-12 1000 MCG Tablet 1 tab(s) orally once a day , Taking MiraLax - POWDER FOR RECONSTITUTION 17 G ORALLY TWICE DAILY , Taking Xyzal Allergy 24HR 5 MG Tablet 1 tab(s) orally once a day (in the evening) , Taking Vitamin D3 50 MCG (2000 UT) Tablet 1 tab(s) orally once a day , Taking Fluticasone Propionate 50 MCG/ACT Suspension 1 spray(s) in each nostril once a day , Taking Ascorbic Acid 500 MG Tablet 1 tab(s) orally once a day , Taking Align 4 MG Capsule 1 cap(s) orally once a day , Taking Sucralfate 1 GM Tablet 1 tab(s) orally 4 times a day (before meals and at bedtime) , Taking Ipratropium Archer 0.03 % Solution 2 sprays in each nostril Nasally Twice a day , Taking Albuterol Sulfate HFA 108 (90 Base) MCG/ACT Aerosol Solution 1 puff as needed Inhalation every 4 hrs prn , Taking Levothyroxine Sodium 75 MCG Tablet 1 tab(s) orally once a day , Taking Losartan Potassium 100 MG Tablet 1 tablet Orally Once a day , Taking Levalbuterol Tartrate 45 MCG/ACT Aerosol 1 puff as needed Inhalation 3 times a day , Taking Metoprolol Succinate 25 MG Capsule ER 24 Hour Sprinkle 1/2 tab Orally Once a day , Taking Omeprazole 40 MG Capsule Delayed Release 1 capsule 1/2 to 1 hour before morning meal Orally Once a day , Taking Furosemide 20 MG Tablet 1 tablet Orally Once a day , Taking Ondansetron HCl 4 MG Tablet 1 tab(s) orally every 8 hours as needed for nausea or vomiting , Taking ALPRAZolam 0.5 MG Tablet 1 tab(s) orally 3 times a day, as needed , Taking Levocetirizine Dihydrochloride 5 MG Tablet 1 tablet in the evening Orally Once a day , Medication List reviewed and reconciled with the patient * Allergies: S ulfa Antibiotics, Macrobid: nausea, Cipro: heel pain, levoFLOXacin: leg pain, difficulty walking. Objective: * Vitals: W t: 181.0, Temp: 98.6, BP: 138/60, HR: 89, Nurse: [facility], Ht: 64.50, BMI:30.59. Assessment: * Assessment: 1. A nxiety - F41.9 Plan: * Treatment: * Follow Up: k eep appt * Images: Billing Information: * Visit Code: 52978 Office Visit, Est Pt., Level 3. * Procedure Codes: * Electronic signature of MARISOL Zhu on 06/18/2025 at 12:38 PM EDT Sign off status: Pending * Provider: MARISOL Skelton Date: 0 06/11/2025 Generated for Joanna garcia/Joshua/eTransmitting on: 0 06/18/2025 12:38 PM EDT History and Physical Notes * HPI (History of Present Illness) Category Sub-Category Detail Notes Category Not es HPI Patient is here today for Pt is here today to discuss medications. Pt sts she would like to discuss her Lexapro and the Xanax
--- OUTSIDE RECORDS SUMMARY | 2025-06-18 12:38 | XMS_ITS | Patient Health Record ---
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 , [address], [place] [address] Timo Parisi MD, Financial Cost Analyst CLIA: [id number] Sodium 138 135-145 mmol/L Potassium 4.3 3.5-5.3 [...] 0.2 <0.2-1.2 mg/dL A/G Ratio 1.6 1.1-2.5 P-TSH Reviewed date:05/31/2025 03:52:39 PM Interpretation:Normal Performing Lab: Notes/Report: Test performed by [facility] [address] [place] [address] , [address], [place] [address] Timo Parisi MD, Financial Cost Analyst CLIA: [id number] TSH 1.79 0.43-5.25 mU/L Carotid Duplex Reviewed date:06/18/2025 12:36:46 PM Interpretation:carotid stenosis less than 50%- see 06/18/2025 Performing Lab: Notes/Report: carotid stenosis less than 50%- see 06/18/2025 X ray : Spine, cervical Reviewed date:06/26/2024 11:24:33 AM Interpretation:degenerative changes with multilevel bilateral foraminal narrowing Performing Lab: Notes/Report: degenerative changes with multilevel bilateral foraminal narrowing X ray : Hands, bilateral Reviewed date:06/26/2024 11:24:33 AM Interpretation:degenerative changes Performing Lab: Notes/Report: degenerative changes X ray : Hands, bilateral Reviewed date:06/26/2024 11:24:33 AM Interpretation:degenerative changes Performing Lab: Notes/Report: degenerative changes H-Sputum Culture with Gram S tain Reviewed date:11/09/2024 04:45:54 PM Interpretation: Performing Lab: Notes/Report: GS Gram Stain: GS <10 Epithelial Cells / LPF GS 10 - 25 White Blood Cells / LPF GS Rare Gram Positive Cocci in Chains CUSPU Normal Respiratory Nancy Bone density (Not yet review ed by provider) Interpretation:osteopenia bilateral hips Performing Lab: Notes/Report: osteopenia bilateral hips CXR Reviewed date:12/01/2024 12:27:28 PM Interpretation:possible pneumonia Performing Lab: Notes/Report: possible pneumonia P-Arthritis Panel, [facility] Reviewed date:07/03/2024 09:06:15 AM Interpretation: Performing Lab: Notes/Report: [facility] [address] , [address], [place] [address] Timo Parisi MD, Financial Cost Analyst CLIA: [id number] Erythrocyte Sedimentation Rate (ESR), Automated 51 <31 mm/hr Rheumatoid Factor >650 <14.1 IU/mL C-Reactive Protein (CRP) 3.13 <0.50 mg/dL Antinuclear Antibodies (HERI) Screen, Reflex HERI 9 Panel Negative Negative Test performed by Multiplex Bead Immunoassay methodology. Antinuclear Antibodies (HERI) Result Note SEE COMMENT For positive Autoantibodies, please refer to the interpretive chart here: [email or web address]. pdf CCP Antibodies >300.0 <0.5-3.0 U/mL CBC Fingerstick (in house) Reviewed date:11/04/2024 12:41:01 [...] Interpretation: Performing Lab: Notes/Report: Test performed by [facility] [address] [place], [place] [address] [address] , [address], [place] [address] Timo Parisi MD, Financial Cost Analyst CLIA: [id number] Specimen Source Sputum - cough Gram Stain [...] date:11/05/2024 09:18:52 AM Interpretation: Performing Lab: Notes/Report: Urinalysis - Inhouse Reviewed date:10/09/2024 12:23:21 PM Interpretation: Performing Lab: Notes/Report: Color/Clarity yellow/clear Leuk 1+ Nitrite Neg Urobili 3.2 Protein 1+ pH 5.5 Blood trace-lysed Sp. Gr. <1.005 Ketone Neg Bili Neg Gluc Neg P-Culture, Urine Reviewed date:10/13/2024 11:49:58 AM Interpretation:sensitive Performing Lab: Notes/Report: Test performed by [facility] [address] [place] [address] , [place] [address] Timo Parisi MD, Financial Cost Analyst CLIA: [id number] Specimen Source Urine - Void Culture, Urine [...] Tobramycin S Trimeth/Sulfa S S=SUSCEPTIBLE I=INTERMEDIATE R=RESISTANT Influenza Screen (in house) Reviewed date:10/23/2024 10:20:53 [...] Result: Neg CBC Fingerstick (in house) Reviewed date:10/28/2024 12:11:40 [...] - 38 plat 325 100 - 400 P-Basic Metabolic Panel (BMP ) Reviewed date:12/26/2024 01:35:08 PM Interpretation:gluc 125 Performing Lab: Notes/Report: Test performed by [facility] [address] [place] [address] , [address], [place] [address] Timo Parisi MD, Financial Cost Analyst CLIA: [id number] Sodium 144 135-145 mmol/L Potassium 4.0 3.5-5.3 mmol/L Chloride 105 97-108 mmol/L CO2 28 22-32 mmol/L Glucose 125 65-99 mg/dL BUN 22 8-23 mg/dL Creatinine 0.58 0.50-1.00 mg/dL Calcium 9.3 8.6-10.4 mg/dL eGFR by Creatinine 90 >59 mL/min/1.73m2 CBC Fingerstick (in house) Reviewed date:04/21/2025 06:58:38 [...] - 38 plat 375 100 - 400 H-CBC Reviewed date:09/23/2024 01:39:32 [...] 0.5 0.0-0.4 K/mm3 BA# 0.1 0-0.2 K/mm3 Medications Medication SIG (Take, Route, Frequency, Duration) Notes Start Date End Date Status Levalbuterol Tartrate 45 MCG/ACT 1 puff as needed Inhalation 3 times a day 04/20/2025 Active Omeprazole 40 MG 1 capsule 1/2 to 1 hour before morning meal Orally Once a day; Duration: 90 days Active Metoprolol Succinate ER 25 MG 1 tablet O rally Once a day; Duration: 30 days 06/18/2025 Active Symbicort 160-4.5 MCG/ACT 2 puff(s) inha led 2 times a day; Duration: 30 day(s) Active VOLTAREN GEL APPLIED TOPICALLY QI D NEEDED 06/15/2015 Active Glucosamine Chond Triple/Vit D - as directed Orally Active Aspirin Adult Low Dose 81 MG 1 tab(s) or ally once a day; Duration: 30 day(s) 04/01/2023 Active Hydroxychloroquine Sulfate 2 00 MG as directed Orally twice a day Active Levocetirizine Dihydrochlori de 5 MG 1 tablet in the evening Orally Once a day; Duration: 90 days 06/08/2025 Active Estradiol 0.1 MG/GM as directed Vaginal Active ALPRAZolam 0.5 MG 1 tab(s) orally 3 times a day, as needed; Duration: 30 days Active Furosemide 20 MG 1 tablet Orally Once a day; Duration: 90 days 12/24/2024 Active iVIZIA Dry Eyes 0.5 % as directed Ophthalmic Active Ondansetron HCl 4 MG 1 tab(s) orally luis ry 8 hours as needed for nausea or vomiting 04/03/2022 Active Losartan Potassium 100 MG 1 tablet Orall y Once a day; Duration: 90 days 04/15/2025 Active Xyzal Allergy 24HR 5 MG 1 tab(s) orally once a day (in the evening); Duration: 30 day(s) Active Escitalopram Oxalate 10 MG 1 tablet Oral ly Once a day; Duration: 30 days Active Albuterol Sulfate HFA 108 (9 0 Base) MCG/ACT 1 puff as needed Inhalation every 4 hrs prn Active QUEtiapine Fumarate 25 MG 1 tablet at be dtime Orally bedtime; Duration: 30 days 06/11/2025 Active Levothyroxine Sodium 75 MCG 1 tab(s) ora lly once a day; Duration: 90 days Active Sucralfate 1 GM 1 tab(s) orally 4 times a day (before meals and at bedtime); Duration: 30 day(s) Active Ipratropium [place] 0.03 % 2 sprays in e ach nostril Nasally Twice a day Active Ascorbic Acid 500 MG 1 tab(s) orally onc e a day Active Align 4 MG 1 cap(s) orally once a day; Duration: 28 day(s) 10/10/2022 Active Vitamin D3 50 MCG (2000 UT) 1 tab(s) ora lly once a day Active Fluticasone Propionate 50 MCG/ACT 1 spray(s) in each nostril once a day; Duration: 30 day(s) 01/04/2021 Active B-12 1000 MCG 1 tab(s) orally once a day 05/04/2014 Active MiraLax - 17 G ORALLY TWICE DAILY; Duration: 90 DAYS 05/07/2016 Active Immunizations Vaccine Route Administration Date Status [...] xFluzone High Dose-private (65yr&older) Unknown 09/07/2016 Administered dRksgjac-[id number]-rntyncl e pts. IM Intramuscular 10/17/2011 Administered Problems Problem Type SNOMED Code ICD Code Onset Dates Problem Status W/U Status Risk Notes Problem Gastroesophageal reflux disease (274309253) GERD (gastroesophageal reflux disease) (K21.9) Active confirmed Problem History of pulmonary embolus (303519818) History of pulmonary embolism (Z86.711) Active confirmed Problem Hypothyroidism (62416809) Hypothyroidism (acquired) (E03.9) Active confirmed Problem Vitamin D deficiency (85532319) Vitamin D deficiency (E55.9) Active confirmed Problem Essential hypertension (41981013) Essential hypertension (I10) Active confirmed Problem Arthropathy (971468072) Arthropathy (M12.9) Active confirmed Problem Anxiety (64001524) Anxiety (F41.9) Active confi rmed Problem Dysuria (97859488) Dysuria (R30.0) Active confi rmed Problem Cardiomegaly (2859701) Cardiomegaly (I51.7) Active confirmed Problem Recurrent urinary tract infection (533621497) Recurrent UTI (N39.0) Active confirmed Problem Body mass index 30+ - obesity (896754355) BMI 30.0-30.9,adult (Z68.30) Active confirmed Problem History of urinary tract infection (1015760802430) History of UTI (Z87.440) Active confirmed Problem Restless legs (73998073) Restless legs (G25.81) Active confirmed Problem Seasonal allergic rhinitis (832356647) Other seasonal allergic rhinitis (J30.2) Active confirmed Problem Basal cell carcinoma of nose (626843512) Basal cell carcinoma of skin of nose (C44.311) Active confirmed Problem Monoclonal gammopathy (12819525) Monoclonal gammopathy (D47.2) Active confirmed Problem Neoplastic disease of uncertain behavior (773975334) Neoplasm of uncertain behavior, unspecified (D48.9) Active confirmed Problem Mixed hyperlipidemia (598344068) Mixed hyperlipidemia (E78.2) Active confirmed Problem Chronic pain (55601409) Other chronic pain (G89.29) Active confirmed Problem Localized, primary osteoarthritis of the hand (379245348) Primary osteoarthritis, right hand (M19.041) Active confirmed Problem Localized, primary osteoarthritis of the hand (989852511) Primary osteoarthritis, left hand (M19.042) Active confirmed Problem Gastroesophageal reflux disease (864395258) GERD without esophagitis (K21.9) Active confirmed Problem Major depression, single episode (43875250) Depression, controlled (F32.9) Active confirmed Problem Generalized anxiety disorder (12890248) Anxiety, generalized (F41.1) Active confirmed Problem Bronchitis (25969488) Bronchitis (J40) Active confirmed Problem Dermatitis (903298566) Dermatitis (L30.9) Active confirmed Problem Mild intermittent asthma (634203385) Mild intermittent asthma without complication (J45.20) Active confirmed Problem Herpes zoster without complication (991401884) Herpes zoster without complication (B02.9) Active confirmed Problem Rheumatoid arthritis (67813200) 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) Active confirmed Problem Occlusion and stenosis of multiple and bilateral cerebral arteries (126049123) Carotid stenosis, bilateral (I65.23) Active confirmed Problem Abnormal gait (49309894) Imbalance (R26.89) Active confirmed Problem Thrombocytosis (0098708) Thrombocytosis (D47.3) Active confirmed Problem Dependence on supplemental oxygen (985394524617) Oxygen dependent (Z99.81) Active confirmed Problem Adverse reaction caused by drug (24981968) Medication side effect (T88.7XXA) Active confirmed Problem History of malignant basal cell tumor of skin (312444578) History of basal cell carcinoma (Z85.828) Active confirmed Problem Bilateral carpal tunnel syndrome (72658286129999634) Bilateral carpal tunnel syndrome (G56.03) Active confirmed Problem Urge incontinence of urine (97905605) Urge incontinence of urine (N39.41) Active confirmed Problem Basal cell carcinoma of skin (543328938) Skin cancer, basal cell (C44.91) Active confirmed Problem Exacerbation of moderate persistent asthma (disorder) (078269772) Moderate persistent asthmatic bronchitis with acute exacerbation (J45.41) Active confirmed Problem Single subsegmental pulmonary embolism without acute cor pulmonale (I26.93) Active confirmed Problem Multiple subsegmental pulmonary emboli without acute cor pulmonale (I26.94) Active confirmed Problem History of COVID-19 (606713305920781899 ) History of COVID-19 (Z86.16) Active confirmed Problem Long-term current use of anticoagulant (064333820) Current use of anticoagulant therapy (Z79.01) Active confirmed Problem Cough (15752108) Cough (R05.9) Active confirmed Problem Mild major depression (91810799) Mild major depression (F32.0) Active confirmed Vital Signs Heart Rate 66 /min 06/18/2025 Blood pressure diastolic 80 mm Hg 06/18/2025 Height 64.50 in 06/18/2025 Blood pressure systolic 172 mm Hg 06/18/2025 Weight 186.4 lbs 06/18/2025 BMI 31.5 kg/m2 06/18/2025 Encounters Encounter Location Date Provider Diagnosis [facility] [address] [facility] [address] [id number] 07/01/2024 Sarah Crowdy Pain in right hand M79.641 ; Pain in left hand M79.642 and Swelling of both hands M79.89 [facility] [address] [facility] [address] [id number] 08/31/2024 Nicole Rajput 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 M05.741 ; Monoclonal gammopathy D47.2 ; Arthropathy M12.9 ; Essential hypertension I10 and GERD (gastroesophageal reflux disease) K21.9 [facility] [address] [id number] 09/14/2024 Priscilla Fernandez Fall as cause of accidental injury in home as place of occurrence W19.XXXA and Joint pain M25.50 [facility] [address] [facility] [address] [id number] 10/09/2024 Nicole Rajput Recurrent UTI N39.0 ; Hypothyroidism (acquired) E03.9 and Anxiety F41.9 [facility] [address] [facility] [address] [id number] 10/22/2024 Nicole Rajput Essential hypertensi on I10 and Bronchitis J40 [facility] [address] [facility] [address] [id number] 10/27/2024 Priscilla Fernandez Bronchitis J40 [facility] [address] [id number] 11/04/2024 Sarah Crowdy Bronchitis J40 and Bilateral rales R09.89 [facility] [address] [place], [place] [id number] 11/30/2024 Nicole Rajput Persistent cough R05 .3 [facility] [address] [place], [place] [id number] 12/11/2024 Nicole Rajput Pneumonia of right l sergio due to infectious organism, unspecified part of lung J18.9 [facility] [address] [place], [place] [id number] 12/24/2024 Nicole Rajput Localized edema R60. 0 ; 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 M05.741 and Arthropathy M12.9 [facility] [address] [place], [place] [id number] 12/25/2024 Nicole Rajput [facility] [address] [place], [place] [id number] 01/21/2025 Nicole Rajptu 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 M05.741 ; Arthropathy M12.9 and Medication side effect T88.7XXA [facility] [address] [place] [id number] 03/04/2025 Nicole Rajput Essential hypertensi on I10 ; Mild intermittent asthma without complication J45.20 ; Anxiety F41.9 ; Arthropathy M12.9 ; History of pulmonary embolism Z86.711 ; Bilateral carpal tunnel syndrome G56.03 ; Hypothyroidism (acquired) E03.9 ; BMI 30.0-30.9,adult Z68.30 and Mild major depression F32.0 [facility] [address] [place] [id number] 03/25/2025 Sarah Cordell Essential hypertensi on I10 ; Status post carpal tunnel release of both wrists Z98.890 and BMI 29.0-29.9,adult Z68.29 [facility] [address] [place] [id number] 04/01/2025 Sarah Emmanueldy Essential hypertensi on I10 [facility] [address] [place], [place] [id number] 04/15/2025 Sarah Crowdy Essential hypertensi on I10 [facility] [address] [place] [id number] 04/20/2025 Priscilla Fernandez Acute bronchitis J20 .9 [facility] [address] [place] [id number] 04/29/2025 J Low Rajput Anxiety F41.9 ; Righ t carotid bruit R09.89 and Essential hypertension I10 [facility] [address] [place] [id number] 05/05/2025 Sarah Crowdy Anxiety F41.9 and Essential hypertension I10 [facility] [address] [place] [id number] 05/07/2025 Nicole Rajput [facility] [address] [place] [id number] 05/10/2025 Nicole Rajput [facility] [address] [place] [id number] 05/12/2025 Sarah Crowdy Anxiety F41.9 and Essential hypertension I10 [facility] [address] [place] [id number] 05/19/2025 Sarah Crowdy Anxiety F41.9 [facility] [address] [place] [id number] 05/27/2025 J Low Rajput Anxiety F41.9 ; Hypothyroidism (acquired) E03.9 ; History of pulmonary embolism Z86.711 ; Current use of anticoagulant therapy Z79.01 ; Mild major depression F32.0 and Other seasonal allergic rhinitis J30.2 [facility] [address] [place], [place] [id number] 06/11/2025 Sarah Crowdy Anxiety F41.9 [facility] [address] [place] [id number] 06/18/2025 Nicloe Rajput Anxiety, generalized F41.1 ; Essential hypertension I10 and Sprain of left foot, initial encounter S93.602A [facility] [address] [place] [id number] 06/15/2025 Nicole Rajput [facility] [address] [place] [id number] 06/18/2024 J Low Rajput [facility] [address] [place] [id number] 06/24/2024 Sarah Crowdy Pain in right hand M79.641 ; Pain in left hand M79.642 and Neck pain M54.2 [facility] [address] [place] [id number] 06/26/2024 Sarah Crowdy [facility] [address] [place] [id number] 07/03/2024 Sarah Crowdy Pain of right hand M79.641 ; Pain in left hand M79.642 and Swelling of both hands M79.89 [facility] [address] [place] [id number] 07/06/2024 Nicole Rajput [facility] [address] [place] [id number] 08/07/2024 Constantine Julian [facility] [address] [place] [id number] 08/25/2024 Nicole Rajput [facility] [address] [place] [id number] 09/07/2024 Constantine Julian [facility] [address] [place] [id number] 10/20/2024 Nicole Rajput [facility] [address] [place] [id number] 11/02/2024 Priscilla Fernandez [facility] [address] [place] [id number] 11/05/2024 Sarah Crowdy [facility] [address] [place] [id number] 11/06/2024 Sarah Crowdy Pneumonia J18.9 [facility] [address] [place] [id number] 11/09/2024 Nicole Guadalupe J40 [facility] [address] [place] [id number] 11/13/2024 J Low Rajput [facility] [address] [place] [id number] 11/17/2024 Stephen Uribe [facility] [address] [place] [id number] 11/17/2024 J Low Rajput [facility] [address] [place] [id number] 11/24/2024 Priscilla Fernandez [facility] [address] [place] [id number] 12/01/2024 Nicole Rajput [facility] [address] [place] [id number] 12/14/2024 J Low Rajput [facility] [address] [place] [id number] 12/26/2024 J Low Rajput [facility] [address] [place] [id number] 01/07/2025 Nicole Rajput Anxiety F41.9 [facility] [address] [place] [id number] 01/22/2025 J Low Rajput [facility] [address] [place] [id number] 03/08/2025 J Low Rajput [facility] [address] [place] [id number] 04/07/2025 Constantine Julian Anxiety F41.9 [facility] [address] [place] [id number] 04/14/2025 J Low Rajput [facility] [address] [place] [id number] 04/20/2025 J Low Rajput [facility] [address] [place] [id number] 04/25/2025 Nicole Rajput Osteopenia M85.80 an d Osteoporosis screening Z13.820 [facility] [address] [place] [id number] 05/03/2025 Nicole Rajput [facility] [address] [place] [id number] 05/07/2025 Nicole Rajput Anxiety F41.9 [facility] [address] [place] [id number] 05/07/2025 Sarah Landa [facility] [address] [place] [id number] 05/12/2025 Nicole Rajput Localized edema R60. 0 [facility] [address] [place] [id number] 05/19/2025 Nicole Rajput [facility] [address] [place] [id number] 06/02/2025 Nicole Rajput [facility] [address] [place] [id number] 06/07/2025 Nicole Rajput [facility] [address] [place] [id number] 06/08/2025 Nicole Rajput Anxiety F41.9 Assessments Encounter Date Diagnosis (ICD Code) Assessment Notes Treatment Notes Treatment Clinical Notes Section Notes 06/24/2024 Pain in right hand (ICD-10 - M79.641) 06/24/2024 Pain in left hand (ICD-10 - M79.642) 07/01/2024 Pain in right hand (ICD-10 - M79.641) Patient did have a positive rheumatoid factor in 2019. Will recheck an arthritis panel. She saw Monica Barajas in 2019 and will likely need a referral back to [facility]. 07/01/2024 Pain in left hand (ICD-10 - [...] J40) 11/04/2024 Bilateral rales (ICD-10 - R09.89) 11/09/2024 Bronchitis (ICD-10 - J40) 11/30/2024 Persistent cough (ICD-10 - R05.3) 12/11/2024 Pneumonia of right lung due to infectious organism, unspecified part of lung (ICD-10 - J18.9) continue current therapy 12/24/2024 Localized edema (ICD-10 - R60.0) 12/24/2024 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 (ICD-10 - M05.741) 01/07/2025 Anxiety (ICD-10 - F41.9) 01/21/2025 Arthropathy (ICD-10 - M12.9) 01/21/2025 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 (ICD-10 - M05.741) continue current therapy 03/04/2025 Essential hypertension (ICD-10 [...] fluids, rest, supportive measures for fever/symptom relief 04/25/2025 Osteopenia (ICD-10 - M85.80) 04/25/2025 Osteoporosis screening (ICD-10 - Z13.820) 03/25/2025 Essential hypertension (ICD-10 - I10) BP is normal now. Will continue current medications and log BP twice a day. Will f/u in 1 week. 04/29/2025 Anxiety (ICD-10 - F41.9) 04/29/2025 Right carotid bruit (ICD-10 - R09.89) 05/12/2025 Anxiety (ICD-10 - F41.9) 05/12/2025 Localized edema (ICD-10 - R60.0) 05/19/2025 Anxiety (ICD-10 - F41.9) Will go back and start taking 15mg daily and see if this makes her feel better. She has also agreed to see psychiatry and get the genetic testing done. 05/05/2025 Anxiety (ICD-10 - F41.9) 05/07/2025 Anxiety (ICD-10 - F41.9) 05/27/2025 Anxiety (ICD-10 - F41.9) 06/08/2025 Anxiety (ICD-10 - F41.9) 06/11/2025 Anxiety (ICD-10 - F41.9) 06/18/2025 Essential hypertension (ICD-10 - I10) 06/18/2025 Anxiety, generalized (ICD-10 - F41.1) 06/18/2025 Sprain of left foot, initial encounter (ICD-10 - S93.602A) 05/12/2025 Essential hypertension (ICD-10 - I10) 05/27/2025 Hypothyroidism (acquired) (ICD-10 - E03.9) 05/05/2025 Essential hypertension (ICD-10 - I10) 03/25/2025 BMI 29.0-29.9,adult (ICD-10 - Z68.29) 04/29/2025 Essential hypertension (ICD-10 - I10) 03/04/2025 Anxiety (ICD-10 - F41.9) 08/31/2024 Arthropathy (ICD-10 - M12.9) 01/21/2025 Medication side effect (ICD-10 - T88.7XXA) 12/24/2024 Arthropathy (ICD-10 - M12.9) 11/06/2024 Pneumonia (ICD-10 - J18.9) 10/09/2024 Anxiety (ICD-10 - F41.9) 07/03/2024 Swelling of both hands (ICD-10 - M79.89) 07/01/2024 Swelling of both hands (ICD-10 - M79.89) 06/24/2024 Neck pain (ICD-10 - M54.2) 08/31/2024 Essential hypertension (ICD-10 - I10) 03/04/2025 Arthropathy (ICD-10 - M12.9) 05/27/2025 History of pulmonary embolism (ICD-10 - Z86.711) 03/04/2025 History of pulmonary embolism (ICD-10 - Z86.711) 05/27/2025 Current use of anticoagulant therapy (ICD-10 - Z79.01) 08/31/2024 GERD (gastroesophageal reflux disease) (ICD-10 - K21.9) 05/27/2025 Mild major depression (ICD-10 - F32.0) 03/04/2025 Bilateral carpal tunnel syndrome (ICD-10 - G56.03) Surgery March 18 03/04/2025 Hypothyroidism (acquired) (ICD-10 - E03.9) 05/27/2025 Other seasonal allergic rhinitis (ICD-10 - J30.2) 03/04/2025 BMI 30.0-30.9,adult (ICD-10 - Z68.30) 03/04/2025 Mild major depression (ICD-10 - F32.0) Plan Of Treatment Pending Test Test Name Order Date X ray : Foot, left 06/18/2025 Bone density 04/25/2025 Next Appt Details Provider Name:Nicole Razo er, 06/24/2025 01:30:00 PM, [address] [facility], [address], [place], [place], [id number], Insurance Providers Payer Name Payer Address Payer Phone Subscriber Number Group Number Insured Name Patient Relationship to Insured Coverage Start Date Coverage End Date [employer] (MEDICAR E) [address] [address] [place] [phone] [id number] YULI ROBERTO Self - patient is the [...] 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 Lelia Mata GI- Dr. Car Golf Course Starter- Dr. Bean Opthalmology- Dr Liriano and Dr. Saeed Surgical History Surgery Date(Month/Year) RT Breast Cyst Removal Colonoscopy 02/05/2006, 02/2011, 02/15/2011 Rectocoele [facility], Dr. Lelia villeda 09/09/2007 Lithotripsy 03/2009 Hysterectomy Abdominal 08/23/2009 colonoscopy, Dr. Car, 4 tubular adenomas, 1 hyperplastic polyp 03/13/2011 Cholecystectomy 11/19/2013 EGD and Colonoscopy, Dr. Car 09/[address] Car, adenomatous madyson yp 12/31/2016 Dexa scan 2016 Mammogram 11/2016 lasix eye surgery 10/17/2018 Basal cell CA of the nose, w [facility] reconstructive surgery, Dr. Annette Rojas 03/2022 Hospitalization History Reason Date(Month/Year) COVID-19 11/13/2020- [address] Knapp [address] injections [facility], Dr. Car, ERCP 09/2008 [facility], tripped at 's office , hit head on wall 01/19/2008
--- OUTSIDE RECORDS SUMMARY | 2025-06-18 12:38 | XMS_ITS | Clinical Summary ---
Author Organization Healthcare Address [address] [place] [address] Care Team Providers Care Exhibits Curator Name Role Phone Steven Rajput MD Primary Care Provider [phone] Ramona Loya APRN Unavailable [phone] Allergies Active Allergy Reactions Criticality Noted [...] (2 of 2 - PCV) 06/25/2020 06/25/2019 [id number] Vaccine (3 - Pfizer risk series) 08/30/2021 [...] age to complete this topic Insurance [id number] [facility] MEDICARE Care Teams Exhibits Curator Relationship Specialty Start Date End Date Steven Rajput MD [facility] [place] [address] PCP - General 03/31/21 Ramona Loya, LEENA [address] [place] [phone] Nurse Practitioner Internal Medicine 01/05/22
--- NOTE | 2025-06-18 12:40 | XR_ITS ---
FINAL REPORT CLINICAL HISTORY: SPRAIN OF LEFT FOOT FINDINGS: AP, oblique and lateral views of the left foot were obtained. There is no acute fracture or dislocation. 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 Soft tissues are unremarkable. IMPRESSION: No acute osseous abnormality of the left foot. Reviewed, Interpreted and Dictated by Vivienne Beal MD Transcribed by Raya Weiner Authenticated and . [facility]
== END 2025-06-18 23:59 | disposition home or self-care (01) ==
LOC: RAD 12:36
PROVIDERS: PCP Family Medicine; Visit Provider Family Medicine
DX: S93.602A Unspecified sprain of left foot, initial encounter (principal); M19.072 Primary osteoarthritis, left ankle and foot
CPT/HCPCS: 73630

== ENCOUNTER 2025-08-23 10:00 | Outpatient (CLI) | payer MEDICARE, SELFPAY ==
--- OUTSIDE RECORDS SUMMARY | 2025-07-31 07:15 | XMS_ITS ---
Author Organization [facility] Address [address] [facility] [address] [place] [id number] Care Team Providers Care Slab Inspector Name Role Phone Nicole Rajput Primary Care Provider Constantine Orantes Unavailable [phone] Allergies Allergen (clinical drug ingredient) Drug/Non Drug [...] Inhalation every 4 hrs prn Active Ipratropium [place] 0.03 % 2 sprays in e ach [...] Encounter Location Date Provider Diagnosis [facility] [address] [facility] [address] [facility] [address] [place] [id number] 07/31/2025 Constantinekamran Orantes Anxiety F41.9 Assessments Encounter [...] Name:Nicole Razo er, 09/27/2025 02:45:00 PM, [address] [facility] [address] [facility], [address], [place], [id number], Progress Notes * MARIE ROBERTOB:[birth year] (84 yo F)Acc No.[id number]:07/31/2025 Progress Notes Patient: YULI PANDEY Provider: Beatriz Orantes M.D. :1940 A ge:84 Y S ex:Female Date:07/31/2025 Address[place], [id number] Pcp:Nicole Rajput Subjective: * Chief Complaints: * [...] gamma globulinopathy-followed by Dr. Huang, EMG/ncv 10/29/2014, SINTER FEEDER-Dr. Lelia Mata, GI- Dr. Car, Clinical Research Management Associate- Dr. Bean, Opthalmology- Dr Liriano and Dr. Saeed. * Surgical History: R T Breast Cyst Removal , Colonoscopy 02/05/2006, 02/2011, 02/15/2011, Rectocoele [place] [facility], Dr. Lelia Mata 09/09/2007, Lithotripsy [...] meals and at bedtime) , Taking Ipratropium [place] 0.03 % Solution 2 sprays in each [...] * Images: Billing Information: * Visit Code: 82589 Office Visit, Est Pt., Level 3. * Procedure Codes: G2211 Complex e/m visit add on. * Electronic signature of Bethany Orantes MD on 08/24/2025 at 03:20 AM EDT Sign off status: Pending * Provider: Beatriz Orantes M.D. Date: 0 07/31/2025 Generated for Joanna garcia/Joshua/Kelseyitting on: 1 03:20 AM EDT History and Physical Notes * [...]
--- OUTSIDE RECORDS SUMMARY | 2025-08-05 11:15 | XMS_ITS ---
[facility] Organization [facility] Address [address] [facility] 36 [facility] [address] [place] [id number] Care Team Providers Care Ergonomist Name Role Phone Nicole Rajput Primary Care Provider [phone] REASON FOR VISIT Allgery shot Medications Medication SIG (Take, Route, Frequency, Duration) Notes Start Date End Date Status Xyzal Allergy 24HR 5 MG 1 tab(s) orally once a day (in the evening); Duration: 30 days Not-Taking Symbicort 160-4.5 MCG/ACT 2 puff(s) Inhalation 2 times a day; Duration: 30 days J45.41 Active Levalbuterol Tartrate 45 MCG/ACT 1 puff as needed Inhalation 3 times a day 04/20/2025 Not-Taking Restasis 0.05 % 1 drop into affected eye Ophthalmic Twice a day Active Calcium 600 MG 1 tablet with meals Orally Twice a day Active Metoprolol Succinate ER 25 MG 1 tablet Orally Once a day; Duration: 30 days 06/18/2025 Active ALPRAZolam 0.5 MG 1 tab(s) orally 3 times a day, as needed; Duration: 30 days 07/05/2025 Active Losartan Potassium 100 MG 1 tablet Orall y Once a day; Duration: 90 days Active Ondansetron HCl 4 MG 1 tab(s) orally every 8 hours as needed for nausea or vomiting 04/03/2022 Active Desvenlafaxine Succinate ER 25 MG 1 tablet Orally Once a day; Duration: 30 days 07/22/2025 Active Albuterol Sulfate HFA 108 (90 Base) MCG/ACT 1 puff as needed Inhalation every 4 hrs prn Active Levothyroxine Sodium 75 MCG 1 tab(s) ora lly once a day; Duration: 90 days Active Ipratropium [place] 0.03 % 2 sprays in e ach nostril Nasally Twice a day Active Omeprazole 40 MG 1 capsule 1/2 to 1 hour before morning meal Orally Once a day; Duration: 90 days Active Furosemide 20 MG 1 tablet Orally Once a day; Duration: 90 days 12/24/2024 Active Vitamin D3 50 MCG (2000 UT) 1 tab(s) ora lly once a day Active Align 4 MG 1 cap(s) orally once a day; Duration: 28 day(s) 10/10/2022 Active Sucralfate 1 GM 1 tab(s) orally 4 times a day (before meals and at bedtime); Duration: 30 day(s) Active Fluticasone Propionate 50 MCG/ACT 1 spray(s) in each nostril once a day; Duration: 30 day(s) 01/04/2021 Active Ascorbic Acid 500 MG 1 tab(s) orally once a day Active Glucosamine Chond Triple/Vit D - as directed Orally Active Aspirin Adult Low Dose 81 MG 1 tab(s) or ally once a day; Duration: 30 day(s) 04/01/2023 Active MiraLax - 17 G ORALLY TWICE DAILY; Duration: 90 DAYS 05/07/2016 Active VOLTAREN GEL APPLIED TOPICALLY QID NEEDED 06/15/2015 Active B-12 1000 MCG 1 tab(s) orally once a day 05/04/2014 Active Hydroxychloroquine Sulfate 200 MG as directed Orally twice a day Active Estradiol 0.1 MG/GM as directed Vaginal Active Problems Problem Type SNOMED Code ICD Code Onset Dates Problem Status W/U Status Risk Notes Problem Seasonal allergic rhinitis (860198031) Seasonal allergic rhinitis, unspecified trigger (J30.2) Active confirmed Encounters Encounter Location Date Provider Diagnosis [facility] [address] [place] [id number] 08/05/2025 Nicole Rajput Seasonal allergic rhinitis, unspecified trigger J30.2 Assessments Encounter Date Diagnosis (ICD Code) Assessment Notes Treatment Notes Treatment Clinical Notes Section Notes 08/05/2025 Seasonal allergic rhinitis, unspecified trigger (ICD-10 - J30.2) Plan Of Treatment Next Appt Details Provider Name:Nicole Razo er, 09/27/2025 02:45:00 PM, [address], [address], [place], [id number], Medications Administered Medication Instructions Date of Administration Dosage Notes allergy 08/05/2025 0.5 mL allergy 08/05/2025 0.5 mL allergy 08/05/2025 0.5 mL Progress Notes * LOPEZ MARIEB:[birth year] (84 yo F)Acc No.[id number]:08/05/2025 Patient: YULI PANDEY Provider: Nicole Rajput M.D. :1940 A ge:84 Y S ex:Female Date:08/05/2025 Address:[address] [place], [place] [address], [id number] Subjective: * Chief Complaints: * 1 . Allgery shot. * Medical History: * Medications: T aking Calcium 600 MG [...] tab(s) orally once a day , Taking VOLTAREN GEL GEL [...] meals and at bedtime) , Taking Ipratropium [place] 0.03 % Solution 2 sprays in each [...] tablet Orally Once a day , Taking Symbicort 160-4.5 MCG/ACT Aerosol 2 puff(s) Inhalation 2 times a day , Notes to Pharmacist: J45.41, Not-Taking Levalbuterol Tartrate 45 MCG/ACT Aerosol 1 puff as needed Inhalation 3 times a day , Not-Taking Xyzal Allergy 24HR 5 MG Tablet 1 tab(s) orally once a day (in the evening) , Medication List reviewed and reconciled with the patient Objective: * Vitals: Assessment: * Assessment: 1. S easonal allergic rhinitis, unspecified trigger - J30.2 (Primary) Plan: * Treatment: * Therapeutic Injections: allergy : 0.5 mL (Route: Subcutaneous) given by RAFA Nunez on subcutaneus (Seasonal allergic rhinitis, unspecified trigger) allergy : 0.5 mL (Route: Subcutaneous) given by RAFA Nunez on subcutaneus (Seasonal allergic rhinitis, unspecified trigger) allergy : 0.5 mL (Route: Subcutaneous) given by RAFA Nunez on subcutaneus (Seasonal allergic rhinitis, unspecified trigger) * Procedure Codes: 9 5117 IMMUNOTHERAPY INJECTIONS * Images: Billing Information: * Visit Code: * Procedure Codes: 79962 IMMUNOTHERAPY INJECTIONS. * Electronic signature of Nicole Rajput MD on 08/24/2025 at 03:20 AM EDT Sign off status: Pending * Provider: Nicole Rajput M.D. Date: 0 08/05/2025 Generated for Joanna garcia/Joshua/Kelseyitting on: 1 03:20 AM EDT
--- OUTSIDE RECORDS SUMMARY | 2025-08-13 05:45 | XMS_ITS ---
Author Organization [facility] Address [address] [place] [phone] Care Team Providers Care Rail Grinder Name Role Phone Nicole Rajput Primary Care Provider Sarah Landa Unavailable [phone] Allergies Allergen (clinical drug ingredient) Drug/Non Drug [...] Coli Performing Lab: Notes/Report: Test performed by [facility] [address] [place] [address] , [address], [place] [address] Timo Parisi MD, Hand Slitter CLIA: [id number] Specimen Source Urine - Void Culture, Urine [...] a day; Duration: 90 days Active Ipratropium [place] 0.03 % 2 sprays in e ach [...] Encounter Location Date Provider Diagnosis [facility] [facility] 36 [facility] [address] [place] [phone] 08/13/2025 Sarah Landa Dysuria R30.0 Assessments Encounter [...] repo rt test results, Reason: Provider Name:Nicole Razo er, 09/27/2025 02:45:00 PM[facility] 36 [facility], [address], [place], [phone], Progress Notes * MARIE ROBERTOB:[birth year] (84 yo F)Acc No.[id number]:08/13/2025 Progress Notes Patient: YULI PANDEY Provider: MARISOL Skelton :1940 A ge:84 Y S ex:Female Date:08/13/2025 Address:[address] [place], [place] [address] [id number] Pcp:Nicole Rajput Subjective: * Chief Complaints: * [...] gamma globulinopathy-followed by Dr. Huang, EMG/ncv 10/29/2014, BINDER CUTTER HAND-Dr. Lelia Mata, GI- Dr. Car, Chemical Engineering Professor- Dr. Bean, Opthalmology- Dr Liriano and Dr. [...] 's office, hit head on wall 01/19/2008, [facility], Dr. Car, ERCP 09/2008, Dr Knapp Knee injections , COVID-19 11/13/2020-11/21/2020. * Family History: F ather: , CHF. M other: 89 yrs, breast Ca, auto immune hepatitis. S iblings: [place], liver [place]. 2 brother(s) , 1 sister(s) [...] meals and at bedtime) , Taking Ipratropium [place] 0.03 % Solution 2 sprays in each [...] G 2211 Complex e/[place], [address] Urinalysis, no micro * Follow Up: v ia phone to report test results * Images: Billing Information: * Visit Code: 41752 Office Visit, Est Pt., Level 3. * Procedure Codes: G2211 Complex e/[place]. [address] Urinalysis, no micro. * Electronic signature of MARISOL Zhu on 08/24/2025 at 03:21 AM EDT Sign off status: Pending * Provider: MARISOL Skelton Date: 0 08/13/2025 Generated for Printi ng/Faxing/eTransmitting on: 1 03:21 AM EDT History and Physical Notes * [...]
--- OUTSIDE RECORDS SUMMARY | 2025-08-19 07:15 | XMS_ITS ---
Author Organization [facility] Address [address] [facility] [address] [place] [id number] Care Team Providers Care Importer Or Exporter Name Role Phone Nicole Rajput Primary Care Provider Sarah Landa Unavailable [phone] Allergies Allergen (clinical drug ingredient) Drug/Non Drug [...] Active Results Component Value Reference Range Notes P-Culture, Urine (Not yet re viewed by provider) Interpretation: Performing Lab: Notes/Report: CLIA: [id number] Timo Parisi MD, [facility] , [place] [address] Test performed by [employer], [employer] Specimen Source Urine - Void Culture, Urine See Below Final Report : No growth Urinalysis - Inhouse Reviewed date:08/19/2025 02:08:54 PM Interpretation: Performing Lab: Notes/Report: Color/Clarity yellow Leuk trace Nitrite neg Urobili 3.2 Protein neg pH 5.5 Blood neg Sp. Gr. 1.010 Ketone neg Bili neg Gluc neg REASON FOR VISIT UTI Medications Medication SIG [...] Inhalation every 4 hrs prn Active Ipratropium [place] 0.03 % 2 sprays in e ach [...] 08/19/2025 Encounters Encounter Location Date Provider Diagnosis [facility] [facility] 36 [facility] [address] [place] [id number] 08/19/2025 Sarah Landa Dysuria R30.0 Assessments Encounter Date Diagnosis (ICD Code) Assessment Notes Treatment Notes Treatment Clinical Notes Section Notes 08/19/2025 Dysuria (ICD-10 - R30.0) Plan Of Treatment Medication Medication Name Sig Start Date Stop Date Notes Cefuroxime Axetil 250 MG 1 tablet Orally every 12 hrs; Duration: 5 days 08/19/2025 Pending Test Test Name Order Date P-Culture, Urine 08/19/2025 Next Appt Details Follow Up: via phone to repo rt test results, Reason: Provider Name:Nicole Razo er, 09/27/2025 02:45:00 PM, [facility] 36 [facility], [address], [place], [phone], Progress Notes * MARIE ROBERTOB:[birth year] (84 yo F)Acc No.[id number]:08/19/2025 Progress Notes Patient: Ruddy YULI BALBUENA Provider: MARISOL Skelton :1940 A ge:84 Y S ex:Female Date:08/19/2025 Address:[facility] [address] [place], [id number] Pcp:Nicole Rajput Subjective: * Chief Complaints: * [...] gamma globulinopathy-followed by Dr. Huang, EMG/ncv 10/29/2014, DOCTORATE OF CHIROPRACTIC-Dr. Lelia Mata, GI- Dr. Car, Body Design Checker- Dr. Bean, Opthalmology- Dr Liriano and Dr. [...] breast Ca, auto immune hepatitis. S iblings: [place], liver [place]. 2 brother(s) , 1 sister(s) [...] meals and at bedtime) , Taking Ipratropium [place] 0.03 % Solution 2 sprays in each [...] S pecimen Source Urine - Void - ?LAB: Urinalysis - Inhouse (Collection Date & Time - 08/19/2025)* Value Reference Range C olor/Clarity yellow * L euk trace * N itrite neg * U robili 3.2 * P rotein neg * p H 5.5 * B lood neg * S p. Gr. 1.010 * K etone neg * B melyssa neg * G yovany neg * Earlywine, Janeth 08/19/2025 1 1:52:49 AM EDT > Provider reviewed results while patient in office. * Procedure Codes: 8 1002 Urinalysis, no micro * Follow Up: v ia phone to report test results * Images: Billing Information: * Visit Code: 57646 Office Visit, Est Pt., Level 3. * Procedure Codes: 97745 Urinalysis, no micro. * Electronic signature of MARISOL Zhu on 08/24/2025 at 03:20 AM EDT Sign off status: Pending * Provider: MARISOL Skelton Date: 1 Generated for Joanna garcia/Joshua/eTransmitting on: 03:20 AM EDT History and Physical Notes [...]
--- OUTSIDE RECORDS SUMMARY | 2025-08-23 07:30 | XMS_ITS ---
Author Organization [facility] Address [address] [facility] [address] [place] [id number] Care Team Providers Care Emblem Maker Name Role Phone Nicole Rajput Primary Care [...] Inhalation every 4 hrs prn Active Ipratropium Marcus 0.03 % 2 sprays in e ach nostril Nasally Twice a day Active Levothyroxine Sodium 75 MCG 1 tab(s) ora lly once a day; Duration: 90 days Active Align 4 MG 1 cap(s) orally once a day; Duration: 28 day(s) 10/10/2022 Active MiraLax - 17 G ORALLY TWICE DAILY; Duration: 90 DAYS 05/07/2016 Active B-12 1000 MCG 1 tab(s) orally once a day 05/04/2014 Active Fluticasone Propionate 50 MCG/ACT 1 spray(s) in each nostril once a day; Duration: 30 day(s) 01/04/2021 Active Vitamin D3 50 MCG (2000 UT) 1 tab(s) ora lly once a day Active Ascorbic Acid 500 MG [...] as directed Orally twice a day Active Trintellix 5 MG 1 tablet Orally Once a day Active Methenamine Hippurate 1 GM 1/2 tablet Or ally Twice a day Active Restasis 0.05 % 1 drop into affected eye Ophthalmic Twice a day Active Calcium 600 MG 1 tablet with meals Orally Twice a day Active Problems Problem Type SNOMED Code ICD Code Onset Dates Problem Status W/U Status Risk Notes Problem Allergic rhinitis (83904497) Allergic rhinitis, unspecified seasonality, unspecified trigger (J30.9) Active confirmed Vital Signs Weight 182.5 lbs 08/23/2025 Blood pressure systolic 142 mm Hg 08/23/20 25 Blood pressure diastolic 70 mm Hg 025 Heart Rate 81 /min 08/23/2025 Height 64.50 in 08/23/2025 BMI 30.84 kg/m2 08/23/2025 Encounters Encounter Location Date Provider Diagnosis [facility] [address] [facility] [address] [facility] [address] [place] [id number] 08/23/2025 Nicole Rajput Allergic rhinitis, unspecified seasonality, unspecified trigger J30.9 Assessments Encounter Date Diagnosis (ICD Code) Assessment Notes Treatment Notes Treatment Clinical Notes Section Notes 08/23/2025 Allergic rhinitis, unspecified seasonality, unspecified trigger (ICD-10 - J30.9) Plan Of Treatment Next Appt Details Follow Up: 4 Weeks, Reason: Provider Name:Nicole Razo er, 09/27/2025 02:45:00 PM, [address] [facility] [address] [facility], [address], [place], [phone], Medications Administered Medication Instructions Date of Administration Dosage Notes allergy 08/23/2025 0.5 mL Mix 1: RT Uppe r allergy 08/23/2025 0.5 mL Mix 2: RT Lowe r allergy 08/23/2025 0.5 mL Mix 3: LT Arm Progress Notes * MARIE ROBERTOB:[birth year] (84 yo F)Acc No.[id number]:08/23/2025 Progress Notes Patient: YULI PANDEY Provider: Nicole Rajput M.D. :1940 A ge:84 Y S ex:Female Date:08/23/2025 Address:[address] [place] [address] [id number] Subjective: * Chief Complaints: * 1 . 2 week f/u and Allergy injection. * HPI: P sychology: The pt is here for a follow-up on Anxiety. Pt states she [facility] to [facility] and they put her on Trintellix 5 mg daily and that has helped with the anxiety. U rology: See note. Sarah started Cefuroxime. Took dose this AM. Culture was negative so she can discontinue. Saw Dr. Pedersen this morning. * ROS: C ONSTITUTIONAL: Positive for A monikaher physician seen since last visit? Yes, Sarah [facility], Dr. Pedersen this AM. Change in medication [...] gamma globulinopathy-followed by Dr. Huang, EMG/ncv 10/29/2014, FORENSIC DNA ANALYST-Dr. Lelia Mata, GI- Dr. Car, Electronic Semiconductor Processor- Dr. Bean, Opthalmology- Dr Liriano and Dr. Saeed. * Surgical History: R T Breast Cyst Removal , Colonoscopy 02/05/2006, 02/2011, 02/15/2011, Rectocoele [facility], Dr. Lelia Mata 09/09/2007, Lithotripsy 03/2009, [...] diverticulosis 08/19/2025. * Hospitalization/Major Diagno stic Procedure: [facility], tripped at 's office, hit head on wall 01/19/2008, [facility], Dr. Car, ERCP 09/2008, Dr Knapp Knee injections , COVID-19 11/13/2020-11/21/2020. * Family History: F ather: , CHF. M other: 89 yrs, breast Ca, auto immune hepatitis. S iblings: [place], liver [place]. 2 brother(s) , 1 sister(s) [...] meals and at bedtime) , Taking Ipratropium Marcus 0.03 % Solution 2 sprays in each [...] genetic/medication screen. Assessment: * Assessment: 1. A llergic rhinitis, unspecified seasonality, unspecified trigger - J30.9 (Primary) ? Plan: * Treatment: * Therapeutic Injections: allergy : 0.5 mL (Route: Subcutaneous) given by Meghana Abebe on subcutaneus (Allergic rhinitis, unspecified seasonality, unspecified trigger) allergy : 0.5 mL (Route: Subcutaneous) given by Meghana Abebe on subcutaneus allergy : 0.5 mL (Route: Subcutaneous) given by Meghana Abebe on subcutaneus (Allergic rhinitis, unspecified seasonality, unspecified trigger) * Procedure Codes: 9 5117 IMMUNOTHERAPY INJECTIONS * Follow Up: 4 Weeks * Images: Billing Information: * Visit Code: 85691 Office Visit, Est Pt., Level 4. * Procedure Codes: 32849 IMMUNOTHERAPY INJECTIONS. * Electronic signature of Nicole Rajput MD on 08/24/2025 at 03:21 AM EDT Sign off status: Pending * Provider: Nicole Rajput M.D. Date: Generated for Joanna garcia/Joshua/Mai on: 03:21 AM EDT History and Physical Notes [...]
[2025-08-23 14:13] LABS: Microscopic,Cath URINE MICROSCOPIC (MICROSCOPIC)
[2025-08-23 20:50] LABS: Appearance,Urine/Cath CLEAR (Clear); Bilirubin,Cath Negative (Negative); Blood, Urine/Cath Negative (Negative); Color,Urine/Cath YELLOW (Yellow); Glucose,Urine/Cath (UA) Negative (Negative); Ketones,Urine/Cath Negative (Negative); Leukocyte Esterase,Cath Negative (Negative); Nitrate,Cath Negative (Negative); PH,Urine/Cath 5.5 (5.0-8.5); Protein,Urine/Cath Negative (Negative); Specific Gravity, Urine/Cath 1.015 (1.005-1.030); Urobilinogen,Cath 0.2 EU/dl (0.2)
[2025-08-23 21:33] LABS: Bacteria,Urine/Cath 1+ /lpf; Mucus,Urine/Cath 1+ /lpf; Squamous Epithelial Ur./Cath Occasional #/hpf (0-5)
--- OUTSIDE RECORDS SUMMARY | 2025-08-24 03:21 | XMS_ITS | Patient Health Record ---
[facility] Address [address] [facility] [address] [place] [id number] Care Team Providers Care Quarter Lining Smoother Name Role Phone Nicole Rajput Primary Care Provider Stephen Uribe Unavailable [phone] Constantine Orantes Unavailable [phone] Priscilla Fernandez Unavailable [phone] Sarah Landa Unavailable [phone] Allergies Allergen (clinical drug ingredient) Drug/Non Drug [...] viewed by provider) Interpretation: Performing Lab: Notes/Report: Test performed by [facility] [address] [place] [address] , [address], [place] [address] Timo Parisi MD, Coal Getter CLIA: [id number] Specimen Source Urine - Void Culture, Urine See Below Final Report : No growth Urinalysis - Inhouse Reviewed date:08/19/2025 02:08:54 PM Interpretation: Performing Lab: Notes/Report: Color/Clarity yellow Leuk trace Nitrite neg Urobili 3.2 Protein neg pH 5.5 Blood neg Sp. Gr. 1.010 Ketone neg Bili neg Gluc neg H-Sputum Culture with Gram S tain Reviewed date:11/09/2024 04:45:54 PM Interpretation: Performing Lab: Notes/Report: GS Gram Stain: GS <10 Epithelial Cells / LPF GS 10 - 25 White Blood Cells / LPF GS Rare Gram Positive Cocci in Chains CUSPU Normal Respiratory Nancy Bone density Reviewed date:07/09/2025 05:43:05 PM Interpretation:osteopenia bilateral hips Performing Lab: Notes/Report: osteopenia bilateral hips Gram Stain Reviewed date:11/06/2024 08:30:27 AM Interpretation: Performing Lab: Notes/Report: CLIA: [id number] Timo Parisi MD, Coal Getter [address] [place] [address] , [address], [place] [address] Test performed by [facility] Specimen Source Sputum - cough Gram Stain [...] Oral pharyngeal contamination Culture cancelled. Please repeat. Urinalysis - Inhouse Reviewed date:08/13/2025 05:24:03 PM Interpretation: Performing Lab: Notes/Report: Color/Clarity yellow Leuk trace Nitrite neg Urobili 3.2 Protein neg pH 6.0 Blood trace-intact Sp. Gr. 1.015 Ketone neg Bili neg Gluc neg P-Culture, Urine Reviewed date:08/17/2025 11:01:35 AM Interpretation:E. Coli Performing Lab: Notes/Report: CLIA: [id number] Timo Parisi MD, Coal Getter [address] [place] [address] , [address], [place] [address] Test performed by [facility] Specimen Source Urine - Void Culture, Urine See Below See Microbiol ogy Report Escherichia coli 50,000-100,000 CFU/ml Escherichia coli Sensitivity Panel See Below Organism E. coli Antibiotic INTERP Amikacin S Ampicillin S Aztreonam S Cefepime S Cefoxitin S Ceftazidime S Ceftriaxone S Cefuroxime S Ciprofloxacin S Ertapenem S Gentamicin S Imipenem S Levofloxacin S Meropenem S Nitrofurantoin S Piperacillin/Tazo S Tetracycline S Tobramycin S Trimeth/Sulfa S S=SUSCEPTIBLE I=INTERMEDIATE R=RESISTANT Carotid Duplex Reviewed date:06/18/2025 12:36:46 PM Interpretation:carotid stenosis less than 50%- see 06/18/2025 Performing Lab: Notes/Report: carotid stenosis less than 50%- see 06/18/2025 Urinalysis - Inhouse Reviewed date:10/09/2024 12:23:21 PM Interpretation: Performing Lab: Notes/Report: Color/Clarity yellow/clear Leuk 1+ Nitrite Neg Urobili 3.2 Protein 1+ pH 5.5 Blood trace-lysed Sp. Gr. <1.005 Ketone Neg Bili Neg Gluc Neg P-Culture, Urine Reviewed date:10/13/2024 11:49:58 AM Interpretation:sensitive Performing Lab: Notes/Report: CLIA: [id number] Timo Parisi MD, Coal Getter [address] [place] [address] , [address], [place] [address] Test performed by [facility], [facility] Specimen Source Urine - Void Culture, Urine [...] - 38 plat 325 100 - 400 CBC Fingerstick (in house) Reviewed date:11/04/2024 12:41:01 [...] Test Cancelled Test Cancelled Test Cancel led CXR Reviewed date:11/05/2024 09:18:52 AM Interpretation: Performing Lab: Notes/Report: CXR Reviewed date:12/01/2024 12:27:28 PM Interpretation:possible pneumonia Performing Lab: Notes/Report: possible pneumonia P-Basic Metabolic Panel (BMP ) Reviewed date:12/26/2024 01:35:08 PM Interpretation:gluc 125 Performing Lab: Notes/Report: CLIA: [id number] Timo Parisi MD, Coal Getter [facility] , [address], [place] [address] Test performed by [facility], [facility] Sodium 144 135-145 mmol/L Potassium 4.0 3.5-5.3 [...] - 38 plat 375 100 - 400 P-Comprehensive Metabolic Pa kendra (CMP) Reviewed date:05/31/2025 03:52:02 PM Interpretation:Normal Performing Lab: Notes/Report: CLIA: [id number] Timo Parisi MD, Coal Get[employer] [address] [place] [address] , [place] [address] Test performed by [facility] Sodium 138 135-145 mmol/L Potassium 4.3 3.5-5.3 [...] Interpretation:Normal Performing Lab: Notes/Report: Test performed by [facility] [address] [place] [address] , [place] [address] Timo Parisi MD, Coal Getter CLIA: [id number] TSH 1.79 0.43-5.25 mU/L X ray : Foot, left Reviewed date:06/22/2025 02:21:02 PM Interpretation:nothing acute Performing Lab: Notes/Report: nothing acute H-CBC Reviewed date:09/23/2024 01:39:32 PM Interpretation:Normal Performing [...] Duration) Notes Start Date End Date Status MiraLax - 17 G ORALLY TWICE DAILY; Duration: 90 DAYS 05/07/2016 Active B-12 1000 MCG 1 tab(s) orally once a day 05/04/2014 Active Fluticasone Propionate 50 MCG/ACT 1 spray(s) in each nostril once a day; Duration: 30 day(s) 01/04/2021 Active Vitamin D3 50 MCG (1999 UT) 1 tab(s) ora lly once a day Active Align 4 MG 1 cap(s) orally once a day; Duration: 28 day(s) 10/10/2022 Active Ascorbic Acid 500 MG 1 tab(s) orally onc e a day Active Symbicort 160-4.5 MCG/ACT 2 puff(s) Inha lation 2 times a day; Duration: 30 days J45.41 Active Glucosamine Chond Triple/Vit D - as directed Orally Active Estradiol 0.1 MG/GM as directed Vaginal Active VOLTAREN GEL APPLIED TOPICALLY QI D NEEDED 06/15/2015 Active Aspirin Adult Low Dose 81 MG 1 tab(s) or ally once a day; Duration: 30 day(s) 04/01/2023 Active Metoprolol Succinate ER 25 MG 1 tablet O rally Once a day; Duration: 30 days 06/18/2025 Active Furosemide 20 MG 1 tablet Orally Once a day; Duration: 90 days 12/24/2024 Active Trintellix 5 MG 1 tablet Orally Once a day Active Ondansetron HCl 4 MG 1 tab(s) orally luis ry 8 hours as needed for nausea or vomiting 04/03/2022 Active Methenamine Hippurate 1 GM 1/2 tablet Or ally Twice a day Active ALPRAZolam 0.5 MG 1 tab(s) orally 3 times a day, as needed; Duration: 30 days 07/05/2025 Active Restasis 0.05 % 1 drop into affected eye Ophthalmic Twice a day Active Calcium 600 MG 1 tablet with meals Orally Twice a day Active Losartan Potassium 100 MG 1 tablet Orall y Once a day; Duration: 90 days Active Hydroxychloroquine Sulfate 2 00 MG as directed Orally twice a day Active Sucralfate 1 GM 1 tab(s) orally 4 times a day (before meals and at bedtime); Duration: 30 day(s) Active Albuterol Sulfate HFA 108 (9 0 Base) MCG/ACT 1 puff as needed Inhalation every 4 hrs prn Active Ipratropium Creston 0.03 % 2 sprays in e ach nostril Nasally Twice a day Active Omeprazole 40 MG 1 capsule 1/2 to 1 hour before morning meal Orally Once a day; Duration: 90 days Active Levothyroxine Sodium 75 MCG 1 tab(s) ora lly once a day; Duration: 90 days Active Immunizations Vaccine Route Administration Date Status Comme nts iZlpqiev-[id number]-apvsbuv e pts. IM Intramuscular 10/17/2011 Administered xFluzone High Dose-private (65yr&older) Unknown 09/07/2016 Administered xFluzone (6mos and older)-trivalent IM Intramuscular 08/16/2010 Administered xFlu shot-36 months and older IM Intramuscular 10/04/2008 Administered Tetanus-DT IM Intramuscular 07/13/2005 Administered Tetanus Tdap-Adacel (over 7yrs) IM Intramuscular 06/25/2017 Administered Prevnar (PCV13) IM Intramuscular 12/07/2014 Administered PNEUMOVAX 23 VACCINE IM Intramuscular 11/27/2016 Administe red PNEUMOVAX 23 VACCINE IM Intramuscular 06/25/2019 Administe red Fluzone PF Quad (6-35 months) Unknown 08/16/2014 Administered Fluzone PF Quad (6-35 months) Unknown 08/02/2015 Administered Fluzone PF Quad (6-35 months) Unknown 08/29/2022 Administered Fluzone High Dose (65yr and older) IM Intramuscular 08/24/2013 Administered Fluzone High Dose (65yr and older) IM Intramuscular 08/17/2019 Administered Fluzone High Dose (65yr and older) IM Intramuscular 08/11/2020 Administered Fluzone High Dose (65yr and older) IM Intramuscular 08/28/2021 Administered Fluzone High Dose (65yr and older) IM Intramuscular 08/08/2023 Administered DT, 7 YEARS OR OLDER Unknown 01/23/1997 Administered COVID 19 Pfizer Unknown 06/28/2021 Administered COVID 19 Pfizer Unknown 08/02/2021 Administered Problems Problem Type SNOMED Code ICD Code Onset Dates Problem Status W/U Status Risk Notes Problem Gastroesophageal reflux disease (483048375) GERD (gastroesophageal reflux disease) (K21.9) Active confirmed Problem History of pulmonary embolus (195367371) History of pulmonary embolism (Z86.711) Active confirmed Problem Hypothyroidism (35967045) Hypothyroidism (acquired) (E03.9) Active confirmed Problem Vitamin D deficiency (65920834) Vitamin D deficiency (E55.9) Active confirmed Problem Essential hypertension (00339829) Essential hypertension (I10) Active confirmed Problem Arthropathy (694298964) Arthropathy (M12.9) Active confirmed Problem Anxiety (92263934) Anxiety (F41.9) Active confi rmed Problem Dysuria (31501360) Dysuria (R30.0) Active confi rmed Problem Cardiomegaly (1655128) Cardiomegaly (I51.7) Active confirmed Problem Recurrent urinary tract infection (595737995) Recurrent UTI (N39.0) Active confirmed Problem Body mass index 30+ - obesity (021955566) BMI 30.0-30.9,adult (Z68.30) Active confirmed Problem History of urinary tract infection (1928745034481) History of UTI (Z87.440) Active confirmed Problem Restless legs (66733540) Restless legs (G25.81) Active confirmed Problem Seasonal allergic rhinitis (346051901) Other seasonal allergic rhinitis (J30.2) Active confirmed Problem Basal cell carcinoma of nose (974070551) Basal cell carcinoma of skin of nose (C44.311) Active confirmed Problem Monoclonal gammopathy (39712703) Monoclonal gammopathy (D47.2) Active confirmed Problem Neoplastic disease of uncertain behavior (511597092) Neoplasm of uncertain behavior, unspecified (D48.9) Active confirmed Problem Mixed hyperlipidemia (399014143) Mixed hyperlipidemia (E78.2) Active confirmed Problem Chronic pain (15927137) Other chronic pain (G89.29) Active confirmed Problem Localized, primary osteoarthritis of the hand (339144230) Primary osteoarthritis, right hand (M19.041) Active confirmed Problem Localized, primary osteoarthritis of the hand (640186469) Primary osteoarthritis, left hand (M19.042) Active confirmed Problem Gastroesophageal reflux disease (641564873) GERD without esophagitis (K21.9) Active confirmed Problem Major depression, single episode (60734319) Depression, controlled (F32.9) Active confirmed Problem Generalized anxiety disorder (84826863) Anxiety, generalized (F41.1) Active confirmed Problem Bronchitis (00689356) Bronchitis (J40) Active confirmed Problem Dermatitis (079237976) Dermatitis (L30.9) Active confirmed Problem Mild intermittent asthma (805765433) Mild intermittent asthma without complication (J45.20) Active confirmed Problem Herpes zoster without complication (236354529) Herpes zoster without complication (B02.9) Active confirmed Problem Rheumatoid arthritis (60562476) 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) Active confirmed Problem Occlusion and stenosis of multiple and bilateral cerebral arteries (225295132) Carotid stenosis, bilateral (I65.23) Active confirmed Problem Abnormal gait (08444590) Imbalance (R26.89) Active confirmed Problem Thrombocytosis (1385419) Thrombocytosis (D47.3) Active confirmed Problem Dependence on supplemental oxygen (236523167548) Oxygen dependent (Z99.81) Active confirmed Problem Adverse reaction caused by drug (57692194) Medication side effect (T88.7XXA) Active confirmed Problem History of malignant basal cell tumor of skin (630689104) History of basal cell carcinoma (Z85.828) Active confirmed Problem Bilateral carpal tunnel syndrome (96050670261760869) Bilateral carpal tunnel syndrome (G56.03) Active confirmed Problem Urge incontinence of urine (38338205) Urge incontinence of urine (N39.41) Active confirmed Problem Basal cell carcinoma of skin (000847907) Skin cancer, basal cell (C44.91) Active confirmed Problem Exacerbation of moderate persistent asthma (disorder) (139923852) Moderate persistent asthmatic bronchitis with acute exacerbation (J45.41) Active confirmed Problem Seasonal allergic rhinitis (524275129) Seasonal allergic rhinitis, unspecified trigger (J30.2) Active confirmed Problem Allergic rhinitis (09727446) Allergic rhinitis, unspecified seasonality, unspecified trigger (J30.9) Active confirmed Problem Single subsegmental pulmonary embolism without acute cor pulmonale (I26.93) Active confirmed Problem Multiple subsegmental pulmonary emboli without acute cor pulmonale (I26.94) Active confirmed Problem History of COVID-19 (826311428081891552 ) History of COVID-19 (Z86.16) Active confirmed Problem Long-term current use of anticoagulant (233715996) Current use of anticoagulant therapy (Z79.01) Active confirmed Problem Cough (45632138) Cough (R05.9) Active confirmed Problem Mild major depression (58956063) Mild major depression (F32.0) Active confirmed Vital Signs Heart Rate 81 /min 08/23/2025 Blood pressure diastolic 70 mm Hg 08/23/2025 Height 64.50 in 08/23/2025 Blood pressure systolic 142 mm Hg 08/23/2025 Weight 182.5 lbs 08/23/2025 BMI 30.84 kg/m2 08/23/2025 Encounters Encounter Location Date Provider Diagnosis [facility] [address] [place] [id number] 08/31/2024 Nicole Rajput 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 M05.741 ; Monoclonal gammopathy D47.2 ; Arthropathy M12.9 ; Essential hypertension I10 and GERD (gastroesophageal reflux disease) K21.9 [facility] [address] [place], [place] [id number] 09/14/2024 Priscilla Fernandez Fall as cause of accidental injury in home as place of occurrence W19.XXXA and Joint pain M25.50 [facility] [address] [place], [place] [id number] 10/09/2024 Nicole Rajput Recurrent UTI N39.0 ; Hypothyroidism (acquired) E03.9 and Anxiety F41.9 [facility] [address] [place] [id number] 10/22/2024 Nicole Rajput Essential hypertensi on I10 and Bronchitis J40 [facility] [address] [place], [place] [id number] 10/27/2024 Priscilla Fernandez Bronchitis J40 [facility] [address] [place] [id number] 11/04/2024 Sarah Crowdy Bronchitis J40 and Bilateral rales R09.89 [facility] [address] [place] [id number] 11/30/2024 Nicole Rajput Persistent cough R05 .3 [facility] [address] [place] [id number] 12/11/2024 Nicole Rajput Pneumonia of right l sergio due to infectious organism, unspecified part of lung J18.9 [facility] [address] [place], [place] [id number] 12/24/2024 Nicole Rajput Localized edema R60. 0 ; 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 M05.741 and Arthropathy M12.9 [facility] [address] [place] [id number] 12/25/2024 Nicole Rajput [facility] [address] [place] [id number] 01/21/2025 Nicole Rajput 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 M05.741 ; Arthropathy M12.9 and Medication side effect T88.7XXA [facility] [address] [place] [id number] 03/04/2025 Nicole Rajput Essential hypertensi on I10 ; Mild intermittent asthma without complication J45.20 ; Anxiety F41.9 ; Arthropathy M12.9 ; History of pulmonary embolism Z86.711 ; Bilateral carpal tunnel syndrome G56.03 ; Hypothyroidism (acquired) E03.9 ; BMI 30.0-30.9,adult Z68.30 and Mild major depression F32.0 [facility] [address] [place] [id number] 03/25/2025 Sarah Crowshon Essential hypertensi on I10 ; Status post carpal tunnel release of both wrists Z98.890 and BMI 29.0-29.9,adult Z68.29 [facility] [address] [place], [place] [id number] 04/01/2025 Sarah Crowdy Essential hypertensi on I10 [facility] [address] [place] [id number] 04/15/2025 Sarah Crowshon Essential hypertensi on I10 [facility] [address] [place] [id number] 04/20/2025 Priscilla Fernandez Acute bronchitis J20 .9 [facility] [address] [place] [id number] 04/29/2025 Nicole Rajput Anxiety F41.9 ; Righ t carotid bruit R09.89 and Essential hypertension I10 [facility] [address] [place], [place] [id number] 05/05/2025 Sarah Crowshon Anxiety F41.9 and Essential hypertension I10 [facility] [address] [place] [id number] 05/07/2025 Nicole Rajput [facility] [address] [place], [place] [id number] 05/10/2025 Nicole Rajput [facility] [address] [place] [id number] 05/12/2025 Sarha Crowdy Anxiety F41.9 and Essential hypertension I10 [facility] [address] [place] [id number] 05/19/2025 Sarah Crowdy Anxiety F41.9 [facility] [address] [place] [id number] 05/27/2025 Nicole Rajput Anxiety F41.9 ; Hypothyroidism (acquired) E03.9 ; History of pulmonary embolism Z86.711 ; Current use of anticoagulant therapy Z79.01 ; Mild major depression F32.0 and Other seasonal allergic rhinitis J30.2 [facility] [address] [place] [id number] 06/11/2025 Sarah Crowdy Anxiety F41.9 [facility] [address] [place] [id number] 06/18/2025 Nicole Rajput Anxiety, generalized F41.1 ; Essential hypertension I10 ; Sprain of left foot, initial encounter S93.602A and Moderate persistent asthmatic bronchitis with acute exacerbation J45.41 [facility] [address] [place] [id number] 06/21/2025 Nicole Rajput [facility] [address] [place] [id number] 06/24/2025 Nicole Rajput Essential hypertensi on I10 ; Anxiety F41.9 ; Depression, controlled F32.9 ; 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 M05.741 ; Arthropathy M12.9 and Sprain of left foot, subsequent encounter S93.602D [facility] [address] [place] [id number] 07/05/2025 Nicole Rajput Primary osteoarthrit is, right hand M19.041 ; Anxiety, generalized F41.1 and History of pulmonary embolism Z86.711 [facility] [address] [place] [id number] 07/12/2025 Nicole Rajput Anxiety, generalized F41.1 ; Tremor R25.1 and BMI 29.0-29.9,adult Z68.29 [facility] [address] [place] [id number] 07/22/2025 Nicole Rajput Anxiety F41.9 and Allergic rhinitis 477.9 [facility] [address] [place] [id number] 07/31/2025 Constantine Lineville Anxiety F41.9 [facility] [address] [place] [id number] 08/05/2025 Nicole Rajput Seasonal allergic rhinitis, unspecified trigger J30.2 [facility] [address] [place] [id number] 08/13/2025 Sarah Crowdy Dysuria R30.0 [facility] [address] [place] [id number] 08/19/2025 Sarah Crowdy Dysuria R30.0 [facility] [address] [place] [id number] 08/23/2025 Nicole Rajput Allergic rhinitis, unspecified seasonality, unspecified trigger J30.9 [facility] [address] [place] [id number] 08/25/2024 Nicole Rajput [facility] [address] [place] [id number] 09/07/2024 Constantine [place] [facility] [address] [place] [id number] 10/20/2024 Nicole Rajput [facility] [address] [place] [id number] 11/02/2024 Priscilla Friedmanond [facility] [address] [place] [id number] 11/05/2024 Sarah Crowdy [facility] [address] [place] [id number] 11/06/2024 Sarah Crowdy Pneumonia J18.9 [facility] [address] [place] [id number] 11/09/2024 Nicole Guadalupe J40 [facility] [address] [place] [id number] 11/13/2024 J Low Rajput [facility] [address] [place] [id number] 11/17/2024 Stephen Uribe [facility] [address] [place] [id number] 11/17/2024 J Low Rajput [facility] [address] [place] [id number] 11/24/2024 Priscilla Fernandez [facility] [address] [place] [id number] 12/01/2024 J Low Rajput [facility] [address] [place] [id number] 12/14/2024 J Low Rajput [facility] [address] [place] [id number] 12/26/2024 J Low Rajput [facility] [address] [place] [id number] 01/07/2025 J Low Rajput Anxiety F41.9 [facility] [address] [place] [id number] 01/22/2025 J Low Rajput [facility] [address] [place] [id number] 03/08/2025 J Low Rajput [facility] [address] [place] [id number] 04/07/2025 Constantine [place] Anxiety F41.9 [facility] [address] [place] [id number] 04/14/2025 J Low Rajput [facility] [address] [place] [id number] 04/20/2025 J Low Rajput [facility] [address] [place] [id number] 04/25/2025 J Low Rajput Osteopenia M85.80 an d Osteoporosis screening Z13.820 [facility] [address] [place] [id number] 05/03/2025 J Low Rajput [facility] [address] [place] [id number] 05/07/2025 J Low Rajput Anxiety F41.9 [facility] [address] [place] [id number] 05/07/2025 Sarah Landa [facility] [address] [place] [id number] 05/12/2025 J Low Rajput Localized edema R60. 0 [facility] [address] [place] [id number] 05/19/2025 J Low Rajput [facility] [address] [place] [id number] 06/02/2025 J Low Rajput [facility] [address] [place] [id number] 06/07/2025 J Low Rajput [facility] [address] [place] [id number] 06/08/2025 J Low Rajput Anxiety F41.9 [facility] [address] [place] [id number] 06/15/2025 J Low Rajput [facility] [address] [place] [id number] 06/28/2025 J Low Rajput [facility] [address] [place] [id number] 07/02/2025 J Low Rajput [facility] [address] [place] [id number] 07/06/2025 J Low Rajput [facility] [address] [place] [id number] 07/08/2025 J Low Rajput [facility] [address] [place] [id number] 07/09/2025 Sarah Landa [facility] [address] [place] [id number] 07/09/2025 Sarah Landa [facility] [address] [place] [id number] 07/26/2025 Nicole Rajput [facility] [address] [facility] [address] [place] [id number] 08/03/2025 Nicole Rajput Assessments Encounter Date Diagnosis (ICD Code) Assessment Notes Treatment Notes Treatment Clinical Notes Section Notes 08/31/2024 Monoclonal gammopathy (ICD-10 - D47.2) 08/31/2024 [...] - F41.9) 06/11/2025 Anxiety (ICD-10 - F41.9) Dicsussed with Dr. Rajput. Will add the seroquel. 06/18/2025 Essential hypertension (ICD-10 - I10) 06/18/2025 Anxiety, generalized (ICD-10 - F41.1) 06/24/2025 Essential hypertension (ICD-10 - I10) 06/24/2025 Anxiety (ICD-10 - F41.9) TRY TO DECREASE Alprazolam to 1/2 AM, 1/2 Noon, 1 PM 07/05/2025 Primary osteoarthritis, right hand (ICD-10 - M19.041) 07/05/2025 Anxiety, generalized (ICD-10 - F41.1) 07/12/2025 Tremor (ICD-10 - R25.1) 07/12/2025 Anxiety, generalized (ICD-10 - F41.1) continue present dosing 07/22/2025 Allergic rhinitis (ICD-10 - 477.9) 07/22/2025 Anxiety (ICD-10 - F41.9) 07/31/2025 Anxiety (ICD-10 - F41.9) No change in treatment today, keep follow up with Dr. Rajput 08/05/2025 Seasonal allergic rhinitis, unspecified trigger (ICD-10 - J30.2) 08/13/2025 Dysuria (ICD-10 - R30.0) 08/19/2025 Dysuria (ICD-10 - R30.0) 08/23/2025 Allergic rhinitis, unspecified seasonality, unspecified trigger (ICD-10 - J30.9) 07/12/2025 BMI 29.0-29.9,adult (ICD-10 - Z68.29) 05/27/2025 Hypothyroidism (acquired) (ICD-10 - E03.9) 07/05/2025 History of pulmonary embolism (ICD-10 - Z86.711) 06/24/2025 Depression, controlled (ICD-10 - F32.9) 06/18/2025 Sprain of left foot, initial encounter (ICD-10 - S93.602A) 05/12/2025 Essential hypertension (ICD-10 - I10) 05/05/2025 Essential hypertension (ICD-10 - I10) 03/25/2025 BMI 29.0-29.9,adult (ICD-10 - Z68.29) 04/29/2025 Essential hypertension (ICD-10 - I10) 03/04/2025 Anxiety (ICD-10 - F41.9) 08/31/2024 Arthropathy (ICD-10 - M12.9) 01/21/2025 Medication side effect (ICD-10 - T88.7XXA) 12/24/2024 Arthropathy (ICD-10 - M12.9) 11/06/2024 Pneumonia (ICD-10 - J18.9) 10/09/2024 Anxiety (ICD-10 - F41.9) 08/31/2024 Essential hypertension (ICD-10 - I10) 03/04/2025 Arthropathy (ICD-10 - M12.9) 05/27/2025 History of pulmonary embolism (ICD-10 - Z86.711) 06/18/2025 Moderate persistent asthmatic bronchitis with acute exacerbation (ICD-10 - J45.41) 06/24/2025 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 (ICD-10 - M05.741) 06/24/2025 Arthropathy (ICD-10 - M12.9) 05/27/2025 Current use of anticoagulant therapy (ICD-10 - Z79.01) 03/04/2025 History of pulmonary embolism (ICD-10 - Z86.711) 08/31/2024 GERD (gastroesophageal reflux disease) (ICD-10 - K21.9) 03/04/2025 Bilateral carpal tunnel syndrome (ICD-10 - G56.03) Surgery March 18 05/27/2025 Mild major depression (ICD-10 - F32.0) 06/24/2025 Sprain of left foot, subsequent encounter (ICD-10 - S93.602D) 05/27/2025 Other seasonal allergic rhinitis (ICD-10 - J30.2) 03/04/2025 Hypothyroidism (acquired) (ICD-10 - E03.9) 03/04/2025 BMI 30.0-30.9,adult (ICD-10 - Z68.30) 03/04/2025 Mild major depression (ICD-10 - F32.0) Plan Of Treatment Pending Test Test Name Order Date P-Culture, Urine 08/19/2025 Next Appt Details Provider Name:Nicole Razo er, 09/27/2025 02:45:00 PM, [address], [address], [place], [place], [id number], Insurance Providers Payer Name Payer Address Payer Phone Subscriber Number Group Number Insured Name Patient Relationship to Insured Coverage Start Date Coverage End Date [employer] (MEDICAR E) [address] [address] [place] [address] [phone] [id number] YULI ROBERTO Self - patient is the insured Medications Administered Medication Instructions Date of Administration Dosage Notes allergy 05/27/2025 Mix #2 R arm l ower allergy 05/27/2025 Mix #1R arm up per allergy 05/27/2025 Mix#3 L arm allergy 07/22/2025 0.35 mL Mix 1 LA allergy 07/22/2025 0.35 mL Mix 2 BRIAN allergy 07/22/2025 0.35 mL Mix 3 RLA allergy 08/05/2025 0.5 mL allergy 08/05/2025 0.5 mL allergy 08/05/2025 0.5 mL allergy 08/23/2025 0.5 mL Mix 1: RT Uppe r allergy 08/23/2025 0.5 mL Mix 2: RT Lowe r allergy 08/23/2025 0.5 mL Mix 3: LT Arm Depo- Medrol 40 mg/ml 09/27/2009 2 mL Dexamethasone 11/14/2007 1 mL Dexamethasone 04/10/2012 1.0 mL Dexamethasone 06/11/2012 1 mL Dexamethasone 10/16/2014 1 mL Dexamethasone 01/07/2016 1 mL Dexamethasone 04/24/2017 1 mL Dexamethasone 06/05/2024 1 mL Medical (General) History Medical History History ICD Code Hypertension Anxiety Seasonal Allergies Depression 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 Lelia SNEED- Dr. Car Medical And Scientific Illustrator- Dr. Bean Opthalmology- Dr Liriano and Dr. Saeed Surgical History Surgery Date(Month/Year) RT Breast Cyst Removal Colonoscopy 02/05/2006, 02/2011, 02/15/2011 Rectocoele [facility], Dr. Lelia villeda 09/09/2007 Lithotripsy 03/2009 Hysterectomy Abdominal 08/23/2009 colonoscopy, Dr. Car, 4 tubular adenomas, 1 hyperplastic polyp 03/13/2011 Cholecystectomy 11/19/2013 EGD and Colonoscopy, Dr. Car 09/[address] Car, adenomatous madyson yp 12/31/2016 Dexa scan 2016 Mammogram 11/2016 lasix eye surgery 10/17/2018 Basal cell CA of the nose, w ith reconstructive surgery, Dr. Annette Rojas 03/2022 Colonoscopy, diverticulosis 08/19/2025 Hospitalization History Reason Date(Month/Year) COVID-19 11/13/2020- 1 Dr Knapp Knee injections [facility], Dr. Car, ERCP 09/2008 [facility], tripped at 's office , hit head on wall 01/19/2008
--- OUTSIDE RECORDS SUMMARY | 2025-08-24 03:22 | XMS_ITS | Clinical Summary ---
Author Organization Healthcare Address [address] [place] [address] Care Team Providers Care Marine Specialist Name Role Phone Steven Rajput MD Primary Care Provider [phone] Ramona Loya APRN Unavailable [phone] Allergies Active Allergy Reactions Criticality Noted [...] Active Problems Problem Noted Date Diagnosed Date Ocular migraine 05/25/2021 Assessment & Plan (05/25/2021 [...] vision changes, chest pain, or recurrent infections. Hypothyroidism HTN (hypertension) Resolved Problems Problem Noted Date Diagnosed Date Resolved Date Mild peripheral edema 05/25/20212024 Assessment & Plan (05/25/2021 4:22 PM EDT): Takes Lasix daily, but has held the past day or so. Given mild non-pitting edema and b/l fine crackles encouraged compliance with Lasix and inhalers to minimize risk of symptomatic fluid overload. Abdominal pain 05/15/2016 05/25/2021 Constipation 05/15/2016 08/08/2025 Gastrointestinal tract finding 01/20/2016 05/25/2021 Atrophic vaginitis [...] (2 of 2 - PCV) 06/25/2020 06/25/2019 [id number] Vaccine (3 - Pfizer risk series) 08/30/2021 [...] patient's age to complete this topic Insurance [facility] GABY RUFFIN [id number] [facility] MEDICARE Care Teams Marine Specialist Relationship Specialty Start Date End Date Steven Rajput MD [address] [facility] [address] [place] [address] PCP - General 03/31/21 Ramona Loya, LEENA [address] [place] [address] [phone] Nurse Practitioner Internal Medicine 01/05/22
== END 2025-08-23 23:59 | disposition home or self-care (01) ==
LOC: LAB.DROPOF 08-24 03:18
PROVIDERS: PCP Urology; Visit Provider Urology
DX: N39.0 Urinary tract infection, site not specified (principal)
CPT/HCPCS: 81001; 87086

== ENCOUNTER 2025-08-27 11:44 | Outpatient (CLI) | payer MEDICARE, SELFPAY ==
[2025-08-27 13:41] LABS: Blood Urea Nitrogen 26 mg/dl (7-17); Creatinine,Serum 0.70 mg/dl (0.52-1.04); Estimated Glomerular Filt Rate 80 ml/min (>60); GFR (African American) 97 ML/MIN (>60)
== END 2025-08-27 23:59 | disposition home or self-care (01) ==
LOC: LAB 11:45
PROVIDERS: PCP Family Medicine; Visit Provider Urology
DX: R10.9 Unspecified abdominal pain (principal)
CPT/HCPCS: 36415; 82565; 84520

== ENCOUNTER 2025-08-30 08:03 | Outpatient (CLI) | payer MEDICARE, SELFPAY ==
--- OUTSIDE RECORDS SUMMARY | 2025-07-31 07:15 | XMS_ITS ---
Author Organization [facility] Address [address] [facility] [address] [place] [id number] Care Team Providers Care Supervisor Garage Name Role Phone Nicole Rajput Primary Care Provider Constantine Orantes Unavailable [phone] Allergies Allergen (clinical drug ingredient) Drug/Non Drug [...] Unknown Drug Allergy Active REASON FOR VISIT anxiety Medications Medication SIG (Take, Route, Frequency, Duration) Notes Start Date End Date Status Xyzal Allergy 24HR 5 MG 1 tab(s) orally once a day (in the evening); Duration: 30 days Not-Taking Levalbuterol Tartrate 45 MCG/ACT 1 puff as needed Inhalation 3 times a day 04/20/2025 Not-Taking Losartan Potassium 100 MG 1 tablet Orall y Once a day; Duration: 90 days Active Desvenlafaxine Succinate ER 25 MG 1 tablet Orally Once a day; Duration: 30 days 07/22/2025 Active Ondansetron HCl 4 MG 1 tab(s) orally every 8 hours as needed for nausea or vomiting 04/03/2022 Active Furosemide 20 MG 1 tablet Orally Once a day; Duration: 90 days 12/24/2024 Active Omeprazole 40 MG 1 capsule 1/2 to 1 hour before morning meal Orally Once a day; Duration: 90 days Active Levothyroxine Sodium 75 MCG 1 tab(s) ora lly once a day; Duration: 90 days Active ALPRAZolam 0.5 MG 1 tab(s) orally 3 times a day, as needed; Duration: 30 days 07/05/2025 Active Metoprolol Succinate ER 25 MG 1 tablet Orally Once a day; Duration: 30 days 06/18/2025 Active Albuterol Sulfate HFA 108 (90 Base) MCG/ACT 1 puff as needed Inhalation every 4 hrs prn Active Ipratropium [place] 0.03 % 2 sprays in e ach nostril Nasally Twice a day Active Sucralfate 1 GM 1 tab(s) orally 4 times a day (before meals and at bedtime); Duration: 30 day(s) Active Align 4 MG 1 cap(s) orally once a day; Duration: 28 day(s) 10/10/2022 Active Ascorbic Acid 500 MG 1 tab(s) orally onc e a day Active B-12 1000 MCG 1 tab(s) orally once a day 05/04/2014 Active VOLTAREN GEL APPLIED TOPICALLY QID NEEDED 06/15/2015 Active Fluticasone Propionate 50 MCG/ACT 1 spray(s) in each nostril once a day; Duration: 30 day(s) 01/04/2021 Active Vitamin D3 50 MCG (2000 UT) 1 tab(s) ora lly once a day Active MiraLax - 17 G ORALLY TWICE [...] MG/GM as directed Vaginal Active Hydroxychloroquine Sulfate 200 MG as directed Orally twice a day Active Restasis 0.05 % 1 drop into affected eye Ophthalmic Twice a day Active Calcium 600 MG 1 tablet with meals Orally Twice a day Active Vital Signs Weight 178.6 lbs 07/31/2025 Blood pressure systolic 162 mm Hg 07/31/20 25 Blood pressure diastolic 78 mm Hg 09/13/2 025 Heart Rate 73 /min 07/31/2025 Height 64.50 in 07/31/2025 BMI 30.18 kg/m2 07/31/2025 Encounters Encounter Location Date Provider Diagnosis [facility] [address] [facility] [address] [facility] [address] [place] [phone] 07/31/2025 Constantinekamran Orantes Anxiety F41.9 Assessments Encounter Date Diagnosis (ICD Code) Assessment Notes Treatment Notes Treatment Clinical Notes Section Notes 07/31/2025 Anxiety (ICD-10 - F41.9) No change in treatment today, keep follow up with Dr. Rajput Plan Of Treatment Treatment Notes Assessment Notes Anxiety No change in treatme nt today, keep follow up with Dr. Rajput Next Appt Details Follow Up: as scheduled,and prn, Reason: Provider Name:Nicole Raoz er, 09/27/2025 02:45:00 PM, [address] [facility], [address], [place], [phone], Progress Notes * MARIE ROBERTOB:[birth year] (84 yo F)Acc No.[id number]:07/31/2025 Progress Notes Patient: YULI PANDEY Provider: Beatriz Orantes M.D. :1940 A ge:84 Y S ex:Female Date:07/31/2025 [place], [id number] Pcp:Nicole Rajput Subjective: * Chief Complaints: * 1 . Anxiety. * HPI: P sychology: 84 year old female presents with c/o Anxiety P t was started on Desvenlafaxine 25mg on 07/22. Pt states she has been having issues adjusting since starting medication. Pt states she is feeling more anxious and not sleeping well. P t states she has had to back down on the alprazolam . * ROS: D ERMATOLOGY: no R ej. n o H fidel. G ASTROENTEROLOGY: no N ausea. n o V omiting. U ROLOGY: no D ifficulty urinating. n o B lood in urine. 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 Lelia Mata, GI- Dr. Car, Lockstitch Coat Joiner- Dr. Bean, Opthalmology- Dr Liriano and Dr. Saeed. * Surgical History: R T Breast Cyst Removal , Colonoscopy 02/05/2006, 02/2011, 02/15/2011, Rectocoele [place] [facility], Dr. Lelia Mata 09/09/2007, Lithotripsy 03/2009, [...] 's office, hit head on wall 01/19/2008, [facility], Dr. Car, ERCP 09/2008, Dr Knapp Knee injections , COVID-19 11/13/2020-11/21/2020. * Family History: F ather: , CHF. M other: 89 yrs, breast Ca, auto immune hepatitis. S iblings: [place], liver [place]. 2 brother(s) , 1 sister(s) . 1 son(s) , 1 daughter(s) . . * Social History: C URRENT TOBACCO USE: No S moking Status: Patient does NOT smoke. C affeine: no. Marital Status: . Past smoking status: no, Smoking status: Does not smoke, Former Smoker: Yes, Quit smokin's, Smoking pack year history: 1. Alcohol: no. * Medications: T aking Calcium 600 MG Tablet 1 tablet with meals Orally Twice a day , Taking Restasis 0.05 % Emulsion 1 drop into [...] meals and at bedtime) , Taking Ipratropium [place] 0.03 % Solution 2 sprays in each nostril Nasally Twice a day , Taking Albuterol Sulfate HFA 108 (90 Base) MCG/ACT Aerosol Solution 1 puff as needed Inhalation every 4 hrs prn , Taking Levothyroxine Sodium 75 MCG Tablet 1 tab(s) orally once a day , Taking Omeprazole 40 MG [...] needed for nausea or vomiting , Taking Desvenlafaxine Succinate ER 25 MG Tablet Extended Release 24 Hour 1 tablet Orally Once a day , Taking Losartan Potassium 100 [...] difficulty walking. Objective: * Vitals: W t: 178.6, Temp: 97.9, BP: 162/78, HR: 73, Nurse: ARNAUD, Ht: 64.50, BMI:30.18. * Examination: P sychology: General Appearance: N AD. G rooming : a dequate.?Eye contact : n ormal. M ood : p leasant. Assessment: * Assessment: 1. A nxiety - F41.9 (Primary) Plan: * Treatment: * Procedure Codes: G 2211 Complex e/m visit add on * Follow Up: a s scheduled,and prn * Images: Billing Information: * Visit Code: 08773 Office Visit, Est Pt., Level 3. * Procedure Codes: G2211 Complex e/m visit add on. * Electronic signature of Bethany Orantes MD on 08/30/2025 at 08:05 AM EDT Sign off status: Pending * Provider: Beatriz Orantes M.D. Date: 0 07/31/2025 Generated for Joanna garcia/Joshua/Kelseyitting on: 08:05 AM EDT History and Physical Notes * HPI (History of Present Illness) Category Sub-Category Detail Notes Category Not es Psychology Anxiety Pt was started o n Desvenlafaxine 25mg on 07/22. Pt states she has been having issues adjusting since starting medication. Pt states she is feeling more anxious and not sleeping well. Pt states she has had to back down on the alprazolam Examination Category Sub-Category Detail Notes Category Not es Psychology General Appearance: NAD Grooming : adequate Eye contact : normal Mood : pleasant
--- OUTSIDE RECORDS SUMMARY | 2025-08-05 11:15 | XMS_ITS ---
[facility] Address [address] [facility] 36 [facility] [address] [place] [id number] Care Team Providers Care Interior Design Teacher Name Role Phone Nicole Rajput Primary Care Provider [phone] REASON FOR VISIT Allgery shot Medications Medication [...] day; Duration: 90 days Active Ipratropium [place] 0.03 % 2 sprays in e ach [...] Status Risk Notes Problem Seasonal allergic rhinitis (646620141) Seasonal allergic rhinitis, unspecified trigger (J30.2) Active confirmed Encounters Encounter Location Date Provider Diagnosis [facility] [address] [place] [id number] 08/05/2025 Nicole Rajput Seasonal allergic rhinitis, unspecified trigger J30.2 Assessments Encounter Date Diagnosis (ICD Code) Assessment Notes Treatment Notes Treatment Clinical Notes Section Notes 08/05/2025 Seasonal allergic rhinitis, unspecified trigger (ICD-10 - J30.2) Plan Of Treatment Next Appt Details Provider Name:Nicole Razo er, 09/27/2025 02:45:00 PM, [address], [address], [place], [id number], Medications Administered Medication Instructions Date of Administration Dosage Notes allergy 08/05/2025 0.5 mL allergy 08/05/2025 0.5 mL allergy 08/05/2025 0.5 mL Progress Notes * LOPEZ MARIEB:[birth year] (84 yo F)Acc No.[id number]:08/05/2025 Patient: YULI PANDEY Provider: Nicole Rajput M.D. :1940 A ge:84 Y S ex:Female Date:08/05/2025 Address:[address] [place], [place] [address], [id number] Subjective: * Chief Complaints: * 1 . [...] and at bedtime) , Taking Ipratropium [place] 0.03 % Solution 2 sprays in each [...] Information: * Visit Code: * Procedure Codes: 03092 IMMUNOTHERAPY INJECTIONS. * Electronic signature of Nicole Rajput MD on 08/30/2025 at 08:05 AM EDT Sign off status: Pending * Provider: Nicole Rajput M.D. Date: 0 08/05/2025 Generated for Joanna garcia/Joshua/Kelseyitting on: 1 08:05 AM EDT
--- OUTSIDE RECORDS SUMMARY | 2025-08-13 05:45 | XMS_ITS ---
Author Organization [facility] Address [address] [place] [id number] Care Team Providers Care Compensation Specialist Name Role Phone Nicole Rajput Primary Care Provider [phone] Sarah Landa Unavailable [phone] Allergies Allergen (clinical drug ingredient) Drug/Non Drug [...] Active Results Component Value Reference Range Notes Urinalysis - Inhouse Reviewed date:08/13/2025 05:24:03 PM Interpretation: Performing Lab: Notes/Report: Color/Clarity yellow Leuk trace Nitrite neg Urobili 3.2 Protein neg pH 6.0 Blood trace-intact Sp. Gr. 1.015 Ketone neg Bili neg Gluc neg P-Culture, Urine Reviewed date:08/17/2025 11:01:35 AM Interpretation:E. Coli Performing Lab: Notes/Report: Test performed by [facility] [address] [place] [address] , [address], [place] [address] Timo Parisi MD, Industrial Hygiene Engineer CLIA: [id number] Specimen Source Urine - Void Culture, Urine See Below See Microbiol ogy Report Escherichia coli 50,000-100,000 CFU/m l Escherichia coli Sensitivity Panel See Below ____ Organism E. coli Antibiotic INTERP ____ Amikacin S Ampicillin S Aztreonam S Cefepime S Cefoxitin S Ceftazidime S Ceftriaxone S Cefuroxime S Ciprofloxacin S Ertapenem S Gentamicin S Imipenem S Levofloxacin S Meropenem S Nitrofurantoin S Piperacillin/Tazo S Tetracycline S Tobramycin S Trimeth/Sulfa S ___ S=SUSCEPTIBLE I=INTERMEDIATE R=RESISTANT REASON FOR VISIT Poss. UTI and flu shot Medications Medication SIG (Take, Route, Frequency, Duration) Notes Start Date End Date Status Desvenlafaxine Succinate ER 25 MG 1 tablet Orally Once a day; Duration: 30 days 07/22/2025 Active Levalbuterol Tartrate 45 MCG/ACT 1 puff as needed Inhalation 3 times a day 04/20/2025 Not-Taking Xyzal Allergy 24HR 5 MG 1 tab(s) orally once a day (in the evening); Duration: 30 days Not-Taking Losartan Potassium 100 MG 1 tablet Orall y Once a day; Duration: 90 days Active Symbicort 160-4.5 MCG/ACT 2 puff(s) Inhalation 2 times a day; Duration: 30 days J45.41 Active ALPRAZolam 0.5 MG 1 tab(s) orally 3 times a day, as needed; Duration: 30 days 07/05/2025 Active Ondansetron HCl 4 MG 1 tab(s) orally every 8 hours as needed for nausea or vomiting 04/03/2022 Active Furosemide 20 MG 1 tablet Orally Once a day; Duration: 90 days 12/24/2024 Active Metoprolol Succinate ER 25 MG 1 tablet Orally Once a day; Duration: 30 days 06/18/2025 Active Omeprazole 40 MG 1 capsule 1/2 to 1 hour before morning meal Orally Once a day; Duration: 90 days Active Cefdinir 300 MG 1 cap(s) Orally Two times a day; Duration: 7 days 08/13/2025 Active Levothyroxine Sodium 75 MCG 1 tab(s) ora lly once a day; Duration: 90 days Active Ipratropium [place] 0.03 % 2 sprays in e ach nostril Nasally Twice a day Active Albuterol Sulfate HFA 108 (90 Base) MCG/ACT 1 puff as needed Inhalation every 4 hrs prn Active Sucralfate 1 GM 1 tab(s) orally 4 times a day (before meals and at bedtime); Duration: 30 day(s) Active Ascorbic Acid 500 MG 1 tab(s) orally once a day Active Vitamin D3 50 MCG (2000 UT) 1 tab(s) ora lly once a day Active Fluticasone Propionate 50 MCG/ACT 1 spray(s) in each nostril once a day; Duration: 30 day(s) 01/04/2021 Active MiraLax - 17 G ORALLY TWICE DAILY; Duration: 90 DAYS 05/07/2016 Active Align 4 MG 1 cap(s) orally once a day; Duration: 28 day(s) 10/10/2022 Active B-12 1000 MCG 1 tab(s) orally once a day 05/04/2014 Active Aspirin Adult Low Dose 81 MG 1 tab(s) or ally once a day; Duration: 30 day(s) 04/01/2023 Active VOLTAREN GEL APPLIED TOPICALLY QID NEEDED 06/15/2015 Active Estradiol 0.1 MG/GM as directed Vaginal Active Glucosamine Chond Triple/Vit D - as directed Orally Active Calcium 600 MG 1 tablet with meals Orally Twice a day Active Restasis 0.05 % 1 drop into affected eye Ophthalmic Twice a day Active Trintellix 5 MG 1 tablet Orally Once a day Active Hydroxychloroquine Sulfate 200 MG as directed Orally twice a day Active Vital Signs Weight 178.8 lbs 08/13/2025 Blood pressure systolic 120 mm Hg 08/13/20 25 Blood pressure diastolic 82 mm Hg 025 Heart Rate 76 /min 08/13/2025 Height 64.50 in 08/13/2025 BMI 30.21 kg/m2 08/13/2025 Encounters Encounter Location Date Provider Diagnosis [facility] [address] [facility] 36 [facility] [address] [place] [id number] 08/13/2025 Sarah Landa Dysuria R30.0 Assessments Encounter Date Diagnosis (ICD Code) Assessment Notes Treatment Notes Treatment Clinical Notes Section Notes 08/13/2025 Dysuria (ICD-10 - R30.0) Plan Of Treatment Medication Medication Name Sig Start Date Stop Date Notes Cefdinir 300 MG 1 cap(s) Orally Two times a day; Duration: 7 days 08/13/2025 Next Appt Details Follow Up: via phone to repo rt test results, Reason: Provider Name:Nicole aRzo er, 09/27/2025 02:45:00 PM, [facility] 36 [facility], [address], [place], [id number], Progress Notes * MARIE ROBERTOB:[birth year] (84 yo F)Acc No.[id number]:08/13/2025 Progress Notes Patient: YULI PANDEY Provider: MARISOL Skelton :1940 A ge:84 Y S ex:Female Date:08/13/2025 Address:[address] [place], [place] [id number] Pcp:Nicole Rajput Subjective: * Chief Complaints: * 1 . Poss. UTI and flu shot. * HPI: U rology: Denies : frequent urination. D enies : burning sensation.?Denies : urgency. D enies : flank pain. Pt sts that last night it seemed she was unable to go and sts she did take some Azo. Pt sts she has had that happen before and just wanted to be sure she does not have a UTI. * ROS: D ERMATOLOGY: no R ej. n o H fidel. G ASTROENTEROLOGY: no N ausea. n o V omiting. U ROLOGY: no D ifficulty urinating. n o B lood in urine. 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 Lelia Mata, GI- Dr. Car, Sweat Box Attendant- Dr. Bean, Opthalmology- Dr Liriano and Dr. [...] 's office, hit head on wall 01/19/2008, [facility], Dr. Car, ERCP 09/2008, Dr Knapp Knee injections , COVID-19 11/13/2020-11/21/2020. * Family History: F ather: , CHF. M other: 89 yrs, breast Ca, auto immune hepatitis. S iblings: [place], liver [place]. 2 brother(s) , 1 sister(s) . 1 son(s) , 1 daughter(s) . . * Social History: C URRENT TOBACCO USE: No S moking Status: Patient does NOT smoke. C affeine: no. Marital Status: . Past smoking status: no, Smoking status: Does not smoke, Former Smoker: Yes, Quit smokin's, Smoking pack year history: 1. Alcohol: no. * Medications: T aking Trintellix 5 MG Tablet 1 tablet Orally Once a day , Taking Calcium 600 MG Tablet 1 tablet with [...] meals and at bedtime) , Taking Ipratropium [place] 0.03 % Solution 2 sprays in each [...] a day , Notes to Pharmacist: J45.41, Not- Taking Levalbuterol Tartrate 45 MCG/ACT Aerosol 1 puff as needed Inhalation 3 times a day , Not-Taking Xyzal Allergy 24HR 5 MG Tablet 1 tab(s) orally once a day (in the evening) , Medication List reviewed and reconciled with the patient * Allergies: S ulfa Antibiotics, Macrobid: nausea, Cipro: heel pain, levoFLOXacin: leg pain, difficulty walking. Objective: * Vitals: W t: 178.8, Temp: 97.4, BP: 120/82, HR: 76, O2 Sat: 98% on RA, Nurse: neeru, Ht: 64.50, BMI:30.21. * Examination: G eneral Examination: General Appearance: N AD. C hest: n ormal shape and expansion. H eart: R SR. L ungs: c lear to auscultation. A bdomen: b owel sounds present, soft and nontender. Assessment: * Assessment: 1. D ysuria - R30.0 (Primary) Plan: * Treatment: Value Reference Range C ulture, Urine See Below - * S pecimen Source Urine - Void - * S ensitivity Panel See Below - * E scherichia coli 50,000-100,000 CFU/ml Escherichia coli - * Jenn Franco 08/16/2025 04: 54:50 PM EDT > pt started on Cefdinir.Jenn Franco 08/17/2025 11:00:48 AM EDT > pt informed. ?LAB: Urinalysis - Inhouse (Collection Date & Time - 08/13/2025)* Value Reference Range C olor/Clarity yellow * L euk trace * N itrite neg * U robili 3.2 * P rotein neg * p H 6.0 * B lood trace-intact * S p. Gr. 1.015 * K etone neg * B melyssa neg * G yovany neg * Remedios Mantilla 08/13/2025 10:3 2:38 AM EDT > Provider reviewed results while patient in office.Sarah Landa 08/13/2025 05:23:59 PM EDT > * Procedure Codes: G 2211 Complex e/[place], [address] Urinalysis, no micro * Follow Up: v ia phone to report test results * Images: Billing Information: * Visit Code: 93220 Office Visit, Est Pt., Level 3. * Procedure Codes: G2211 Complex e/[place]. [address] Urinalysis, no micro. * Electronic signature of MARISOL Zhu on 08/30/2025 at 08:08 AM EDT Sign off status: Pending * Provider: MARISOL Skelton Date: 0 08/13/2025 Generated for Printi ng/Faxing/eTransmitting on: 1 08:08 AM EDT History and Physical Notes * HPI (History of Present Illness) Category Sub-Category Detail Notes Category Not es Urology frequent urination Pt sts th at last night it seemed she was unable to go and sts she did take some Azo. Pt sts she has had that happen before and just wanted to be sure she does not have a UTI burning sensation flank pain urgency Examination Category Sub-Category Detail Notes Category Not es General Examination Heart: RSR Lungs: clear to auscultatio n Abdomen: bowel sounds present , soft and nontender General Appearance: NAD Chest: normal shape and exp ansion
--- OUTSIDE RECORDS SUMMARY | 2025-08-19 07:15 | XMS_ITS ---
Author Organization [facility] Address [address] [place] [id number] Care Team Providers Care Sander Operator Name Role Phone Nicole Rajput Primary Care Provider Sarah Landa Unavailable [phone] Allergies Allergen (clinical drug ingredient) Drug/Non Drug [...] Reference Range Notes Urinalysis - Inhouse Reviewed date:08/19/2025 02:08:54 PM Interpretation: Performing Lab: Notes/Report: Color/Clarity yellow Leuk trace Nitrite neg Urobili 3.2 Protein neg pH 5.5 Blood neg Sp. Gr. 1.010 Ketone neg Bili neg Gluc neg P-Culture, Urine Reviewed date:08/24/2025 01:46:24 PM Interpretation:No Growth Performing Lab: Notes/Report: Test performed by [employer] [employer] [facility] [address] [place] [address] , [address], [place] [address] Timo Parisi MD, Special Equipment Technician CLIA: [id number] Specimen Source Urine - Void Culture, Urine See Below Final Report : No growth REASON FOR VISIT UTI Medications Medication SIG (Take, Route, Frequency, Duration) Notes Start Date End Date Status Calcium 600 MG 1 tablet with meals Orally Twice a day Active Trintellix 5 MG 1 tablet Orally Once a day Active Estradiol 0.1 MG/GM as directed Vaginal Active Hydroxychloroquine Sulfate 2 00 MG as directed Orally twice a day Active Restasis 0.05 % 1 drop into affected eye Ophthalmic Twice a day Active Cefuroxime Axetil 250 MG 1 tablet Orally every 12 hrs; Duration: 5 days 08/19/2025 Active Cefdinir 300 MG 1 cap(s) Orally Two times a day; Duration: 7 days 08/13/2025 Active Symbicort 160-4.5 MCG/ACT 2 puff(s) Inha lation 2 times a day; Duration: 30 days J45.41 Active Desvenlafaxine Succinate ER 25 MG 1 [...] a day; Duration: 30 days 06/18/2025 Active Losartan Potassium 100 MG 1 tablet [...] Inhalation every 4 hrs prn Active Ipratropium [place] 0.03 % 2 sprays in e ach [...] a day; Duration: 28 day(s) 10/10/2022 Active MiraLax - 17 G ORALLY TWICE DAILY; Duration: 90 DAYS 05/07/2016 Active B-12 1000 MCG 1 tab(s) orally once a day 05/04/2014 Active VOLTAREN GEL APPLIED TOPICALLY QI D NEEDED 06/15/2015 Active Aspirin Adult Low Dose 81 MG 1 tab(s) or ally once a day; Duration: 30 day(s) 04/01/2023 Active Glucosamine Chond Triple/Vit D - as directed Orally Active Vital Signs Weight 180.4 lbs 08/19/2025 Blood pressure systolic 120 mm Hg 08/19/20 25 Blood pressure diastolic 70 mm Hg 025 Heart Rate 67 /min 08/19/2025 Height 64.50 in 08/19/2025 BMI 30.48 kg/m2 08/19/2025 Encounters Encounter Location Date Provider Diagnosis [facility] [address] [facility] 36 [facility] [address] [place] [id number] 08/19/2025 Sarah Landa Dysuria R30.0 Assessments Encounter Date Diagnosis (ICD Code) Assessment Notes Treatment Notes Treatment Clinical Notes Section Notes 08/19/2025 Dysuria (ICD-10 - R30.0) Plan Of Treatment Medication Medication Name Sig Start Date Stop Date Notes Cefuroxime Axetil 250 MG 1 tablet Orally every 12 hrs; Duration: 5 days 08/19/2025 Next Appt Details Follow Up: via phone to repo rt test results, Reason: Provider Name:Nicole Razo , 09/27/2025 02:45:00 PM, [address] [facility] 36 [facility], [address], [place], [id number], Progress Notes * MARIE LOPEZB:[birth year] (84 yo F)Acc No.[id number]:08/19/2025 Progress Notes Patient: YULI PANDEY Provider: MARISOL Skelton :1940 A ge:84 Y S ex:Female Date:08/19/2025 Address:[address] [place], [id number] Pcp:Nicole Rajput Subjective: * Chief Complaints: * 1 . UTI. * HPI: U rology: 84 year old female presents with c/o Pressure P t states she was here last Saturday. She had a UA, and she states she is still having some of the symptoms. Denies : frequent urination. D enies : burning sensation.?Denies : flank pain. D enies : Urine Odor. D enies : Vaginal Itching. * ROS: D ERMATOLOGY: no R ej. n o H fidel. G ASTROENTEROLOGY: no N ausea. n o V omiting. n o D iarrhea.? N EUROLOGY: no H eadache. n o M luh loss. 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 Lelia Mata, GI- Dr. Car, Char Puller- Dr. Bean, Opthalmology- Dr Liriano and Dr. [...] Rojas 03/2022. * Hospitalization/Major Diagno stic Procedure: erin Villegas, tripped at 's office, hit head on wall 01/19/2008, [facility], ERCP 09/2008, Dr Knapp Knee injections , COVID-19 11/13/2020-11/21/2020. * Family History: F ather: , CHF. M other: 89 yrs, breast Ca, auto immune hepatitis. S iblings: [place], liver [place]. 2 brother(s) , 1 sister(s) . 1 son(s) , 1 daughter(s) . . * Social History: C URRENT TOBACCO USE: No S moking Status: Patient does NOT smoke. C affeine: no. Marital Status: . Past smoking status: no, Smoking status: Does not smoke, Former Smoker: Yes, Quit smokin', Smoking pack year history: 1. Alcohol: no. [...] meals and at bedtime) , Taking Ipratropium Luana 0.03 % Solution 2 sprays in each [...] a day , Notes to Pharmacist: J45.41, Taking Cefdinir 300 MG Capsule 1 cap(s) Orally Two times a day , Discontinued Levalbuterol Tartrate 45 MCG/ACT Aerosol 1 puff as needed Inhalation 3 times a day , Discontinued Xyzal Allergy 24HR 5 MG Tablet 1 tab(s) orally once a day (in the evening) , Medication List reviewed and reconciled with the patient * Allergies: S ulfa Antibiotics, Macrobid: nausea, Cipro: heel pain, levoFLOXacin: leg pain, difficulty walking. Objective: * Vitals: W t: 180.4, Temp: 97.8, BP: 120/70, HR: 67, Nurse: pe, Ht: 64.50, BMI:30.48. * Examination: G eneral Examination: General Appearance: N AD. C hest: n ormal shape and expansion. H eart: R SR. L ungs: c lear to auscultation. A bdomen: b owel sounds present, soft and nontender, no organomegaly or masses. B ack: n o CVA tenderness.? Assessment: * Assessment: 1. D ysuria - R30.0 (Primary) Plan: * Treatment: Value Reference Range C ulture, Urine See Below - * S pecimen Source Urine - Void - * Jenn Franco 08/24/2025 01: 46:12 PM EDT > see 08/23 OV ?LAB: Urinalysis - Inhouse (Collection Date & Time - 08/19/2025)* Value Reference Range C olor/Clarity yellow * L euk trace * N itrite neg * U robili 3.2 * P rotein neg * p H 5.5 * B lood neg * S p. Gr. 1.010 * K etone neg * B melyssa neg * G yovany neg * Janeth Santamaria 08/19/2025 1 1:52:49 AM EDT > Provider reviewed results while patient in office. * Procedure Codes: G 2211 Complex e/[place], [address] Urinalysis, no micro * Follow Up: v ia phone to report test results * Images: Billing Information: * Visit Code: 53272 Office Visit, Est Pt., Level 3. * Procedure Codes: G2211 Complex e/[place]. [address] Urinalysis, no micro. * Electronic signature of MARISOL Zhu on 08/30/2025 at 08:06 AM EDT Sign off status: Pending * Provider: MARISOL Skelton Date: 1 Generated for Joanna garcia/Joshua/eTransmitting on: 08:06 AM EDT History and Physical Notes * HPI (History of Present Illness) Category Sub-Category Detail Notes Category Not es Urology frequent urination burning sensation flank pain Urine Odor Vaginal Itching Pressure Pt states she was he re last Saturday. She had a UA, and she states she is still having some of the symptoms Examination Category Sub-Category Detail Notes Category Not es General Examination Heart: RSR Lungs: clear to auscultatio n Abdomen: bowel sounds present , soft and nontender, no organomegaly or masses General Appearance: NAD Back: no CVA tenderness Chest: normal shape and exp ansion
--- OUTSIDE RECORDS SUMMARY | 2025-08-23 07:30 | XMS_ITS ---
Author Organization [facility] Address [address] [facility] [address] [place] [id number] Care Team Providers Care Scuba Diving Teacher Name Role Phone Nicole Rajput Primary Care Provider [phone] Allergies Allergen (clinical drug ingredient) Drug/Non Drug [...] Inhalation every 4 hrs prn Active Ipratropium Melstone 0.03 % 2 sprays in e ach [...] W/U Status Risk Notes Problem Allergic rhinitis (31436862) Allergic rhinitis, unspecified seasonality, unspecified trigger (J30.9) Active confirmed Vital Signs Weight 182.5 lbs 08/23/2025 Blood pressure systolic 142 mm Hg 08/23/20 25 Blood pressure diastolic 70 mm Hg 025 Heart Rate 81 /min 08/23/2025 Height 64.50 in 08/23/2025 BMI 30.84 kg/m2 08/23/2025 Encounters Encounter Location Date Provider Diagnosis [facility] [address] [facility] [address] [facility] [address] [place] [id number] 08/23/2025 Nicole Rajput Anxiety F41.9 ; Dysuria [...] Name:Nicole Razo er, 09/27/2025 02:45:00 PM, [address] [facility] [address] [facility], [address], [place], [phone], Medications Administered Medication Instructions Date of Administration Dosage Notes allergy 08/23/2025 0.5 mL Mix 1: RT Uppe r allergy 08/23/2025 0.5 mL Mix 2: RT Lowe r allergy 08/23/2025 0.5 mL Mix 3: LT Arm Progress Notes * MARIE ROBERTOB:[birth year] (84 yo F)Acc No.[id number]:08/23/2025 Progress Notes Patient: YULI PANDEY Provider: Nicole Rajput M.D. :1940 A ge:84 Y S ex:Female Date:08/23/2025 Address:[id number] Subjective: * Chief Complaints: * 1 . 2 week f/u and Allergy injection. * HPI: P sychology: The pt is here for a follow-up on Anxiety. Pt states she went to [facility] and they put her on Trintellix 5 [...] gamma globulinopathy-followed by Dr. Huang, EMG/ncv 10/29/2014, BUILDINGS AND GROUNDS SUPERVISOR-Dr. Lelia Mata, GI- Dr. Car, File System Installer- Dr. Bean, Opthalmology- Dr Liriano and Dr. Saeed. * Surgical History: R T Breast Cyst Removal , Colonoscopy 02/05/2006, 02/2011, 02/15/2011, Rectocoele [facility], Dr. Lelia Mata 09/09/2007, Lithotripsy 03/2009, [...] breast Ca, auto immune hepatitis. S iblings: [place], liver [place]. 2 brother(s) , 1 sister(s) [...] meals and at bedtime) , Taking Ipratropium Melstone 0.03 % Solution 2 sprays in each [...] G 2211 Complex e/[place], [address] IMMUNOTHERAPY INJECTIONS * Follow Up: 4 Weeks * Images: Billing Information: * Visit Code: 87076 Office Visit, Est Pt., Level 3. Modifiers: 25 * Procedure Codes: G2211 Complex e/[place]. [address] IMMUNOTHERAPY INJECTIONS. * Electronic signature of Nicole Rajput MD on 08/30/2025 at 08:08 AM EDT Sign off status: Pending * Provider: Nicole Rajput M.D. Date: Generated for Joanna garcia/Joshua/Kelseyitting on: 08:08 AM EDT History and Physical Notes [...]
--- OUTSIDE RECORDS SUMMARY | 2025-08-30 08:08 | XMS_ITS | Patient Health Record ---
[facility] Address [address] [facility] [address] [place] [id number] Care Team Providers Care Code And Test Clerk Name Role Phone Nicole Rajput Primary Care Provider [phone] Stephen Uribe Unavailable [phone] Constantine Orantes Unavailable [phone] Priscilla Fernandez Unavailable [phone] Sarah Landa Unavailable [phone] Allergies Allergen (clinical drug ingredient) Drug/Non Drug [...] Growth Performing Lab: Notes/Report: Test performed by [facility] [place] [facility] , [address], [place] [address] Timo Parisi MD, Quantitative Analyst CLIA: [id number] Specimen Source Urine - Void Culture, Urine See Below Final Report : No growth H-Sputum Culture with Gram S tain Reviewed date:11/09/2024 04:45:54 PM Interpretation: Performing Lab: Notes/Report: GS Gram Stain: GS <10 Epithelial Cells / LPF GS 10 - 25 White Blood Cells / LPF GS Rare Gram Positive Cocci in Chains CUSPU Normal Respiratory Nancy Gram Stain Reviewed date:11/06/2024 08:30:27 AM Interpretation: Performing Lab: Notes/Report: Test performed by [facility] [address] [place] [address] , [address], [place] [address] Timo Parisi MD, Quantitative Analyst CLIA: [id number] Specimen Source Sputum - cough Gram Stain [...] Oral pharyngeal contamination Culture cancelled. Please repeat. P-Culture, Urine Reviewed date:08/17/2025 11:01:35 AM Interpretation:E. Coli Performing Lab: Notes/Report: Test performed by [facility] [address] [place], [place] [address] [place] , [address], [place] [address] Timo Parisi MD, Quantitative Analyst CLIA: [id number] Specimen Source Urine - Void Culture, Urine [...] Tobramycin S Trimeth/Sulfa S S=SUSCEPTIBLE I=INTERMEDIATE R=RESISTANT Urinalysis - Inhouse Reviewed date:08/13/2025 05:24:03 PM Interpretation: Performing Lab: Notes/Report: Color/Clarity yellow Leuk trace Nitrite neg Urobili 3.2 Protein neg pH 6.0 Blood trace-intact Sp. Gr. 1.015 Ketone neg Bili neg Gluc neg H-CBC Reviewed date:09/23/2024 01:39:32 PM Interpretation:Normal Performing [...] 0.5 0.0-0.4 K/mm3 BA# 0.1 0-0.2 K/mm3 P-Culture, Respiratory Reviewed date:11/06/2024 08:30:18 AM Interpretation: Performing Lab: Notes/Report: Test Cancelled Test Cancelled Test Cancel led CBC Fingerstick (in house) Reviewed date:11/04/2024 12:41:01 [...] - 38 plat 415 100 - 400 CXR Reviewed date:11/05/2024 09:18:52 AM Interpretation: Performing Lab: Notes/Report: Bone density Reviewed date:07/09/2025 05:43:05 PM Interpretation:osteopenia bilateral hips Performing Lab: Notes/Report: osteopenia bilateral hips Carotid Duplex Reviewed date:06/18/2025 12:36:46 PM Interpretation:carotid stenosis less than 50%- see 06/18/2025 Performing Lab: Notes/Report: carotid stenosis less than 50%- see 06/18/2025 Influenza Screen (in house) Reviewed date:10/23/2024 10:20:53 [...] AM Interpretation: Performing Lab: Notes/Report: Result: Neg P-Basic Metabolic Panel (BMP ) Reviewed date:12/26/2024 01:35:08 PM Interpretation:gluc 125 Performing Lab: Notes/Report: Test performed by [facility] [address] [place] [address] , [address], [place] [address] Timo Parisi MD, Quantitative Analyst CLIA: [id number] Sodium 144 135-145 mmol/L Potassium 4.0 3.5-5.3 [...] Interpretation:Normal Performing Lab: Notes/Report: Test performed by [facility] [address] [place] [address] [address], [place] [address] Timo Parisi MD, Quantitative Analyst CLIA: [id number] Sodium 138 135-145 mmol/L Potassium 4.3 3.5-5.3 [...] Interpretation:Normal Performing Lab: Notes/Report: Test performed by [facility] [address] [place] [address] , [address], [place] [address] Timo Parisi MD, Quantitative Analyst CLIA: [id number] TSH 1.79 0.43-5.25 mU/L X ray : Foot, left Reviewed date:06/22/2025 02:21:02 PM Interpretation:nothing acute Performing Lab: Notes/Report: nothing acute CXR Reviewed date:12/01/2024 12:27:28 PM Interpretation:possible pneumonia Performing Lab: Notes/Report: possible pneumonia CBC Fingerstick (in house) Reviewed date:10/28/2024 12:11:40 [...] - 38 plat 325 100 - 400 Urinalysis - Inhouse Reviewed date:10/09/2024 12:23:21 PM Interpretation: Performing Lab: Notes/Report: Color/Clarity yellow/clear Leuk 1+ Nitrite Neg Urobili 3.2 Protein 1+ pH 5.5 Blood trace-lysed Sp. Gr. <1.005 Ketone Neg Bili Neg Gluc Neg P-Culture, Urine Reviewed date:10/13/2024 11:49:58 AM Interpretation:sensitive Performing Lab: Notes/Report: Test performed by [facility] [address] [place] [address] , [address], [place] [address] Timo Parisi MD, Quantitative Analyst CLIA: [id number] Specimen Source Urine - Void Culture, Urine [...] Tobramycin S Trimeth/Sulfa S S=SUSCEPTIBLE I=INTERMEDIATE R=RESISTANT Medications Medication SIG (Take, Route, Frequency, Duration) [...] a day; Duration: 30 day(s) 04/01/2023 Active Trintellix 5 MG 1 tablet Orally Once a day Active Metoprolol Succinate ER [...] Inhalation every 4 hrs prn Active Ipratropium Flora 0.03 % 2 sprays in e ach nostril Nasally Twice a day Active Omeprazole 40 MG 1 capsule 1/2 to 1 hour before morning meal Orally Once a day; Duration: 90 days Active Levothyroxine Sodium 75 MCG 1 tab(s) ora lly once a day; Duration: 90 days Active Immunizations Vaccine Route Administration Date Status Comme nts hZyubppi-dzfopbsvq-sumkngh e pts. IM Intramuscular 10/17/2011 Administered xFluzone [...] Status Risk Notes Problem Gastroesophageal reflux disease (721587218) GERD (gastroesophageal reflux disease) (K21.9) Active confirmed Problem History of pulmonary embolus (234802289) History of pulmonary embolism (Z86.711) Active confirmed Problem Hypothyroidism (85283295) Hypothyroidism (acquired) (E03.9) Active confirmed Problem Vitamin D deficiency (65302287) Vitamin D deficiency (E55.9) Active confirmed Problem Essential hypertension (70752789) Essential hypertension (I10) Active confirmed Problem Arthropathy (626141804) Arthropathy (M12.9) Active confirmed Problem Anxiety (26626785) Anxiety (F41.9) Active confi rmed Problem Dysuria (98349651) Dysuria (R30.0) Active confi rmed Problem Cardiomegaly (3162271) Cardiomegaly (I51.7) Active confirmed Problem Recurrent urinary tract infection (806327937) Recurrent UTI (N39.0) Active confirmed Problem Body mass index 30+ - obesity (511250422) BMI 30.0-30.9,adult (Z68.30) Active confirmed Problem History of urinary tract infection (9998849122610) History of UTI (Z87.440) Active confirmed Problem Restless legs (13010448) Restless legs (G25.81) Active confirmed Problem Seasonal allergic rhinitis (033379504) Other seasonal allergic rhinitis (J30.2) Active confirmed Problem Basal cell carcinoma of nose (404014531) Basal cell carcinoma of skin of nose (C44.311) Active confirmed Problem Monoclonal gammopathy (91869326) Monoclonal gammopathy (D47.2) Active confirmed Problem Neoplastic disease of uncertain behavior (558224741) Neoplasm of uncertain behavior, unspecified (D48.9) Active confirmed Problem Mixed hyperlipidemia (644996294) Mixed hyperlipidemia (E78.2) Active confirmed Problem Chronic pain (07886743) Other chronic pain (G89.29) Active confirmed Problem Localized, primary osteoarthritis of the hand (276784128) Primary osteoarthritis, right hand (M19.041) Active confirmed Problem Localized, primary osteoarthritis of the hand (430012187) Primary osteoarthritis, left hand (M19.042) Active confirmed Problem Gastroesophageal reflux disease (198566764) GERD without esophagitis (K21.9) Active confirmed Problem Major depression, single episode (48229376) Depression, controlled (F32.9) Active confirmed Problem Generalized anxiety disorder (90519455) Anxiety, generalized (F41.1) Active confirmed Problem Bronchitis (54546344) Bronchitis (J40) Active confirmed Problem Dermatitis (342917274) Dermatitis (L30.9) Active confirmed Problem Mild intermittent asthma (865545077) Mild intermittent asthma without complication (J45.20) Active confirmed Problem Herpes zoster without complication (396137454) Herpes zoster without complication (B02.9) Active confirmed Problem Rheumatoid arthritis (82350806) 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) Active confirmed Problem Occlusion and stenosis of multiple and bilateral cerebral arteries (695077882) Carotid stenosis, bilateral (I65.23) Active confirmed Problem Abnormal gait (31998679) Imbalance (R26.89) Active confirmed Problem Thrombocytosis (9742176) Thrombocytosis (D47.3) Active confirmed Problem Dependence on supplemental oxygen (005219576433) Oxygen dependent (Z99.81) Active confirmed Problem Adverse reaction caused by drug (55087126) Medication side effect (T88.7XXA) Active confirmed Problem History of malignant basal cell tumor of skin (775205232) History of basal cell carcinoma (Z85.828) Active confirmed Problem Bilateral carpal tunnel syndrome (82537505117946152) Bilateral carpal tunnel syndrome (G56.03) Active confirmed Problem Urge incontinence of urine (56042075) Urge incontinence of urine (N39.41) Active confirmed Problem Basal cell carcinoma of skin (894660324) Skin cancer, basal cell (C44.91) Active confirmed Problem Exacerbation of moderate persistent asthma (disorder) (675186829) Moderate persistent asthmatic bronchitis with acute exacerbation (J45.41) Active confirmed Problem Seasonal allergic rhinitis (625619050) Seasonal allergic rhinitis, unspecified trigger (J30.2) Active confirmed Problem Allergic rhinitis (67043684) Allergic rhinitis, unspecified seasonality, unspecified trigger (J30.9) Active confirmed Problem Single subsegmental pulmonary embolism without acute cor pulmonale (I26.93) Active confirmed Problem Multiple subsegmental pulmonary emboli without acute cor pulmonale (I26.94) Active confirmed Problem History of COVID-19 (756048499313400092 ) History of COVID-19 (Z86.16) Active confirmed Problem Long-term current use of anticoagulant (369840880) Current use of anticoagulant therapy (Z79.01) Active confirmed Problem Cough (78976337) Cough (R05.9) Active confirmed Problem Mild major depression (23497216) Mild major depression (F32.0) Active confirmed Vital Signs Heart Rate 81 /min 08/23/2025 Blood pressure diastolic 70 mm Hg 08/23/2025 Height 64.50 in 08/23/2025 Blood pressure systolic 142 mm Hg 08/23/2025 Weight 182.5 lbs 08/23/2025 BMI 30.84 kg/m2 08/23/2025 Encounters Encounter Location Date Provider Diagnosis [facility] [address] [facility] [address] [place] [id number] 08/31/2024 Nicole Rajput 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 M05.741 ; Monoclonal gammopathy D47.2 ; Arthropathy M12.9 ; Essential hypertension I10 and GERD (gastroesophageal reflux disease) K21.9 [facility] [address] [place], [place] [id number] 09/14/2024 Priscilla Fernandez Fall as cause of accidental injury in home as place of occurrence W19.XXXA and Joint pain M25.50 [facility] [address] [place], [place] [id number] 10/09/2024 Nicole Rajput Recurrent UTI N39.0 ; Hypothyroidism (acquired) E03.9 and Anxiety F41.9 [facility] [address] [place], [place] [id number] 10/22/2024 Nicole Rajput Essential hypertensi on I10 and Bronchitis J40 [facility] [address] [place], [place] [id number] 10/27/2024 Priscilla Fernandez Bronchitis J40 [facility] [address] [place], [place] [id number] 11/04/2024 Sarah Crowdy Bronchitis J40 and Bilateral rales R09.89 [facility] [address] [place], [place] [id number] 11/30/2024 Nicole Rajput Persistent cough R05 .3 [facility] [address] [place], [place] [id number] 12/11/2024 Nicole Rajput Pneumonia of right l sergio due to infectious organism, unspecified part of lung J18.9 [facility] [address] [place], [place] [id number] 12/24/2024 Nicole Rajput Localized edema R60. 0 ; 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 M05.741 and Arthropathy M12.9 [facility] [address] [place], [place] [id number] 12/25/2024 Nicole Rajput [facility] [address] [place], [place] [id number] 01/21/2025 Nicole Rajput 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 M05.741 ; Arthropathy M12.9 and Medication side effect T88.7XXA [facility] [address] [facility] [address] [place] [id number] 03/04/2025 Nicole Rajput Essential hypertensi on I10 ; Mild intermittent asthma without complication J45.20 ; Anxiety F41.9 ; Arthropathy M12.9 ; History of pulmonary embolism Z86.711 ; Bilateral carpal tunnel syndrome G56.03 ; Hypothyroidism (acquired) E03.9 ; BMI 30.0-30.9,adult Z68.30 and Mild major depression F32.0 [facility] [address] [place], [place] [id number] 03/25/2025 Sarah Crowdy Essential hypertensi on I10 ; Status post carpal tunnel release of both wrists Z98.890 and BMI 29.0-29.9,adult Z68.29 [facility] [address] [place], [place] [id number] 04/01/2025 Sarah Crowdy Essential hypertensi on I10 [facility] [address] [place] [id number] 04/15/2025 Sarah Crowdy Essential hypertensi on I10 [facility] [address] [place], [place] [id number] 04/20/2025 Priscilla Fernandez Acute bronchitis J20 .9 [facility] [address] [facility] [address] [place], [place] [id number] 04/29/2025 Nicole Rajput Anxiety F41.9 ; Righ t carotid bruit R09.89 and Essential hypertension I10 [facility] [address] [facility] [address] [place] [id number] 05/05/2025 Sarah Crowdy Anxiety F41.9 and Essential hypertension I10 [facility] [address] [facility] [address] [place] [id number] 05/07/2025 Nicole Rajput [facility] [address] [facility] [address] [place] [id number] 05/10/2025 Nicole Rajput [facility] [address] [place] [id number] 05/12/2025 Sarah Crowdy Anxiety F41.9 and Essential hypertension I10 [facility] [address] [facility] [address] [place] [id number] 05/19/2025 Sarah Crowdy Anxiety F41.9 [facility] [address] [place], [place] [id number] 05/27/2025 Nicole Rajput Anxiety F41.9 ; Hypothyroidism (acquired) E03.9 ; History of pulmonary embolism Z86.711 ; Current use of anticoagulant therapy Z79.01 ; Mild major depression F32.0 and Other seasonal allergic rhinitis J30.2 [facility] [address] [facility] [address] [place] [id number] 06/11/2025 Sarah Crowdy Anxiety F41.9 [facility] [address] [place], [place] [id number] 06/18/2025 Nicole Rajput Anxiety, generalized F41.1 ; Essential hypertension I10 ; Sprain of left foot, initial encounter S93.602A and Moderate persistent asthmatic bronchitis with acute exacerbation J45.41 [facility] [address] [place] [id number] 06/21/2025 Nicole Rajput [facility] [address] [place] [id number] 06/24/2025 Nicole Rajput Essential hypertensi on I10 ; Anxiety F41.9 ; Depression, controlled F32.9 ; 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 M05.741 ; Arthropathy M12.9 and Sprain of left foot, subsequent encounter S93.602D [facility] [address] [facility] [address] [place] [id number] 07/05/2025 Nicole Rajput Primary osteoarthrit is, right hand M19.041 ; Anxiety, generalized F41.1 and History of pulmonary embolism Z86.711 [facility] [address] [place], [place] [id number] 07/12/2025 Nicole Rajput Anxiety, generalized F41.1 ; Tremor R25.1 and BMI 29.0-29.9,adult Z68.29 [facility] [address] [place] [id number] 07/22/2025 Nicole Rajput Anxiety F41.9 and Allergic rhinitis 477.9 [facility] [address] [place] [id number] 07/31/2025 Constantine [place] Anxiety F41.9 [facility] [address] [place] [id number] 08/05/2025 Nicole Rajput Seasonal allergic rhinitis, unspecified trigger J30.2 [facility] [address] [place] [id number] 08/13/2025 Sarah Crowdy Dysuria R30.0 [facility] [address] [place] [id number] 08/19/2025 Sarah Crowdy Dysuria R30.0 [facility] [address] [place] [id number] 08/23/2025 Nicole Rajput Anxiety F41.9 ; Dysu janie R30.0 and Allergic rhinitis, unspecified seasonality, unspecified trigger J30.9 [facility] [address] [place] [id number] 09/07/2024 Constantine [place] [facility] [address] [place] [id number] 10/20/2024 Nicole Rajput [facility] [address] [place] [id number] 11/02/2024 Priscilla Friedmanond [facility] [address] [place] [id number] 11/05/2024 Sarah Crowdy [facility] [address] [place] [id number] 11/06/2024 Sarah Crowdy Pneumonia J18.9 [facility] [address] [place] [id number] 11/09/2024 Nicole Rajput Bronchitis J40 [facility] [address] [place] [id number] 11/13/2024 J Low Rajput [facility] [address] [place] [id number] 11/17/2024 Stephen Uribe [facility] [address] [place] [id number] 11/17/2024 J Low Rajput [facility] [address] [place] [id number] 11/24/2024 Prisclila Fernandez [facility] [address] [place] [id number] 12/01/2024 J Low Rajput [facility] [address] [place] [id number] 12/14/2024 J Low Rajput [facility] [address] [place] [id number] 12/26/2024 J Low Rajput [facility] [address] [place] [id number] 01/07/2025 J Low Rajput Anxiety F41.9 [facility] [address] [place] [id number] 01/22/2025 J Low Rajput [facility] [address] [place] [id number] 03/08/2025 J oLw Rajput [facility] [address] [place] [id number] 04/07/2025 Constantine [place] Anxiety F41.9 [facility] [address] [place] [id number] 04/14/2025 J Low Rajput [facility] [address] [place] [id number] 04/20/2025 J Low Rajput [facility] [address] [place] [id number] 04/25/2025 J Low Rajput Osteopenia M85.80 an d Osteoporosis screening Z13.820 [facility] [address] [place] [id number] 05/03/2025 J Low Rajput [facility] [address] [place] [id number] 05/07/2025 J Low Rajput Anxiety F41.9 [facility] [address] [place] [id number] 05/07/2025 Sarah Landa [facility] [address] [place] [id number] 05/12/2025 J Low Rajput Localized edema R60. 0 [facility] [address] [place] [id number] 05/19/2025 J Low Rajput [facility] [address] [place] [id number] 06/02/2025 J Low Rajput [facility] [address] [place] [id number] 06/07/2025 J Low Rapjut [facility] [address] [place] [id number] 06/08/2025 J Low Rajput Anxiety F41.9 [facility] [address] [place] [id number] 06/15/2025 J Low Rajput [facility] [address] [place] [id number] 06/28/2025 J Low Rajput [facility] [address] [place] [id number] 07/02/2025 J Low Rajput [facility] [address] [place] [id number] 07/06/2025 J Low Rajput [facility] [address] [place] [id number] 07/08/2025 J Low Rajput [facility] [address] [place] [id number] 07/09/2025 Sarah Landa [facility] [address] [place] [id number] 07/09/2025 Sarah Landa [facility] [address] [facility] [address] [place] [id number] 07/26/2025 Nicole Rajput [facility] [address] [facility] [address] [place] [id number] 08/03/2025 Nicole Rajput Assessments Encounter Date Diagnosis [...] Essential hypertension (ICD-10 - I10) continue RX 03/25/2025 Status post carpal tunnel release of [...] M85.80) 04/25/2025 Osteoporosis screening (ICD-10 - Z13.820) 03/04/2025 Mild intermittent asthma without complication (ICD-10 - J45.20) 03/25/2025 Essential hypertension (ICD-10 - I10) BP [...] 06/18/2025 Anxiety, generalized (ICD-10 - F41.1) 06/24/2025 Anxiety (ICD-10 - F41.9) TRY TO [...] R30.0) 08/19/2025 Dysuria (ICD-10 - R30.0) 08/23/2025 Anxiety (ICD-10 - F41.9) 08/23/2025 Dysuria (ICD-10 - R30.0) Stop Cefuroxime 06/24/2025 Essential hypertension (ICD-10 - I10) 07/05/2025 History of pulmonary embolism (ICD-10 - Z86.711) 08/23/2025 Allergic rhinitis, unspecified seasonality, unspecified trigger (ICD-10 - J30.9) 07/12/2025 BMI 29.0-29.9,adult (ICD-10 - Z68.29) 06/24/2025 Depression, controlled (ICD-10 - F32.9) 06/18/2025 Sprain of left foot, initial encounter (ICD-10 - S93.602A) 05/12/2025 Essential hypertension (ICD-10 - I10) 08/31/2024 Arthropathy (ICD-10 - M12.9) 05/27/2025 Hypothyroidism (acquired) (ICD-10 - E03.9) 05/05/2025 Essential hypertension (ICD-10 - I10) 03/25/2025 BMI 29.0-29.9,adult (ICD-10 - Z68.29) 03/04/2025 Anxiety (ICD-10 - F41.9) 04/29/2025 Essential hypertension (ICD-10 - I10) 12/24/2024 Arthropathy (ICD-10 - M12.9) 01/21/2025 Medication side effect (ICD-10 - T88.7XXA) 11/06/2024 Pneumonia (ICD-10 - J18.9) 10/09/2024 Anxiety (ICD-10 - F41.9) 03/04/2025 Arthropathy (ICD-10 - M12.9) 08/31/2024 Essential [...] syndrome (ICD-10 - G56.03) Surgery March 18 06/24/2025 Sprain of left foot, subsequent encounter (ICD-10 - S93.602D) 05/27/2025 Other seasonal allergic rhinitis (ICD-10 - J30.2) 03/04/2025 Hypothyroidism (acquired) (ICD-10 - E03.9) 03/04/2025 BMI 30.0-30.9,adult (ICD-10 - Z68.30) 03/04/2025 Mild major depression (ICD-10 - F32.0) Plan Of Treatment Next Appt Details Provider Name:Nicole Gomezmira er, 09/27/2025 02:45:00 PM, [address], [place], [place], [id number], Insurance Providers Payer Name Payer Address Payer Phone Subscriber Number Group Number Insured Name Patient Relationship to Insured Coverage Start Date Coverage End Date [employer] (MEDICAR E) [address] [address] [place] [phone] [id number] YULI ROBERTO Self - patient is the [...] IgM monoclonal gamma globulinopathy-foll owed by Dr. 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 Car Restaurant Team Member- Dr. Bean Opthalmology- Dr Liriano and Dr. Saeed Surgical History Surgery Date(Month/Year) RT Breast Cyst Removal Colonoscopy 02/05/2006, 02/2011, 02/15/2011 Rectocoele [facility], Dr. Lelia villeda 09/09/2007 Lithotripsy 03/2009 Hysterectomy [...] COVID-19 11/13/2020- 1 Dr Knapp Knee injections [facility], Dr. Car, ERCP 09/2008 [facility], tripped at 's office , hit head on wall 01/19/2008
--- OUTSIDE RECORDS SUMMARY | 2025-08-30 08:08 | XMS_ITS | Clinical Summary ---
Author Organization Healthcare Address [address] [place] [address] Care Team Providers Care Occupational Psychologist Name Role Phone Steven Rajput MD Primary Care Provider [phone] Ramona Loya APRN Unavailable [phone] Allergies Active Allergy Reactions Criticality Noted [...] (2 of 2 - PCV) 06/25/2020 06/25/2019 [id number] Vaccine (3 - Pfizer risk series) 08/30/2021 [...] patient's age to complete this topic Insurance [facility] GAYB RUFFIN [id number] [facility] MEDICARE Care Teams Occupational Psychologist Relationship Specialty Start Date End Date Steven Rajput MD [address] [facility] [address] [place] [address] PCP - General 03/31/21 Ramona Loya, LEENA [address] [place] [address] [id number] Nurse Practitioner Internal Medicine 01/05/22
[2025-08-30] MEDS: SODIUM CHLORIDE 0.9% 10ML SYR (RAD ONLY) 10 ML IV (08:45)
[2025-08-30] MEDS: IOPAMIDOL-370 (76%);100ML BOTTLE 75 ML IV (08:45)
--- NOTE | 2025-08-30 08:45 | CT_ITS ---
FINAL REPORT TECHNIQUE: Pre-and postcontrast axial imaging of the abdomen and pelvis was obtained.This study was performed with techniques to keep radiation doses as low as reasonably achievable, (ALARA). Individualized dose reduction technique using automated exposure control or adjustment of mA and/or kV according to the patient's size were employed. CLINICAL HISTORY: UTI COMPARISON: 03/20/2022 FINDINGS: Lung bases demonstrate progression of interlobular septal thickening and interstitial changes at the bases. The liver is homogeneous. The gallbladder is absent. The spleen, adrenal glands, and pancreas are unremarkable. There is a cystic lesion in the uncinate process measuring 21 mm which was likely present on prior exam, although less well-visualized without contrast. There is a calcification in the left kidney which could be either stone or calcification along the margin of the cyst. There is no hydronephrosis. Bilateral renal cysts are present. On precontrast imaging, no renal stones are identified. There is no evidence of small bowel obstruction. There is a large amount of retained stool. There is no lymphadenopathy or ascites. The pelvic organs and pelvic portions of the GI tract, including the appendix, are within normal limits. Urinary bladder is unremarkable. Patient is status post hysterectomy. There are small retroperitoneal lymph nodes which are unchanged from prior exam. No acute osseous abnormalities identified. IMPRESSION: 1. No findings of pyelonephritis. 2. Bilateral renal lesions, likely cysts. Reviewed, Interpreted and Dictated by Vivienne Beal MD Transcribed by Yoselin Schmitt Authenticated and [facility]
== END 2025-08-30 23:59 | disposition home or self-care (01) ==
LOC: RAD 08:03
PROVIDERS: PCP Family Medicine; Visit Provider Urology
DX: N28.9 Disorder of kidney and ureter, unspecified (principal); R10.9 Unspecified abdominal pain; N39.0 Urinary tract infection, site not specified
CPT/HCPCS: 74178; Q9967

== ENCOUNTER 2025-09-12 15:30 | Outpatient (CLI) | payer MEDICARE, SELFPAY ==
--- OUTSIDE RECORDS SUMMARY | 2025-06-21 07:45 | XMS_ITS ---
[facility] Address [address] [place] [id number] Care Team Providers Care Pe Manager Name Role Phone Nicole Rajput Primary Care Provider REASON FOR VISIT b/p check Medications Medication SIG (Take, Route, Frequency, Duration) Notes Start Date End Date Status Metoprolol Succinate ER 25 MG 1 tablet O rally Once a day; Duration: 30 days 06/18/2025 Active ALPRAZolam 0.5 MG 1 tab(s) orally 3 times a day, as needed; Duration: 30 days Active Levocetirizine Dihydrochlori de 5 MG 1 tablet in the evening Orally Once a day; Duration: 90 days 06/08/2025 Active Ondansetron HCl 4 MG 1 tab(s) orally luis ry 8 hours as needed for nausea or vomiting 04/03/2022 Active Furosemide 20 MG 1 tablet Orally Once a day; Duration: 90 days 12/24/2024 Active Albuterol Sulfate HFA 108 (9 0 Base) MCG/ACT 1 puff as needed Inhalation every 4 hrs prn Active Omeprazole 40 MG 1 capsule 1/2 to 1 hour before morning meal Orally Once a day; Duration: 90 days Active Levalbuterol Tartrate 45 MCG/ACT 1 puff as needed Inhalation 3 times a day 04/20/2025 Active Losartan Potassium 100 MG 1 tablet Orall y Once a day; Duration: 90 days 04/15/2025 Active Levothyroxine Sodium 75 MCG 1 tab(s) ora lly once a day; Duration: 90 days Active Ipratropium Champion 0.03 % 2 sprays in e ach nostril Nasally Twice a day Active Sucralfate 1 GM 1 tab(s) orally 4 times a day (before meals and at bedtime); Duration: 30 day(s) Active Align 4 MG 1 cap(s) orally once a day; Duration: 28 day(s) 10/10/2022 Active Ascorbic Acid 500 MG 1 tab(s) orally onc e a day Active Fluticasone Propionate 50 MCG/ACT 1 spray(s) in each nostril once a day; Duration: 30 day(s) 01/04/2021 Active Vitamin D3 50 MCG (2000 UT) 1 tab(s) ora lly once a day Active Xyzal Allergy 24HR 5 MG 1 tab(s) orally once a day (in the evening); Duration: 30 day(s) Active MiraLax - 17 G ORALLY TWICE DAILY; Duration: 90 DAYS 05/07/2016 Active B-12 1000 MCG 1 tab(s) orally once a day 05/04/2014 Active VOLTAREN GEL APPLIED TOPICALLY QI D NEEDED 06/15/2015 Active Symbicort 160-4.5 MCG/ACT 2 puff(s) inha led 2 times a day; Duration: 30 day(s) Active Aspirin Adult Low Dose 81 MG 1 tab(s) or ally once a day; Duration: 30 day(s) 04/01/2023 Active Glucosamine Chond Triple/Vit D - as directed Orally Active Estradiol 0.1 MG/GM as directed Vaginal Active Hydroxychloroquine Sulfate 2 00 MG as directed Orally twice a day Active iVIZIA Dry Eyes 0.5 % as directed Ophthalmic Active QUEtiapine Fumarate 25 MG 1 tablet at be dtime Orally bedtime; Duration: 30 days 06/11/2025 Active Escitalopram Oxalate 10 MG 1 tablet Oral ly Once a day; Duration: 30 days Active Vital Signs Blood pressure systolic 144 mm Hg 06/21/20 25 Blood pressure diastolic 80 mm Hg 025 Height 64.50 in 06/21/2025 Encounters Encounter Location Date Provider Diagnosis [facility] [address] [facility] [address] [place], [place] [id number] 06/21/2025 Nicole Rajput Plan Of Treatment Next Appt Details Provider Name:Nicole Razo er, 09/27/2025 02:45:00 PM, [address], [address], [place], [id number], Progress Notes * MARIE LOPEZB:[birth year] (84 yo F)Acc No.[id number]:06/21/2025 Progress notes Patient: YULI PANDEY Provider: Nicole Rajput M.D. :1940 A ge:84 Y S ex:Female Date:06/21/2025 Address:[address] [place], [place] [address], [id number] Subjective: * Chief Complaints: * 1 . B/p check. * Medical History: * Medications: T aking Escitalopram Oxalate 10 MG Tablet 1 tablet Orally Once a day , Taking QUEtiapine Fumarate 25 MG Tablet 1 tablet at bedtime Orally bedtime , Taking iVIZIA Dry Eyes 0.5 % [...] meals and at bedtime) , Taking Ipratropium Champion 0.03 % Solution 2 sprays in each [...] Inhalation 3 times a day , Taking Omeprazole 40 MG Capsule Delayed Release 1 capsule 1/2 to 1 hour before morning meal Orally Once a day , Taking Furosemide 20 MG Tablet 1 tablet Orally Once a day , Taking Ondansetron HCl 4 MG Tablet 1 tab(s) orally every 8 hours as needed for nausea or vomiting , Taking Levocetirizine Dihydrochloride 5 MG Tablet 1 tablet in the evening Orally Once a day , Taking ALPRAZolam 0.5 MG Tablet 1 tab(s) orally 3 times a day, as needed , Taking Metoprolol Succinate ER 25 MG Tablet Extended Release 24 Hour 1 tablet Orally Once a day , Medication List reviewed and reconciled with the patient Objective: * Vitals: W t: Not Taken - No Medical Need, Temp: Not Taken - No Medical Need, BP: 144/80, Nurse: maria de jesus, Ht: 64.50. Assessment: Plan: * Treatment: * Images: Billing Information: * Visit Code: * Procedure Codes: * Electronic signature of Nicole Rajput MD on 09/14/2025 at 09:23 AM EDT Sign off status: Pending * Provider: Nicole Rajput M.D. Date: 0 06/21/2025 Generated for Joanna garcia/Joshua/Mai on: 09:23 AM EDT
--- OUTSIDE RECORDS SUMMARY | 2025-06-24 09:30 | XMS_ITS ---
Author Organization [facility] Address [address] [facility] [address] [place] [id number] Care Team Providers Care Furnace Repairer Name Role Phone Nicole Rajput Primary Care Provider Allergies Allergen (clinical drug ingredient) Drug/Non Drug [...] Unknown Drug Allergy Active REASON FOR VISIT 4 weeks Medications Medication SIG (Take, Route, Frequency, Duration) Notes Start Date End Date Status Furosemide 20 MG 1 tablet Orally Once a day; Duration: 90 days 12/24/2024 Active Ondansetron HCl 4 MG 1 tab(s) orally luis ry 8 hours as needed for nausea or vomiting 04/03/2022 Active Levocetirizine Dihydrochlori de 5 MG 1 tablet in the evening Orally Once a day; Duration: 90 days 06/08/2025 Active ALPRAZolam 0.5 MG 1 tab(s) orally 3 times a day, as needed; Duration: 30 days Active Metoprolol Succinate ER 25 MG 1 tablet O rally Once a day; Duration: 30 days 06/18/2025 Active Levothyroxine Sodium 75 MCG 1 tab(s) ora lly once a day; Duration: 90 days Active Losartan Potassium 100 MG 1 tablet Orall y Once a day; Duration: 90 days 04/15/2025 Active Levalbuterol Tartrate 45 MCG/ACT 1 puff as needed Inhalation 3 times a day 04/20/2025 Active Omeprazole 40 MG 1 capsule 1/2 to 1 hour before morning meal Orally Once a day; Duration: 90 days Active Albuterol Sulfate HFA 108 (9 0 Base) MCG/ACT 1 puff as needed Inhalation every 4 hrs prn Active Fluticasone Propionate 50 MCG/ACT 1 spray(s) in each nostril once a day; Duration: 30 day(s) 01/04/2021 Active Ascorbic Acid 500 MG 1 tab(s) orally onc e a day Active Align 4 MG 1 cap(s) orally once a day; Duration: 28 day(s) 10/10/2022 Active Sucralfate 1 GM 1 tab(s) orally 4 times a day (before meals and at bedtime); Duration: 30 day(s) Active Ipratropium Lincoln 0.03 % 2 sprays in e ach nostril Nasally Twice a day Active B-12 1000 MCG 1 tab(s) orally once a day 05/04/2014 Active MiraLax - 17 G ORALLY TWICE DAILY; Duration: 90 DAYS 05/07/2016 Active Xyzal Allergy 24HR 5 MG 1 tab(s) orally once a day (in the evening); Duration: 30 day(s) Active Vitamin D3 50 MCG (2000 UT) 1 tab(s) ora lly once a day Active VOLTAREN GEL APPLIED TOPICALLY QI D NEEDED 06/15/2015 Active Hydroxychloroquine Sulfate 2 00 MG as directed Orally twice a day Active Estradiol 0.1 MG/GM as directed Vaginal Active Glucosamine Chond Triple/Vit D - as directed Orally Active Aspirin Adult Low Dose 81 MG 1 tab(s) or ally once a day; Duration: 30 day(s) 04/01/2023 Active Symbicort 160-4.5 MCG/ACT 2 puff(s) inha led 2 times a day; Duration: 30 day(s) Active Escitalopram Oxalate 10 MG 1 tablet Oral ly Once a day; Duration: 30 days Active QUEtiapine Fumarate 25 MG 1 tablet at be dtime Orally bedtime; Duration: 30 days 06/11/2025 Active iVIZIA Dry Eyes 0.5 % as directed Ophthalmic Active Vital Signs Blood pressure systolic 142 mm Hg 06/24/20 25 Blood pressure diastolic 80 mm Hg 025 Heart Rate 69 /min 06/24/2025 Height 64.50 in 06/24/2025 Weight 186.8 lbs 06/24/2025 BMI 31.57 kg/m2 06/24/2025 Encounters Encounter Location Date Provider Diagnosis [facility] [address] [place] [id number] 06/24/2025 Nicole Rajput Essential hypertensi on I10 ; Anxiety F41.9 ; Depression, controlled F32.9 ; 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 M05.741 ; Arthropathy M12.9 and Sprain of left foot, subsequent encounter S93.602D Assessments Encounter Date Diagnosis (ICD Code) Assessment Notes Treatment Notes Treatment Clinical Notes Section Notes 06/24/2025 Essential hypertension (ICD-10 - I10) 06/24/2025 Anxiety (ICD-10 - F41.9) TRY TO DECREASE Alprazolam to 1/2 AM, 1/2 Noon, 1 PM 06/24/2025 Depression, controlled (ICD-10 - F32.9) 06/24/2025 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 (ICD-10 - M05.741) 06/24/2025 Arthropathy (ICD-10 - M12.9) 06/24/2025 Sprain of left foot, subsequent encounter (ICD-10 - S93.602D) Plan Of Treatment Treatment Notes Assessment Notes Anxiety TRY TO DECREASE Alpr azolam to 1/2 AM, 1/2 Noon, 1 PM Next Appt Details Follow Up: 4 Weeks, Reason: Provider Name:Nicole Razo er, 09/27/2025 02:45:00 PM, [address], [address], [place], [place], [phone], Procedure Notes * Category Sub-Category Detail Notes Splinting/Casting CoBan wrap to left foot Progress Notes * MARIE LOPEZB:[birth year] (84 yo F)Acc No.[id number]:06/24/2025 Progress Notes Patient: YULI PANDEY Provider: Nicole Rajput M.D. :1940 A ge:84 Y S ex:Female Date:06/24/2025 Address:[place], [id number] Subjective: * Chief Complaints: * 1 . 4 weeks. * HPI: C ardiology: The patient is here for a check up on Hypertension. Pt states she does check her BP at home and last night it was 176/80's. NOT TAKING THE FUROSEMIDE DAILY. Denies : Chest Pain. D enies : Short of Breath. D enies : Dizziness. D enies : Palpitations. A nkle/Foot: The pt is also here for a f/u on left ankle sprain. Pt states she has been propping her foot up as much as possible. Pt states the left foot is still painful when she walks. * ROS: D ERMATOLOGY: no R ej. n o H fidel. G ASTROENTEROLOGY: no N ausea. n o V omiting. n o D iarrhea.? U ROLOGY: no D ifficulty urinating. n o B lood in urine. 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 Lelia Mata, GI- Dr. Car, Porcelain Slusher- Dr. Bean, Opthalmology- Dr iLriano and Dr. Saeed. * Surgical History: R T Breast Cyst Removal , Colonoscopy 02/05/2006, 02/2011, 02/15/2011, Rectocoele [facility], Dr. Lelia Mata 09/09/2007, Lithotripsy 03/2009, Hysterectomy Abdominal 08/23/2009, colonoscopy, Dr. Car, 4 tubular adenomas, 1 hyperplastic polyp 03/13/2011, Cholecystectomy 11/19/2013, EGD and Colonoscopy, Dr. Car 09/2013, Colonoscopy Dr. Car, adenomatous polyp 12/31/2016, Dexa scan 2015, Mammogram 11/2016, lasix eye surgery 10/17/2018, Basal cell CA of the nose, with reconstructive surgery, Dr. Annette Rojas 03/2022. * Hospitalization/Major Diagno stic Procedure: S t[facility], tripped at 's office, hit head on wall 01/19/2008, [facility], Dr. Car, ERCP 09/2008, Dr Knapp Knee injections , COVID-19 11/13/2020-11/21/2020. * Family History: F ather: , CHF. M other: 89 yrs, breast Ca, auto immune hepatitis. S iblings: [place], liver CA. 2 brother(s) , 1 sister(s) [...] meals and at bedtime) , Taking Ipratropium Lincoln 0.03 % Solution 2 sprays in each [...] difficulty walking. Objective: * Vitals: W t: 186.8, Temp: 98.3, BP: 142/80, HR: 69, O2 Sat: 98% on RA, Nurse: ARNAUD, Ht: 64.50, Repeat BP: 172/78, BMI:31.57. * Examination: G eneral Examination: General Appearance: N AD, note weight. H EENT: u nremarkable. O ral cavity: n o lesions, mucosa moist and WNL, no erythema. N subhash: s upple, no lymphadenopathy, carotid bruit, right. C hest: n ormal shape and expansion. H eart: R SR, 170/80. L ungs: g ood air entry bilaterally, clear to auscultation. A bdomen: soft and nontender. N eurologic Exam: I ntact, gait normal. S kin: n ormal, no rash. P eripheral pulses: n ormal . B ack: mild dorsal kyphosis. E xtremities: 1 + to 2+ leg edema, left foot with edema and tenderness of dorsum. Arthritic change of joints of hands. . Assessment: * Assessment: 1. E ssential hypertension - I10 (Primary) 2 . A nxiety - F41.9 ?3. D epression, controlled - F32.9 4 . R heumatoid arthritis involving right hand with positive rheumatoid factor - M05.741 5 . A rthropathy - M12.9 6. S prain of left foot, subsequent encounter - S93.682D Plan: * Treatment: * Procedures: S plinting/Casting: CoBan wrap t o left foot. * Procedure Codes: G 2211 Complex e/m visit add on * Follow Up: 4 Weeks * Images: Billing Information: * Visit Code: 70763 Office Visit, Est Pt., Level 3. * Procedure Codes: G2211 Complex e/m visit add on. * Electronic signature of Nicole Rajput MD on 09/14/2025 at 09:22 AM EDT Sign off status: Pending * Provider: Nicole Rajput M.D. Date: 0 06/24/2025 Generated for Joanna garcia/Joshua/eTransmitting on: 1 09:22 AM EDT History and Physical Notes * HPI (History of Present Illness) Category Sub-Category Detail Notes Category Not es Cardiology Short of Breath Chest Pain Palpitations Dizziness Examination Category Sub-Category Detail Notes Category Not es General Examination HEENT: unremarkable Heart: RSR, 170/80 Lungs: good air entry bilat erally, clear to auscultation Abdomen: soft and nontender Extremities: 1+ to 2+ leg edema, left foot with edema and tenderness of dorsum. Arthritic change of joints of hands. General Appearance: NAD, note weight Skin: normal, no rash Neurologic Exam: Intact, gait normal Neck: supple, no lymphaden opathy, carotid bruit, right Oral cavity: no lesions, mucosa m oist and WNL, no erythema Peripheral pulses: normal Back: mild dorsal kyphosis Chest: normal shape and exp ansion
--- OUTSIDE RECORDS SUMMARY | 2025-07-05 09:15 | XMS_ITS ---
Author Organization [facility] Address [address] [facility] [address] [place] [id number] Care Team Providers Care Senior Managing Director Name Role Phone Nicole Rajput Primary Care [...] Unknown Drug Allergy Active REASON FOR VISIT Issues w/ Medications Medications Medication SIG (Take, Route, Frequency, Duration) Notes Start Date End Date Status Ascorbic Acid 500 MG 1 tab(s) orally onc e a day Active Align 4 MG 1 cap(s) orally once a day; Duration: 28 day(s) 10/10/2022 Active Sucralfate 1 GM 1 tab(s) orally 4 times a day (before meals and at bedtime); Duration: 30 day(s) Active Vitamin D3 50 MCG (1999 UT) 1 tab(s) ora lly once a day Active Fluticasone Propionate 50 MCG/ACT 1 spray(s) in each nostril once a day; Duration: 30 day(s) 01/04/2021 Active VOLTAREN GEL APPLIED TOPICALLY QID NEEDED 06/15/2015 Active Aspirin Adult Low Dose 81 MG 1 tab(s) or ally once a day; Duration: 30 day(s) 04/01/2023 Active Symbicort 160-4.5 MCG/ACT 2 puff(s) inha led 2 times a day; Duration: 30 day(s) Active B-12 1000 MCG 1 tab(s) orally once a day 05/04/2014 Active MiraLax - 17 G ORALLY TWICE DAILY; Duration: 90 DAYS 05/07/2016 Active ALPRAZolam 0.5 MG 1 tab(s) orally 3 times a day, as needed; Duration: 30 days 07/05/2025 Active iVIZIA Dry Eyes 0.5 % as directed Ophthalmic Active Hydroxychloroquine Sulfate 200 MG as directed Orally twice a day Active Estradiol 0.1 MG/GM as directed Vaginal Active Glucosamine Chond Triple/Vit D - as directed Orally Active Metoprolol Succinate ER 25 MG 1 tablet Orally Once a day; Duration: 30 days 06/18/2025 Active Xyzal Allergy 24HR 5 MG 1 tab(s) orally once a day (in the evening); Duration: 30 days Not-Taking Losartan Potassium 100 MG 1 tablet Orall [...] Ondansetron HCl 4 MG 1 tab(s) orally every 8 hours as needed for nausea or vomiting 04/03/2022 Active Levothyroxine Sodium 75 MCG 1 tab(s) ora lly once a day; Duration: 90 days Active Albuterol Sulfate HFA 108 (90 Base) MCG/ACT 1 puff as needed Inhalation every 4 hrs prn Active Ipratropium [place] 0.03 % 2 sprays in e ach nostril Nasally Twice a day Active Vital Signs Blood pressure systolic 150 mm Hg 07/05/20 25 Blood pressure diastolic 72 mm Hg 025 Heart Rate 69 /min 07/05/2025 Height 64.50 in 07/05/2025 Weight 181.2 lbs 07/05/2025 BMI 30.62 kg/m2 07/05/2025 Encounters Encounter Location Date Provider Diagnosis [facility] [address] [facility] [address] [place] [id number] 07/05/2025 Nicole Rajput Primary osteoarthritis, right hand M19.041 ; Anxiety, generalized F41.1 and History of pulmonary embolism Z86.711 Assessments Encounter Date Diagnosis (ICD Code) Assessment Notes Treatment Notes Treatment Clinical Notes Section Notes 07/05/2025 Primary osteoarthritis, right hand (ICD-10 - M19.041) 07/05/2025 Anxiety, generalized (ICD-10 - F41.1) 07/05/2025 History of pulmonary embolism (ICD-10 - Z86.711) Plan Of Treatment Medication Medication Name Sig Start Date Stop Date Notes ALPRAZolam 0.5 MG 1 tab(s) orally 3 ti mes a day, as needed; Duration: 30 days 07/05/2025 QUEtiapine Fumarate 25 MG 1 tablet at be dtime Orally bedtime 06/11/2025 Levocetirizine Dihydrochlori de 5 MG 1 tablet in the evening Orally Once a day 06/08/2025 Escitalopram Oxalate 10 MG 1 tablet Oral ly Once a day Next Appt Details Follow Up: 1 Week, Reason: Provider Name:Nicole Razo er, 09/27/2025 02:45:00 PM, [address] [facility] [address] [facility], [address], [place], [phone], Progress Notes * MARIE ROBERTOB:[birth year] (84 yo F)Acc No.[id number]:07/05/2025 Progress Notes Patient: YULI PANDEY Provider: Nicole Rajput M.D. :1940 A ge:84 Y S ex:Female Date:07/05/2025 Address:[id number] Subjective: * Chief Complaints: * 1 . Issues w/ Medications. * HPI: N eurology: The pt is here today to discuss the Seroquel. Pt states she restarted it, and it did help her sleep some, but it is making her feel goofy and very anxious. Very anxious. Pt states she is not doing very well with the decrease in Lexapro 10 mg. Pt states by mid-morning she is having some nausea and is needing a refill for Ondansetron sent to [facility] pharmacy. 84 year old female presents with c/o insomnia. * ROS: D ERMATOLOGY: no R ej. n o H fidel. G ASTROENTEROLOGY: no N ausea. n o V omiting. n o D iarrhea.? U ROLOGY: no D ifficulty urinating. n o B lood in urine. 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 Lelia Mata, GI- Dr. Car, Raker Buffing Wheel- Dr. Bean, Opthalmology- Dr Liriano and Dr. [...] Rojas 03/2022. * Hospitalization/Major Diagno stic Procedure: Lilibeth Villegas, tripped at 's office, hit head on wall 01/19/2008, Dr. Josep Eckert, ERCP 09/2008, Dr Knapp Knee injections , COVID-19 11/13/2020-11/21/2020. * Family History: F ather: , CHF. M other: 89 yrs, breast Ca, auto immune hepatitis. S iblings: [place], liver [place]. 2 brother(s) , 1 sister(s) [...] 17 G ORALLY TWICE DAILY , Taking Vitamin D3 50 MCG (2000 [...] meals and at bedtime) , Taking Ipratropium [place] 0.03 % Solution 2 sprays in each [...] 1 tablet Orally Once a day , Not-Taking Xyzal Allergy 24HR 5 MG Tablet 1 tab(s) orally once a day (in the evening) , Medication List reviewed and reconciled with the patient * Allergies: S ulfa Antibiotics, Macrobid: nausea, Cipro: heel pain, levoFLOXacin: leg pain, difficulty walking. Objective: * Vitals: W t: 181.2, Temp: 98.7, BP: 150/72, HR: 69, O2 Sat: 99% on RA, Nurse: ARNAUD, Ht: 64.50, BMI:30.62. * Examination: G eneral Examination: General Appearance: [...] B ack: mild dorsal kyphosis. E xtremities: l eft foot wrapped with CoBan. Arthritic change of joints of hands. . ? Assessment: * Assessment: 1. A nxiety, generalized - F41.1 (Primary) 2 . P rimary osteoarthritis, right hand - M19.041 3 . H istory of pulmonary embolism - Z86.711 Plan: * Treatment: * Procedure Codes: G 2211 Complex e/m visit add on * Follow Up: 1 Week * Images: Billing Information: * Visit Code: 64284 Office Visit, Est Pt., Level 3. * Procedure Codes: G2211 Complex e/m visit add on. * Electronic signature of Nicole Rajput MD on 09/14/2025 at 09:21 AM EDT Sign off status: Pending * Provider: Nicole Rajput M.D. Date: 0 07/05/2025 Generated for Joanna garcia/Joshua/Kelseyitting on: 1 09:21 AM EDT History and Physical Notes * HPI (History of Present Illness) Category Sub-Category Detail Notes Category Not es Neurology insomnia Examination Category Sub-Category Detail Notes Category Not es General Examination HEENT: unremarkable Heart: RSR, 170/80 Lungs: good air entry bilat erally, clear to auscultation Abdomen: soft and nontender Extremities: left foot wrapped wi th CoBan. Arthritic change of joints of hands. General Appearance: NAD, note weight Skin: normal, no rash Neurologic Exam: Intact, gait normal Neck: supple, no lymphaden opathy, carotid bruit, right Oral cavity: no lesions, mucosa m oist and WNL, no erythema Peripheral pulses: normal Back: mild dorsal kyphosis Chest: normal shape and exp ansion
--- OUTSIDE RECORDS SUMMARY | 2025-07-12 07:00 | XMS_ITS ---
Author Organization [facility] Address [address] [facility] [address] [place] [id number] Care Team Providers Care Leather Goods Sales Representative Name Role Phone Nicole Rajput Primary Care [...] (substance) Sulfa Antibiotics Unknown Drug Allergy Active Reason For Referral Diagnosis 1 Tremor (R25.1) Referral Organization [facility] Referring Provider First Name Nicole Kelsey Referring Provider Last Name Regulo Referring Provider Speciality Family Pra ctice Referred Provider Antonia Wilson Referred Provider Specialty Neurology General Notes Eliana Judge 2024 12:19:16 PM > faxed to [facility] Neurology, Eliana Judge 07/16/2025 10:56:34 AM > confirmed received by Yazmin in neurology Referral Priority Routine REASON FOR VISIT 1 Week Follow Up Medications Medication SIG (Take, Route, Frequency, Duration) Notes Start Date End Date Status VOLTAREN GEL APPLIED TOPICALLY QID NEEDED 06/15/2015 Active B-12 1000 MCG 1 tab(s) orally once a day 05/04/2014 Active Aspirin Adult Low Dose 81 MG 1 tab(s) or ally once a day; Duration: 30 day(s) 04/01/2023 Active Symbicort 160-4.5 MCG/ACT 2 puff(s) inha led 2 times a day; Duration: 30 day(s) Active MiraLax - 17 G ORALLY TWICE DAILY; Duration: 90 DAYS 05/07/2016 Active Estradiol 0.1 MG/GM as directed Vaginal Active Glucosamine Chond Triple/Vit D - as directed Orally Active Xyzal Allergy 24HR 5 MG 1 tab(s) orally once a day (in the evening); Duration: 30 days Not-Taking Hydroxychloroquine Sulfate 200 MG as directed Orally twice a day Active iVIZIA Dry Eyes 0.5 % as directed Ophthalmic Active Escitalopram Oxalate 10 MG 1/2 tablet Or ally Once a day; Duration: 30 days 07/09/2025 Active ALPRAZolam 0.5 MG 1 tab(s) orally 3 times a day, as needed; Duration: 30 days 07/05/2025 Active Ondansetron HCl 4 MG 1 tab(s) orally every 8 hours as needed for nausea or vomiting 04/03/2022 Active Metoprolol Succinate ER 25 MG 1 tablet Orally Once a day; Duration: 30 days 06/18/2025 Active Furosemide 20 MG 1 tablet Orally Once a day; Duration: 90 days 12/24/2024 Active Losartan Potassium 100 MG 1 tablet Orall y Once a day; Duration: 90 days 04/15/2025 Active Levalbuterol Tartrate 45 MCG/ACT 1 puff as needed Inhalation 3 times a day 04/20/2025 Active Albuterol Sulfate HFA 108 (90 Base) MCG/ACT 1 puff as needed Inhalation every 4 hrs prn Active Levothyroxine Sodium 75 MCG 1 tab(s) ora lly once a day; Duration: 90 days Active Omeprazole 40 MG 1 capsule 1/2 to 1 hour before morning meal Orally Once a day; Duration: 90 days Active Sucralfate 1 GM 1 tab(s) orally 4 times a day (before meals and at bedtime); Duration: 30 day(s) Active Ipratropium [place] 0.03 % 2 sprays in e ach nostril Nasally Twice a day Active Align 4 MG 1 cap(s) orally once a day; Duration: 28 day(s) 10/10/2022 Active Fluticasone Propionate 50 MCG/ACT 1 spray(s) in each nostril once a day; Duration: 30 day(s) 01/04/2021 Active Ascorbic Acid 500 MG 1 tab(s) orally onc e a day Active Vitamin D3 50 MCG (1999) 1 tab(s) ora lly once a day Active Vital Signs Blood pressure systolic 136 mm Hg 07/12/20 25 Blood pressure diastolic 78 mm Hg 025 Heart Rate 78 /min 07/12/2025 Height 64.50 in 07/12/2025 Weight 177.4 lbs 07/12/2025 BMI 29.98 kg/m2 07/12/2025 Encounters Encounter Location Date Provider Diagnosis [facility] [address] [facility] [address] [facility] [address] [place] [id number] 07/12/2025 Nicole Rajput Anxiety, generalized F41.1 ; Tremor R25.1 and BMI 29.0-29.9,adult Z68.29 Assessments Encounter Date Diagnosis (ICD Code) Assessment Notes Treatment Notes Treatment Clinical Notes Section Notes 07/12/2025 Anxiety, generalized (ICD-10 - F41.1) continue present dosing 07/12/2025 Tremor (ICD-10 - R25.1) 07/12/2025 BMI 29.0-29.9,adult (ICD-10 - Z68.29) Plan Of Treatment Treatment Notes Assessment Notes Anxiety, generalized continue present do sing Referrals Referral Date Details 07/12/2025 07/12/2025, Antonia davila Next Appt Details Follow Up: as scheduled, Maricruz son: Provider Name:Nicole Razo er, 09/27/2025 02:45:00 PM, [address] [facility] [address] [facility], [address], [place], [phone], Progress Notes * MARIE LOPEZB:[birth year] (84 yo F)Acc No.[id number]:07/12/2025 Progress Notes Patient: YULI PANDEY Provider: Nicole Rajput M.D. :1940 A ge:84 Y S ex:Female Date:07/12/2025 Address:[facility] [id number] Subjective: * Chief Complaints: * 1 . 1 Week Follow Up. * HPI: H PI: 84 year old female presents with c/o Here for follow up on:?Pt is here today for a 1 week f/u on her medication. Pt sts the nausea in the mornings is better now, and sts that now her medication she is taking 5mg everyday, per Sarha. Tremor seems worse since resuming escitalopram.. * ROS: D ERMATOLOGY: no R ej. n o H fidel. G ASTROENTEROLOGY: no N ausea. n o V omiting. n o D iarrhea.? U ROLOGY: no D ifficulty urinating. n o B lood in urine. 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 Lelia Mata, GI- Dr. Car, Adhesive Bandage Machine Operator- Dr. Bean, Opthalmology- Dr Liriano and Dr. Saeed. * Surgical History: R T Breast Cyst Removal , Colonoscopy 02/05/2006, 02/2011, 02/15/2011, Rectocoele [place] [facility], Dr. Lelia Mata 09/09/2007, Lithotripsy 03/2009, Hysterectomy [...] 's office, hit head on wall 01/19/2008, Tanvir, Dr. Car, ERCP 09/2008, Dr Knapp Knee injections , COVID-19 11/13/2020-11/21/2020. * Family History: F ather: , CHF. M other: 89 yrs, breast Ca, auto immune hepatitis. S iblings: [place], liver CA. 2 brother(s) , 1 sister(s) . 1 son(s) , 1 daughter(s) . . * Social History: C URRENT TOBACCO USE S moking Status: Patient does NOT smoke. C affeine: no. Marital Status: . Past smoking status: no, Smoking status: Does not smoke, Former Smoker: Yes, Quit smokin's, Smoking pack year history: 1. Alcohol: no. * Medications: T heribertog iVIZIA Dry Eyes 0.5 % Solution as [...] meals and at bedtime) , Taking Ipratropium [place] 0.03 % Solution 2 sprays in each [...] tablet Orally Once a day , Taking ALPRAZolam 0.5 MG Tablet 1 tab(s) orally 3 times a day, as needed , Taking Ondansetron HCl 4 MG Tablet 1 tab(s) orally every 8 hours as needed for nausea or vomiting , Taking Escitalopram Oxalate 10 MG Tablet 1/2 tablet Orally Once a day , Not-Taking Xyzal Allergy 24HR 5 MG Tablet 1 tab(s) orally once a day (in the evening) , Medication List reviewed and reconciled with the patient * Allergies: S ulfa Antibiotics, Macrobid: nausea, Cipro: heel pain, levoFLOXacin: leg pain, difficulty walking. Objective: * Vitals: W t: 177.4, Temp: 98.7, BP: 136/78, HR: 78, O2 Sat: 97% on RA, Nurse: neeru, Ht: 64.50, BMI:29.98. * Examination: G eneral Examination: General Appearance: [...] nxiety, generalized - F41.1 (Primary) 2 . T remor - R25.1 ?3. B LA 29.0-29.9,adult - Z68.29 Plan: * Treatment: 2. T remor Referral To:Antonia Wilson Neurology Reason: * Procedure Codes: G 2211 Complex e/m visit add on, 1036F TOBACCO NON-USER, G8420 BMI<30 AND >=22 CALC & DOCU, G4213 BP SCR PRFRM RCMDD DEFIND SCR INTVL, G9826 MOST RECENT SYSTOLIC BP < 140MM HG, G8754 MOST RECENT DIASTOLIC BP < 90MM HG * Follow Up: a s scheduled * Images: Billing Information: * Visit Code: 42090 Office Visit, Est Pt., Level 3. * Procedure Codes: G2211 Complex e/m visit add on. 1036F TOBACCO NON-USER. G8420 BMI<30 AND >=22 CALC & DOCU. G8783 BP SCR PRFRM RCMDD DEFIND SCR INTVL. G8752 MOST RECENT SYSTOLIC BP < 140MM HG. G8754 MOST RECENT DIASTOLIC BP < 90MM HG. * Electronic signature of Nicole Rajput MD on 09/14/2025 at 09:22 AM EDT Sign off status: Pending * Provider: Nicole Rajput M.D. Date: 0 07/12/2025 Generated for Joanna garcia/Joshua/Kelseyitting on: 1 09:22 AM EDT History and Physical Notes * HPI (History of Present Illness) Category Sub-Category Detail Notes Category Not es HPI Here for follow up on: Pt is her e today for a 1 week f/u on her medication. Pt sts the nausea in the mornings is better now, and sts that now her medication she is taking 5mg everyday, per Sarah. Tremor seems worse since resuming escitalopram. Examination Category Sub-Category Detail Notes Category Not [...] kyphosis Chest: normal shape and exp ansion Consultation Request Notes Referral Date Referring Provider Referred Provider Not es 07/12/2025 Nicole Rajput Maria
--- OUTSIDE RECORDS SUMMARY | 2025-07-22 10:45 | XMS_ITS ---
Author Organization [facility] Address [address] [facility] [address] [place] [id number] Care Team Providers Care Freedom Of Information Officer Name Role Phone Nicole Rajput Primary Care [...] Duration) Notes Start Date End Date Status Aspirin Adult Low Dose 81 MG 1 tab(s) or ally once a day; Duration: 30 day(s) 04/01/2023 Active Glucosamine Chond Triple/Vit D - as directed Orally Active Estradiol 0.1 MG/GM as directed Vaginal Active VOLTAREN GEL APPLIED TOPICALLY QID NEEDED 06/15/2015 Active Symbicort 160-4.5 MCG/ACT 2 puff(s) inha led 2 times a day; Duration: 30 day(s) Active Hydroxychloroquine Sulfate 200 MG as directed Orally twice a day Active Desvenlafaxine Succinate ER 25 MG 1 tablet Orally Once a day; Duration: 30 days 07/22/2025 Active Restasis 0.05 % 1 drop into affected eye Ophthalmic Twice a day Active Xyzal Allergy 24HR 5 MG 1 tab(s) orally once a day (in the evening); Duration: 30 days Not-Taking Ondansetron HCl 4 MG 1 tab(s) orally every 8 hours as needed for nausea or vomiting 04/03/2022 Active ALPRAZolam 0.5 MG 1 tab(s) orally 3 times a day, as needed; Duration: 30 days 07/05/2025 Active Metoprolol Succinate ER 25 MG 1 tablet Orally Once a day; Duration: 30 days 06/18/2025 Active Furosemide 20 MG 1 tablet Orally Once a day; Duration: 90 days 12/24/2024 Active Albuterol Sulfate HFA 108 (90 Base) MCG/ACT 1 puff as needed Inhalation every 4 hrs prn Active Levalbuterol Tartrate 45 MCG/ACT 1 puff as needed Inhalation 3 times a day 04/20/2025 Not-Taking Losartan Potassium 100 MG 1 tablet Orall y Once a day; Duration: 90 days 04/15/2025 Active Levothyroxine Sodium 75 MCG 1 tab(s) ora lly once a day; Duration: 90 days Active Omeprazole 40 MG 1 capsule 1/2 to 1 hour before morning meal Orally Once a day; Duration: 90 days Active Ipratropium [place] 0.03 % 2 sprays in e ach [...] a day; Duration: 30 day(s) 01/04/2021 Active MiraLax - 17 G ORALLY TWICE DAILY; Duration: 90 DAYS 05/07/2016 Active B-12 1000 MCG 1 tab(s) orally once a day 05/04/2014 Active Vitamin D3 50 MCG (2000 UT) 1 tab(s) ora lly once a day Active Vital Signs Blood pressure systolic 150 mm Hg 07/22/20 25 Blood pressure diastolic 80 mm Hg 025 Heart Rate 60 /min 07/22/2025 Height 64.50 in 07/22/2025 Weight 177.6 lbs 07/22/2025 BMI 30.01 kg/m2 07/22/2025 Encounters Encounter Location Date Provider Diagnosis [facility] [address] [facility] [address] [place] [id number] 07/22/2025 Nicole Rajput Anxiety F41.9 and Allergic rhinitis 477.9 Assessments Encounter Date Diagnosis (ICD Code) Assessment Notes Treatment Notes Treatment Clinical Notes Section Notes 07/22/2025 Anxiety (ICD-10 - F41.9) 07/22/2025 Allergic rhinitis (ICD-10 - 477.9) Plan Of Treatment Medication Medication Name Sig Start Date Stop Date Notes Desvenlafaxine Succinate ER 25 MG 1 tabl et Orally Once a day; Duration: 30 days 07/22/2025 Escitalopram Oxalate 10 MG 1/2 tablet Or ally Once a day 07/09/2025 Next Appt Details Follow Up: 2 Weeks, Reason: Provider Name:Nicole Razo er, 09/27/2025 02:45:00 PM, [address] [facility], [address], [place], [id number], Medications Administered Medication Instructions Date of Administration Dosage Notes allergy 07/22/2025 0.35 mL Mix 1 LA allergy 07/22/2025 0.35 mL Mix 2 BRIAN allergy 07/22/2025 0.35 mL Mix 3 RLA Progress Notes * MARIE ROBERTOB:[birth year] (84 yo F)Acc No.[id number]:07/22/2025 Progress Notes Patient: Ruddy SREE YULI Provider: Nicole Rajput M.D. :1940 A ge:84 Y S ex:Female Date:07/22/2025 Address:[facility] [id number] Subjective: * Chief Complaints: * 1 . 4 weeks. * HPI: N eurology: The pt is here for a 4 week follow up on Tremor. Pt states she is scheduled 10/19/[address] Wilson. Pt states she will call each day to see is that appointment can be moved up. P sychology: The pt is here for a follow up on Anxiety. Pt states she would like to go over the gene sight test she had. See copy of the testing scanned into chart. * ROS: D ERMATOLOGY: no R ej. n o H fidel. G ASTROENTEROLOGY: no N ausea. n o V omiting. n o D iarrhea.? U ROLOGY: no D ifficulty urinating. n o B lood in urine. 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 Lelia Mata, GI- Dr. Car, Database Designer- Dr. Bean, Opthalmology- Dr Liriano and Dr. Saeed. * Surgical History: R T Breast Cyst Removal , Colonoscopy 02/05/2006, 02/2011, 02/15/2011, Rectocoele [facility], Dr. Lelia Mata 09/09/2007, Lithotripsy 03/2009, Hysterectomy Abdominal 08/23/2009, colonoscopy, Dr. Cra, 4 tubular adenomas, 1 hyperplastic polyp 03/13/2011, Cholecystectomy 11/19/2013, EGD and Colonoscopy, Dr. Car 09/2013, Colonoscopy Dr. Car, adenomatous polyp 12/31/2016, Dexa scan 2015, Mammogram 11/2016, lasix eye surgery 10/17/2018, Basal cell CA of the nose, with reconstructive surgery, Dr. Annette Rojas 03/2022. * Hospitalization/Major Diagno stic Procedure: Lilibeth Villeg[facility], tripped at 's office, hit head on wall [facility]19/2008[facility] 09/[facility], Dr Knapp Knee injections , COVID-19 11/13/2020-11/21/2020. * Family History: F ather: , CHF. M other: 89 yrs, breast Ca, auto immune hepatitis. S iblings: [place], liver [place]. 2 brother(s) , 1 sister(s) . 1 son(s) , 1 daughter(s) . . * Social History: C URRENT TOBACCO USE S moking Status: Patient does NOT smoke. C affeine: no. Marital Status: . Past smoking status: no, Smoking status: Does not smoke, Former Smoker: Yes, Quit smokin's, Smoking pack year history: 1. Alcohol: no. * Medications: T aking Restasis 0.05 % Emulsion 1 drop into affected eye Ophthalmic Twice a day , Taking Hydroxychloroquine Sulfate 200 MG Tablet [...] meals and at bedtime) , Taking Ipratropium [place] 0.03 % Solution 2 sprays in each nostril Nasally Twice a day , Taking Albuterol Sulfate HFA 108 (90 Base) MCG/ACT Aerosol Solution 1 puff as needed Inhalation every 4 hrs prn , Taking Levothyroxine Sodium 75 MCG Tablet 1 tab(s) orally once a day , Taking Losartan Potassium 100 MG Tablet 1 tablet Orally Once a day , Taking Omeprazole [...] tablet Orally Once a day , Not-Taking Levalbuterol Tartrate 45 MCG/ACT Aerosol 1 puff as needed Inhalation 3 times a day , Not-Taking Xyzal Allergy 24HR 5 MG Tablet 1 tab(s) orally once a day (in the evening) , Discontinued iVIZIA Dry Eyes 0.5 % Solution as directed Ophthalmic , Medication List reviewed and reconciled with the patient * Allergies: S ulfa Antibiotics, Macrobid: nausea, Cipro: heel pain, levoFLOXacin: leg pain, difficulty walking. Objective: * Vitals: W t: 177.6, Temp: 98.2, BP: 150/80, HR: 60, O2 Sat: 98% on RA, Nurse: ARNAUD, Ht: 64.50, Repeat BP: 172/80, BMI:30.01. * Examination: G eneral Examination: General Appearance: N AD. H EENT: u nremarkable.?Oral cavity: n o lesions, mucosa moist and WNL, no erythema. N subhash: s upple, no lymphadenopathy, carotid bruit, right. C hest: n ormal shape and expansion. H eart: R SR, 170/80. L ungs: g ood air entry bilaterally, clear to auscultation. A bdomen: soft and nontender. N eurologic Exam: I ntact, gait normal. S kin: n ormal, no rash.?Peripheral pulses: n ormal . B ack: mild dorsal kyphosis. E xtremities: A rthritic change of joints of hands. . P sychology: D iscussed anxiety more than depression, ineffectiveness of escitalopram. Desvenlafaxine is shown effective on her genetic/medication screen. Assessment: * Assessment: 1. A nxiety - F41.9 (Primary) 2 . A llergic rhinitis - 477.9 ? Plan: * Treatment: * Therapeutic Injections: allergy : 0.35 mL (Route: Subcutaneous) given by Mihaela Whaley on subcutaneus (Allergic rhinitis)? allergy : 0.35 mL (Route: Subcutaneous) given by Mihaela Whaley on subcutaneus (Allergic rhinitis)? allergy : 0.35 mL (Route: Subcutaneous) given by Mihaela Whaley on subcutaneus (Allergic rhinitis) * Procedure Codes: G 2211 Complex e/[place], [address] IMMUNOTHERAPY INJECTIONS * Follow Up: 2 Weeks * Images: Billing Information: * Visit Code: 82314 Office Visit, Est Pt., Level 3. * Procedure Codes: G2211 Complex e/[place]. [address] IMMUNOTHERAPY INJECTIONS. * Electronic signature of Nicole Rajput MD on 09/14/2025 at 09:21 AM EDT Sign off status: Pending * Provider: Nicole Rajput M.D. Date: 0 07/22/2025 Generated for Calbe[place] radha/Joshua/eTransmitting on: 09:21 AM EDT History and Physical Notes * Examination Category Sub-Category Detail Notes Category Not es General Examination HEENT: unremarkable Heart: RSR, 170/80 Lungs: good air entry bilat erally, clear to auscultation Abdomen: soft and nontender Extremities: Arthritic change of joints of hands. General Appearance: NAD Skin: normal, no rash Neurologic Exam: Intact, gait normal Neck: supple, no lymphaden opathy, carotid bruit, right Oral cavity: no lesions, mucosa m oist and WNL, no erythema Peripheral pulses: normal Back: mild dorsal kyphosis Chest: normal shape and exp ansion Psychology Discussed anxie ty more than depression, ineffectiveness of escitalopram. Desvenlafaxine is shown effective on her genetic/medication screen
--- OUTSIDE RECORDS SUMMARY | 2025-07-31 07:15 | XMS_ITS ---
Author Organization [facility] Address [address] [facility] [address] [place] [id number] Care Team Providers Care Soft Metals Engraver Hand Name Role Phone Nicole Rajput Primary Care Provider Constantine Orantes Unavailable [phone] Allergies Allergen (clinical drug ingredient) Drug/Non Drug [...] Inhalation every 4 hrs prn Active Ipratropium [place] 0.03 % 2 sprays in e ach [...] Orally Twice a day Active Vital Signs Blood pressure systolic 162 mm Hg 07/31/20 25 Blood pressure diastolic 78 mm Hg 025 Heart Rate 73 /min 07/31/2025 Height 64.50 in 07/31/2025 Weight 178.6 lbs 07/31/2025 BMI 30.18 kg/m2 07/31/2025 Encounters Encounter Location Date Provider Diagnosis [facility] [address] [place] [id number] 07/31/2025 Constantinekamran Orantes Anxiety F41.9 Assessments Encounter [...] Up: as scheduled,and prn, Reason: Provider Name:Nicole Razo er, 09/27/2025 02:45:00 PM, [address] [facility], [address], [place], [id number], Progress Notes * MARIE ROBERTOB:[birth year] (84 yo F)Acc No.[id number]:07/31/2025 Progress Notes Patient: YULI PANDEY Provider: Beatriz Orantes M.D. :1940 A ge:84 Y S ex:Female Date:07/31/2025 Address[place], [id number] Pcp:Nicole Rajput Subjective: * Chief Complaints: * [...] gamma globulinopathy-followed by Dr. Huang, EMG/ncv 10/29/2014, LIBRARY SCIENCE PROFESSOR-Dr. Lelia Mata, GI- Dr. Car, Dietary Aid- Dr. Bean, Opthalmology- Dr Liriano and Dr. Saeed. * Surgical History: R T Breast Cyst Removal , Colonoscopy 02/05/2006, 02/2011, 02/15/2011, Rectocoele [place] [facility], Dr. Lelia Mata 09/09/2007, Lithotripsy 03/2009, Hysterectomy [...] 's office, hit head on wall 01/19/2008, [facility], Dr. Car, ERCP 09/2008, Dr Knapp [...] meals and at bedtime) , Taking Ipratropium [place] 0.03 % Solution 2 sprays in each [...] * Images: Billing Information: * Visit Code: 93327 Office Visit, Est Pt., Level 3. * Procedure Codes: G2211 Complex e/m visit add on. * Electronic signature of Bethany Orantes MD on 09/14/2025 at 09:21 AM EDT Sign off status: Pending * Provider: Beatriz Orantes M.D. Date: 0 07/31/2025 Generated for Joanna garcia/Joshua/Kelseyitting on: 09:21 AM EDT History and Physical [...]
--- OUTSIDE RECORDS SUMMARY | 2025-08-05 11:15 | XMS_ITS ---
Author Organization [facility] [address] [facility] 36 [facility] [address] [place] [phone] Care Team Providers Care Leather Finisher Name Role Phone Nicole Rajput Primary Care Provider REASON FOR VISIT Allgery shot Medications Medication [...] a day; Duration: 90 days Active Ipratropium [place] 0.03 % 2 sprays in e ach [...] Status Risk Notes Problem Seasonal allergic rhinitis (780846675) Seasonal allergic rhinitis, unspecified trigger (J30.2) Active confirmed Encounters Encounter Location Date Provider Diagnosis [facility] [address] [place] [id number] 08/05/2025 Nicole Rajput Seasonal allergic rhinitis, unspecified trigger J30.2 Assessments Encounter Date Diagnosis (ICD Code) Assessment Notes Treatment Notes Treatment Clinical Notes Section Notes 08/05/2025 Seasonal allergic rhinitis, unspecified trigger (ICD-10 - J30.2) Plan Of Treatment Next Appt Details Provider Name:Nicole Razo er, 09/27/2025 02:45:00 PM, [address], [address], [place], [id number], Medications Administered Medication Instructions Date of Administration Dosage Notes allergy 08/05/2025 0.5 mL allergy 08/05/2025 0.5 mL allergy 08/05/2025 0.5 mL Progress Notes * LOPEZ MARIEB:[birth year] (84 yo F)Acc No.[id number]:08/05/2025 Patient: YULI PANDEY Provider: Nicole Rajput M.D. :1940 A ge:84 Y S ex:Female Date:08/05/2025 Address:[address] [place], [place] [address], [id number] Subjective: * Chief Complaints: * 1 . [...] meals and at bedtime) , Taking Ipratropium [place] 0.03 % Solution 2 sprays in each [...] Information: * Visit Code: * Procedure Codes: 52719 IMMUNOTHERAPY INJECTIONS. * Electronic signature of Nicole Rajput MD on 09/14/2025 at 09:22 AM EDT Sign off status: Pending * Provider: Nicole Rajput M.D. Date: 0 08/05/2025 Generated for Joanna garcia/Joshua/Kelseyitting on: 1 09:22 AM EDT
--- OUTSIDE RECORDS SUMMARY | 2025-08-13 05:45 | XMS_ITS ---
Author Organization [facility] Address [address] [place] [id number] Care Team Providers Care Brand Marketing Manager Name Role Phone Nicole Rajput Primary Care Provider Sarah Landa Unavailable [phone] Allergies Allergen (clinical drug ingredient) Drug/Non Drug [...] Coli Performing Lab: Notes/Report: Test performed by [facility] [address] [place] [address] , [address], [place] [address] Timo Parisi MD, Senior Talent Acquisition Specialist CLIA: [id number] Specimen Source Urine - Void Culture, Urine [...] a day; Duration: 90 days Active Ipratropium [place] 0.03 % 2 sprays in e ach [...] Orally twice a day Active Vital Signs Blood pressure systolic 120 mm Hg 08/13/20 25 Blood pressure diastolic 82 mm Hg 025 Heart Rate 76 /min 08/13/2025 Height 64.50 in 08/13/2025 Weight 178.8 lbs 08/13/2025 BMI 30.21 kg/m2 08/13/2025 Encounters Encounter Location Date Provider Diagnosis [facility] [facility] 36 [facility] [address] [place] [phone] 08/13/2025 Sarah Landa Dysuria R30.0 Assessments Encounter [...] Provider Name:Nicole Razo er, 09/27/2025 02:45:00 PM, [facility] 36 [facility], [address], [place], [phone], Progress Notes * MARIE ROBERTOB:[birth year] (84 yo F)Acc No.[id number]:08/13/2025 Progress Notes Patient: YULI PANDEY Provider: MARISOL Skelton :1940 A ge:84 Y S ex:Female Date:08/13/2025 Address:[address] [place], [place] [address] [id number] Pcp:Nicole Rajput Subjective: * Chief Complaints: * [...] gamma globulinopathy-followed by Dr. Huang, EMG/ncv 10/29/2014, STUDENT ADMISSIONS CLERK-Dr. Lelia Mata, GI- Dr. Car, Simonizer- Dr. Bean, Opthalmology- Dr Liriano and Dr. [...] 's office, hit head on wall 01/19/2008, [facility], Dr. Car, ERCP 09/2008, Dr Knapp Knee injections , COVID-19 11/13/2020-11/21/2020. * Family History: F ather: , CHF. M other: 89 yrs, breast Ca, auto immune hepatitis. S iblings: [place], liver [place]. 2 brother(s) , 1 sister(s) [...] meals and at bedtime) , Taking Ipratropium [place] 0.03 % Solution 2 sprays in each [...] G 2211 Complex e/[place], [address] Urinalysis, no micro * Follow Up: v ia phone to report test results * Images: Billing Information: * Visit Code: 84641 Office Visit, Est Pt., Level 3. * Procedure Codes: G2211 Complex e/[place]. [address] Urinalysis, no micro. * Electronic signature of MARISOL Zhu on 09/14/2025 at 09:24 AM EDT Sign off status: Pending * Provider: MARISOL Skelton Date: 0 08/13/2025 Generated for Printi ng/Faxing/eTransmitting on: 1 09:24 AM EDT History and Physical Notes * [...]
--- OUTSIDE RECORDS SUMMARY | 2025-08-19 07:15 | XMS_ITS ---
Author Organization [facility] Address [address] [place] [id number] Care Team Providers Care Knitter Operator Name Role Phone Nicole Rajput Primary Care Provider [phone] Sarah Landa Unavailable [phone] Allergies Allergen (clinical drug ingredient) Drug/Non Drug [...] Growth Performing Lab: Notes/Report: Test performed by [employer] [employer] [address] [place] [address] , [address], [place] [address] Timo Parisi MD, Land Manager CLIA: [id number] Specimen Source Urine - Void Culture, Urine [...] Inhalation every 4 hrs prn Active Ipratropium [place] 0.03 % 2 sprays in e ach [...] - as directed Orally Active Vital Signs Blood pressure systolic 120 mm Hg 08/19/20 25 Blood pressure diastolic 70 mm Hg 025 Heart Rate 67 /min 08/19/2025 Height 64.50 in 08/19/2025 Weight 180.4 lbs 08/19/2025 BMI 30.48 kg/m2 08/19/2025 Encounters Encounter Location Date Provider Diagnosis [facility] 36 [facility] [address] [place] [id number] 08/19/2025 Sarah Landa Dysuria R30.0 Assessments Encounter [...] Name:Nicole Razo , 09/27/2025 02:45:00 PM, [address] [facility] 36 [facility], [address], [place], [place], [phone], Progress Notes * MARIE LOPEZB:[birth year] (84 yo F)Acc No.[id number]:08/19/2025 Progress Notes Patient: YULI PANDEY Provider: MARISOL Skelton :1940 A ge:84 Y S ex:Female Date:08/19/2025 Address:[address], [id number] Pcp:Nicole Rajput Subjective: * Chief Complaints: * [...] gamma globulinopathy-followed by Dr. Huang, EMG/ncv 10/29/2014, PLUG MAKER-Dr. Lelia Mata, GI- Dr. Car, College Administrator- Dr. Bean, Opthalmology- Dr Liriano and Dr. [...] breast Ca, auto immune hepatitis. S iblings: [place], liver [place]. 2 brother(s) , 1 sister(s) [...] meals and at bedtime) , Taking Ipratropium [place] 0.03 % Solution 2 sprays in each [...] G 2211 Complex e/[place], [address] Urinalysis, no micro * Follow Up: v ia phone to report test results * Images: Billing Information: * Visit Code: 70461 Office Visit, Est Pt., Level 3. * Procedure Codes: G2211 Complex e/[place]. [address] Urinalysis, no micro. * Electronic signature of MARISOL Zhu on 09/14/2025 at 09:21 AM EDT Sign off status: Pending * Provider: MARISOL Skelton Date: 1 Generated for Joanna garcia/Joshua/eTransmitting on: 09:21 AM EDT History and Physical [...]
--- OUTSIDE RECORDS SUMMARY | 2025-08-23 07:30 | XMS_ITS ---
[facility] Address [address] [facility] [address] [place] [id number] Care Team Providers Care Tile Trimmer Name Role Phone Nicole Rajput Primary Care [...] Unknown Drug Allergy Active REASON FOR VISIT 2 week f/u and Allergy injection Medications Medication SIG (Take, Route, Frequency, Duration) Notes Start Date End Date Status Symbicort 160-4.5 MCG/ACT 2 puff(s) Inha lation 2 times a day; Duration: 30 days J45.41 Active Losartan Potassium 100 MG 1 tablet Orall y Once a day; Duration: 90 days Active Omeprazole [...] as needed; Duration: 30 days 07/05/2025 Active Sucralfate 1 GM 1 tab(s) orally 4 times a day (before meals and at bedtime); Duration: 30 day(s) Active Albuterol Sulfate HFA 108 (9 0 Base) MCG/ACT 1 puff as needed Inhalation every 4 hrs prn Active Ipratropium [place] 0.03 % 2 sprays in e ach nostril Nasally Twice a day Active Levothyroxine Sodium 75 MCG 1 tab(s) ora lly once a day; Duration: 90 days Active Trintellix 5 MG 1 tablet Orally Once a day Active MiraLax - 17 G ORALLY TWICE DAILY; Duration: 90 DAYS 05/07/2016 Active Fluticasone Propionate 50 MCG/ACT 1 spray(s) in each nostril once a day; Duration: 30 day(s) 01/04/2021 Active Vitamin D3 50 MCG (2000 UT) 1 tab(s) ora lly once a day Active Align 4 MG 1 cap(s) orally once a day; Duration: 28 day(s) 10/10/2022 Active Ascorbic Acid 500 MG 1 tab(s) orally onc e a day Active Glucosamine Chond Triple/Vit D - as directed Orally Active Estradiol 0.1 MG/GM as directed Vaginal Active VOLTAREN GEL APPLIED TOPICALLY QI D NEEDED 06/15/2015 Active Aspirin Adult Low Dose 81 MG 1 tab(s) or ally once a day; Duration: 30 day(s) 04/01/2023 Active B-12 1000 MCG 1 tab(s) orally once a day 05/04/2014 Active Methenamine Hippurate 1 GM 1/2 tablet Or ally Twice a day Active Restasis 0.05 % 1 drop into affected eye Ophthalmic Twice a day Active Calcium 600 MG 1 tablet with meals Orally Twice a day Active Hydroxychloroquine Sulfate 2 00 MG as directed Orally twice a day Active Problems Problem Type SNOMED Code ICD Code Onset Dates Problem Status W/U Status Risk Notes Problem Allergic rhinitis ([id number]) Allergic rhinitis, unspecified seasonality, unspecified trigger (J30.9) Active confirmed Vital Signs Blood pressure systolic 142 mm Hg 08/23/20 25 Blood pressure diastolic 70 mm Hg 025 Heart Rate 81 /min 08/23/2025 Height 64.50 in 08/23/2025 Weight 182.5 lbs 08/23/2025 BMI 30.84 kg/m2 08/23/2025 Encounters Encounter Location Date Provider Diagnosis [facility] 36 [facility] [address] [place] [id number] 08/23/2025 Nicole Rajput Anxiety F41.9 ; Dysuria R30.0 and Allergic rhinitis, unspecified seasonality, unspecified trigger J30.9 Assessments Encounter Date Diagnosis (ICD Code) Assessment Notes Treatment Notes Treatment Clinical Notes Section Notes 08/23/2025 Anxiety (ICD-10 - F41.9) 08/23/2025 Dysuria (ICD-10 - R30.0) Stop Cefuroxime 08/23/2025 Allergic rhinitis, unspecified seasonality, unspecified trigger (ICD-10 - J30.9) Plan Of Treatment Medication Medication Name Sig Start Date Stop Date Notes Trintellix 5 MG 1 tablet Orally Once a day Treatment Notes Assessment Notes Dysuria Stop Cefuroxime Next Appt Details Follow Up: 4 Weeks, Reason: Provider Name:Nicole Razo er, 09/27/2025 02:45:00 PM, [address] [facility] 36 [facility], [address], [place], [phone], Medications Administered Medication Instructions Date of Administration Dosage Notes allergy 08/23/2025 0.5 mL Mix 1: RT Uppe r allergy 08/23/2025 0.5 mL Mix 2: RT Lowe r allergy 08/23/2025 0.5 mL Mix 3: LT Arm Progress Notes * MARIE ROBERTOB:[birth year] (84 yo F)Acc No.[id number]:08/23/2025 Progress Notes Patient: YULI PANDEY Provider: Nicole Rajput M.D. :1940 A ge:84 Y S ex:Female Date:08/23/2025 Address:[address] [id number] Subjective: * Chief Complaints: * 1 . 2 week f/u and Allergy injection. * HPI: P sychology: The pt is here for a follow-up on Anxiety. Pt states she went to [facility] and they put her on Trintellix 5 mg daily and that has helped with the anxiety. U rology: See note. Sarah started Cefuroxime. Took dose this AM. Culture was negative so she can discontinue. Saw Dr. Pedersen this morning. * ROS: C ONSTITUTIONAL: Positive for A nother physician seen since last visit? Yes, Behavioral [facility], Sarah PARKER, Dr. Pedersen this AM. Change in medication since last visit? Yes, trintellix, Cefuroxime. Are you taking antibiotics? Yes, Cefuroxime, took dose this AM. Are you taking steroids? No. D ERMATOLOGY: no R ej. n o H fidel. G ASTROENTEROLOGY: no N ausea. n o V omiting. n o D iarrhea.? U ROLOGY: no D ifficulty urinating. n o B lood in urine. 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 Lelia Mata, GI- Dr. Car, Ledge Man- Dr. Bean, Opthalmology- Dr Liriano and Dr. Saeed. * Surgical History: R T Breast Cyst Removal , Colonoscopy 02/05/2006, 02/2011, 02/15/2011, Rectocoele [facility], Dr. Lelia Mata 09/09/2007, Lithotripsy 03/2009, Hysterectomy Abdominal 08/23/2009, colonoscopy, Dr. Car, 4 tubular adenomas, 1 hyperplastic polyp 03/13/2011, Cholecystectomy 11/19/2013, EGD and Colonoscopy, Dr. Car 09/2013, Colonoscopy Dr. Car, adenomatous polyp 12/31/2016, Dexa scan 2015, Mammogram 11/2016, lasix eye surgery 10/17/2018, Basal cell CA of the nose, with reconstructive surgery, Dr. Annette Rojas 03/2022, Colonoscopy, diverticulosis 08/19/2025. * Hospitalization/Major Diagno stic Procedure: erin Villegas, tripped at 's office, hit head on wall 01/19/2008, [facility], Dr. Car, ERCP 09/2008, Dr Knapp Knee injections , COVID-19 11/13/2020-11/21/2020. * Family History: F ather: , CHF. M other: 89 yrs, breast Ca, auto immune hepatitis. S iblings: [place], liver [place]. 2 brother(s) , 1 sister(s) . 1 son(s) , 1 daughter(s) . . * Social History: C URRENT TOBACCO USE: No S moking Status: Patient does NOT smoke. C affeine: no. Marital Status: . Past smoking status: no, Smoking status: Does not smoke, Former Smoker: Yes, Quit smokin's, Smoking pack year history: 1. Alcohol: no. * Medications: T aking Methenamine Hippurate 1 GM Tablet 1/2 tablet Orally Twice a day , Taking Trintellix 5 MG Tablet 1 tablet Orally [...] meals and at bedtime) , Taking Ipratropium [place] 0.03 % Solution 2 sprays in each [...] needed for nausea or vomiting , Taking Losartan Potassium 100 MG Tablet 1 tablet Orally Once a day , Taking Symbicort 160-4.5 MCG/ACT Aerosol 2 puff(s) Inhalation 2 times a day , Notes to Pharmacist: J45.41, Discontinued Desvenlafaxine Succinate ER 25 MG Tablet Extended Release 24 Hour 1 tablet Orally Once a day , Discontinued Cefdinir 300 MG Capsule 1 cap(s) Orally Two times a day , Discontinued Cefuroxime Axetil 250 MG Tablet 1 tablet Orally every 12 hrs , Medication List reviewed and reconciled with the patient * Allergies: S ulfa Antibiotics, Macrobid: nausea, Cipro: heel pain, levoFLOXacin: leg pain, difficulty walking. Objective: * Vitals: W t: 182.5, Temp: 97.8, BP: 142/70, HR: 81, O2 Sat: 96% on RA, Nurse: ARNAUD, Ht: 64.50, BMI:30.84. * Examination: G eneral Examination: General Appearance: [...] A nxiety - F41.9 (Primary) 2 . D ysuria - R30.0 3 . A llergic rhinitis, unspecified seasonality, unspecified trigger - J30.9 Plan: * Treatment: 2. D ysuria Notes: Stop Cefuroxime * Therapeutic Injections: allergy : 0.5 mL (Route: Subcutaneous) given by Meghana Abebe on subcutaneus (Allergic rhinitis, unspecified seasonality, unspecified trigger) allergy : 0.5 mL (Route: Subcutaneous) given by Meghana Abebe on subcutaneus allergy : 0.5 mL (Route: Subcutaneous) given by Meghana Abebe on subcutaneus (Allergic rhinitis, unspecified seasonality, unspecified trigger) * Procedure Codes: G 2211 Complex e/[place], [address] IMMUNOTHERAPY INJECTIONS * Follow Up: 4 Weeks * Images: Billing Information: * Visit Code: 85676 Office Visit, Est Pt., Level 3. Modifiers: 25 * Procedure Codes: G2211 Complex e/[place]. [address] IMMUNOTHERAPY INJECTIONS. * Electronic signature of Nicole Rajput MD on 09/14/2025 at 09:23 AM EDT Sign off status: Pending * Provider: Nicole Rajput M.D. Date: Generated for Joanna garcia/Joshua/Mai on: 09:23 AM EDT History and Physical Notes * [...]
--- OUTSIDE RECORDS SUMMARY | 2025-09-14 09:24 | XMS_ITS | Clinical Summary ---
Author Organization Healthcare Address [address] [place] [address] Care Team Providers Care Cigarette And Filter Chief Inspector Name Role Phone Steven Rajput MD Primary Care Provider [phone] Ramona Loya APRN Unavailable [phone] Allergies Active Allergy Reactions Criticality Noted [...] (2 of 2 - PCV) 06/25/2020 06/25/2019 [id number] Vaccine (3 - Pfizer risk series) 08/30/2021 [...] patient's age to complete this topic Insurance [facility] GABY RUFFIN [id number] [facility] MEDICARE Care Teams Cigarette And Filter Chief Inspector Relationship Specialty Start Date End Date Steven Rajput MD [address] [facility] [address] [place] [address] PCP - General 03/31/21 Ramona Loya, LEENA [address] [place] [address] [phone] Nurse Practitioner Internal Medicine 01/05/22
--- OUTSIDE RECORDS SUMMARY | 2025-09-14 09:24 | XMS_ITS | Patient Health Record ---
[facility] Address [address] [facility] [address] [place] [id number] Care Team Providers Care Chief Console Operator Name Role Phone Nicole Rajput Primary Care Provider [phone] Stephen Uribe Unavailable [phone] Constantine Orantes Unavailable [phone] Priscilla Fernandez Unavailable [phone] Sarah Landa Unavailable [phone] Allergies Allergen (clinical drug ingredient) Drug/Non Drug [...] Growth Performing Lab: Notes/Report: Test performed by [employer], [employer] [facility] [place] [facility] , [address], [place] [address] Timo Parisi MD, Manager Of Program CLIA: [id number] Specimen Source Urine - Void Culture, Urine See Below Final Report : No growth Bone density Reviewed date:07/09/2025 05:43:05 PM Interpretation:osteopenia bilateral hips Performing Lab: Notes/Report: osteopenia bilateral hips P-TSH Reviewed date:05/31/2025 03:52:39 PM Interpretation:Normal Performing Lab: Notes/Report: Test performed by [email or web address] [address] , [address], [place] [address] Timo Parisi MD, Manager Of Program CLIA: [id number] TSH 1.79 0.43-5.25 mU/L P-Comprehensive Metabolic Pa kendra (CMP) Reviewed date:05/31/2025 03:52:02 PM Interpretation:Normal Performing Lab: Notes/Report: Test performed by [email or web address] [address] , [address], [place] [address] Timo Parisi MD, Manager Of Program CLIA: [id number] Sodium 138 135-145 mmol/L Potassium 4.3 3.5-5.3 [...] 0.2 <0.2-1.2 mg/dL A/G Ratio 1.6 1.1-2.5 P-Basic Metabolic Panel (BMP ) Reviewed date:12/26/2024 01:35:08 PM Interpretation:gluc 125 Performing Lab: Notes/Report: Test performed by [email or web address] [address] , [address], [place] [address] Timo Parisi MD, Manager Of Program CLIA: [id number] Sodium 144 135-145 mmol/L Potassium 4.0 3.5-5.3 mmol/L Chloride 105 97-108 mmol/L CO2 28 22-32 mmol/L Glucose 125 65-99 mg/dL BUN 22 8-23 mg/dL Creatinine 0.58 0.50-1.00 mg/dL Calcium 9.3 8.6-10.4 mg/dL eGFR by Creatinine 90 >59 mL/min/1.73m2 Gram Stain Reviewed date:11/06/2024 08:30:27 AM Interpretation: Performing Lab: Notes/Report: Test performed by [employer] [address] [place] [address] , [address], [place] [address] Timo Parisi MD, Manager Of Program CLIA: [id number] Specimen Source Sputum - cough Gram Stain [...] Oral pharyngeal contamination Culture cancelled. Please repeat. CBC Fingerstick (in house) Reviewed date:10/28/2024 12:11:40 [...] - 38 plat 325 100 - 400 P-Culture, Urine Reviewed date:08/17/2025 11:01:35 AM Interpretation:E. Coli Performing Lab: Notes/Report: Test performed by [employer] [address] [place] [address] , [address], [place] [address] Timo Parisi MD, Manager Of Program CLIA: [id number] Specimen Source Urine - Void Culture, Urine [...] 1.015 Ketone neg Bili neg Gluc neg CXR Reviewed date:11/05/2024 09:18:52 AM Interpretation: Performing Lab: Notes/Report: P-Culture, Respiratory Reviewed date:11/06/2024 08:30:18 AM Interpretation: [...] 38 plat 415 100 - 400 P-Culture, Urine Reviewed date:10/13/2024 11:49:58 AM Interpretation:sensitive Performing Lab: Notes/Report: Test performed by [employer], [address] , [address], [place] [address] Timo Parisi MD, Manager Of Program CLIA: [id number] Specimen Source Urine - Void Culture, Urine [...] S=SUSCEPTIBLE I=INTERMEDIATE R=RESISTANT Urinalysis - Inhouse Reviewed date:10/09/2024 12:23:21 PM Interpretation: Performing Lab: Notes/Report: Color/Clarity yellow/clear Leuk 1+ Nitrite Neg Urobili 3.2 Protein 1+ pH 5.5 Blood trace-lysed Sp. Gr. <1.005 Ketone Neg Bili Neg Gluc Neg Influenza Screen (in house) Reviewed date:10/23/2024 10:20:53 [...] AM Interpretation: Performing Lab: Notes/Report: Result: Neg CXR Reviewed date:12/01/2024 12:27:28 PM Interpretation:possible pneumonia Performing Lab: Notes/Report: possible pneumonia CBC Fingerstick (in house) Reviewed date:04/21/2025 06:58:38 [...] - 38 plat 375 100 - 400 X ray : Foot, left Reviewed date:06/22/2025 [...] 0.5 0.0-0.4 K/mm3 BA# 0.1 0-0.2 K/mm3 Carotid Duplex Reviewed date:06/18/2025 12:36:46 PM Interpretation:carotid stenosis less than 50%- see 06/18/2025 Performing Lab: Notes/Report: carotid stenosis less than 50%- see 06/18/2025 H-Sputum Culture with Gram Lilibeth sanchez Reviewed date:11/09/2024 04:45:54 PM Interpretation: Performing Lab: Notes/Report: GS Gram Stain: GS <10 Epithelial Cells / LPF GS 10 - 25 White Blood Cells / LPF GS Rare Gram Positive Cocci in Chains CUSPU Normal Respiratory Nancy Medications Medication SIG (Take, Route, Frequency, Duration) [...] 1 tablet Orally Once a day Active Fluticasone Propionate 50 MCG/ACT 1 spray(s) in each nostril once a day; Duration: 30 day(s) 01/04/2021 Active Levothyroxine Sodium 75 MCG 1 tab(s) ora lly once a day; Duration: 90 days Active Metoprolol [...] as directed Orally twice a day Active Azelastine-Fluticasone 137-5 0 MCG/ACT 1 spray in each nostril Nasally Twice a day; Duration: 30 days 09/03/2025 Active Sucralfate 1 GM 1 tab(s) orally 4 times a day (before meals and at bedtime); Duration: 30 day(s) Active Albuterol Sulfate HFA 108 (9 0 Base) MCG/ACT 1 puff as needed Inhalation every 4 hrs prn Active Ipratropium [place] 0.03 % 2 sprays in e ach nostril Nasally Twice a day Active Omeprazole 40 MG 1 capsule 1/2 to 1 hour before morning meal Orally Once a day; Duration: 90 days Active Immunizations [...] xFluzone High Dose-private (65yr&older) Unknown 09/07/2016 Administered wOjghyla-eiarmfhxm-vioaqvk e pts. IM Intramuscular 10/17/2011 Administered Problems Problem Type SNOMED Code ICD Code Onset Dates Problem Status W/U Status Risk Notes Problem Gastroesophageal reflux disease (343667003) GERD (gastroesophageal reflux disease) (K21.9) Active confirmed Problem History of pulmonary embolus (519527308) History of pulmonary embolism (Z86.711) Active confirmed Problem Hypothyroidism (22760461) Hypothyroidism (acquired) (E03.9) Active confirmed Problem Vitamin D deficiency (22505090) Vitamin D deficiency (E55.9) Active confirmed Problem Essential hypertension (30140904) Essential hypertension (I10) Active confirmed Problem Arthropathy (125336358) Arthropathy (M12.9) Active confirmed Problem Anxiety (57866252) Anxiety (F41.9) Active confi rmed Problem Dysuria (94794157) Dysuria (R30.0) Active confi rmed Problem Cardiomegaly (7493495) Cardiomegaly (I51.7) Active confirmed Problem Recurrent urinary tract infection (419832672) Recurrent UTI (N39.0) Active confirmed Problem Body mass index 30+ - obesity (301092321) BMI 30.0-30.9,adult (Z68.30) Active confirmed Problem History of urinary tract infection (4823861874418) History of UTI (Z87.440) Active confirmed Problem Restless legs (08185416) Restless legs (G25.81) Active confirmed Problem Seasonal allergic rhinitis (587008917) Other seasonal allergic rhinitis (J30.2) Active confirmed Problem Basal cell carcinoma of nose (512155091) Basal cell carcinoma of skin of nose (C44.311) Active confirmed Problem Monoclonal gammopathy (50969896) Monoclonal gammopathy (D47.2) Active confirmed Problem Neoplastic disease of uncertain behavior (104999868) Neoplasm of uncertain behavior, unspecified (D48.9) Active confirmed Problem Mixed hyperlipidemia (912764399) Mixed hyperlipidemia (E78.2) Active confirmed Problem Chronic pain (44334951) Other chronic pain (G89.29) Active confirmed Problem Localized, primary osteoarthritis of the hand (365827303) Primary osteoarthritis, right hand (M19.041) Active confirmed Problem Localized, primary osteoarthritis of the hand (967530763) Primary osteoarthritis, left hand (M19.042) Active confirmed Problem Gastroesophageal reflux disease (200342236) GERD without esophagitis (K21.9) Active confirmed Problem Major depression, single episode (57376016) Depression, controlled (F32.9) Active confirmed Problem Generalized anxiety disorder (95995914) Anxiety, generalized (F41.1) Active confirmed Problem Bronchitis (81482972) Bronchitis (J40) Active confirmed Problem Dermatitis (024710650) Dermatitis (L30.9) Active confirmed Problem Mild intermittent asthma (510468495) Mild intermittent asthma without complication (J45.20) Active confirmed Problem Herpes zoster without complication (326853623) Herpes zoster without complication (B02.9) Active confirmed Problem Rheumatoid arthritis (18211251) 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) Active confirmed Problem Occlusion and stenosis of multiple and bilateral cerebral arteries (167964258) Carotid stenosis, bilateral (I65.23) Active confirmed Problem Abnormal gait (98257921) Imbalance (R26.89) Active confirmed Problem Thrombocytosis (9296073) Thrombocytosis (D47.3) Active confirmed Problem Dependence on supplemental oxygen (653853619818) Oxygen dependent (Z99.81) Active confirmed Problem Adverse reaction caused by drug (42942003) Medication side effect (T88.7XXA) Active confirmed Problem History of malignant basal cell tumor of skin (820285583) History of basal cell carcinoma (Z85.828) Active confirmed Problem Bilateral carpal tunnel syndrome (84991745604137017) Bilateral carpal tunnel syndrome (G56.03) Active confirmed Problem Urge incontinence of urine (20441237) Urge incontinence of urine (N39.41) Active confirmed Problem Basal cell carcinoma of skin (212928860) Skin cancer, basal cell (C44.91) Active confirmed Problem Exacerbation of moderate persistent asthma (disorder) (461660817) Moderate persistent asthmatic bronchitis with acute exacerbation (J45.41) Active confirmed Problem Seasonal allergic rhinitis (119484810) Seasonal allergic rhinitis, unspecified trigger (J30.2) Active confirmed Problem Allergic rhinitis (14110073) Allergic rhinitis, unspecified seasonality, unspecified trigger (J30.9) Active confirmed Problem Single subsegmental pulmonary embolism without acute cor pulmonale (I26.93) Active confirmed Problem Multiple subsegmental pulmonary emboli without acute cor pulmonale (I26.94) Active confirmed Problem History of COVID-19 (736136928000246680 ) History of COVID-19 (Z86.16) Active confirmed Problem Long-term current use of anticoagulant (602629357) Current use of anticoagulant therapy (Z79.01) Active confirmed Problem Cough (93072903) Cough (R05.9) Active confirmed Problem Mild major depression (05203595) Mild major depression (F32.0) Active confirmed Vital Signs Heart Rate 81 /min 08/23/2025 Blood pressure diastolic 70 mm Hg 08/23/2025 Height 64.50 in 08/23/2025 Blood pressure systolic 142 mm Hg 08/23/2025 Weight 182.5 lbs 08/23/2025 BMI 30.84 kg/m2 08/23/2025 Encounters Encounter Location Date Provider Diagnosis [facility] [address] [place] [id number] 09/14/2024 Priscilla Fernandez Fall as cause of accidental injury in home as place of occurrence W19.XXXA and Joint pain M25.50 [facility] [address] [place], [place] [id number] 10/09/2024 Nicole Rajput Recurrent UTI N39.0 ; Hypothyroidism (acquired) E03.9 and Anxiety F41.9 [facility] [address] [place], [place] [id number] 10/22/2024 Nicole Rajput Essential hypertensi on I10 and Bronchitis J40 [facility] [address] [place], [place] [id number] 10/27/2024 Priscilla Fernandez Bronchitis J40 [facility] [address] [place], [place] [id number] 11/04/2024 Sarah Crowdy Bronchitis J40 and Bilateral rales R09.89 [facility] [address] [place], [place] [id number] 11/30/2024 Nicole Rajput Persistent cough R05 .3 [facility] [address] [place], [place] [id number] 12/11/2024 Nicole Rajput Pneumonia of right l sergio due to infectious organism, unspecified part of lung J18.9 [facility] [address] [place], [place] [id number] 12/24/2024 Nicole Rajput Localized edema R60. 0 ; 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 M05.741 and Arthropathy M12.9 [facility] [address] [place], [place] [id number] 12/25/2024 Nicole Rajput [facility] [address] [place] [id number] 01/21/2025 Nicole Rajput 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 M05.741 ; Arthropathy M12.9 and Medication side effect T88.7XXA [facility] [address] [place], [place] [id number] 03/04/2025 Nicole Rajput Essential hypertensi on I10 ; Mild intermittent asthma without complication J45.20 ; Anxiety F41.9 ; Arthropathy M12.9 ; History of pulmonary embolism Z86.711 ; Bilateral carpal tunnel syndrome G56.03 ; Hypothyroidism (acquired) E03.9 ; BMI 30.0-30.9,adult Z68.30 and Mild major depression F32.0 [facility] [address] [facility] [address] [place], [place] [id number] 03/25/2025 Sarah Crowdy Essential hypertensi on I10 ; Status post carpal tunnel release of both wrists Z98.890 and BMI 29.0-29.9,adult Z68.29 [facility] [address] [facility] [address] [place], [place] [id number] 04/01/2025 Sarah Crowdy Essential hypertensi on I10 [facility] [address] [facility] [address] [place], [place] [id number] 04/15/2025 Sarah Crowdy Essential hypertensi on I10 [facility] [address] [facility] [address] [place] [id number] 04/20/2025 Priscilla Fernandez Acute bronchitis J20 .9 [facility] [address] [facility] [address] [place] [id number] 04/29/2025 Nicole Rajput Anxiety F41.9 ; Righ t carotid bruit R09.89 and Essential hypertension I10 [facility] [address] [facility] [address] [place], [place] [id number] 05/05/2025 Sarah Crowdy Anxiety F41.9 and Essential hypertension I10 [facility] [address] [facility] [address] [place] [id number] 05/07/2025 Nicole Rajput [facility] [address] [facility] [address] [place] [id number] 05/10/2025 Nicole Rajput [facility] [address] [facility] [address] [place] [id number] 05/12/2025 Sarah Crowshon Anxiety F41.9 and Essential hypertension I10 [facility] [address] [facility] [address] [place] [id number] 05/19/2025 Sarah Crowdy Anxiety F41.9 [facility] [address] [place], [place] [id number] 05/27/2025 Nicole Rajput Anxiety F41.9 ; Hypothyroidism (acquired) E03.9 ; History of pulmonary embolism Z86.711 ; Current use of anticoagulant therapy Z79.01 ; Mild major depression F32.0 and Other seasonal allergic rhinitis J30.2 [facility] [address] [place], [place] [id number] 06/11/2025 Sarah Crowdy Anxiety F41.9 [facility] [address] [facility] [address] [place] [id number] 06/18/2025 Nicole Rajput Anxiety, generalized F41.1 ; Essential hypertension I10 ; Sprain of left foot, initial encounter S93.602A and Moderate persistent asthmatic bronchitis with acute exacerbation J45.41 [facility] [address] [facility] [address] [place] [id number] 06/21/2025 Nicole Rajput [facility] [address] [facility] [address] [place], [place] [id number] 06/24/2025 Nicole Rajput Essential hypertensi on I10 ; Anxiety F41.9 ; Depression, controlled F32.9 ; 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 M05.741 ; Arthropathy M12.9 and Sprain of left foot, subsequent encounter S93.602D [facility] [address] [facility] [address] [place], [place] [id number] 07/05/2025 Nicole Rajput Primary osteoarthrit is, right hand M19.041 ; Anxiety, generalized F41.1 and History of pulmonary embolism Z86.711 [facility] [address] [place], [place] [id number] 07/12/2025 Nicole Rajput Anxiety, generalized F41.1 ; Tremor R25.1 and BMI 29.0-29.9,adult Z68.29 [facility] [address] [place], [place] [id number] 07/22/2025 Nicole Rajput Anxiety F41.9 and Allergic rhinitis 477.9 [facility] [address] [place] [id number] 07/31/2025 Constantine [place] Anxiety F41.9 [facility] [address] [place] [id number] 08/05/2025 Nicole Rajput Seasonal allergic rhinitis, unspecified trigger J30.2 [facility] [address] [place] [id number] 08/13/2025 Sarah Crowdy Dysuria R30.0 [facility] [address] [place] [id number] 08/19/2025 Sarah Crowdy Dysuria R30.0 [facility] [address] [place] [id number] 08/23/2025 Nicole Rajput Anxiety F41.9 ; Dysu janie R30.0 and Allergic rhinitis, unspecified seasonality, unspecified trigger J30.9 [facility] [address] [place] [id number] 09/09/2025 Nicole Rajput [facility] [address] [place] [id number] 10/20/2024 Nicole Rajput [facility] [address] [place], [place] [id number] 11/02/2024 Priscilla Friedmanond [facility] [address] [place] [id number] 11/05/2024 Sarah Crowdy [facility] [address] [place] [id number] 11/06/2024 Sarah Crowdy Pneumonia J18.9 [facility] [address] [place] [id number] 11/09/2024 Nicole Rajput Bronchitis J40 [facility] [address] [place] [id number] 11/13/2024 Nicole Rajput [facility] [address] [place] [id number] 11/17/2024 Stephen Uribe [facility] [address] [place] [id number] 11/17/2024 J Low Rajput [facility] [address] [place] [id number] 11/24/2024 Priscilla Fernandez [facility] [address] [place] [id number] 12/01/2024 J Low Rajput [facility] [address] [place] [id number] 12/14/2024 J Low Rajput [facility] [address] [place] [id number] 12/26/2024 J Low Rajput [facility] [address] [place] [id number] 01/07/2025 J Low Rajput Anxiety F41.9 [facility] [address] [place] [id number] 01/22/2025 J Low Rajput [facility] [address] [place] [id number] 03/08/2025 J Low Rajput [facility] [address] [place] [id number] 04/07/2025 Constantine [place] Anxiety F41.9 [facility] [address] [place] [id number] 04/14/2025 J Low Rajput [facility] [address] [place] [id number] 04/20/2025 J Low Rajput [facility] [address] [place] [id number] 04/25/2025 J Low Rajput Osteopenia M85.80 an d Osteoporosis screening Z13.820 [facility] [address] [place] [id number] 05/03/2025 J Low Rajput [facility] [address] [place] [id number] 05/07/2025 J Low Rajput Anxiety F41.9 [facility] [address] [place] [id number] 05/07/2025 Sarah Benitezdy [facility] [address] [place] [id number] 05/12/2025 J Low Rajput Localized edema R60. 0 [facility] [address] [place] [id number] 05/19/2025 J Low Rajput [facility] [address] [place] [id number] 06/02/2025 J Low Rajput [facility] [address] [place] [id number] 06/07/2025 J Low Rajput [facility] [address] [place] [id number] 06/08/2025 J Low Rajput Anxiety F41.9 [facility] [address] [place] [id number] 06/15/2025 J Low Rajput [facility] [address] [place] [id number] 06/28/2025 J Low Rajput [facility] [address] [place] [id number] 07/02/2025 J Low Rajput [facility] [address] [place] [id number] 07/06/2025 J Low Rajput [facility] [address] [place] [id number] 07/08/2025 J Low Rajput [facility] [address] [place] [id number] 07/09/2025 Sarah Landa [facility] [address] [place] [id number] 07/09/2025 Sarah Crowdy [facility] [address] [place], [place] [id number] 07/26/2025 Nicole REDMONDA[facility] [address] [place], [place] [id number] 08/03/2025 Nicole REDMONDA[facility] [address] [place], [place] [id number] 09/03/2025 Nicole REDMONDA[facility] [address] [place], [place] [id number] 09/07/2025 Nicole Rajput [facility] [address] [facility] [address] [place], [place] [id number] 09/10/2025 Nicole Rajput Assessments Encounter Date Diagnosis (ICD Code) Assessment Notes Treatment Notes Treatment Clinical Notes Section Notes 09/14/2024 Joint pain (ICD-10 - M25.50) 09/14/2024 [...] F41.1) 06/24/2025 Essential hypertension (ICD-10 - I10) 07/05/2025 Primary osteoarthritis, right hand (ICD-10 - M19.041) 07/05/2025 Anxiety, generalized (ICD-10 - F41.1) 07/22/2025 Allergic rhinitis (ICD-10 - 477.9) 07/22/2025 Anxiety (ICD-10 - F41.9) 07/31/2025 Anxiety (ICD-10 - F41.9) No change in treatment today, keep follow up with Dr. Rajput 08/05/2025 Seasonal allergic rhinitis, unspecified trigger (ICD-10 - J30.2) 08/13/2025 Dysuria (ICD-10 - R30.0) 08/19/2025 Dysuria (ICD-10 - R30.0) 08/23/2025 Anxiety (ICD-10 - F41.9) 08/23/2025 Dysuria (ICD-10 - R30.0) Stop Cefuroxime 06/24/2025 Anxiety (ICD-10 - F41.9) TRY TO DECREASE Alprazolam to 1/2 AM, 1/2 Noon, 1 PM 07/12/2025 Tremor (ICD-10 - R25.1) 07/12/2025 Anxiety, generalized (ICD-10 - F41.1) continue present dosing 07/12/2025 BMI 29.0-29.9,adult (ICD-10 - Z68.29) 05/27/2025 Hypothyroidism (acquired) (ICD-10 - E03.9) 07/05/2025 History of pulmonary embolism (ICD-10 - Z86.711) 06/24/2025 Depression, controlled (ICD-10 - F32.9) 08/23/2025 Allergic rhinitis, unspecified seasonality, unspecified trigger (ICD-10 - J30.9) 06/18/2025 Sprain of left foot, initial encounter [...] - F41.9) 03/04/2025 Arthropathy (ICD-10 - M12.9) 05/27/2025 History of pulmonary embolism (ICD-10 - Z86.711) 06/18/2025 Moderate persistent asthmatic bronchitis with acute exacerbation (ICD-10 - J45.41) 06/24/2025 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 (ICD-10 - M05.741) 06/24/2025 Arthropathy (ICD-10 - M12.9) 05/27/2025 Current use of anticoagulant therapy (ICD-10 - Z79.01) 03/04/2025 History of pulmonary embolism (ICD-10 - Z86.711) 05/27/2025 Mild major depression (ICD-10 - F32.0) [...] [address], [place], [place], [id number], Insurance Providers Payer Name Payer Address Payer Phone Subscriber Number Group Number Insured Name Patient Relationship to Insured Coverage Start Date Coverage End Date [employer] (MEDICAR E) [address] [address] [place] [address] [phone] [id number] YULI ROBERTO Self - patient is the [...] 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 Lelia SNEED- Dr. Car Shift Lab Technician- Dr. Bean Opthalmology- Dr Liriano and Dr. Saeed Surgical History Surgery Date(Month/Year) RT Breast Cyst Removal Colonoscopy 02/05/2006, 02/2011, 02/15/2011 Rectocoele [facility], Dr. Lelia villeda 09/09/2007 Lithotripsy 03/2009 Hysterectomy Abdominal 08/23/2009 colonoscopy, Dr. Car, 4 tubular adenomas, 1 hyperplastic polyp 03/13/2011 Cholecystectomy 11/19/2013 EGD and Colonoscopy, Dr. Car 09/[address] Car, adenomatous madyson yp 12/31/2016 Dexa scan 2016 Mammogram 11/2016 lasix eye surgery 10/17/2018 Basal cell CA of the nose, w [facility] reconstructive surgery, Dr. Annette Rojas 03/2022 Colonoscopy, diverticulosis 08/19/2025 Hospitalization History Reason Date(Month/Year) COVID-19 11/13/2020- 1 Dr Knapp Knee injections [facility], Dr. Car, ERCP 09/2008 [facility], tripped at 's office , hit head on wall 01/19/2008
== END 2025-09-12 23:59 ==
LOC: LAB.DROPOF 09-14 09:14
PROVIDERS: PCP Nurse Practitioner; Visit Provider Nurse Practitioner
DX: N39.0 Urinary tract infection, site not specified (principal)
CPT/HCPCS: 87086; 87088; 87186